=== PATIENT | male | born 1960 | race Caucasian/White ===

== ENCOUNTER 2022-04-23 12:54 | Inpatient (IN) ==
[2022-04-23 14:04] LABS: Basophils # (auto) 0.06 K/uL (0-0.2); Basophils % (auto) 1.7 %; Eosinophils # (auto) 0.02 K/uL (0-0.50); Eosinophils % (auto) 0.6 %; Hematocrit (blood only) 28.3 % (42.0-52.0); Hemoglobin 9.7 g/dl (14.0-18.0); Immature Granulocytes # (auto) 0.01 K/uL (0.01-0.20); Immature Granulocytes % (auto) 0.3 %; Lymphocytes # (auto) 0.75 K/uL (1.2-3.4); Lymphocytes % (auto) 21.4 %; Mean Corpuscular Hgb Conc 34.3 g/dL (32.0-36.0); Mean Corpuscular Volume 102.2 fL (80.0-100.0); Mean Platelet Volume 10.6 fL (9.4-12.4); Monocytes % (auto) 5.7 %; Neutrophils # (auto) 2.47 K/uL (1.40-6.50); Neutrophils % (auto) 70.3 %; Platelet Count 151 K/uL (130-400); RDW Coefficient of Variation 15.4 % (11.5-14.5); RDW Standard Deviation 58.4 fL (36.4-46.3); Red Blood Count 2.77 M/uL (4.70-6.10); White Blood Count 3.51 K/ul (4.8-10.8)
[2022-04-23 14:08] LABS: Albumin Globulin Ratio 0.6 (0.9-2); BUN Creatinine Ratio 2.1 (10-20); Bilirubin,Total 1.3 mg/dl (0.2-1.0); Calcium 8.6 mg/dl (8.5-10.1); Creatinine Clr Calc Pharmacy 16.2 ml/min; Est GFR (African American) 11.7 ml/min; Est GFR (Non-African American) 10.1 ml/min; Globulin 4.9 gm/dl (2.5-4.0); Potassium 3.8 mmol/L (3.5-5.1); Total Protein 7.9 gm/dl (6.0-8.3)
[2022-04-23 14:13] LABS: Troponin I High Sensitivity 13.3 pg/ml (0-20)
--- NOTE | 2022-04-23 15:26 | Emergency Department Note ---
Impression & Plan ESRD on dialysis, Hypertension, Weakness, Anemia, Hip pain ED Provider Note NAME: KYLER BOONE AGE: 61 SEX: M : 1960 ARRIVES VIA: Walk-In INFORMANT: Patient, ED PROVIDER(S): Bret Mccarthy DO CHIEF COMPLAINT: Generalized weakness HPI: The patient is a 61-year-old male who presented to the emergency department for an evaluation of generalized weakness. The patient has a history of end- stage renal disease. He has been on dialysis for the last 3 years. He was in dialysis yesterday when he became very weak and his blood pressure dropped. He was told to go to the emergency department but unfortunately patient cannot go to the emergency department until today. His blood pressure is no longer low. He denies having any fever or vomiting. He denies having any chest pain or difficulty breathing but does complain of leg swelling as well as hip pain. He denies having any trauma. He denies having any recent visits to his family doctor. He recently moved to our area and has never been in our facility before. ROS: See above HPI for pertinent positives & negatives. A total of 10 systems reviewed and were otherwise negative. PAST MEDICAL HISTORY: See Below PAST SURGICAL HISTORY: See Below FAMILY HISTORY: See Below SOCIAL HISTORY: See Below HOME MEDICATIONS: See Below ALLERGIES: See Below VITALS: See Below PHYSICAL EXAMINATION: GENERAL: Patient is awake alert in no acute distress patient is resting comfortably and showing no signs of anxiety EYES: The conjunctivae are clear. The pupils are round and reactive. EARS, NOSE, MOUTH AND THROAT: The nose is without any evidence of any deformity. Mucous membranes are moist. Tongue is midline. NECK: The neck is nontender and supple. RESPIRATORY: Diminished breath sounds are noted at the bases. There is no tachypnea or conversational dyspnea. CARDIOVASCULAR: Regular rate and rhythm noted there no murmurs rubs or gallops normal S1 normal S2. GASTROINTESTINAL: The abdomen is soft. Abdomen is nontender. MUSCULOSKELETAL/EXTREMITIES: There is no evidence of gross deformity full range of motion is noted in the hips and shoulders. SKIN: Pedal edema was noted bilaterally. Skin was warm and dry. There is no obvious evidence of any rash. There are no petechiae, pallor or cyanosis noted. NEUROLOGIC: Patient is awake alert and oriented x3. There is no facial droop. Speech was clear. The patient was able to hold each leg off the bed for greater than 5 seconds. MEDICAL DECISION MAKING: The patient is a 61-year-old male who has a history of end-stage renal disease who presented to the emergency department for low blood pressure. Reportedly the patient had low blood pressure while he was at dialysis yesterday. He was advised to go to the emergency department but he did not go to the emergency department until today. The patient has been feeling weak. He had lower extremity swelling and also complained of left hip pain which had been ongoing for quite some time. The patient's history of renal disease made some work-up limited but because of the hypotension a septic work-up was undertaken. He was found to have an elevation in his lactate. He was not given a fluid bolus because of his history of end-stage renal disease. I discussed the patient's laboratory and radiographic studies with him. I do not feel that there was any fluid around the hip based on the CT I do not feel this is workforce services representative of a septic joint. I discussed the patient's condition with the on-call [facility] hospitalist. Given his findings as well as his presentation I am unsure if the patient is stable for an outpatient follow-up at this time. Triage Nursing notes reviewed. Prior medical records reviewed Vital Signs: reviewed and remarkable for elevated blood pressure. Differential diagnosis: Infection, dehydration, metabolic abnormality, hypo/hyperglycemia, electrolyte disturbance, anemia, hypoxia, cardiac sources, intracerebral event, toxicologic, neurologic, as well as other pathologies. ER treatment provided: See below Diagnostics interpreted by me: ECG: EKG was obtained in the emergency department. My interpretation is sinus rhythm at 82 bpm. PVCs were noted. Nonspecific ST segment depressions were noted. No previous EKG was available for comparison. Cardiac Monitoring: An order was placed for continuous cardiac monitoring. The monitor shows a rate of 74 bpm with sinus rhythm. Laboratory studies: As stated above and show below. Imaging studies: See below. Radiographic imaging was reviewed by myself Consultation(s): I discussed this case with Trisha gómez who is on-call for the [facility]. Past Med/Surg History Medical History Dialysis patient End stage renal disease Hypertension Paroxysmal A-fib s/p cardioversion, no further reoccurrence PUD (peptic ulcer disease) Surgical History No significant past surgical history Social History Smoking Status: Never smoker Tobacco Type: Smokeless Tobacco (Dip or Chew) Hx Alcohol Use: Yes Feels Safe at Home: Yes Allergies Allergies Allergy/AdvReac Type Severity Reaction Status Date / Time Iv contrast dye AdvReac contraindicated Uncoded 04/23/22 18:40 for dialysis Home Meds Home Medications Medication Instructions Recorded Confirmed alprazolam 0.5 mg tablet 0.5 mg PO TID PRN Anxiety 04/23/22 04/23/22 amlodipine 5 mg tablet 5 mg PO DAILY 04/23/22 04/23/22 buprenorphine 8 mg-naloxone 2 mg 1 film sublingual DIRECTED PRN 04/23/22 04/23/22 sublingual film .. clonidine HCl 0.1 mg tablet 0.1 mg PO BID 04/23/22 04/23/22 lidocaine-prilocaine 2.5 %-2.5 % 1 applic topical DIRECTED 04/23/22 04/23/22 topical cream pantoprazole 40 mg tablet,delayed 40 mg PO BID 04/23/22 04/23/22 release sertraline 50 mg tablet 100 mg PO DAILY 04/23/22 04/23/22 thiamine HCl (vitamin B1) 100 mg 100 mg PO DAILY 04/23/22 04/23/22 tablet (Vitamin B-1) vitamin B complex and vitamin C 1 cap PO DAILY 04/23/22 04/23/22 no.20-folic acid 1 mg capsule (Lul Caps) zolpidem 5 mg tablet 5 mg PO HS PRN Insomnia 04/23/22 04/23/22 Results & Data (ED) Vital Signs Vital Signs - 24 hr 04/23/22 13:06 04/23/22 15:00 04/23/22 15:00 Temperature 36.0 C L Temperature Source Skin Pulse Rate 82 84 Pulse Rate [Apical] 90 Pulse Rhythm Pulse Rhythm [Apical] Regular Pulse Strength [Apical] Normal Respiratory Rate 20 18 18 Respiratory Effort / Characteristics Non-Labored Spontaneous Non-Labored Spontaneous Respiratory Depth Normal Normal Respiratory Pattern Regular Blood Pressure 125/78 Blood Pressure [Left Arm] 204/96 H Blood Pressure Mean 93 Blood Pressure Mean [Left Arm] 132 Blood Pressure Position [Left Arm] Sitting Pulse Oximetry 100 100 99 Oxygen Delivery Method Room Air Room Air Sepsis Recent Fever Within 48 Hours No Sepsis New/Unexplained Change in Mental Status N/A Sepsis Action Taken by Nursing No Action Required 04/23/22 15:00 04/23/22 15:04 04/23/22 15:49 Temperature Temperature Source Pulse Rate 89 79 Pulse Rate [Apical] 82 Pulse Rhythm Regular Pulse Rhythm [Apical] Regular Pulse Strength [Apical] Normal Respiratory Rate 18 18 Respiratory Effort / Characteristics Non-Labored Spontaneous Respiratory Depth Normal Respiratory Pattern Regular Blood Pressure Blood Pressure [Left Arm] 204/96 H Blood Pressure Mean Blood Pressure Mean [Left Arm] 132 Blood Pressure Position [Left Arm] Pulse Oximetry 100 100 Oxygen Delivery Method Room Air Room Air Sepsis Recent Fever Within 48 Hours Sepsis New/Unexplained Change in Mental Status Sepsis Action Taken by Nursing 04/23/22 16:34 04/23/22 18:30 04/23/22 19:00 Temperature Temperature Source Pulse Rate Pulse Rate [Apical] 89 80 80 Pulse Rhythm Pulse Rhythm [Apical] Regular Regular Regular Pulse Strength [Apical] Normal Normal Normal Respiratory Rate 19 18 18 Respiratory Effort / Characteristics Non-Labored Spontaneous Non-Labored Spontaneous Non-Labored Spontaneous Respiratory Depth Normal Normal Normal Respiratory Pattern Regular Regular Regular Blood Pressure Blood Pressure [Left Arm] 153/74 H 154/76 H 138/82 Blood Pressure Mean Blood Pressure Mean [Left Arm] 100 102 100 Blood Pressure Position [Left Arm] Sitting Sitting Pulse Oximetry 99 100 97 Oxygen Delivery Method Room Air Room Air Room Air Sepsis Recent Fever Within 48 Hours Sepsis New/Unexplained Change in Mental Status Sepsis Action Taken by Nursing 04/23/22 20:14 04/23/22 20:00 04/23/22 20:30 Temperature Temperature Source Pulse Rate 77 Pulse Rate [Apical] 75 74 Pulse Rhythm Pulse Rhythm [Apical] Regular Regular Pulse Strength [Apical] Normal Normal Respiratory Rate 20 20 Respiratory Effort / Characteristics Non-Labored Spontaneous Non-Labored Spontaneous Respiratory Depth Normal Normal Respiratory Pattern Regular Blood Pressure Blood Pressure [Left Arm] 123/65 130/78 Blood Pressure Mean Blood Pressure Mean [Left Arm] 84 95 Blood Pressure Position [Left Arm] Sitting Sitting Pulse Oximetry 95 96 Oxygen Delivery Method Room Air Room Air Sepsis Recent Fever Within 48 Hours Sepsis New/Unexplained Change in Mental Status Sepsis Action Taken by Alf Medications Current Medication List: was personally reviewed by tx Laboratory Data Attestation: I reviewed the patient's lab results. 04/23/22 13:19 04/23/22 13:19 Lab Results 04/23/22 04/23/22 04/23/22 Range/Units 13:19 13:19 15:27 WBC 3.51 L (4.8-10.8) K/ul RBC 2.77 L (4.70-6.10) M/uL Hgb 9.7 L (14.0-18.0) g/dl Hct 28.3 L (42.0-52.0) % MCV 102.2 H (80.0-100.0) fL MCH 35.0 H (25.0-34.0) pg MCHC 34.3 (32.0-36.0) g/dL RDW Std Deviation 58.4 H (36.4-46.3) fL RDW Coeff of Valerie 15.4 H (11.5-14.5) % Plt Count 151 (130-400) K/uL MPV 10.6 (9.4-12.4) fL Immature Gran % (Auto) 0.3 % Neut % (Auto) 70.3 % Lymph % (Auto) 21.4 % [place] % (Auto) 5.7 % Eos % (Auto) 0.6 % Baso % (Auto) 1.7 % Neut # (Auto) 2.47 (1.40-6.50) K/uL Lymph # (Auto) 0.75 L (1.2-3.4) K/uL [place] # (Auto) 0.20 (0.11-0.59) K/uL Eos # (Auto) 0.02 (0-0.50) K/uL Baso # (Auto) 0.06 (0-0.2) K/uL Immature Gran # (Auto) 0.01 (0.01-0.20) K/uL ESR (0-20) mm/hr PT 11.5 (9.0-12.0) Seconds INR 1.1 (0.9-1.1) APTT 25.6 (21.0-31.0) Seconds PTT Ratio 0.9 Sodium 132 L (136-145) mmol/L Potassium 3.8 (3.5-5.1) mmol/L Chloride 91 L (98-107) mmol/L Carbon Dioxide 28 (21-32) mmol/L Anion Gap 13 H (3-11) BUN 12 (6-23) mg/dl Creatinine 5.65 H* (0.6-1.4) mg/dl Est Cr Clr Drug Dosing 16.2 ml/min Est GFR ( Amer) 11.7 ml/min Est GFR (Non-Af Amer) 10.1 ml/min BUN/Creatinine Ratio 2.1 L (10-20) Glucose 95 (70-99(Fasting)) mg/dl Lactate (0.4-2.0) mmol/L Calcium 8.6 (8.5-10.1) mg/dl Magnesium (1.7-2.4) mg/dl Total Bilirubin 1.3 H (0.2-1.0) mg/dl AST 73 H (13-39) U/L ALT 25 (7-52) U/L Alkaline Phosphatase 233 H (34-104) U/L Troponin I High Sens 13.3 (0-20) pg/ml C-Reactive Protein (0-0.5) mg/dl Total Protein 7.9 (6.0-8.3) gm/dl Albumin 3.0 L (3.4-5.0) gm/dl Globulin 4.9 H (2.5-4.0) gm/dl Albumin/Globulin Ratio 0.6 L (0.9-2) Procalcitonin (0-0.5) ng/ml SARS-CoV-2, RNA, NAAT (NEGATIVE) 04/23/22 04/23/22 04/23/22 Range/Units 15:27 15:27 15:27 WBC (4.8-10.8) K/ul RBC (4.70-6.10) M/uL Hgb (14.0-18.0) g/dl Hct (42.0-52.0) % MCV (80.0-100.0) fL MCH (25.0-34.0) pg MCHC (32.0-36.0) g/dL RDW Std Deviation (36.4-46.3) fL RDW Coeff of Valerie (11.5-14.5) % Plt Count (130-400) K/uL MPV (9.4-12.4) fL Immature Gran % (Auto) % Neut % (Auto) % Lymph % (Auto) % [place] % (Auto) % Eos % (Auto) % Baso % (Auto) % Neut # (Auto) (1.40-6.50) K/uL Lymph # (Auto) (1.2-3.4) K/uL [place] # (Auto) (0.11-0.59) K/uL Eos # (Auto) (0-0.50) K/uL Baso # (Auto) (0-0.2) K/uL Immature Gran # (Auto) (0.01-0.20) K/uL ESR (0-20) mm/hr PT (9.0-12.0) Seconds INR (0.9-1.1) APTT (21.0-31.0) Seconds PTT Ratio Sodium (136-145) mmol/L Potassium (3.5-5.1) mmol/L Chloride (98-107) mmol/L Carbon Dioxide (21-32) mmol/L Anion Gap (3-11) BUN (6-23) mg/dl Creatinine (0.6-1.4) mg/dl Est Cr Clr Drug Dosing ml/min Est GFR ( Amer) ml/min Est GFR (Non-Af Amer) ml/min BUN/Creatinine Ratio (10-20) Glucose (70-99(Fasting)) mg/dl Lactate 2.9 H* (0.4-2.0) mmol/L Calcium (8.5-10.1) mg/dl Magnesium 1.6 L (1.7-2.4) mg/dl Total Bilirubin (0.2-1.0) mg/dl AST (13-39) U/L ALT (7-52) U/L Alkaline Phosphatase (34-104) U/L Troponin I High Sens 12.3 (0-20) pg/ml C-Reactive Protein (0-0.5) mg/dl Total Protein (6.0-8.3) gm/dl Albumin (3.4-5.0) gm/dl Globulin (2.5-4.0) gm/dl Albumin/Globulin Ratio (0.9-2) Procalcitonin 1.20 H (0-0.5) ng/ml SARS-CoV-2, RNA, NAAT (NEGATIVE) 04/23/22 04/23/22 04/23/22 Range/Units 15:27 15:27 17:08 WBC (4.8-10.8) K/ul RBC (4.70-6.10) M/uL Hgb (14.0-18.0) g/dl Hct (42.0-52.0) % MCV (80.0-100.0) fL MCH (25.0-34.0) pg MCHC (32.0-36.0) g/dL RDW Std Deviation (36.4-46.3) fL RDW Coeff of Valerie (11.5-14.5) % Plt Count (130-400) K/uL MPV (9.4-12.4) fL Immature Gran % (Auto) % Neut % (Auto) % Lymph % (Auto) % [place] % (Auto) % Eos % (Auto) % Baso % (Auto) % Neut # (Auto) (1.40-6.50) K/uL Lymph # (Auto) (1.2-3.4) K/uL [place] # (Auto) (0.11-0.59) K/uL Eos # (Auto) (0-0.50) K/uL Baso # (Auto) (0-0.2) K/uL Immature Gran # (Auto) (0.01-0.20) K/uL ESR 62 H (0-20) mm/hr PT (9.0-12.0) Seconds INR (0.9-1.1) APTT (21.0-31.0) Seconds PTT Ratio Sodium (136-145) mmol/L Potassium (3.5-5.1) mmol/L Chloride (98-107) mmol/L Carbon Dioxide (21-32) mmol/L Anion Gap (3-11) BUN (6-23) mg/dl Creatinine (0.6-1.4) mg/dl Est Cr Clr Drug Dosing ml/min Est GFR ( Amer) ml/min Est GFR (Non-Af Amer) ml/min BUN/Creatinine Ratio (10-20) Glucose (70-99(Fasting)) mg/dl Lactate (0.4-2.0) mmol/L Calcium (8.5-10.1) mg/dl Magnesium (1.7-2.4) mg/dl Total Bilirubin (0.2-1.0) mg/dl AST (13-39) U/L ALT (7-52) U/L Alkaline Phosphatase (34-104) U/L Troponin I High Sens (0-20) pg/ml C-Reactive Protein < 0.50 (0-0.5) mg/dl Total Protein (6.0-8.3) gm/dl Albumin (3.4-5.0) gm/dl Globulin (2.5-4.0) gm/dl Albumin/Globulin Ratio (0.9-2) Procalcitonin (0-0.5) ng/ml SARS-CoV-2, RNA, NAAT NEGATIVE (NEGATIVE) 04/23/22 Range/Units 17:45 WBC (4.8-10.8) K/ul RBC (4.70-6.10) M/uL Hgb (14.0-18.0) g/dl Hct (42.0-52.0) % MCV (80.0-100.0) fL MCH (25.0-34.0) pg MCHC (32.0-36.0) g/dL RDW Std Deviation (36.4-46.3) fL RDW Coeff of Valerie (11.5-14.5) % Plt Count (130-400) K/uL MPV (9.4-12.4) fL Immature Gran % (Auto) % Neut % (Auto) % Lymph % (Auto) % [place] % (Auto) % Eos % (Auto) % Baso % (Auto) % Neut # (Auto) (1.40-6.50) K/uL Lymph # (Auto) (1.2-3.4) K/uL [place] # (Auto) (0.11-0.59) K/uL Eos # (Auto) (0-0.50) K/uL Baso # (Auto) (0-0.2) K/uL Immature Gran # (Auto) (0.01-0.20) K/uL ESR (0-20) mm/hr PT (9.0-12.0) Seconds INR (0.9-1.1) APTT (21.0-31.0) Seconds PTT Ratio Sodium (136-145) mmol/L Potassium (3.5-5.1) mmol/L Chloride (98-107) mmol/L Carbon Dioxide (21-32) mmol/L Anion Gap (3-11) BUN (6-23) mg/dl Creatinine (0.6-1.4) mg/dl Est Cr Clr Drug Dosing ml/min Est GFR ( Amer) ml/min Est GFR (Non-Af Amer) ml/min BUN/Creatinine Ratio (10-20) Glucose (70-99(Fasting)) mg/dl Lactate 1.6 (0.4-2.0) mmol/L Calcium (8.5-10.1) mg/dl Magnesium (1.7-2.4) mg/dl Total Bilirubin (0.2-1.0) mg/dl AST (13-39) U/L ALT (7-52) U/L Alkaline Phosphatase (34-104) U/L Troponin I High Sens (0-20) pg/ml C-Reactive Protein (0-0.5) mg/dl Total Protein (6.0-8.3) gm/dl Albumin (3.4-5.0) gm/dl Globulin (2.5-4.0) gm/dl Albumin/Globulin Ratio (0.9-2) Procalcitonin (0-0.5) ng/ml SARS-CoV-2, RNA, NAAT (NEGATIVE) Administered Medications Discontinued Medications Ceftriaxone Sodium (Rocephin) 2,000 mg in 70 mls @ 140 mls/hr IV NOW STA Stop: 04/23/22 17:35 Last Infusion: 04/23/22 18:20 Dose: 0 mls/hr Documented By: Admin: 04/23/22 17:39 Dose: 140 mls/hr Documented By: LONI Vancomycin HCl 2,000 mg/ (Sodium Chloride) 540 mls @ 200 mls/hr IV NOW ONE Stop: 04/23/22 19:47 Last Admin: 04/23/22 18:25 Dose: 200 mls/hr Documented By: LONI Sodium Chloride (Nss 1000ml) 500 mls @ 999 mls/hr IV .Q31M ONE Stop: 04/23/22 17:38 Last Infusion: 04/23/22 20:06 Dose: 0 mls/hr Documented By: Admin: 04/23/22 17:39 Dose: 999 mls/hr Documented By: LONI Magnesium Sulfate/Dextrose (Magnesium Sulfate / D5w) 1 gm in 100 mls @ 50 mls/hr IV ONE ONE Stop: 04/23/22 20:41 Last Admin: 04/23/22 19:56 Dose: 50 mls/hr Documented By: LONI Imaging Data Attestation: I personally reviewed and interpreted this imaging study as follows: My Impression: 1 view chest x-ray was obtained in the emergency department. My interpretation is no definite infiltrate, no free air, formal report below Radiologist's Impression: Chest X-Ray 04/23/22 13:10 XR chest 1V not portable HISTORY: weakness COMPARISON: None. FINDINGS: No pneumothorax. No pleural effusions. The lungs are clear. The heart is normal in size. Right subclavian stent is noted. Old, healed left anterior rib fractures. IMPRESSION: No acute process. ACT 112: Negative or not required by law. Electronically signed by: Jason Knapp M.D. 04/23/2022 3:[address] 04/23/22 15:[address] DOSE: 764.83 mGy.cm HISTORY: Left hip pain TECHNIQUE: Multiaxial CT images of the left hip were performed and reformatted in the sagittal and coronal plane without the use of contrast. A dose lowering technique was utilized adhering to the principles of ALARA. COMPARISON: None. FINDINGS: No fracture or dislocation within the left hip. The visualized pelvic bones are intact. There is mild cartilage space narrowing and small marginal osteophytes at the left hip consistent with degenerative change. No significant hip effusion. No soft tissue hematoma or significant soft tissue swelling. Vascular calcifications are noted. IMPRESSION: 1. Mild left hip osteoarthritis. 2. No fracture or dislocation. ACT 112: Negative or not required by law. Electronically signed by: Jason Knapp M.D. 04/23/2022 4:42 PM Liver Ultrasound 04/23/22 18:42 US liver CLINICAL HISTORY: elevated LFTs COMPARISON STUDY: No previous studies for comparison. FINDINGS: Hepatic echogenicity is significantly increased. No hepatic lesions are identified although this exam is compromised by suboptimal penetration. There is no biliary ductal dilatation. Sludge within the gallbladder is noted. No gallstones are identified. There is no gallbladder wall thickening. No sonographic Still sign was elicited. Pancreas is obscured. Right kidney is largely obscured but no definite right hydronephrosis. IMPRESSION: 1. Hepatic steatosis. 2. Sludge within the gallbladder. No gallstones. No evidence for acute cholecystitis. 3. No definite biliary ductal dilatation. 4. Exam significantly compromised by suboptimal penetration. Obscured pancreas. ACT 112: Negative or not required by law. Electronically signed by: Jeremy Rosenbaum M.D. 04/23/2022 8:11 PM Discharge Plan Visit Data Chief Complaint: Hypotension Stated Complaint: DIALYSIS PT,HYPOTENSION ED Provider: Bret Mccarthy Discharge Problem: ESRD on dialysis, Hypertension, Weakness, Anemia, Hip pain Patient Disposition: Admitted As Inpatient Discharge Instructions Interventions: ED Discharge Assessment Last Done: 04/23/22 20:51 Forms Stand Alone Forms: [facility] Prescriptions Prescriptions: No Action clonidine HCl 0.1 mg tablet 0.1 mg PO BID amlodipine 5 mg tablet 5 mg PO DAILY lidocaine-prilocaine 2.5-2.5 % cream 1 applic topical DIRECTED Rx Instructions: 1 hr before dialysis alprazolam 0.5 mg tablet 0.5 mg PO TID PRN (Reason: Anxiety) pantoprazole 40 mg tablet,delayed release (DR/EC) 40 mg PO BID zolpidem 5 mg tablet 5 mg PO HS PRN (Reason: Insomnia) buprenorphine-naloxone 8-2 mg film 1 film sublingual DIRECTED PRN (Reason: ..) thiamine HCl (vitamin B1) [Vitamin B-1] 100 mg Tablet 100 mg PO DAILY [place] Caps 1 mg capsule 1 cap PO DAILY sertraline 50 mg tablet 100 mg PO DAILY Referrals Referrals: PCP,NO [Physician] -
--- NOTE | 2022-04-23 16:00 | XRay Report ---
XR chest 1V not portable HISTORY: weakness COMPARISON: None. FINDINGS: No pneumothorax. No pleural effusions. The lungs are clear. The heart is normal in size. Ri ght subclavian stent is noted. Old, healed left anterior rib fractures. IMPRESSION: No acute process. ACT 112: Negative or not required by law. Electronically signed by: Jason Knapp M.D. 04/23/2022 3:57 PM
[2022-04-23 16:05] LABS: Magnesium 1.6 mg/dl (1.7-2.4)
[2022-04-23 16:12] LABS: Troponin I High Sensitivity 12.3 pg/ml (0-20)
[2022-04-23 16:16] LABS: INR 1.1 (0.9-1.1); Partial Thromboplastin Ratio 0.9; Partial Thromboplastin Time 25.6 Seconds (21.0-31.0); Prothrombin Time 11.5 Seconds (9.0-12.0)
--- NOTE | 2022-04-23 16:43 | CT Scan Report ---
LEFT HIP CT CT DOSE: 764.83 mGy.cm HISTORY: Left hip pain TECHNIQUE: Multiaxial CT images of the left hip were performed and reformatted in the sagittal and co wero plane without the use of contrast. A dose lowering technique was utilized adhering to the prin ciples of JOVANA. COMPARISON: None. FINDINGS: No fracture or dislocation within the left hip. The visualized pelvic bones are intact. The re is mild cartilage space narrowing and small marginal osteophytes at the left hip consistent with d egenerative change. No significant hip effusion. No soft tissue hematoma or significant soft tissue s welling. Vascular calcifications are noted. IMPRESSION: 1. Mild left hip osteoarthritis. 2. No fracture or dislocation. ACT 112: Negative or not required by law. Electronically signed by: Jason Knapp M.D. 04/23/2022 4:42 PM
[2022-04-23] MEDS ORDERED: cefTRIAXone SODIUM 2,000 MG/70 ML BAG IV STA (17:06)
[2022-04-23] MEDS ORDERED: VANCOMYCIN HCL 2,000 MG in SODIUM CHLORIDE 0.9% 500 ML IV ONE (17:06)
[2022-04-23] MEDS ORDERED: VANCOMYCIN CONSULT ACTIVE PRN (17:06)
[2022-04-23] MEDS ORDERED: SODIUM CHLORIDE 0.9% 1000ML 500 ML IV ONE (17:08)
[2022-04-23] MEDS ORDERED: MAGNESIUM SULFATE / D5W 1 GM/100 ML BAG IV ONE (18:42)
--- NOTE | 2022-04-23 19:11 | History & Physical Report ---
Date of Service April 23, 2022 Assessment & Plan (1) Weakness: Plan: Admit to [facility] with telemetry Patient presenting by referral of senior process engineer at outpatient dialysis center for hypotension during yesterday's treatment. Patient has been asymptomatic and in the ED he is hypertensive with presenting BP 204/96. Patient mostly has chronic complaints -- worsening generalized weakness and left hip for the past few months and poor appetite more recently. Left hip CT shows mild arthritis. In the ED, labs show WBC 3.5K, ESR 62, CRP < 0.5, procal 1.2, initial lactate 2.9 --> 1.6. While these labs may suggest possible infection, the abnormalities may also be due to ESRD. Patient is afebrile without obvious source of infection. Blood cultures x 1 drawn, patient declined 2nd set due to difficult IV access s/p ceftriaxone and Vanco in the ED, however given lack of obvious infectious source, will monitor off antibiotics Follow blood culture. Patient makes minimal urine so unable to obtain UA. PT/OT (2) Elevated LFTs: Plan: Mild elevation in LFTs, T. bili 1.3, AST 73, ALT 25, alk phos 233 Check RUQ US (3) Anemia: Plan: Hgb 9.7 Macrocytosis noted, will check folate and vitamin B12 with a.m. labs Unknown baseline, PCP records requested Likely anemia of chronic disease in the setting of ESRD. No signs of bleeding. Patient does report a history of a bleeding ulcer about 1 year ago for which she required several blood transfusions. (4) ESRD on dialysis: Plan: Receives dialysis MWF Nephrology consulted for dialysis orders (5) Hypertension: Plan: Reportedly hypotensive during dialysis yesterday however hypertensive on presentation today Continue home doses of amlodipine and clonidine, making adjustments as needed (6) PUD (peptic ulcer disease): Plan: Continue PPI DVT PROPHYLAXIS SCDs due to reported history of bleeding ulcers I spent a total of 75 minutes coordinating, documenting, and providing care for this patient excluding time spent in the performance of separately billed services. This included personally reviewing all current laboratories and imaging studies, medication reconciliation, outpatient chart review, and discussion with specialists. History of Present Illness Chief Complaint: Referred by dialysis for evaluation of hypotension Primary Care Provider: Ammy Lucia 61-year-old male with PMH ESRD on HD MWF, HTN, PUD with bleeding, paroxysmal atrial fibrillation s/p cardioversion without recurrence, no longer anticoagulated, chronic pain on Suboxone therapy, and other problems listed below who presents to the ED by referral of outpatient dialysis center for evaluation of hypotension. History obtained from the patient. Patient reports that he just moved to the area about 3 months ago. He was at dialysis yesterday and was noted to have low blood pressure. Patient was asymptomatic. Glass Rolling Machine Operator advised the patient go to the ER for further evaluation however patient declined yesterday and decided to come today. Patient reports he has had progressive generalized weakness over the past several months. He has had a couple of falls over the past 2 weeks. He reports chronic left hip pain. Over the past few weeks, patient reports a poor appetite. Denies abdominal pain, nausea, vomiting, diarrhea. No significant weight loss or weight gain. Patient denies fevers and chills. He makes minimal urine. No chest pain or shortness of breath. Denies lightheadedness, dizziness, diaphoresis, syncopal events. Upon arrival to the ED, patient was hypertensive at 204/96, this is self improving. Labs show WBC 3.5, Hgb 9.7, initial lactate 2.9 with repeat 1.6, CRP <0.5, procalcitonin 1.2, ESR 62, creatinine 5.6, T. bili 1.3, AST 73, alk phos 233. CXR unremarkable. Left hip CT unremarkable. Patient was given IV ceftriaxone, IV Vanco, IVF. Allergies Allergy/AdvReac Type Severity Reaction Status Date / Time Iv contrast dye AdvReac contraindicated Uncoded 04/23/22 18:40 for dialysis Home Medications Medication Instructions Recorded Confirmed Type alprazolam 0.5 mg tablet 0.5 mg PO TID PRN Anxiety 04/23/22 04/23/22 History amlodipine 5 mg tablet 5 mg PO DAILY 04/23/22 04/23/22 History buprenorphine 8 mg-naloxone 2 mg 1 film sublingual DIRECTED PRN 04/23/22 04/23/22 History sublingual film .. clonidine HCl 0.1 mg tablet 0.1 mg PO BID 04/23/22 04/23/22 History lidocaine-prilocaine 2.5 %-2.5 % 1 applic topical DIRECTED 04/23/22 04/23/22 History topical cream pantoprazole 40 mg tablet,delayed 40 mg PO BID 04/23/22 04/23/22 History release sertraline 50 mg tablet 100 mg PO DAILY 04/23/22 04/23/22 History thiamine HCl (vitamin B1) 100 mg 100 mg PO DAILY 04/23/22 04/23/22 History tablet (Vitamin B-1) vitamin B complex and vitamin C 1 cap PO DAILY 04/23/22 04/23/22 History no.20-folic acid 1 mg capsule (Lul Caps) zolpidem 5 mg tablet 5 mg PO HS PRN Insomnia 04/23/22 04/23/22 History Past Med/Surg History Medical History Dialysis patient End stage renal disease Hypertension Paroxysmal A-fib s/p cardioversion, no further reoccurrence PUD (peptic ulcer disease) Surgical History No significant past surgical history Social History Smoking Status: Never smoker Tobacco Type: Smokeless Tobacco (Dip or Chew) Second Hand Exposure: No; Do You Dip or Chew Tobacco: Yes; Hx Alcohol Use: Yes Alcohol type: hard liquor Hx Substance Use: Yes Preferred Language: Albanian Communication Ability: Effective Underwriter Mortgage Loan Required: No Beliefs That Will Affect Care: None Current Living Situation: Spouse Other Information That Helps Us Care for You: No Feels Safe at Home: Yes Safety Concerns: Feels Safe At This Time Assistive Devices: Cane and Glasses Review of Systems Review of Systems: ROS per HPI, all other systems reviewed and negative Physical Exam Constitutional: WD/WN, vitals as above Eyes: PERRL, conjunctivae normal, anicteric sclerae ENMT: external ear and nose normal, oropharynx normal Respiratory: normal respiratory effort, lungs clear to auscultation Cardiovascular: Rate/Rhythm: regular rate and regular rhythm Vessels: normal peripheral pulses Extremities: + edema (+2 edema BLE) Gastrointestinal (Abdomen): normal bowel sounds, soft, nontender, no hepatosplenomegaly Musculoskeletal: no cyanosis or clubbing, extremities motor strength 5/5 Skin: no rashes, warm and dry Neurologic: PERRL, EOMI, accommodation nl, no face palsy, no dysarthria Psychiatric: A+Ox3, euthymic affect Results & Data Results & Data Vital Signs (Past 12 Hours) Vital Signs Temp Pulse Pulse Resp BP BP Pulse Ox 04/23/22 18:30 80 18 154/76 H 100 04/23/22 16:34 89 19 153/74 H 99 04/23/22 15:49 79 04/23/22 15:04 82 18 204/96 H 100 04/23/22 15:00 89 18 100 04/23/22 15:00 90 18 204/96 H 99 04/23/22 15:00 84 18 100 04/23/22 13:06 36.0 C L 82 20 125/78 100 O2 Del Method 04/23/22 18:30 Room Air 04/23/22 16:34 Room Air 04/23/22 15:49 04/23/22 15:04 Room Air 04/23/22 15:00 Room Air 04/23/22 15:00 04/23/22 15:00 Room Air 04/23/22 13:06 Room Air Laboratory Results Short CBC 04/23/22 Range/Units 13:19 WBC 3.51 L (4.8-10.8) K/ul Hgb 9.7 L (14.0-18.0) g/dl Hct 28.3 L (42.0-52.0) % Plt Count 151 (130-400) K/uL BMP 04/23/22 13:19 Sodium 132 L Potassium 3.8 Chloride 91 L Carbon Dioxide 28 BUN 12 Creatinine 5.65 H* Glucose 95 Calcium 8.6 Liver Function 04/23/22 Range/Units 13:19 Total Bilirubin 1.3 H (0.2-1.0) mg/dl AST 73 H (13-39) U/L ALT 25 (7-52) U/L Alkaline Phosphatase 233 H (34-104) U/L Albumin 3.0 L (3.4-5.0) gm/dl Diagnostic Findings Chest X-Ray 04/23/22 13:10 XR chest 1V not portable HISTORY: weakness COMPARISON: None. FINDINGS: No pneumothorax. No pleural effusions. The lungs are clear. The heart is normal in size. Right subclavian stent is noted. Old, healed left anterior rib fractures. IMPRESSION: No acute process. ACT 112: Negative or not required by law. Electronically signed by: Jason Knapp M.D. 04/23/2022 3:[address] 04/23/22 15:[address] DOSE: 764.83 mGy.cm HISTORY: Left hip pain TECHNIQUE: Multiaxial CT images of the left hip were performed and reformatted in the sagittal and coronal plane without the use of contrast. A dose lowering technique was utilized adhering to the principles of ALARA. COMPARISON: None. FINDINGS: No fracture or dislocation within the left hip. The visualized pelvic bones are intact. There is mild cartilage space narrowing and small marginal osteophytes at the left hip consistent with degenerative change. No significant hip effusion. No soft tissue hematoma or significant soft tissue swelling. Vascular calcifications are noted. IMPRESSION: 1. Mild left hip osteoarthritis. 2. No fracture or dislocation. ACT 112: Negative or not required by law. Electronically signed by: Jason Knapp M.D. 04/23/2022 4:42 PM Code Status & VTE Plan VTE Prophylaxis Plan VTE Prophylaxis will be ordered: Yes Supervising Physician Co-Signing Physician Notes Patient is a 61-year-old male with history of end-stage renal disease on hemodialysis, paroxysmal atrial fibrillation currently not on anticoagulation, Suboxone therapy and other medical problems presents for evaluation of hypotension. Patient was found to be hypotensive yesterday after the dialysis and was advised to go to ED for further evaluation but patient apparently presents to ED today for further evaluation. Patient states that his blood pressure medications were advised to be continued prior to dialysis as well by his current senior process engineer while his prior senior process engineer always recommended him to hold antihypertensives on days of dialysis. Patient also states having chronic hip pain which is unchanged. Please review HPI for complete details of presentation. He was found to have hypertensive urgency while in ED which later improved. Blood work suggestive WBC 3.5, hemoglobin 9.7, MCV 102, ESR 62, CRP normal, sodium 132, chloride 91, creatinine 5.6, lactate 2.9, rechecked 1.6, magnesium 1.6, procalcitonin 1.2. CT hip did not show any acute fractures, showed findings suggestive of arthritis. Chest x-ray showed no acute findings. EKG showed normal sinus rhythm, PACs, QTc 497. On exam patient is moderately built and nourished, no apparent distress, chronic ill-appearing, normocephalic atraumatic, EOMI, normal breath sounds, clear to auscultation, S1-S2,+ murmur,+ pedal edema, abdomen soft, nontender, normal bowel sounds, alert, awake, oriented, grossly no focal deficits. Patient is admitted for management of generalized weakness, hypertensive urgency and possible infectious source. Blood pressure improved while in ED. Will resume home antihypertensives. We will adjust medications as needed. No obvious source of infection noted. Currently will hold off on any antibiotics. Consulted nephrology to help with dialysis. I personally reviewed the record. Patient is interviewed and examined at bedside. Patient's care is coordinated with Trisha Brown CORPORATE DEVELOPMENT ANALYST. Please refer to the documentation above for details of patient's presentation and for discussion of other issues.
--- NOTE | 2022-04-23 20:12 | Ultrasound Report ---
US liver CLINICAL HISTORY: elevated LFTs COMPARISON STUDY: No previous studies for comparison. FINDINGS: Hepatic echogenicity is significantly increased. No hepatic lesions are identified although this exam is compromised by suboptimal penetration. There is no biliary ductal dilatation. Sludge wi thin the gallbladder is noted. No gallstones are identified. There is no gallbladder wall thickening. No sonographic Still sign was elicited. Pancreas is obscured. Right kidney is largely obscured but no definite right hydronephrosis. IMPRESSION: 1. Hepatic steatosis. 2. Sludge within the gallbladder. No gallstones. No evidence for acute cholecystitis. 3. No definite biliary ductal dilatation. 4. Exam significantly compromised by suboptimal penetration. Obscured pancreas. ACT 112: Negative or not required by law. Electronically signed by: Jeremy Rosenbaum M.D. 04/23/2022 8:11 PM
[2022-04-23] MEDS ORDERED: ACETAMINOPHEN 325 MG TAB PO PRN (21:42)
[2022-04-23] MEDS ORDERED: ZOLPIDEM TARTRATE 5 MG TAB PO STA (22:49)
[2022-04-23] MEDS: PANTOprazole 40 MG TAB PO SCH (23:23)
[2022-04-23] MEDS: cloNIDine HCL 0.1 MG TAB PO SCH (23:23)
[2022-04-23] MEDS: HEPARIN SOD 5,000 UNIT/0.5 ML VIAL SQ SCH (23:24)
[2022-04-24] MEDS: HEPARIN SOD 5,000 UNIT/0.5 ML VIAL SQ SCH ×3 (06:00→21:02)
[2022-04-24] MEDS ORDERED: LIDOCAINE/PRILOCAINE 2.5% EA CRM EXT PRN ×2 (07:53→10:00)
[2022-04-24] MEDS: SERTRALINE HCL 100 MG TABLET PO SCH (08:24)
[2022-04-24] MEDS: PANTOprazole 40 MG TAB PO SCH ×2 (08:24→20:40)
[2022-04-24] MEDS: THIAMINE HCL 100 MG TAB PO SCH (08:24)
[2022-04-24] MEDS: cloNIDine HCL 0.1 MG TAB PO SCH ×2 (08:24→20:40)
[2022-04-24] MEDS: NEPHROCAPS PO SCH (08:24)
[2022-04-24] MEDS: amLODIPine BESYLATE 5 MG TAB PO SCH (08:25)
[2022-04-24] MEDS ORDERED: diphenhydrAMINE Capsule 25 MG CAP PO SCH ×2 (10:00→10:30)
--- NOTE | 2022-04-24 10:00 | Nephrology Consultation ---
Date of Consultation April 24, 2022 Assessment & Plan (1) ESRD on dialysis: on MWF HD > last tx on 04/22 compromised per pt by hypotension. BP/hemodynamics/volume status seem acceptable so far -HD today or tomorrow depending on RN availability for dialysis care >pt requesting IV benadryl 50 mg w/ HD > not appropriate given concerns about hypotension; will give 25 mg po w/ HD w/ hold parameters >he has his own EMLA cream for HD >agree w/ blood culture given ESR 62; no obvious infection currently >> Patient tolerated 3.5 hours of hemodialysis today with 2 L ultrafiltration and maintained systolic blood pressures in the 100s during this procedure; Next hemodialysis on April 27 or as clinical needs dictate He expressed some dissatisfaction with current outpatient dialysis unit. Not sure how workable this would be for him in terms of transportation but he is more than welcome to consider transfer to [facility] as in center with possible consideration of future home dialysis. His current outpatient unit does not offer home dialysis. History of Present Illness Reason for Consultation: ESRD on HD Requesting Physician: Dr Robledo Attending Physician: Korin Velez MD History of Present Illness 61 y/o M whom I'm asked to see for dialysis needs was admitted last evening after his outpatient vault person recommended he have hospital eval for hypotension on dialysis. PMH includes ESRD on Wednesday hemodialysis via AV fistula, hypertension, peptic ulcer disease, paroxysmal atrial fibrillation status post cardioversion, chronic pain on Suboxone therapy, chronic ambulatory dysfunction walks with a cane since December 2021 due to left hip pain. He dialyzes at [facility]. Tells me he is not currently a transplant candidate. States ESRD due to rheumatic fever. Denies shortness of breath, orthopnea, cough, edema. No issues with AV fistula per him. He is anuric at baseline. No recent fevers, chills, rash, change in appetite or weight. Denies nausea vomiting diarrhea abdominal pain. He does endorse left hip pain and chronic challenges with balance with frequent falls. Allergies Allergy/AdvReac Type Severity Reaction Status Date / Time Iv contrast dye AdvReac contraindicated Uncoded 04/23/22 18:40 for dialysis Home Medications Medication Instructions Recorded Confirmed Type alprazolam 0.5 mg tablet 0.5 mg PO TID PRN Anxiety 04/23/22 04/23/22 History amlodipine 5 mg tablet 5 mg PO DAILY 04/23/22 04/23/22 History buprenorphine 8 mg-naloxone 2 mg 1 film sublingual DIRECTED PRN 04/23/22 04/23/22 History sublingual film .. clonidine HCl 0.1 mg tablet 0.1 mg PO BID 04/23/22 04/23/22 History lidocaine-prilocaine 2.5 %-2.5 % 1 applic topical DIRECTED 04/23/22 04/23/22 History topical cream pantoprazole 40 mg tablet,delayed 40 mg PO BID 04/23/22 04/23/22 History release sertraline 50 mg tablet 100 mg PO DAILY 04/23/22 04/23/22 History thiamine HCl (vitamin B1) 100 mg 100 mg PO DAILY 04/23/22 04/23/22 History tablet (Vitamin B-1) vitamin B complex and vitamin C 1 cap PO DAILY 04/23/22 04/23/22 History no.20-folic acid 1 mg capsule ([place] Caps) zolpidem 5 mg tablet 5 mg PO HS PRN Insomnia 04/23/22 04/23/22 History Patient History Medical History (Updated 04/24/22 @ 15:44 by Asha Stout MD, PhD) Ambulatory dysfunction Uses cane since December 2021 Anxiety Dialysis patient End stage renal disease Frequent falls History of chronic pain on suboxone; ? hx of opioid abuse Hypertension Paroxysmal A-fib s/p cardioversion, no further reoccurrence PUD (peptic ulcer disease) Rheumatic fever per patient cause of ESRD Surgical History (Updated 04/24/22 @ 10:01 by Asha Stout MD, PhD) AV fistula Social History Smoking Status: Never smoker Tobacco Type: Smokeless Tobacco (Dip or Chew) Second Hand Exposure: No; Do You Dip or Chew Tobacco: Yes; Hx Alcohol Use: Yes Alcohol type: hard liquor Hx Substance Use: Yes Preferred Language: Monegasque Communication Ability: Effective Instrument Technician Required: No Beliefs That Will Affect Care: None Current Living Situation: Spouse Other Information That Helps Us Care for You: No Feels Safe at Home: Yes Safety Concerns: Feels Safe At This Time Assistive Devices: Cane and Glasses Review of Systems Review of Systems: All systems reviewed & are unremarkable except as noted in HPI & below Physical Exam Constitutional: well developed, well nourished, average body habitus and cooperative; no acute distress Eyes: EOM intact bilaterally ENMT: Ears: no external ear abnormality Nose: no external nose abnormality Mouth: + dry oral mucous membranes Neck: no nuchal rigidity Respiratory: normal respiratory effort Auscultation: + diminished lung sounds Cardiovascular: RRR, no murmur, no edema Gastrointestinal (Abdomen): Inspection/Auscultation: normal bowel sounds Pe rcussion/Palpation: abdomen soft; abdomen nontender Musculoskeletal: Extremities: strength 5/5 throughout Skin: no rashes, warm and dry (Plethoric facies) Neurologic: barfield, fluent speech, no tremor Psychiatric: Orientation: alert and oriented x 3 Speech: normal rate/rhy thm/volume of speech Results & Data Vital Signs (Past 12 Hours) Vital Signs Temp Pulse Pulse Resp BP Pulse Ox O2 Del Method 04/24/22 08:11 36.6 C 66 20 153/90 H 100 Room Air 04/24/22 07:53 Room Air 04/24/22 06:02 67 04/24/22 04:00 36.6 C 69 18 111/65 97 Room Air 04/24/22 00:21 75 04/23/22 22:33 Room Air 04/23/22 21:52 36.6 C 80 18 147/78 H 100 Room Air Laboratory Results 04/23/22 13:19 04/23/22 13:19
[2022-04-24] MEDS ORDERED: SODIUM CHLORIDE 0.9% 1000ML 1,000 ML IV PRN (10:24)
[2022-04-24] MEDS ORDERED: HEPARIN SOD (PORCINE) 1000 UNIT/ML IV ONE (10:24)
[2022-04-24] MEDS ORDERED: EPOETIN ALFA 10,000 UNITS/ML VIAL IV ONE (10:24)
--- NOTE | 2022-04-24 10:29 | Hospitalist Progress Note ---
Date of Service April 24, 2022 Assessment & Plan (1) Weakness: Plan: Patient presented by referral of webmethods architect at outpatient dialysis center for hypotension during yesterday's treatment. In the ED he is hypertensive with presenting BP 204/96. Patient mostly has chronic complaints -- worsening generalized weakness and left hip for the past few months and poor appetite more recently. Left hip CT shows mild arthritis. In the ED, labs show WBC 3.5K, ESR 62, CRP < 0.5, procal 1.2, initial lactate 2.9 --> 1.6. CXR did not show acute abnormalities Got ceftriaxone and Vanco in the ED, No obvious infectious source so far Monitor off antibiotics Follow blood culture. PT/OT (2) Elevated LFTs: Plan: Mild elevation in LFTs, T. bili 1.3, AST 73, ALT 25, alk phos 233 Liver USS noted hepatic steatosis, sludge in gall bladder without evidence of acute cholecystitis. No definite biliary ductal dilatation. (3) Anemia: Plan: Hgb 9.7 on admission Macrocytosis noted, will check folate and vitamin B12 with a.m. labs Unknown baseline Likely anemia of chronic disease in the setting of ESRD. No signs of bleeding. Patient reported on admission a history of a bleeding ulcer about 1 year ago for which he required several blood transfusions. (4) ESRD on dialysis: Plan: Receives dialysis [facility] Nephrology on board for HD (5) Hypertension: Plan: Reportedly hypotensive during dialysis the day prior to presentation However hypertensive on presentation in ER Continue home doses of amlodipine and clonidine Monitor BP (6) PUD (peptic ulcer disease): Plan: Continue PPI DVT PROPHYLAXIS On hep sq I spent a total of 50 minutes coordinating, documenting and providing care for this patient excluding time spent in performance of separately billed services Admission and Anticipated Discharge Date Admission Date: April 23, 2022 Subjective Patient seen and examined Reports fatigue over the past few months. He believes that was since he changed his HD center. Reports exertional dyspnea. Denied shortness of breath at rest, chest pain, cough Reports anorexia. Denied nausea, vomiting, abd pain, diarrhea. Reports a few falls in the past few weeks at home. Uses cane and has a walker at home Denied fever, chills Barely makes any urine per patient Physical Exam Constitutional: + well hydrated and + obese; no acute distress Eyes: PERRL, conjunctivae normal, anicteric sclerae ENMT: external ear and nose normal, oropharynx normal Respiratory: normal respiratory effort, lungs clear to auscultation Cardiovascular: Rate/Rhythm: regular rate and regular rhythm S1 S2 Gastrointestinal (Abdomen): normal bowel sounds, soft, nontender, no hepatosplenomegaly Musculoskeletal: No pedal edema Neurologic: PERRL, EOMI, accommodation nl, no face palsy, no dysarthria Psychiatric: A+Ox3, euthymic affect Results & Data Results & Data Vital Signs (Past 12 Hours) Vital Signs Temp Pulse Pulse Resp BP Pulse Ox O2 Del Method 04/24/22 08:11 36.6 C 66 20 153/90 H 100 Room Air 04/24/22 07:53 Room Air 04/24/22 06:02 67 04/24/22 04:00 36.6 C 69 18 111/65 97 Room Air 04/24/22 00:21 75 04/23/22 22:33 Room Air Laboratory Results Abnormal lab results 04/23/22 04/23/22 04/23/22 Range/Units 13:19 13:19 15:27 WBC 3.51 L (4.8-10.8) K/ul RBC 2.77 L (4.70-6.10) M/uL Hgb 9.7 L (14.0-18.0) g/dl Hct 28.3 L (42.0-52.0) % MCV 102.2 H (80.0-100.0) fL MCH 35.0 H (25.0-34.0) pg RDW Std Deviation 58.4 H (36.4-46.3) fL RDW Coeff of Valerie 15.4 H (11.5-14.5) % Lymph # (Auto) 0.75 L (1.2-3.4) K/uL ESR (0-20) mm/hr Sodium 132 L (136-145) mmol/L Chloride 91 L (98-107) mmol/L Anion Gap 13 H (3-11) Creatinine 5.65 H* (0.6-1.4) mg/dl BUN/Creatinine Ratio 2.1 L (10-20) Lactate 2.9 H* (0.4-2.0) mmol/L Magnesium (1.7-2.4) mg/dl Total Bilirubin 1.3 H (0.2-1.0) mg/dl AST 73 H (13-39) U/L Alkaline Phosphatase 233 H (34-104) U/L Albumin 3.0 L (3.4-5.0) gm/dl Globulin 4.9 H (2.5-4.0) gm/dl Albumin/Globulin Ratio 0.6 L (0.9-2) Procalcitonin (0-0.5) ng/ml 04/23/22 04/23/22 04/23/22 Range/Units 15:27 15:27 15:27 WBC (4.8-10.8) K/ul RBC (4.70-6.10) M/uL Hgb (14.0-18.0) g/dl Hct (42.0-52.0) % MCV (80.0-100.0) fL MCH (25.0-34.0) pg RDW Std Deviation (36.4-46.3) fL RDW Coeff of Valerie (11.5-14.5) % Lymph # (Auto) (1.2-3.4) K/uL ESR 62 H (0-20) mm/hr Sodium (136-145) mmol/L Chloride (98-107) mmol/L Anion Gap (3-11) Creatinine (0.6-1.4) mg/dl BUN/Creatinine Ratio (10-20) Lactate (0.4-2.0) mmol/L Magnesium 1.6 L (1.7-2.4) mg/dl Total Bilirubin (0.2-1.0) mg/dl AST (13-39) U/L Alkaline Phosphatase (34-104) U/L Albumin (3.4-5.0) gm/dl Globulin (2.5-4.0) gm/dl Albumin/Globulin Ratio (0.9-2) Procalcitonin 1.20 H (0-0.5) ng/ml (3) Anemia Anemia type: unspecified type Qualified Code(s): D64.9 - Anemia, unspecified (5) Hypertension Hypertension type: unspecified Qualified Code(s): I10 - Essential (primary) hypertension
[2022-04-24 11:38] LABS: Hemoglobin 8.3 g/dl (14.0-18.0); Mean Corpuscular Hgb Conc 34.6 g/dL (32.0-36.0); Mean Corpuscular Volume 101.3 fL (80.0-100.0); Mean Platelet Volume 10.8 fL (9.4-12.4); Platelet Count 110 K/uL (130-400); RDW Coefficient of Variation 15.5 % (11.5-14.5); RDW Standard Deviation 57.6 fL (36.4-46.3); Red Blood Count 2.37 M/uL (4.70-6.10); White Blood Count 3.08 K/ul (4.8-10.8)
[2022-04-24 11:58] LABS: BUN Creatinine Ratio 2.6 (10-20); Calcium 7.5 mg/dl (8.5-10.1); Creatinine Clr Calc Pharmacy 13.7 ml/min; Est GFR (African American) 9.3 ml/min; Est GFR (Non-African American) 8.1 ml/min; Magnesium 1.7 mg/dl (1.7-2.4); Potassium 3.7 mmol/L (3.5-5.1)
[2022-04-24] MEDS: HEPARIN SOD (PORCINE) 1000 UNIT/ML IV SCH ×3 (12:57→14:31)
[2022-04-24] MEDS ORDERED: ZOLPIDEM TARTRATE 5 MG TAB PO PRN (20:23)
--- NOTE | 2022-04-25 00:43 | Electrocardiogram Report ---
Test Reason : Blood Pressure : / mmHG Vent. Rate : 082 BPM Atrial Rate : 082 BPM P-R Int : 122 ms QRS Dur : 092 ms QT Int : 426 ms P-R-T Axes : -01 000 093 degrees QTc Int : 497 ms Poor data quality, interpretation may be adversely affected Sinus rhythm with Premature atrial complexes with Aberrant conduction Premature ventricular complexes T wave abnormality, consider lateral ischemia Prolonged QT Abnormal ECG No previous ECGs available Confirmed by Robi Jaime ([id number]) on 04/25/2022 12:43:18 AM Referred By: Confirmed By:Robi Jaime
[2022-04-25] MEDS: HEPARIN SOD 5,000 UNIT/0.5 ML VIAL SQ SCH ×2 (05:05→08:32)
[2022-04-25 06:41] LABS: Albumin Globulin Ratio 0.6 (0.9-2); Albumin Level 2.4 gm/dl (3.4-5.0); BUN Creatinine Ratio 2.4 (10-20); Bilirubin,Total 0.8 mg/dl (0.2-1.0); Calcium 7.8 mg/dl (8.5-10.1); Creatinine Clr Calc Pharmacy 22.1 ml/min; Est GFR (African American) 16.7 ml/min; Est GFR (Non-African American) 14.4 ml/min; Globulin 3.7 gm/dl (2.5-4.0); Magnesium 1.8 mg/dl (1.7-2.4); Phosphorus 2.2 mg/dl (2.5-4.9); Potassium 4.6 mmol/L (3.5-5.1); Total Protein 6.1 gm/dl (6.0-8.3)
[2022-04-25 07:26] LABS: Hematocrit (blood only) 26.8 % (42.0-52.0); Hemoglobin 9.2 g/dl (14.0-18.0); Mean Corpuscular Hemoglobin 35.5 pg (25.0-34.0); Mean Corpuscular Hgb Conc 34.3 g/dL (32.0-36.0); Mean Corpuscular Volume 103.5 fL (80.0-100.0); Mean Platelet Volume 11.3 fL (9.4-12.4); Platelet Count 103 K/uL (130-400); RDW Coefficient of Variation 15.9 % (11.5-14.5); RDW Standard Deviation 59.8 fL (36.4-46.3); Red Blood Count 2.59 M/uL (4.70-6.10)
[2022-04-25] MEDS: cloNIDine HCL 0.1 MG TAB PO SCH (08:28)
[2022-04-25] MEDS: NEPHROCAPS PO SCH (08:29)
[2022-04-25] MEDS: THIAMINE HCL 100 MG TAB PO SCH (08:29)
[2022-04-25] MEDS: SERTRALINE HCL 100 MG TABLET PO SCH (08:29)
[2022-04-25] MEDS: amLODIPine BESYLATE 5 MG TAB PO SCH (08:29)
[2022-04-25] MEDS: PANTOprazole 40 MG TAB PO SCH (08:29)
--- NOTE | 2022-04-25 09:10 | Discharge Summary ---
Date of Service April 25, 2022 Admission HPI Per Admitting Provider 61-year-old male with PMH ESRD on HD MWF, HTN, PUD with bleeding, paroxysmal atrial fibrillation s/p cardioversion without recurrence, no longer anticoagulated, chronic pain on Suboxone therapy, and other problems listed below who presents to the ED by referral of outpatient dialysis center for evaluation of hypotension. History obtained from the patient. Patient reports that he just moved to the area about 3 months ago. He was at dialysis yesterday and was noted to have low blood pressure. Patient was asymptomatic. Regular Senior Care Provider advised the patient go to the ER for further evaluation however patient declined yesterday and decided to come today. Patient reports he has had progressive generalized weakness over the past several months. He has had a couple of falls over the past 2 weeks. He reports chronic left hip pain. Over the past few weeks, patient reports a poor appetite. Denies abdominal pain, nausea, vomiting, diarrhea. No significant weight loss or weight gain. Patient denies fevers and chills. He makes minimal urine. No chest pain or shortness of breath. Denies lightheadedness, dizziness, diaphoresis, syncopal events. Upon arrival to the ED, patient was hypertensive at 204/96, this is self improving. Labs show WBC 3.5, Hgb 9.7, initial lactate 2.9 with repeat 1.6, CRP <0.5, procalcitonin 1.2, ESR 62, creatinine 5.6, T. bili 1.3, AST 73, alk phos 233. CXR unremarkable. Left hip CT unremarkable. Patient was given IV ceftriaxone, IV Vanco, IVF. Admission Exam Per Admitting Provider Constitutional: WD/WN, vitals as above Eyes: PERRL, conjunctivae normal, anicteric sclerae ENMT: external ear and nose normal, oropharynx normal Respiratory: normal respiratory effort, lungs clear to auscultation Cardiovascular: Rate/Rhythm: regular rate and regular rhythm Vessels: normal peripheral pulses Extremities: + edema (+2 edema BLE) Gastrointestinal (Abdomen): normal bowel sounds, soft, nontender, no hepat osplenomegaly Musculoskeletal: no cyanosis or clubbing, extremities motor strength 5/5 Skin: no rashes, warm and dry Neurologic: PERRL, EOMI, accommodation nl, no face palsy, no dysarthria Psychiatric: A+Ox3, euthymic affect Principal Diagnosis Weakness ESRD on HD Discharge Exam Constitutional + well hydrated and + obese; no acute distress Eyes PERRL, conjunctivae normal, anicteric sclerae ENMT external ear and nose normal, oropharynx normal Respiratory normal respiratory effort, lungs clear to auscultation Cardiovascular Rate/Rhythm: regular rate and regular rhythm S1 S2 Gastrointestinal (Abdomen) normal bowel sounds, soft, nontender, no hepatosplenomegaly Musculoskeletal No pedal edema Neurologic PERRL, EOMI, accommodation nl, no face palsy, no dysarthria Psychiatric A+Ox3, euthymic affect Discharge Data Allergies Allergy/AdvReac Type Severity Reaction Status Date / Time Iv contrast dye AdvReac contraindicated Uncoded 04/23/22 18:40 for dialysis Consultations 04/23/22 17:34 ED Decision to Admit Stat 04/23/22 21:42 Consult Nephrology Routine HIM [Consult Health Information Management] Routine Ordered Studies 04/23/22 15:04 CT hip LT wo con Stat 04/23/22 18:42 US liver Routine Hospital Course (1) Weakness: Patient presented by referral of communications intern at outpatient dialysis center for hypotension during yesterday's treatment. In the ED he is hypertensive with presenting BP 204/96. Patient mostly has chronic complaints -- worsening generalized weakness and left hip for the past few months and poor appetite more recently. Left hip CT shows mild arthritis. In the ED, labs show WBC 3.5K, ESR 62, CRP < 0.5, procal 1.2, initial lactate 2.9 --> 1.6. CXR did not show acute abnormalities Got ceftriaxone and Vanco in the ED, No obvious infectious source so far and antibiotics discontinued Patient was evaluated by PT/OT and deemed fit to go home He declined HH or outpatient PT Weakness and hypotension during HD reported prior to presentation may also be related to medication side effects Patient reports he takes xanax as needed tid for anxiety Advised to reduce this to once a day as needed and should eventually be taken off if possible (2) Elevated LFTs: Mild elevation in LFTs, T. bili 1.3, AST 73, ALT 25, alk phos 233 Liver USS noted hepatic steatosis, sludge in gall bladder without evidence of acute cholecystitis. No definite biliary ductal dilatation. (3) Anemia: Hgb 9.2 on admission Macrocytosis noted, will check folate and vitamin B12 with a.m. labs Unknown baseline Likely anemia of chronic disease in the setting of ESRD. No signs of bleeding. Patient reported on admission a history of a bleeding ulcer about 1 year ago for which he required several blood transfusions. (4) ESRD on dialysis: Receives dialysis [facility] Nephrology on board for HD (5) Hypertension: Reportedly hypotensive during dialysis the day prior to presentation However hypertensive on presentation in ER BP remained stable throughout stay in the hospital as well as during HD Continue home doses of amlodipine and clonidine (6) PUD (peptic ulcer disease): Continue PPI Total Time Total Time Spent Total Time Spent (In Minutes): 40 Total Time Includes: Examination of the Patient, Discharge Planning, Medication Reconciliation and Communication With Other Providers Discharge Plan Discharge Items Patient Disposition: Home - Self-Care Reason For Visit: WEAKNESS Discharge Diagnosis: Weakness ESRD on HD Activity: Resume your previous activity Non-emergency contact: Primary Care Provider and Regular Senior Care Provider Call non-emergency contact if: you have any medication questions Follow-up/Referrals: Ammy Lucia [Primary Care Provider] - Diet: Dialysis Renal and Heart Healthy Addtl Attending Provider Instructions: Mr Rivres. You came to the hospital due to increased weakness and report of low blood pressure at your dialysis center. You were evaluated in the hospital and tolerated dialysis well without low blood pressure. You are being discharged home. Please continue your medications and follow up with your Regular Senior Care Provider and Primary Doctor. Please reduce how much xanax you use as this can contribute to your symptoms. Reduce to once a day as needed for anxiety and you should eventually be taken off this medicine if possible It was a pleasure taking care of you. Pending Studies at Discharge: No Stand-Alone Forms: My [facility], Smoking Cessation Medications and DC Order Prescriptions: Continued clonidine HCl 0.1 mg tablet 0.1 mg PO BID amlodipine 5 mg tablet 5 mg PO DAILY lidocaine-prilocaine 2.5-2.5 % cream 1 applic topical DIRECTED Rx Instructions: 1 hr before dialysis pantoprazole 40 mg tablet,delayed release (DR/EC) 40 mg PO BID buprenorphine-naloxone 8-2 mg film 1 film sublingual DIRECTED PRN (Reason: ..) thiamine HCl (vitamin B1) [Vitamin B-1] 100 mg Tablet 100 mg PO DAILY [place] Caps 1 mg capsule 1 cap PO DAILY sertraline 50 mg tablet 100 mg PO DAILY zolpidem 5 mg tablet 5 mg PO HS PRN (Reason: Insomnia) Qty: 30 0RF Changed alprazolam 0.5 mg tablet 0.5 mg PO DAILY PRN (Reason: Anxiety) Qty: 1 0RF Discharge Orders: Discharge Order (Routine); Ordered 04/25/22 Ordered By: Korin Loya/Other Patient Handouts: Hemodialysis, Falls Prevent Use Cane Walker Admission Data Admit Date/Time: 04/23/22 18:30 Attending Provider: Korin Velez I. Admit Provider: Esequiel Robledo Primary Care Provider: Ammy Lucia Other Providers: Esequiel Robledo ; Julio César Guerin Other Interventions: Discharge Summary Assessment (RN) Last Done: 04/25/22 09:40
== END 2022-04-25 11:25 | disposition home or self-care (01) | DRG 947 ==
LOC: ED 12:54 → SUATTDRO 18:30 → 2W 18:30
DX: M25.552 Pain in left hip; G89.29 Other chronic pain; R63.0 Anorexia; I12.0 Hypertensive chronic kidney disease with stage 5 chronic kidney disease or end stage renal disease; F17.220 Nicotine dependence, chewing tobacco, uncomplicated; K27.9 Peptic ulcer, site unspecified, unspecified as acute or chronic, without hemorrhage or perforation; Z99.2 Dependence on renal dialysis; R53.1 Weakness; Z86.79 Personal history of other diseases of the circulatory system; D63.1 Anemia in chronic kidney disease; R29.6 Repeated falls; N18.6 End stage renal disease; Z79.891 Long term (current) use of opiate analgesic; R74.8 Abnormal levels of other serum enzymes; Z91.041 Radiographic dye allergy status; Z79.899 Other long term (current) drug therapy

== ENCOUNTER 2022-09-16 15:05 | Inpatient (IN) ==
--- NOTE | 2022-09-16 16:15 | Emergency Department Note ---
Impression & Plan ESRD on dialysis, Frequent falls, Closed fracture of left hip ED Provider Note Provider: Prabhakar Batista MD DATE OF SERVICE: 09/16/2022 CHIEF COMPLAINT: Left hip pain, increasing weakness and leg swelling HISTORY OF PRESENT ILLNESS: Patient is a 62-year-old gentleman history of end- stage renal disease on dialysis with hypertension presenting today with multiple falls over the past month and now after recent fall increased pain in the left hip unable to ambulate. Patient was at home with his mother who is also handicapped with 1 hand. states that he has not been doing well on his d ialysis days she cannot get him up and care for him and get him to dialysis. Patient complains of pain left hip but not so much in left leg or in the right leg. Denies striking his head or significant headache. Patient with ongoing short-term memory issues according to and they believe related to dialysis but has been worsening over time. Follows with Dr. Conklin here but normally has dialysis in [place]. Denies significant abdominal pain or nausea but again pain in the left hip region. Denies chest pain or shortness of breath. Has again been having increased swelling and had dialysis Wednesday but missed today and missed this previous Wednesday. No fevers reported. states she just cannot care for him at home even with home physical therapy coming to help she patient is too weak for her to care for. Patient with easily tearing and bruising skin of the upper arms but not on blood thinners according to his report. PAST MEDICAL HISTORY: As noted above MEDICATIONS: Reviewed home medications SOCIAL HISTORY: Currently lives at home with PHYSICAL EXAM: GENERAL: alert and oriented in no acute distress on stretcher but somewhat fatigued in appearance Head: normocephalic and atraumatic EYES: No discharge with some slight icterus and injection bilaterally. PERRL, extraocular motions intact NECK: Trachea midline. ENT: Mucous membranes pink and moist. LUNGS: Airway patent. No retractions. Breath sounds clear anteriorly HEART: Regular rate and rhythm. No chest wall tenderness ABDOMEN: Soft and non-tender, without guarding or rebound. SKIN: Acyanotic, warm, dry some scattered bruises and abrasions in the upper extremities. EXTREMITIES: 2+ edema of the lower extremity left greater than right. Pain with ROM of the left hip region but no significant tenderness of the bilateral knees lower legs or feet on exam. Upper extremities with scattered abrasions but not significant focal tenderness. Fistula present in the right upper extremity with palpable thrill. NEUROLOGICAL: No focal deficits. No aphasia. No facial droop or slurred speech. Sensation to gross touch normal in extremities EK bpm sinus rhythm with PVC acute ST segment elevation noted with a QTc of 498. CONTINUOUS CARDIAC MONITORING: was ordered and showed a heart rate of 80s-90s b pm in sinus rhythm occasional PVC Patient's laboratory studies and imaging reviewed. Differential includes Infection, dehydration, metabolic abnormality, hypo/hyperglycemia, electrolyte disturbance, anemia, hypoxia, cardiac sources, intracerebral event, toxicologic, neurologic, as well as other pathologies. IMPRESSION/MEDICAL DECISION MAKING: Patient presents with mother with pain in the left hip after multiple falls. Has some ongoing surgery memory issues they believe related dialysis but increased welling of the legs. Denies any significant chest or abdominal pain. Is on dialysis but missed several days including today. Did have last on Wednesday. Appears a bit fluid overloaded but not hypoxic at this time. Some difficulty with IV team to obtain vascular access given his poor vasculature. Very frail dry skin that easily skin tears and has multiple healing abrasions. No fevers reported. X-ray imaging does show evidence unfortunately left hip of having a left femoral neck fracture. Need to have this addressed with the orthopedic team but has multiple medical comorbidities and issues. Did discuss with Dr. Reyes. Blood acute with chronic leukopenia and anemia. Stable thrombocytopenia. Negative COVID. Creatinine elevated consistent with dialysis. No severe elect rolyte abnormalities requiring emergent dialysis at this time again not hypoxic. I sent to troponin minimally elevated but doubt ACS and believe this is likely elevated related to his chronic ESRD/HD. No significant bilirubin elevation. No significant transaminitis noted. CT of the head reassuring per radiology. CT abdomen pelvis completed and report reviewed showing evidence of left hip fracture and trace hemorrhage. Given to morphine for pain around the left hip and some improvement with this.. Updated patient at bedside regarding the findings as well as some evidence of pancreatic cyst on the abdominal CT report as well and the patient states he is aware of this and they have worked up before. Routine consult for orthopedics and nephrology placed. Discussed with hospitalist team. DIAGNOSIS: Left hip fracture, weakness, swelling, end-stage renal disease on dialysis DISPOSITION: Hospitalist will evaluate Patient was agreeable with this plan. Past Med/Surg History Medical History (Updated 09/16/22 @ 16:22 by Prabhakar Batista M.D.) Ambulatory dysfunction Uses cane since December 2021 Anxiety Dialysis patient End stage renal disease Frequent falls History of chronic pain on suboxone; ? hx of opioid abuse Hypertension Paroxysmal A-fib s/p cardioversion, no further reoccurrence PUD (peptic ulcer disease) Rheumatic fever per patient cause of ESRD Surgical History (Updated 04/24/22 @ 10:01 by Asha Stout MD, PhD) AV fistula Social History Smoking Status: Never smoker Tobacco Type: Smokeless Tobacco (Dip or Chew) Second Hand Exposure: No; Do You Dip or Chew Tobacco: Yes; Hx Alcohol Use: Yes Alcohol type: hard liquor Hx Substance Use: Yes Preferred Language: Amharic Communication Ability: Effective Grid Trimmer Required: No Beliefs That Will Affect Care: None Current Living Situation: Spouse Feels Safe at Home: Yes Assistive Devices: Cane and Walker Allergies Allergies Allergy/AdvReac Type Severity Reaction Status Date / Time Iv contrast dye AdvReac contraindicated Uncoded 04/23/22 18:40 for dialysis Home Meds Home Medications Medication Instructions Recorded Confirmed buprenorphine 8 mg-naloxone 2 mg 1 film sublingual BID 04/23/22 09/16/22 sublingual film clonidine HCl 0.1 mg tablet 0.1 mg PO BID 04/23/22 09/16/22 lidocaine-prilocaine 2.5 %-2.5 % 1 applic topical DIRECTED 04/23/22 09/16/22 topical cream pantoprazole 40 mg tablet,delayed 40 mg PO BIDM 04/23/22 09/16/22 release thiamine HCl (vitamin B1) 100 mg 100 mg PO DAILY 04/23/22 09/16/22 tablet (Vitamin B-1) vitamin B complex and vitamin C 1 cap PO DAILY 04/23/22 09/16/22 no.20-folic acid 1 mg capsule (Lul Caps) alprazolam 0.5 mg tablet 0.5 mg PO TID 09/16/22 09/16/22 sertraline 100 mg tablet 100 mg PO QAM 09/16/22 09/16/22 Previous Rx's Medication Instructions Recorded zolpidem 5 mg tablet 5 mg PO HS PRN Insomnia #30 tabs 04/25/22 Results & Data (ED) Vital Signs Vital Signs - 24 hr 09/16/22 15:06 09/16/22 15:30 09/16/22 15:22 Temperature 36.2 C L Temperature Source Temporal Artery Scan Pulse Rate 79 87 Pulse Rate from SpO2 Sensor 86 Respiratory Rate 19 16 Blood Pressure 165/97 H Blood Pressure Mean 119 Pulse Oximetry 100 100 Oxygen Delivery Method Room Air Room Air Sepsis Recent Fever Within 48 Hours No Sepsis New/Unexplained Change in Mental Status N/A Sepsis Action Taken by Nursing No Action Required 09/16/22 15:23 09/16/22 15:23 09/16/22 15:30 Temperature Temperature Source Pulse Rate 93 H 88 Pulse Rate from SpO2 Sensor 87 102 H Respiratory Rate 13 20 Blood Pressure 152/82 H Blood Pressure Mean 102 Pulse Oximetry 100 100 Oxygen Delivery Method Sepsis Recent Fever Within 48 Hours Sepsis New/Unexplained Change in Mental Status Sepsis Action Taken by Nursing 09/16/22 16:00 09/16/22 16:45 Temperature Temperature Source Pulse Rate 91 H 86 Pulse Rate from SpO2 Sensor 100 H Respiratory Rate 21 Blood Pressure Blood Pressure Mean Pulse Oximetry 99 Oxygen Delivery Method Room Air Sepsis Recent Fever Within 48 Hours Sepsis New/Unexplained Change in Mental Status Sepsis Action Taken by Nursing Laboratory Data 09/16/22 16:45 09/16/22 16:45 Lab Results 09/16/22 09/16/22 Range/Units 15:13 16:45 WBC 4.38 L (4.8-10.8) K/ul RBC 2.72 L (4.70-6.10) M/uL Hgb 8.4 L (14.0-18.0) g/dl Hct 25.5 L (42.0-52.0) % MCV 93.8 (80.0-100.0) fL MCH 30.9 (25.0-34.0) pg MCHC 32.9 (32.0-36.0) g/dL RDW Std Deviation 64.0 H (36.4-46.3) fL RDW Coeff of Valerie 18.7 H (11.5-14.5) % Plt Count 123 L (130-400) K/uL MPV 10.8 (9.4-12.4) fL Immature Gran % (Auto) 0.5 % Neut % (Auto) 75.5 % Lymph % (Auto) 14.6 % [place] % (Auto) 8.4 % Eos % (Auto) 0.5 % Baso % (Auto) 0.5 % Neut # (Auto) 3.31 (1.40-6.50) K/uL Lymph # (Auto) 0.64 L (1.2-3.4) K/uL [place] # (Auto) 0.37 (0.11-0.59) K/uL Eos # (Auto) 0.02 (0-0.50) K/uL Baso # (Auto) 0.02 (0-0.2) K/uL Immature Gran # (Auto) 0.02 (0.01-0.20) K/uL SARS-CoV-2, RNA, NAAT NEGATIVE (NEGATIVE) Imaging Data Radiologist's Impression: Femur X-Ray 09/16/22 15:29 LEFT FEMUR 2 VIEWS CLINICAL HISTORY: Fall. Left leg injury. FINDINGS: AP and crosstable lateral views of the left femur are correlated with CT scan of the left hip dated 04/23/2022. The skeletal structures are osteopenic. There is an impacted, mildly displaced, and mildly angulated fracture of the left femoral neck with overlying soft tissue edema. The distal femur appears intact. The hip and knee joints are grossly maintained. The visualized left hemipelvis is preserved. IMPRESSION: Left femoral neck fracture as above. Electronically signed by: John Parrish M.D. 09/16/2022 5:37 PM Chest X-Ray 09/16/22 15:30 SINGLE VIEW CHEST CLINICAL HISTORY: Generalized weakness. Recent fall. FINDINGS: An AP, portable, semierect chest radiograph is compared to study dated 04/23/2022. The examination is degraded by portable technique and apical lordotic positioning. A vascular stent projects over the right upper chest. The heart is enlarged. The pulmonary vasculature is noncongested. Chronic interstitial thickening is similar to previous. There is mild bibasilar scarring/atelectasis. The lungs and pleural spaces are otherwise clear. No pneumothorax is seen. The skeletal structures are osteopenic. The bony thorax is grossly intact. IMPRESSION: Cardiomegaly with no active disease in the chest. ACT 112: Negative or not required by law. Electronically signed by: John Parrish M.D. 09/16/2022 4:39 PM Discharge Plan Visit Data Chief Complaint: Hip Pain Stated Complaint: POSSIBLE BROKEN L HIP ED Provider: Prabhakar Batista Discharge Problem: ESRD on dialysis, Frequent falls, Closed fracture of left hip Patient Disposition: Being Evaluated by Hospitalist Condition: Fair Forms Stand Alone Forms: My [facility] Prescriptions Prescriptions: No Action clonidine HCl 0.1 mg tablet 0.1 mg PO BID lidocaine-prilocaine 2.5-2.5 % cream 1 applic topical DIRECTED Rx Instructions: 1 hr before dialysis pantoprazole 40 mg tablet,delayed release (DR/EC) 40 mg PO BIDM buprenorphine-naloxone 8-2 mg film 1 film sublingual BID thiamine HCl (vitamin B1) [Vitamin B-1] 100 mg Tablet 100 mg PO DAILY Lul Caps 1 mg capsule 1 cap PO DAILY zolpidem 5 mg tablet 5 mg PO HS PRN (Reason: Insomnia) Qty: 30 0RF sertraline 100 mg tablet 100 mg PO QAM alprazolam 0.5 mg tablet 0.5 mg PO TID Referrals Referrals: Ammy Lucia [Primary Care Provider] -
--- NOTE | 2022-09-16 16:41 | XRay Report ---
SINGLE VIEW CHEST CLINICAL HISTORY: Generalized weakness. Recent fall. FINDINGS: An AP, portable, semierect chest radiograph is compared to study dated 04/23/2022. The exami nation is degraded by portable technique and apical lordotic positioning. A vascular stent projects o tucker the right upper chest. The heart is enlarged. The pulmonary vasculature is noncongested. Chronic interstitial thickening is similar to previous. There is mild bibasilar scarring/atelectasis. The constance gs and pleural spaces are otherwise clear. No pneumothorax is seen. The skeletal structures are osteo penic. The bony thorax is grossly intact. IMPRESSION: Cardiomegaly with no active disease in the chest. ACT 112: Negative or not required by law. Electronically signed by: John Parrish M.D. 09/16/2022 4:39 PM
[2022-09-16 17:38] LABS: Basophils # (auto) 0.02 K/uL (0-0.2); Basophils % (auto) 0.5 %; Eosinophils # (auto) 0.02 K/uL (0-0.50); Eosinophils % (auto) 0.5 %; Hematocrit (blood only) 25.5 % (42.0-52.0); Hemoglobin 8.4 g/dl (14.0-18.0); Immature Granulocytes # (auto) 0.02 K/uL (0.01-0.20); Immature Granulocytes % (auto) 0.5 %; Lymphocytes # (auto) 0.64 K/uL (1.2-3.4); Lymphocytes % (auto) 14.6 %; Mean Corpuscular Hemoglobin 30.9 pg (25.0-34.0); Mean Corpuscular Hgb Conc 32.9 g/dL (32.0-36.0); Mean Corpuscular Volume 93.8 fL (80.0-100.0); Mean Platelet Volume 10.8 fL (9.4-12.4); Monocytes # (auto) 0.37 K/uL (0.11-0.59); Monocytes % (auto) 8.4 %; Neutrophils # (auto) 3.31 K/uL (1.40-6.50); Neutrophils % (auto) 75.5 %; Platelet Count 123 K/uL (130-400); RDW Coefficient of Variation 18.7 % (11.5-14.5); Red Blood Count 2.72 M/uL (4.70-6.10); White Blood Count 4.38 K/ul (4.8-10.8)
--- NOTE | 2022-09-16 17:38 | XRay Report ---
LEFT FEMUR 2 VIEWS CLINICAL HISTORY: Fall. Left leg injury. FINDINGS: AP and crosstable lateral views of the left femur are correlated with CT scan of the left h ip dated 04/23/2022. The skeletal structures are osteopenic. There is an impacted, mildly displaced, a nd mildly angulated fracture of the left femoral neck with overlying soft tissue edema. The distal fe mur appears intact. The hip and knee joints are grossly maintained. The visualized left hemipelvis is preserved. IMPRESSION: Left femoral neck fracture as above. Electronically signed by: John Parrish M.D. 09/16/2022 5:37 PM
[2022-09-16] MEDS ORDERED: MoRPHine SULFATE 4 MG/ML 1 ML CARP\\VIAL IV STA (17:44)
[2022-09-16 17:48] LABS: INR 1.2 (0.9-1.1); Prothrombin Time 13.2 Seconds (9.0-12.0)
--- NOTE | 2022-09-16 17:53 | CT Scan Report ---
CT SCAN OF THE BRAIN WITHOUT IV CONTRAST CLINICAL HISTORY: Fall. Change in mental status. COMPARISON STUDY: No priors. TECHNIQUE: Unenhanced axial CT scan of the brain is performed from the vertex to the skull base. A do se lowering technique was utilized adhering to the principles of ALARA. FINDINGS: Brain parenchyma: There is age-related involutional change noting moderate subcortical and periventri cular microangiopathic disease. There is no hemorrhage, mass effect, or evidence of acute territorial ischemia by CT criteria. Willett-white matter differentiation is preserved. No extra-axial fluid collec tion is seen. Ventricles, sulci, cisterns: Prominent secondary to involutional change. Intracranial vasculature: There is atherosclerotic calcification of the cavernous carotid arteries. Calvarium: The skeletal structures are osteopenic. No depressed calvarial fracture is identified. Sinuses and mastoids: The visualized paranasal sinuses are clear. The mastoid air cells are well pneu matized. Orbits: The bony orbits are grossly intact. IMPRESSION: There is no hemorrhage, mass effect, or evidence of acute territorial ischemia by CT rg rubin. ACT 112: Negative or not required by law. Electronically signed by: John Parrish M.D. 09/16/2022 5:52 PM
[2022-09-16 17:56] LABS: Alanine Aminotransferase 23 U/L (7-52); Albumin Globulin Ratio 0.6 (0.9-2); Alkaline Phosphatase 141 U/L (34-104); Anion Gap 6 (3-11); Aspartate Aminotransferase 69 U/L (13-39); BUN Creatinine Ratio 3.1 (10-20); Bilirubin,Total 1.2 mg/dl (0.2-1.0); Blood Urea Nitrogen 19 mg/dl (6-23); Calcium 7.8 mg/dl (8.6-10.3); Carbon Dioxide 33 mmol/L (21-32); Chloride 96 mmol/L (98-107); Est GFR (African American) 10.7 ml/min; Est GFR (Non-African American) 9.2 ml/min; Globulin 3.6 gm/dl (2.5-4.0); Glucose 116 mg/dl (70-99(Fasting)); Magnesium 1.7 mg/dl (1.7-2.4); Potassium 3.4 mmol/L (3.5-5.1); Sodium 135 mmol/L (136-145); Total Protein 5.6 gm/dl (6.0-8.3); Troponin I High Sensitivity 28.6 pg/ml (0-20)
--- NOTE | 2022-09-16 18:04 | CT Scan Report ---
CT SCAN OF THE ABDOMEN AND PELVIS WITHOUT IV CONTRAST CLINICAL HISTORY: Fall. Left hip pain. Generalized weakness. COMPARISON STUDY: No priors. TECHNIQUE: CT scan of the abdomen and pelvis is performed from the lung bases to the proximal femora. Images are reviewed in the axial, sagittal, and coronal planes. IV contrast was not administered for this examination. Note that the examination is significantly suboptimal without IV contrast. There i s also motion artifact, as well as streak artifact from the arms which could not be elevated above th e abdomen. A dose lowering technique was utilized adhering to the principles of ALARA. CT DOSE: 2170.14 mGy.cm FINDINGS: Lung bases: The heart is enlarged and without pericardial effusion. The coronary arteries are calcifi ed. There is diffusely diminished attenuation of the cardiac blood pool as compared to the myocardium suggesting anemia. The lung bases are clear noting dependent scarring/atelectasis. A small hiatal he rnia is noted. Liver: The unenhanced liver is normal in size and contour. The liver demonstrates diffusely and heter ogeneously diminished attenuation indicating steatosis. Mild nodularity of the surface contour sugges ts early morphologic changes of cirrhosis. There is no intrahepatic biliary ductal dilatation. Gallbladder: There are layering calcified gallstones without CT evidence of acute cholecystitis. Spleen: Normal in size and attenuation. Pancreas: The unenhanced pancreas is atrophic. A 2.4 x 2.3 cm septated cystic lesion is suggested elham sing from pancreatic head adjacent to the ampulla on axial image #133. The pancreatic duct is normal in caliber. Adrenal glands: A 2.5 cm left adrenal nodule meets criteria for a fat-containing adenoma. The right a drenal gland is normal in appearance. Kidneys: The unenhanced kidneys are atrophic and without hydronephrosis. There are no renal calculi i dentified. Subcentimeter cortical hypodensities likely represent cysts but are too small for definiti ve characterization. Abdominal vasculature: The abdominal aorta is normal in course and caliber noting mild atheroscleroti c calcification. Bowel: There is no bowel obstruction. The appendix is well-visualized and normal. Peritoneum: There is no intraperitoneal free air or abdominal ascites. Lymphadenopathy: There are prominent retroperitoneal and iliac chain lymph nodes. A left periaortic n ode on image #154 measures 12 mm short axis. A left iliac chain node on image #206 measures 7 mm shor t axis, and a right external iliac chain node on image #242 measures 9 mm short axis. Pelvic viscera: The prostate gland is diminutive and heterogeneous. The bladder wall appears thickene d/trabeculated suggesting chronic outlet obstruction. The seminal vesicles are normal as imaged. Skeletal structures: There is heterogeneous osteopenia and sclerosis of the skeletal structures sugge sting renal osteodystrophy. A left femoral neck fracture is noted with trace surrounding hemorrhage. No additional acute fracture seen involving the right hip, the bony pelvis, or the lumbosacral spine. No lytic or blastic lesions are seen. There is mild to moderate lumbosacral spondylosis. There are c hronic/healed right posterior rib fractures. Soft tissue: Gynecomastia is observed. IMPRESSION: 1. Significantly suboptimal examination without IV contrast. There is also streak and motion artifact . 2. There is no evidence of solid organ injury in the abdomen or pelvis on this unenhanced examination . 3. Left femoral neck fracture with trace surrounding hemorrhage. 4. Cardiomegaly. 5. The liver is heterogeneously steatotic with early morphologic changes of cirrhosis. 6. Cholelithiasis. 7. A 2.4 cm septated cystic lesion is suggested arising from the pancreatic head, possibly resulting a mucinous cystic neoplasm versus serous cystadenoma. Nonemergent GI follow-up is recommended. 8. Mildly enlarged retroperitoneal and iliac chain lymph nodes are nonspecific and may be reactive. A ttention at follow-up is recommended. 9. Additional findings as above. ACT 112: Negative or not required by law. Electronically signed by: John Parrish M.D. 09/16/2022 6:02 PM
--- NOTE | 2022-09-16 18:05 | Electrocardiogram Report ---
Test Reason : Blood Pressure : / mmHG Vent. Rate : 089 BPM Atrial Rate : 089 BPM P-R Int : 154 ms QRS Dur : 090 ms QT Int : 410 ms P-R-T Axes : 006 002 034 degrees QTc Int : 498 ms Sinus rhythm with Premature supraventricular complexes and with frequent Premature ventricular comple xes Prolonged QT Abnormal ECG When compared with ECG of 23-APR-2022 13:14, Nonspecific T wave abnormality no longer evident in Lateral leads Confirmed by John Bess ([id number]) on 09/16/2022 6:05:20 PM Referred By: Confirmed By:Sarwat Bess
[2022-09-16 18:10] LABS: Thyroid Stimulating Hormone 6.772 uIu/ml (0.300-4.500)
[2022-09-16 18:46] LABS: T4 Free Thyroxine 0.9 ng/dl (0.61-1.60)
--- NOTE | 2022-09-16 19:16 | Orthopedic Consultation ---
Date of Service September 16, 2022 Assessment & Plan (1) Closed fracture of left hip: I discussed diagnosis and treatment options with him at bedside. He has end- stage renal disease and is on dialysis. Ultimately he will need a cemented left hip hemiarthroplasty for fixation of the left hip. I am going to get fresh x- rays to see the fracture better. I am going discussed the case with the admitting hospitalist discussed medical optimization and timing for the surgery. He understands the risk, benefits, and alternatives to the procedure but would still like to proceed. Time was spent regarding the procedure and postop expectations. History of Present Illness Reason for Consultation: Left femoral neck fracture. Requesting Physician: . Payam is a 62-year-old male who has end-stage renal disease and is on dialysis. He has not been doing well. His no longer able to take care of him. He had multiple falls over the past month. He is not sure when he may have broken his hip. Is been having hip pain for a while. He has difficulty ambulating. He was brought to the emergency room today and radiographs demonstrated a displaced left femoral neck fracture. He was admitted to the medical service and nephrology was consulted. Orthopedics was consulted for evaluation and treatment of his left femoral neck fracture. Allergies Allergy/AdvReac Type Severity Reaction Status Date / Time Iv contrast dye AdvReac contraindicated Uncoded 04/23/22 18:40 for dialysis Home Medications Medication Instructions Recorded Confirmed Type buprenorphine 8 mg-naloxone 2 mg 1 film sublingual BID 04/23/22 09/16/22 History sublingual film clonidine HCl 0.1 mg tablet 0.1 mg PO BID 04/23/22 09/16/22 History lidocaine-prilocaine 2.5 %-2.5 % 1 applic topical DIRECTED 04/23/22 09/16/22 History topical cream pantoprazole 40 mg tablet,delayed 40 mg PO BIDM 04/23/22 09/16/22 History release thiamine HCl (vitamin B1) 100 mg 100 mg PO DAILY 04/23/22 09/16/22 History tablet (Vitamin B-1) vitamin B complex and vitamin C 1 cap PO DAILY 04/23/22 09/16/22 History no.20-folic acid 1 mg capsule ([place] Caps) zolpidem 5 mg tablet 5 mg PO HS PRN Insomnia #30 tabs 04/25/22 09/16/22 Rx alprazolam 0.5 mg tablet 0.5 mg PO TID 09/16/22 09/16/22 History sertraline 100 mg tablet 100 mg PO QAM 09/16/22 09/16/22 History Past Med/Surg History Medical History Ambulatory dysfunction Uses cane since December 2021 Anxiety Dialysis patient End stage renal disease Frequent falls History of chronic pain on suboxone; ? hx of opioid abuse Hypertension Paroxysmal A-fib s/p cardioversion, no further reoccurrence PUD (peptic ulcer disease) Rheumatic fever per patient cause of ESRD Surgical History AV fistula Social History Smoking Status: Never smoker Tobacco Type: Smokeless Tobacco (Dip or Chew) Second Hand Exposure: No; Do You Dip or Chew Tobacco: Yes; Hx Alcohol Use: Yes Alcohol type: hard liquor Hx Substance Use: Yes Preferred Language: Uruguayan Communication Ability: Effective Director Of Cloud Services Required: No Beliefs That Will Affect Care: None Current Living Situation: Spouse Feels Safe at Home: Yes Assistive Devices: Cane and Walker Review of Systems All systems reviewed & are unremarkable except as noted in HPI & below. Physical Exam On physical examination of his left hip, he has pain with logroll. Most of the pain is located in his groin.. Constitutional WD/WN, vitals as above Eyes PERRL, conjunctivae normal, anicteric sclerae ENMT external ear and nose normal, oropharynx normal Neck trachea midline, no thyromegaly Respiratory normal respiratory effort, lungs clear to auscultation Cardiovascular RRR, no murmur, no edema Gastrointestinal (Abdomen) normal bowel sounds, soft, nontender, no hepatosplenomegaly Skin no rashes, warm and dry Psychiatric A+Ox3, euthymic affect Results & Data Results & Data Laboratory Results . Diagnostic Findings X-rays of the left hip do show a displaced left femoral neck fracture.. PG Care Time/CCT Total # of Minutes Spent Total Time Spent with Patient: Total time spent is greater than 50% in coordination of care (as documented) at patient's floor/unit and/or counseling patient: Coding Level of Care Code 30420 IN/OBS CONSULT LVL 4,60M (57 - DECISION FOR SURGERY) Diagnoses Closed fracture of left hip S72.002A
--- NOTE | 2022-09-16 19:33 | History & Physical Report ---
Date of Service September 16, 2022 Assessment & Plan (1) Closed fracture of left hip: Plan: Appears to have been fractured for several weeks now at a minimum. Ortho consulted, however, he may need some additional dialysis to optimize his breathing and reported progressive shortness of breath with lower extremity edema. He doesn't make urine, so no Lasix is being given. Consulted nephrology for HD and to assist with optimization of fluid. Also, patient denies any Procrit use but has ongoing anemia likely related to kidney disease. Appreciate neprhology weighing in on this, also. Cont pain control efforts. Bedrest for now. Hold off on surgery until better optimized from a medical standpoint. Echo pending in am. (2) Dyspnea on exertion: Plan: Progressive shortness of breath noted by patient over the past several weeks. Echo pending. BNP pending. Uncertain if echo has been performed in the past. Patient is a poor historian and no prior records are available for review. (3) ESRD on hemodialysis: Plan: consult nephrology, patient notes MWF HD sessions, however, possible noncompliance with HD sessions last week which may be contributing to SOB and lower extremity edema. Echo pending (4) Ambulatory dysfunction: Plan: related to ongoing hip fracture. Notably patient reports that after his fall he asked his PCP about a hip injection because of the pain, however, no hip xray was performed. No records are available at this time to confirm this. (5) Frequent falls: Plan: Per issues noted above. PT/OT once cleared by ortho (6) Anemia: Plan: Likely related to ESRD. Consider Procrit, defer to nephrology (7) Hypertension: Plan: chronic, slightly elevated tonight to 160/96. This may be partly from pain, but also he takes only one clonidine per day because "my BP is fine." There may be some rebound hypertension as a result. Cont clonidine per home regimen which is twice daily. (8) Anxiety: Plan: chronic, stable. Cont alprazolam and sertraline per home regimen. Ativan PRN while possibly taking oxycodone. Noted that he is on suboxone and given this has a long half-life with needed time to build back up in the system, will continu it for now in addition to other narcotic medications as needed. Monitor closely for benzo withdrawal. (9) Insomnia: Plan: hold Ambien to avoid excessive pharmacologic interactions in this hemodialysis patient. (10) Alcohol abuse: Plan: 3-4 liquor drinks every day. AWSS scale to monitor for withdrawal. Heparin for now,but this will need to be held prior to procedure Full Code Dispo- to med/surg I spent a total of60 minutes coordinating, documenting, and providing care for this patient excluding time spent in the performance of separately billed services Leanna Yeager DO [facility] Hospitalist History of Present Illness Chief Complaint: hip pain Primary Care Provider: Ammy Rea 62 yo M presents because he couldn't walk any more. He feels that he fell "a few months ago" by his mailbox and this caused a broken hip. He continues to walk around on it and states he had multiple falls since then. He reports compliance with hemodialysis with the last session on Wednesday. He does HD on MWF. He sees Dr. Dean with [facility] [place] [facility]. Denies CP, SOB, but does report dyspnea with exertion. Reports no weight gain, +swelling in feet and ankles. No orthopnea, has insomnia. EtOH use is 3-4 drinks/day rum & coke No recreational drug use Denies smoking Doesn't make urine Denies any discussion with his outpatient doctors regarding this progressive SOB No records available Allergies Allergy/AdvReac Type Severity Reaction Status Date / Time Iv contrast dye AdvReac contraindicated Uncoded 04/23/22 18:40 for dialysis Home Medications Medication Instructions Recorded Confirmed Type buprenorphine 8 mg-naloxone 2 mg 1 film sublingual BID 04/23/22 09/16/22 History sublingual film clonidine HCl 0.1 mg tablet 0.1 mg PO BID 04/23/22 09/16/22 History lidocaine-prilocaine 2.5 %-2.5 % 1 applic topical DIRECTED 04/23/22 09/16/22 History topical cream pantoprazole 40 mg tablet,delayed 40 mg PO BIDM 04/23/22 09/16/22 History release thiamine HCl (vitamin B1) 100 mg 100 mg PO DAILY 04/23/22 09/16/22 History tablet (Vitamin B-1) vitamin B complex and vitamin C 1 cap PO DAILY 04/23/22 09/16/22 History no.20-folic acid 1 mg capsule ([place] Caps) zolpidem 5 mg tablet 5 mg PO HS PRN Insomnia #30 tabs 04/25/22 09/16/22 Rx alprazolam 0.5 mg tablet 0.5 mg PO TID 09/16/22 09/16/22 History sertraline 100 mg tablet 100 mg PO QAM 09/16/22 09/16/22 History Past Med/Surg History Medical History (Updated 09/16/22 @ 20:39 by Leanna Yeager DO) Ambulatory dysfunction Uses cane since December 2021 Anxiety Dialysis patient End stage renal disease Frequent falls History of chronic pain on suboxone; ? hx of opioid abuse Hypertension Paroxysmal A-fib s/p cardioversion, no further reoccurrence PUD (peptic ulcer disease) Rheumatic fever per patient cause of ESRD Surgical History AV fistula Social History Smoking Status: Never smoker Tobacco Type: Smokeless Tobacco (Dip or Chew) Second Hand Exposure: No; Do You Dip or Chew Tobacco: Yes; Hx Alcohol Use: Yes Alcohol type: hard liquor Hx Substance Use: Yes Preferred Language: Nepali Communication Ability: Effective Funding Analyst Required: No Beliefs That Will Affect Care: None Current Living Situation: Spouse Feels Safe at Home: Yes Assistive Devices: Cane and Walker Review of Systems Review of Systems: All systems were reviewed and negative except as indicated on HPI above. Physical Exam Physical Exam: CONSTITUTIONAL: WNWD, vitals as above, generally well-appearing, NAD EYES: normal conjunctivae, no scleral icterus, ENT: external ear and nose normal, oropharynx clear, no TM abnormality, no maxillary or ethmoid sinus tenderness NECK: trachea midline RESPIRATORY: clear to auscultation bilaterally, no crackles, rales or wheezes, normal respiratory effort CARDIOVASCULAR: regular rate and rhythm, S1 and 2 heard without murmurs, gallops or rubs, no JVD, 2+ peripheral edema CHEST: inspection of chest was normal GASTROINTESTINAL: soft, nontender,ND, no guarding MUSCULOSKELETAL: strength 5/5 throughout,somewhat limited movement given left hip fracture, head is normocephalic and atraumatic SKIN: warm and dry, no rashes NEUROLOGIC: CN 2-12 grossly intact, no sensory deficit, normal cognition, normal speech, no tremor PSYCHIATRIC: alert cooperative and oriented to person, place and time. Euthymic mood, makes good eye contact, language grossly intact, recent and remote memory grossly intact. Results & Data Results & Data Vital Signs (Past 12 Hours) Vital Signs Temp Pulse Resp BP Pulse Ox O2 Del Method 09/16/22 18:30 89 14 09/16/22 18:30 160/96 H 09/16/22 18:25 94 H 19 99 Room Air 09/16/22 18:00 95 H 17 100 09/16/22 17:30 87 16 94 09/16/22 17:00 96 H 16 98 09/16/22 16:30 83 19 100 09/16/22 16:45 86 09/16/22 16:00 91 H 21 99 Room Air 09/16/22 15:30 88 20 100 09/16/22 15:23 93 H 13 100 09/16/22 15:23 152/82 H 09/16/22 15:22 87 16 100 09/16/22 15:30 Room Air 09/16/22 15:06 36.2 C L 79 19 165/97 H 100 Room Air Laboratory Results Short CBC 09/16/22 Range/Units 16:45 WBC 4.38 L (4.8-10.8) K/ul Hgb 8.4 L (14.0-18.0) g/dl Hct 25.5 L (42.0-52.0) % Plt Count 123 L (130-400) K/uL BMP 09/16/22 16:45 Sodium 135 L Potassium 3.4 L Chloride 96 L Carbon Dioxide 33 H BUN 19 Creatinine 6.07 H* Glucose 116 H Calcium 7.8 L Liver Function 09/16/22 Range/Units 16:45 Total Bilirubin 1.2 H (0.2-1.0) mg/dl AST 69 H (13-39) U/L ALT 23 (7-52) U/L Alkaline Phosphatase 141 H (34-104) U/L Albumin 2.0 L (3.4-5.0) gm/dl Diagnostic Findings Abdomen/Pelvis CT 09/16/22 15:29 CT SCAN OF THE ABDOMEN AND PELVIS WITHOUT IV CONTRAST CLINICAL HISTORY: Fall. Left hip pain. Generalized weakness. COMPARISON STUDY: No priors. TECHNIQUE: CT scan of the abdomen and pelvis is performed from the lung bases to the proximal femora. Images are reviewed in the axial, sagittal, and coronal planes. IV contrast was not administered for this examination. Note that the examination is significantly suboptimal without IV contrast. There is also motion artifact, as well as streak artifact from the arms which could not be elevated above the abdomen. A dose lowering technique was utilized adhering to the principles of ALARA. CT DOSE: 2170.14 mGy.cm FINDINGS: Lung bases: The heart is enlarged and without pericardial effusion. The coronary arteries are calcified. There is diffusely diminished attenuation of the cardiac blood pool as compared to the myocardium suggesting anemia. The lung bases are clear noting dependent scarring/atelectasis. A small hiatal hernia is noted. Liver: The unenhanced liver is normal in size and contour. The liver demonstrates diffusely and heterogeneously diminished attenuation indicating steatosis. Mild nodularity of the surface contour suggests early morphologic changes of cirrhosis. There is no intrahepatic biliary ductal dilatation. Gallbladder: There are layering calcified gallstones without CT evidence of acute cholecystitis. Spleen: Normal in size and attenuation. Pancreas: The unenhanced pancreas is atrophic. A 2.4 x 2.3 cm septated cystic lesion is suggested arising from pancreatic head adjacent to the ampulla on axial image #133. The pancreatic duct is normal in caliber. Adrenal glands: A 2.5 cm left adrenal nodule meets criteria for a fat-containing adenoma. The right adrenal gland is normal in appearance. Kidneys: The unenhanced kidneys are atrophic and without hydronephrosis. There are no renal calculi identified. Subcentimeter cortical hypodensities likely represent cysts but are too small for definitive characterization. Abdominal vasculature: The abdominal aorta is normal in course and caliber noting mild atherosclerotic calcification. Bowel: There is no bowel obstruction. The appendix is well-visualized and normal. Peritoneum: There is no intraperitoneal free air or abdominal ascites. Lymphadenopathy: There are prominent retroperitoneal and iliac chain lymph nodes. A left periaortic node on image #154 measures 12 mm short axis. A left iliac chain node on image #206 measures 7 mm short axis, and a right external iliac chain node on image #242 measures 9 mm short axis. Pelvic viscera: The prostate gland is diminutive and heterogeneous. The bladder wall appears thickened/trabeculated suggesting chronic outlet obstruction. The seminal vesicles are normal as imaged. Skeletal structures: There is heterogeneous osteopenia and sclerosis of the skeletal structures suggesting renal osteodystrophy. A left femoral neck fracture is noted with trace surrounding hemorrhage. No additional acute fracture seen involving the right hip, the bony pelvis, or the lumbosacral spine. No lytic or blastic lesions are seen. There is mild to moderate lumbosacral spondylosis. There are chronic/healed right posterior rib fractures. Soft tissue: Gynecomastia is observed. IMPRESSION: 1. Significantly suboptimal examination without IV contrast. There is also streak and motion artifact. 2. There is no evidence of solid organ injury in the abdomen or pelvis on this unenhanced examination. 3. Left femoral neck fracture with trace surrounding hemorrhage. 4. Cardiomegaly. 5. The liver is heterogeneously steatotic with early morphologic changes of cirrhosis. 6. Cholelithiasis. 7. A 2.4 cm septated cystic lesion is suggested arising from the pancreatic head, possibly resulting a mucinous cystic neoplasm versus serous cystadenoma. Nonemergent GI follow-up is recommended. 8. Mildly enlarged retroperitoneal and iliac chain lymph nodes are nonspecific and may be reactive. Attention at follow-up is recommended. 9. Additional findings as above. ACT 112: Negative or not required by law. Electronically signed by: John Parrish M.D. 09/16/2022 6:02 PM Femur X-Ray 09/16/22 15:29 LEFT FEMUR 2 VIEWS CLINICAL HISTORY: Fall. Left leg injury. FINDINGS: AP and crosstable lateral views of the left femur are correlated with CT scan of the left hip dated 04/23/2022. The skeletal structures are osteopenic. There is an impacted, mildly displaced, and mildly angulated fracture of the left femoral neck with overlying soft tissue edema. The distal femur appears intact. The hip and knee joints are grossly maintained. The visualized left hemipelvis is preserved. IMPRESSION: Left femoral neck fracture as above. Electronically signed by: John Parrish M.D. 09/16/2022 5:[address] 09/16/22 15:29 CT SCAN OF THE BRAIN WITHOUT IV CONTRAST CLINICAL HISTORY: Fall. Change in mental status. COMPARISON STUDY: No priors. TECHNIQUE: Unenhanced axial CT scan of the brain is performed from the vertex to the skull base. A dose lowering technique was utilized adhering to the principles of ALARA. FINDINGS: Brain parenchyma: There is age-related involutional change noting moderate subcortical and periventricular microangiopathic disease. There is no hemorrhage, mass effect, or evidence of acute territorial ischemia by CT criteria. Willett-white matter differentiation is preserved. No extra-axial fluid collection is seen. Ventricles, sulci, cisterns: Prominent secondary to involutional change. Intracranial vasculature: There is atherosclerotic calcification of the cavernous carotid arteries. Calvarium: The skeletal structures are osteopenic. No depressed calvarial fracture is identified. Sinuses and mastoids: The visualized paranasal sinuses are clear. The mastoid air cells are well pneumatized. Orbits: The bony orbits are grossly intact. IMPRESSION: There is no hemorrhage, mass effect, or evidence of acute territorial ischemia by CT criteria. ACT 112: Negative or not required by law. Electronically signed by: John Parrish M.D. 09/16/2022 5:52 PM Chest X-Ray 09/16/22 15:30 SINGLE VIEW CHEST CLINICAL HISTORY: Generalized weakness. Recent fall. FINDINGS: An AP, portable, semierect chest radiograph is compared to study dated 04/23/2022. The examination is degraded by portable technique and apical lordotic positioning. A vascular stent projects over the right upper chest. The heart is enlarged. The pulmonary vasculature is noncongested. Chronic interstitial thickening is similar to previous. There is mild bibasilar scarring/atelectasis. The lungs and pleural spaces are otherwise clear. No pneumothorax is seen. The skeletal structures are osteopenic. The bony thorax is grossly intact. IMPRESSION: Cardiomegaly with no active disease in the chest. ACT 112: Negative or not required by law. Electronically signed by: John Parrish M.D. 09/16/2022 4:39 PM Code Status & VTE Plan VTE Prophylaxis Plan VTE Prophylaxis will be ordered: Yes (6) Anemia Anemia type: unspecified type Qualified Code(s): D64.9 - Anemia, unspecified (7) Hypertension Hypertension type: unspecified Qualified Code(s): I10 - Essential (primary) hypertension
[2022-09-16] MEDS ORDERED: LORazepam 1 MG TAB PO PRN (20:36)
[2022-09-16] MEDS ORDERED: MAGNESIUM HYDROXIDE SUSP 30 ML UDC PO PRN (21:42)
[2022-09-16] MEDS ORDERED: bisacodyL 10 MG SUPP PR PRN (21:42)
[2022-09-16] MEDS ORDERED: NALOXONE HCL 0.4 MG/1 ML VIAL/CARP IV PRN (21:42)
[2022-09-16] MEDS ORDERED: ACETAMINOPHEN 325 MG TAB PO PRN (21:42)
[2022-09-16] MEDS ORDERED: ALPRAZolam 0.5 MG TABLET PO PRN (21:42)
[2022-09-16] MEDS ORDERED: POLYETHYLENE (MIRALAX) 17 GM PACK PO PRN (21:42)
[2022-09-16] MEDS: DOCUSATE SODIUM/SENNA 50/8.6MG TAB PO SCH (22:13)
[2022-09-16] MEDS: THIAMINE HCL 100 MG TAB PO SCH (22:13)
[2022-09-16] MEDS: cloNIDine HCL 0.1 MG TAB PO SCH (22:13)
[2022-09-16] MEDS: oxyCODONE HCL IR 5 MG TAB (IMMEDIATE RELEASE) PO PRN (22:17)
[2022-09-16] MEDS: BUPRENORPHINE/NALOXONE 8/2 MG TAB SL SCH (22:17)
[2022-09-17 02:47] LABS: Hematocrit (blood only) 23.6 % (42.0-52.0); Hemoglobin 7.8 g/dl (14.0-18.0); Mean Corpuscular Hemoglobin 30.7 pg (25.0-34.0); Mean Corpuscular Hgb Conc 33.1 g/dL (32.0-36.0); Mean Corpuscular Volume 92.9 fL (80.0-100.0); Mean Platelet Volume 10.6 fL (9.4-12.4); Platelet Count 108 K/uL (130-400); RDW Coefficient of Variation 18.5 % (11.5-14.5); RDW Standard Deviation 63.3 fL (36.4-46.3); Red Blood Count 2.54 M/uL (4.70-6.10); White Blood Count 4.06 K/ul (4.8-10.8)
[2022-09-17 03:12] LABS: Est GFR (African American) 9.7 ml/min
[2022-09-17 03:13] LABS: BUN Creatinine Ratio 3.5 (10-20); Calcium 7.4 mg/dl (8.6-10.3); Creatinine Clr Calc Pharmacy 13.7 ml/min; Est GFR (Non-African American) 8.4 ml/min; Magnesium 1.7 mg/dl (1.7-2.4); Phosphorus 2.1 mg/dl (2.5-4.9); Potassium 3.2 mmol/L (3.5-5.1)
[2022-09-17 03:14] LABS: Troponin I High Sensitivity 26.4 pg/ml (0-20)
[2022-09-17] MEDS ORDERED: ceFAZolin 2000MG 2,000 MG/15 ML SYR IV SCH (06:00)
--- NOTE | 2022-09-17 07:19 | XRay Report ---
XR hip 1V LT w pelvis CLINICAL HISTORY: Preoperative evaluation TECHNIQUE: 2 views of the left hip and single frontal view of the pelvis were obtained. Comparison: Comparison is made to left femur radiograph 09/16/2022 FINDINGS: Redemonstration of left trochanteric fracture with some overriding. Degenerative changes are seen in the lumbar spine. Soft tissue swelling is seen. IMPRESSION: Redemonstration of left femoral neck fracture ACT 112: Negative or not required by law. Electronically signed by: Mckay Moreira M.D. 09/17/2022 7:18 AM
[2022-09-17] MEDS ORDERED: EPOETIN ALFA 40,000 UNITS/ML VIAL IV ONE (09:15)
[2022-09-17] MEDS: THIAMINE HCL 100 MG TAB PO SCH ×2 (09:15→09:18)
[2022-09-17] MEDS: BUPRENORPHINE/NALOXONE 8/2 MG TAB SL SCH ×2 (09:17→21:16)
[2022-09-17] MEDS: FOLIC ACID 1 MG TAB PO SCH (09:17)
[2022-09-17] MEDS: NEPHROCAPS PO SCH (09:17)
[2022-09-17] MEDS: PANTOprazole 40 MG TAB PO SCH ×2 (09:17→17:17)
[2022-09-17] MEDS: SERTRALINE HCL 100 MG TABLET PO SCH (09:18)
--- NOTE | 2022-09-17 09:22 | Hospitalist Progress Note ---
Date of Service September 17, 2022 Assessment & Plan (1) Age-related osteoporosis with current pathol fracture of left femur: Plan: Appears to have been fractured for several weeks now at a minimum. Ortho consulted, plans to fix hp in am after cardiology clearance today. Patient denies any Procrit use but has ongoing anemia likely related to kidney disease. Defer to nephrology. Cont pain control efforts. Bedrest for now. (2) Dyspnea on exertion: Plan: Progressive shortness of breath noted by patient over the past several weeks. Echo reviewed. Clinically there is no acute heart failure. Cont fluid management per nephrology. (3) ESRD on hemodialysis: Plan: consult nephrology, patient notes MWF HD sessions, however, possible noncompliance with HD sessions last week which may be contributing to SOB and lower extremity edema. (4) Ambulatory dysfunction: Plan: related to ongoing hip fracture. Notably patient reports that after his fall he asked his PCP about a hip injection because of the pain, however, no hip xray was performed. No records are available at this time to confirm this. (5) Frequent falls: Plan: Per issues noted above. PT/OT once cleared by ortho (6) Anemia: Plan: Likely related to ESRD and consider acute blood loss anemia 2/2 femoral neck fracture. Consider Procrit, defer to nephrology. No active bleeding present. Plan to transfuse if Hb<7 (7) Hypertension: Plan: chronic, improved from yesterday. Cont clonidine per home regimen which is twice daily. (8) Anxiety: Plan: chronic, stable. Cont alprazolam and sertraline per home regimen. Ativan PRN while possibly taking oxycodone. Noted that he is on suboxone and given this has a long half-life with needed time to build back up in the system, will continue it for now in addition to other narcotic medications as needed. Monitor closely for benzo withdrawal. (9) Insomnia: Plan: hold Ambien to avoid excessive pharmacologic interactions in this hemodialysis patient. (10) Alcohol abuse: Plan: 3-4 liquor drinks every day. AWSS scale to monitor for withdrawal. No evidence of this at this time. SCDs Full Code Dispo- to med/surg I spent a total of60 minutes coordinating, documenting, and providing care for this patient excluding time spent in the performance of separately billed services Leanna Yeager DO [facility] Hospitalist Admission and Anticipated Discharge Date Admission Date: September 16, 2022 Subjective 62 yo M on hemodialysis presents with inability to walk as a result of a left hip fracture Pain is well managed Completed HD today -->2L UF removed. Denies pain, SOB Edema still present Tolerating PO Review of Systems Review of Systems: All systems were reviewed and negative except as indicated on subjective above. Physical Exam Physical Exam: CONSTITUTIONAL: WNWD, vitals as above, generally well-appearing, NAD EYES: normal conjunctivae, no scleral icterus, ENT: external ear and nose normal, oropharynx clear, no TM abnormality, no maxillary or ethmoid sinus tenderness NECK: trachea midline RESPIRATORY: clear to auscultation bilaterally, no crackles, rales or wheezes, normal respiratory effort CARDIOVASCULAR: regular rate and rhythm, S1 and 2 heard without murmurs, gallops or rubs, no JVD, 2+ peripheral edema CHEST: inspection of chest was normal GASTROINTESTINAL: soft, nontender,ND, no guarding MUSCULOSKELETAL: strength 5/5 throughout,somewhat limited movement given left hip fracture, head is normocephalic and atraumatic SKIN: warm and dry, no rashes NEUROLOGIC: CN 2-12 grossly intact, no sensory deficit, normal cognition, normal speech, no tremor PSYCHIATRIC: alert cooperative and oriented to person, place and time. Euthymic mood, makes good eye contact, language grossly intact, recent and remote memory grossly intact. Results & Data Results & Data Vital Signs (Past 12 Hours) Vital Signs Temp Pulse Pulse Resp BP Pulse Ox Pulse Ox 09/17/22 08:18 36.4 C L 79 18 135/72 98 09/17/22 05:00 96 09/17/22 01:42 97 09/16/22 21:43 82 09/17/22 03:00 36.8 C 88 18 125/62 97 09/16/22 21:42 09/16/22 21:42 36.6 C 87 22 169/95 H 97 09/16/22 21:42 97 09/16/22 21:41 36.6 C 87 22 169/95 H 97 O2 Del Method O2 Del Method 09/17/22 08:18 Room Air 09/17/22 05:00 Room Air 09/17/22 01:42 Room Air 09/16/22 21:43 09/17/22 03:00 Room Air 09/16/22 21:42 Room Air 09/16/22 21:42 Room Air 09/16/22 21:42 Room Air 09/16/22 21:41 Room Air Laboratory Results Short CBC 09/16/22 09/17/22 Range/Units 16:45 02:18 WBC 4.38 L 4.06 L (4.8-10.8) K/ul Hgb 8.4 L 7.8 L (14.0-18.0) g/dl Hct 25.5 L 23.6 L (42.0-52.0) % Plt Count 123 L 108 L (130-400) K/uL BMP 09/16/22 09/17/22 16:45 02:18 Sodium 135 L 136 Potassium 3.4 L 3.2 L Chloride 96 L 97 L Carbon Dioxide 33 H 33 H BUN 19 23 Creatinine 6.07 H* 6.56 H* D Glucose 116 H 112 H Calcium 7.8 L 7.4 L Liver Function 09/16/22 Range/Units 16:45 Total Bilirubin 1.2 H (0.2-1.0) mg/dl AST 69 H (13-39) U/L ALT 23 (7-52) U/L Alkaline Phosphatase 141 H (34-104) U/L Albumin 2.0 L (3.4-5.0) gm/dl Diagnostic Findings Hip/Pelvis X-Ray 09/16/22 19:16 XR hip 1V LT w pelvis CLINICAL HISTORY: Preoperative evaluation TECHNIQUE: 2 views of the left hip and single frontal view of the pelvis were obtained. Comparison: Comparison is made to left femur radiograph 09/16/2022 FINDINGS: Redemonstration of left trochanteric fracture with some overriding. Degenerative changes are seen in the lumbar spine. Soft tissue swelling is seen. IMPRESSION: Redemonstration of left femoral neck fracture ACT 112: Negative or not required by law. Electronically signed by: Mckay Moreira M.D. 09/17/2022 7:18 AM Medications Administered Current Inpatient Medications Acetaminophen (Acetaminophen 325 Mg Tab) 650 mg PO Q4H PRN PRN Reason: Pain or Fever Stop: 10/16/22 21:41 Alprazolam (Alprazolam 0.5 Mg Tablet) 0.5 mg PO TID PRN PRN Reason: anxiety Stop: 10/16/22 21:41 Bisacodyl (Bisacodyl 10 Mg Supp) 10 mg [place] DAILY PRN PRN Reason: Constipation Stop: 10/16/22 21:41 Buprenorphine/Naloxone (Buprenorphine/Naloxone 8/2 Mg Tab) 1 tab SL BID USAMA Stop: 10/16/22 21:41 Last Admin: 09/17/22 09:17 Dose: 1 tab Clonidine HCl (Clonidine Hcl 0.1 Mg Tab) 0.1 mg PO BID USAMA Stop: 10/16/22 21:41 Last Admin: 09/16/22 22:13 Dose: 0.1 mg Folic Acid (Folic Acid 1 Mg Tab) 1 mg PO QAM [facility] Stop: 10/17/22 08:59 Last Admin: 09/17/22 09:17 Dose: 1 mg Cefazolin Sodium (Ancef 2000mg) 2,000 mg in 15 mls @ 3.75 mls/min IV PREOP USAMA; Protocol Stop: 09/18/22 05:59 Iron Sucrose 100 mg/ Syringe 5 mls @ 1 mls/min IV TODAY ONE Stop: 09/17/22 09:34 Lorazepam (Lorazepam 1 Mg Tab) 1 mg PO ONE PRN; Protocol PRN Reason: EtoH Withdrawal AWSS 6,7,8,9,10 Magnesium Hydroxide (Magnesium Hydroxide Susp 30 Ml Udc) 30 ml PO DAILY PRN PRN Reason: Constipation Stop: 10/16/22 21:41 Naloxone HCl (Naloxone Hcl 0.4 Mg/1 Ml Vial/Carp) 0.1 mg IV UD PRN PRN Reason: Opiate Overdose Stop: 10/16/22 21:41 Oxycodone HCl (Oxycodone Hcl Ir 5 Mg Tab (Immediate Release)) 10 mg PO Q4H PRN PRN Reason: SEVERE Pain (7,8,9,10) Stop: 09/30/22 21:41 Oxycodone HCl (Oxycodone Hcl Ir 5 Mg Tab (Immediate Release)) 5 mg PO Q4H PRN PRN Reason: MODERATE Pain (4,5,6) & Pre PT Stop: 09/30/22 21:41 Last Admin: 09/16/22 22:17 Dose: 5 mg Pantoprazole Sodium (Pantoprazole 40 Mg Tab) 40 mg PO BIDM [facility] Stop: 10/17/22 07:59 Last Admin: 09/17/22 09:17 Dose: 40 mg Polyethylene Glycol (Polyethylene (Miralax) 17 Gm Pack) 17 gm PO DAILY PRN PRN Reason: Constipation Stop: 10/16/22 21:41 Potassium Chloride (Potassium Chloride Crtab 20 Meq Tabcr) 40 meq PO ONE ONE Stop: 09/17/22 09:31 Senna/Docusate Sodium (Docusate Sodium/Senna 50/8.6mg Tab) 2 tab PO HS USAMA Stop: 10/16/22 21:41 Last Admin: 09/16/22 22:13 Dose: Not Given Sertraline HCl (Sertraline Hcl 100 Mg Tablet) 100 mg PO QAM [facility] Stop: 10/17/22 08:59 Last Admin: 09/17/22 09:18 Dose: 100 mg Thiamine HCl (Thiamine Hcl 100 Mg Tab) 100 mg PO QAM [facility] Stop: 10/16/22 21:14 Last Admin: 09/17/22 09:18 Dose: 100 mg Thiamine HCl (Thiamine Hcl 100 Mg Tab) 100 mg PO DAILY [facility] Stop: 10/17/22 08:59 Last Admin: 09/17/22 09:15 Dose: Not Given Vitamin B Complex/Folic Acid (Nephrocaps) 1 cap PO DAILY USAMA Stop: 10/17/22 08:59 Last Admin: 09/17/22 09:17 Dose: 1 cap Zolpidem Tartrate (Zolpidem Tartrate 5 Mg Tab) 5 mg PO HS PRN PRN Reason: Insomnia Stop: 10/16/22 21:41 (6) Anemia Anemia type: unspecified type Qualified Code(s): D64.9 - Anemia, unspecified (7) Hypertension Hypertension type: unspecified Qualified Code(s): I10 - Essential (primary) hypertension
[2022-09-17] MEDS ORDERED: POTASSIUM CHLORIDE CRTAB 20 MEQ TABCR PO ONE (09:30)
[2022-09-17] MEDS ORDERED: IRON SUCROSE 100 MG in SYRINGE 0 ML IV ONE (09:30)
[2022-09-17] MEDS ORDERED: LIDOCAINE/PRILOCAINE 2.5% EA CRM EXT ONE (09:36)
--- NOTE | 2022-09-17 10:09 | Cardiology Consultation ---
Date of Consultation September 17, 2022 Assessment & Plan (1) ESRD on hemodialysis: (2) Dyspnea on exertion: (3) Closed fracture of left hip: (4) HTN, goal below 140/90: Plan Please refer to physician addendum for further information as well as full plan of care. Supervising Physician Co-Signing Physician Notes Attending Staff: Pt seen and evaluated with [facility] Staff. Concur with observations and plans 62 yo man presenting with Left Femoral Neck Fracture. Appears that Left hip Fx has been chronic (weeks) No reported angina prior or since Left Femoral Neck Fx No significant dyspnea with exertion + volume overloaded secondary to missed HD Session - currently being addressed by Nephrology No signs or sx of unstable arrhythmias leading to presentation No known CAD No known Hx of [place], CVA or PVA ASCVD Risk: * HTN * ESRD on HD Echocardiogram 09/17/2022: * LVEF 60 to 65% * No wall motion abnormalities * Mild concentric LVH. * Grade 2 diastolic dysfunction * RV normal in size and function * Mild aortic stenosis * Mild MR and TR * Mild pulmonary hypertension with a PASP of 40 mmHg EKG: Sinus rhythm with PVCs, 89 bpm with prolonged QTc of 498 ms. Past medical history: End-stage renal disease, anuric, on hemodialysis via AV fistula every Wednesday follows with [facility] nephrology Hypertension Frequent falls Alcohol use, 3-4 liquor drinks daily Anemia of chronic disease, uses Procrit Peptic ulcer disease History of paroxysmal atrial fibrillation status post cardioversion Chronic pain on Suboxone therapy Questionable history of rheumatic fever Plans: * Plans for Left femoralneck repair * No evidence of escalating angina * + volume overload - actively being addressed by Nephrology * No evidence of unstable arrhythmias * LVEF 60 + Mild * No further risk stratification requested at this time * Would be cautious with aggressive volume expansion given ESRD * Would avoid hypotension given + LVH * Clonodine may not be the best antihypertensive for him - would check with nephrology given they manage his SBP * Will follow with [facility] History of Present Illness Reason for Consultation: Preoperative cardiovascular risk stratification. Requesting Physician: [facility] hospitalist Attending Physician: Leanna Yeager DO History of Present Illness 62-year-old male unknown to the [facility] cardiology practice. Presented to [facility] emergency department due to shortness of breath and inability to walk-per the patient he fell and broke his hip a few months back. Patient is known to be noncompliant with his health care. Recently has missed several dialysis treatments due to weakness. Hip and pelvis x-ray showed redemonstration of the left femoral neck fracture with soft tissue swelling. Echocardiogram dated 09/17/2022: LVEF 60 to 65% without wall motion abnormaliti es, mild concentric LVH. Grade 2 diastolic dysfunction. RV normal in size and function. Mild aortic stenosis. Mild MR and TR. Mild pulmonary hypertension with a PASP of 40 mmHg EKG: Sinus rhythm with PVCs, 89 bpm with prolonged QTc of 498 ms. Past medical history: End-stage renal disease, anuric, on hemodialysis via AV fistula every Wednesday We wednesday follows with [facility] nephrology Hypertension Frequent falls Alcohol use, 3-4 liquor drinks daily Anemia of chronic disease, uses Procrit Peptic ulcer disease History of paroxysmal atrial fibrillation status post cardioversion Chronic pain on Suboxone therapy Questionable history of rheumatic fever Allergies Allergy/AdvReac Type Severity Reaction Status Date / Time Iodinated Contrast Media AdvReac Contraindicated Verified 09/16/22 21:53 for dialysis Home Medications Medication Instructions Recorded Confirmed Type buprenorphine 8 mg-naloxone 2 mg 1 film sublingual BID 04/23/22 09/16/22 History sublingual film clonidine HCl 0.1 mg tablet 0.1 mg PO BID 04/23/22 09/16/22 History lidocaine-prilocaine 2.5 %-2.5 % 1 applic topical DIRECTED 04/23/22 09/16/22 History topical cream pantoprazole 40 mg tablet,delayed 40 mg PO BIDM 04/23/22 09/16/22 History release thiamine HCl (vitamin B1) 100 mg 100 mg PO DAILY 04/23/22 09/16/22 History tablet (Vitamin B-1) vitamin B complex and vitamin C 1 cap PO DAILY 04/23/22 09/16/22 History no.20-folic acid 1 mg capsule (Lul Caps) zolpidem 5 mg tablet 5 mg PO HS PRN Insomnia #30 tabs 04/25/22 09/16/22 Rx alprazolam 0.5 mg tablet 0.5 mg PO TID 09/16/22 09/16/22 History sertraline 100 mg tablet 100 mg PO QAM 09/16/22 09/16/22 History Patient History Medical History Ambulatory dysfunction Uses cane since December 2021 Anxiety Dialysis patient End stage renal disease Frequent falls History of chronic pain on suboxone; ? hx of opioid abuse Hypertension Paroxysmal A-fib s/p cardioversion, no further reoccurrence PUD (peptic ulcer disease) Rheumatic fever per patient cause of ESRD Surgical History AV fistula Social History Smoking Status: Never smoker Tobacco Type: Smokeless Tobacco (Dip or Chew) Second Hand Exposure: No; Do You Dip or Chew Tobacco: Yes; Hx Alcohol Use: Yes Alcohol type: hard liquor Hx Substance Use: Yes Preferred Language: Portuguese Communication Ability: Effective Brusher Operator Required: No Beliefs That Will Affect Care: None Current Living Situation: Spouse and Parent Current Living Situation Comment: Lives with mother and Feels Safe at Home: Yes Safety Concerns: Feels Safe At This Time Assistive Devices: Cane and Glasses Results & Data Vital Signs (Past 12 Hours) Vital Signs Temp Pulse Pulse Resp BP Pulse Ox Pulse Ox 09/17/22 07:53 76 09/17/22 08:18 36.4 C L 79 18 135/72 98 09/17/22 05:00 96 09/17/22 01:42 97 09/17/22 03:00 36.8 C 88 18 125/62 97 O2 Del Method O2 Del Method 09/17/22 07:53 09/17/22 08:18 Room Air 09/17/22 05:00 Room Air 09/17/22 01:42 Room Air 09/17/22 03:00 Room Air Laboratory Results Cardiac Enzymes 09/16/22 09/16/22 09/16/22 Range/Units 16:45 21:20 22:40 AST 69 H (13-39) U/L Troponin I High Sens 28.6 H 25.4 H (0-20) pg/ml B-Natriuretic Peptide 1924 H (0-100) pg/ml 09/17/22 Range/Units 02:18 AST (13-39) U/L Troponin I High Sens 26.4 H (0-20) pg/ml B-Natriuretic Peptide (0-100) pg/ml Coagulation 09/16/22 09/16/22 Range/Units 16:45 22:40 PT 13.2 H (9.0-12.0) Seconds B-Natriuretic Peptide 1924 H (0-100) pg/ml CBC 09/16/22 09/17/22 Range/Units 16:45 02:18 WBC 4.38 L 4.06 L (4.8-10.8) K/ul RBC 2.72 L 2.54 L (4.70-6.10) M/uL Hgb 8.4 L 7.8 L (14.0-18.0) g/dl Hct 25.5 L 23.6 L (42.0-52.0) % Plt Count 123 L 108 L (130-400) K/uL Neut # (Auto) 3.31 (1.40-6.50) K/uL Lymph # (Auto) 0.64 L (1.2-3.4) K/uL [place] # (Auto) 0.37 (0.11-0.59) K/uL Eos # (Auto) 0.02 (0-0.50) K/uL Baso # (Auto) 0.02 (0-0.2) K/uL Comprehensive Metabolic Panel 09/16/22 09/17/22 Range/Units 16:45 02:18 Sodium 135 L 136 (136-145) mmol/L Potassium 3.4 L 3.2 L (3.5-5.1) mmol/L Chloride 96 L 97 L (98-107) mmol/L Carbon Dioxide 33 H 33 H (21-32) mmol/L BUN 19 23 (6-23) mg/dl Creatinine 6.07 H* 6.56 H* D (0.6-1.4) mg/dl Glucose 116 H 112 H (70-99(Fasting)) mg/dl Calcium 7.8 L 7.4 L (8.6-10.3) mg/dl AST 69 H (13-39) U/L ALT 23 (7-52) U/L Alkaline Phosphatase 141 H (34-104) U/L Total Protein 5.6 L (6.0-8.3) gm/dl Albumin 2.0 L (3.4-5.0) gm/dl Intake and Output 09/16/22 09/17/2209/17/23 22:59 06:59 14:59 Intake Total 240 / 240 0 / 240 Output Total 0 / 0 0 / 0 Balance 240 / 240 0 / 240 Intake: Oral 240 / 240 0 / 240 Output: Urine 0 / 0 0 / 0 Other: Weight 96.8 kg 97 kg Weight Measurement Method [facility] Patient Weight 09/18/22 06:59 Weight 97 kg Medications Administered Current Inpatient Medications Acetaminophen (Acetaminophen 325 Mg Tab) 650 mg PO Q4H PRN PRN Reason: Pain or Fever Stop: 10/16/22 21:41 Alprazolam (Alprazolam 0.5 Mg Tablet) 0.5 mg PO TID PRN PRN Reason: anxiety Stop: 10/16/22 21:41 Bisacodyl (Bisacodyl 10 Mg Supp) 10 mg [place] DAILY PRN PRN Reason: Constipation Stop: 10/16/22 21:41 Buprenorphine/Naloxone (Buprenorphine/Naloxone 8/2 Mg Tab) 1 tab SL BID USAMA Stop: 10/16/22 21:41 Last Admin: 09/17/22 09:17 Dose: 1 tab Clonidine HCl (Clonidine Hcl 0.1 Mg Tab) 0.1 mg PO BID USAMA Stop: 10/16/22 21:41 Last Admin: 09/16/22 22:13 Dose: 0.1 mg Folic Acid (Folic Acid 1 Mg Tab) 1 mg PO QAM [facility] Stop: 10/17/22 08:59 Last Admin: 09/17/22 09:17 Dose: 1 mg Cefazolin Sodium (Ancef 2000mg) 2,000 mg in 15 mls @ 3.75 mls/min IV PREOP USAMA; Protocol Stop: 09/18/22 05:59 Lorazepam (Lorazepam 1 Mg Tab) 1 mg PO ONE PRN; Protocol PRN Reason: EtoH Withdrawal AWSS 6,7,8,9,10 Magnesium Hydroxide (Magnesium Hydroxide Susp 30 Ml Udc) 30 ml PO DAILY PRN PRN Reason: Constipation Stop: 10/16/22 21:41 Naloxone HCl (Naloxone Hcl 0.4 Mg/1 Ml Vial/Carp) 0.1 mg IV UD PRN PRN Reason: Opiate Overdose Stop: 10/16/22 21:41 Oxycodone HCl (Oxycodone Hcl Ir 5 Mg Tab (Immediate Release)) 10 mg PO Q4H PRN PRN Reason: SEVERE Pain (7,8,9,10) Stop: 09/30/22 21:41 Oxycodone HCl (Oxycodone Hcl Ir 5 Mg Tab (Immediate Release)) 5 mg PO Q4H PRN PRN Reason: MODERATE Pain (4,5,6) & Pre PT Stop: 09/30/22 21:41 Last Admin: 09/16/22 22:17 Dose: 5 mg Pantoprazole Sodium (Pantoprazole 40 Mg Tab) 40 mg PO BIDM [facility] Stop: 10/17/22 07:59 Last Admin: 09/17/22 09:17 Dose: 40 mg Polyethylene Glycol (Polyethylene (Miralax) 17 Gm Pack) 17 gm PO DAILY PRN PRN Reason: Constipation Stop: 10/16/22 21:41 Senna/Docusate Sodium (Docusate Sodium/Senna 50/8.6mg Tab) 2 tab PO HS [facility] Stop: 10/16/22 21:41 Last Admin: 09/16/22 22:13 Dose: Not Given Sertraline HCl (Sertraline Hcl 100 Mg Tablet) 100 mg PO QAM [facility] Stop: 10/17/22 08:59 Last Admin: 09/17/22 09:18 Dose: 100 mg Thiamine HCl (Thiamine Hcl 100 Mg Tab) 100 mg PO QAM [facility] Stop: 10/16/22 21:14 Last Admin: 09/17/22 09:18 Dose: 100 mg Thiamine HCl (Thiamine Hcl 100 Mg Tab) 100 mg PO DAILY [facility] Stop: 10/17/22 08:59 Last Admin: 09/17/22 09:15 Dose: Not Given Vitamin B Complex/Folic Acid (Nephrocaps) 1 cap PO DAILY [facility] Stop: 10/17/22 08:59 Last Admin: 09/17/22 09:17 Dose: 1 cap Zolpidem Tartrate (Zolpidem Tartrate 5 Mg Tab) 5 mg PO HS PRN PRN Reason: Insomnia Stop: 10/16/22 21:41
--- NOTE | 2022-09-17 10:11 | Nephrology Consultation ---
Date of Consultation September 17, 2022 Assessment & Plan (1) ESRD on hemodialysis: On HD MWF at [facility]. Orders for HD entered into the EHR and reviewed with chemical dependency nurse. Medications appropriate for kidney dysfunction. KCl 40 mEq PO prior to treatment for hypokalemia. No 4 K bath available. Repeat metabolic profile tomorrow AM. Payam has chronic mild hypokalemia and hypophosphatemia. He does not require dietary restriction. Maintain a fluid restriction of 1.2 L/d. There are no concerns about proceeding with surgery at this time. To optimize anemia, PRBC transfusion can be provided with HD as needed once OR date/time is determined. EMLA cream to be applied prior to HD. (2) Closed fracture of left hip: Orthopedics is planning non-emergent L hip hemiarthroplasty. (3) Hypertension: Remains on Clonidine per home Rx. BP acceptable. Volume status acceptable. Will continue to challenge with UF. (4) Anemia: Epogen 83266 units and venofer 100 mg to be provided with HD today. Iron profile with AM labs. History of Present Illness Reason for Consultation: ESRD, missed dialysis Requesting Physician: Prabhakar Batista MD Attending Physician: Leanna Yeager DO History of Present Illness Mr. 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 He started HD in 2020 while living in [facility]. Payam has been maintained on IHD. He was dialyzing at [facility] in [place] under the care of Dr. Tapia and on August 31 transferred care to [facility] in [place]. I oversee Payam's care at [facility]. He has been tolerating HD well and has not had complications with treatments. Laboratory studies notable for chronic anemia at least partially related to missed dialysis treatments and subsequently irregular ROSANNA therapy. He has attended all scheduled dialysis treatments over the past few weeks. Micera was provided on September 07. Payam does struggle with chronic pain and a longstanding opiate use. Payam is maintained on Suboxone. He has has some chronic ambulatory dysfunction and reports a couple mechanical falls at home in the past week. He denies syncope or presyncope. He denies lightheadedness, dizziness, palpitations, or any chest pain. Payam does not recall exactly how or when he fell but states that he was able to stand with assistance from his immediately following these events. He did not appreciate substantial bleeding following the episodes. He denies hitting his head. He described some exacerbation of chronic back pain following each episode but no specific hip pain. Over the past several days, he developed progressive pain in the left thigh and hip. Pain is worse with weight bearing. Medical history is also notable for OA/DJD, ROSA/MDD, history of atrial fibrillation in the past s/p cardioversion, and a history of pancreatitis attributed to alcohol. He has a recent history of chronic diarrhea for which a GI evaluation was completed. This included a colonoscopy with biopsies that were negative for mi croscopic colitis. He was seen and evaluated by TISH Cho at dialysis on Wednesday and reported pain in his lower back and left thigh for which he was encouraged to come to the hospital for evaluation. Initially, he had stated that he planned to followup with his PCP. Payam presented to [facility] ER yesterday. He missed his scheduled dialysis treatment. Last HD treatment completed September 14. IDWG typically <1.5 L. Prior EDW was 96.5 kg. He left HD at 96 kg on Wednesday. BP has been acceptable. He dialyzes via a left upper extremity AVF which was placed in [place] in 2020. This has been functioning well. Evaluation in the OR was notable for left femoral neck fracture. Orthopedics has recommended L hemiarthroplasty once medically stable. I discussed the plan of care with Dr. Yeager this AM. Outpatient Rx: 3.5 hours on a 180 optiflix at Qb 400 and Qd 600, 3 K bath. Allergies Allergy/AdvReac Type Severity Reaction Status Date / Time Iodinated Contrast Media AdvReac Contraindicated Verified 09/16/22 21:53 for dialysis Home Medications Medication Instructions Recorded Confirmed Type buprenorphine 8 mg-naloxone 2 mg 1 film sublingual BID 04/23/22 09/16/22 History sublingual film clonidine HCl 0.1 mg tablet 0.1 mg PO BID 04/23/22 09/16/22 History lidocaine-prilocaine 2.5 %-2.5 % 1 applic topical DIRECTED 04/23/22 09/16/22 History topical cream pantoprazole 40 mg tablet,delayed 40 mg PO BIDM 04/23/22 09/16/22 History release thiamine HCl (vitamin B1) 100 mg 100 mg PO DAILY 04/23/22 09/16/22 History tablet (Vitamin B-1) vitamin B complex and vitamin C 1 cap PO DAILY 04/23/22 09/16/22 History no.20-folic acid 1 mg capsule ([place] Caps) zolpidem 5 mg tablet 5 mg PO HS PRN Insomnia #30 tabs 04/25/22 09/16/22 Rx alprazolam 0.5 mg tablet 0.5 mg PO TID 09/16/22 09/16/22 History sertraline 100 mg tablet 100 mg PO QAM 09/16/22 09/16/22 History Patient History Medical History Ambulatory dysfunction Uses cane since December 2021 Anxiety Dialysis patient End stage renal disease Frequent falls History of chronic pain on suboxone; ? hx of opioid abuse Hypertension Paroxysmal A-fib s/p cardioversion, no further reoccurrence PUD (peptic ulcer disease) Rheumatic fever per patient cause of ESRD Surgical History AV fistula Social History Smoking Status: Never smoker Tobacco Type: Smokeless Tobacco (Dip or Chew) Second Hand Exposure: No; Do You Dip or Chew Tobacco: Yes; Hx Alcohol Use: Yes Alcohol type: hard liquor Hx Substance Use: Yes Preferred Language: Slovak Communication Ability: Effective Erp Implementation Consultant Required: No Beliefs That Will Affect Care: None Current Living Situation: Spouse and Parent Current Living Situation Comment: Lives with mother and Feels Safe at Home: Yes Safety Concerns: Feels Safe At This Time Assistive Devices: Cane and Glasses Review of Systems Review of Systems: All systems reviewed & are unremarkable except as noted in HPI & below Physical Exam Constitutional: well developed; no acute distress Eyes: no scleral abnormality and no corneal abnormality ENMT: Mouth: no oral mucosal abnormality and oral mucous membranes not dry Neck: normal visual inspection and trachea midline Respiratory: normal respiratory effort Auscultation: lungs clear to auscultation bilaterally Cardiovascular: Rate/Rhythm: regular rate Heart Sounds: normal S1 and normal S2 Extremities: + edema and + AV fistula Musculoskeletal: Extremities: no cyanosis and no clubbing Skin: normal turgor; no lesions Neurologic: Motor/Sensory: no tremor and no asterixis Psychiatric: Orientation: alert and oriented x 3 Results & Data Vital Signs (Past 12 Hours) Vital Signs Temp Pulse Resp BP Pulse Ox Pulse Ox O2 Del Method 09/17/22 08:18 36.4 C L 79 18 135/72 98 Room Air 09/17/22 05:00 96 09/17/22 01:42 97 09/17/22 03:00 36.8 C 88 18 125/62 97 Room Air O2 Del Method 09/17/22 08:18 09/17/22 05:00 Room Air 09/17/22 01:42 Room Air 09/17/22 03:00 Laboratory Results Laboratory Results - last 24 hr 09/16/22 09/16/22 09/16/22 15:13 16:45 16:45 WBC RBC Hgb Hct MCV MCH MCHC RDW Std Deviation RDW Coeff of Valerie Plt Count MPV Immature Gran % (Auto) Neut % (Auto) Lymph % (Auto) [place] % (Auto) Eos % (Auto) Baso % (Auto) Neut # (Auto) Lymph # (Auto) [place] # (Auto) Eos # (Auto) Baso # (Auto) Immature Gran # (Auto) PT 13.2 H INR 1.2 H Sodium 135 L Potassium 3.4 L Chloride 96 L Carbon Dioxide 33 H Anion Gap 6 BUN 19 Creatinine 6.07 H* Est Cr Clr Drug Dosing Not Reportable Est GFR ( Amer) 10.7 Est GFR (Non-Af Amer) 9.2 BUN/Creatinine Ratio 3.1 L Glucose 116 H Calcium 7.8 L Phosphorus Magnesium 1.7 Total Bilirubin 1.2 H AST 69 H ALT 23 Alkaline Phosphatase 141 H Troponin I High Sens 28.6 H B-Natriuretic Peptide Total Protein 5.6 L Albumin 2.0 L Globulin 3.6 Albumin/Globulin Ratio 0.6 L Vitamin B12 TSH Free T4 Nasal Screen MRSA (PCR) SARS-CoV-2, RNA, NAAT NEGATIVE Blood Type Antibody Screen 09/16/22 09/16/22 09/16/22 16:45 16:45 21:20 WBC 4.38 L RBC 2.72 L Hgb 8.4 L Hct 25.5 L MCV 93.8 MCH 30.9 MCHC 32.9 RDW Std Deviation 64.0 H RDW Coeff of Valerie 18.7 H Plt Count 123 L MPV 10.8 Immature Gran % (Auto) 0.5 Neut % (Auto) 75.5 Lymph % (Auto) 14.6 [place] % (Auto) 8.4 Eos % (Auto) 0.5 Baso % (Auto) 0.5 Neut # (Auto) 3.31 Lymph # (Auto) 0.64 L [place] # (Auto) 0.37 Eos # (Auto) 0.02 Baso # (Auto) 0.02 Immature Gran # (Auto) 0.02 PT INR Sodium Potassium Chloride Carbon Dioxide Anion Gap BUN Creatinine Est Cr Clr Drug Dosing Est GFR ( Amer) Est GFR (Non-Af Amer) BUN/Creatinine Ratio Glucose Calcium Phosphorus Magnesium Total Bilirubin AST ALT Alkaline Phosphatase Troponin I High Sens 25.4 H B-Natriuretic Peptide Total Protein Albumin Globulin Albumin/Globulin Ratio Vitamin B12 TSH 6.772 H Free T4 0.90 Nasal Screen MRSA (PCR) SARS-CoV-2, RNA, NAAT Blood Type Antibody Screen 09/16/22 09/16/22 09/16/22 22:27 22:40 22:40 WBC RBC Hgb Hct MCV MCH MCHC RDW Std Deviation RDW Coeff of Valerie Plt Count MPV Immature Gran % (Auto) Neut % (Auto) Lymph % (Auto) [place] % (Auto) Eos % (Auto) Baso % (Auto) Neut # (Auto) Lymph # (Auto) [place] # (Auto) Eos # (Auto) Baso # (Auto) Immature Gran # (Auto) PT INR Sodium Potassium Chloride Carbon Dioxide Anion Gap BUN Creatinine Est Cr Clr Drug Dosing Est GFR ( Amer) Est GFR (Non-Af Amer) BUN/Creatinine Ratio Glucose Calcium Phosphorus Magnesium Total Bilirubin AST ALT Alkaline Phosphatase Troponin I High Sens B-Natriuretic Peptide 1924 H Total Protein Albumin Globulin Albumin/Globulin Ratio Vitamin B12 TSH Free T4 Nasal Screen MRSA (PCR) Negative SARS-CoV-2, RNA, NAAT Blood Type A Positive Antibody Screen NEGATIVE 09/17/22 09/17/22 09/17/22 02:18 02:18 02:18 WBC 4.06 L RBC 2.54 L Hgb 7.8 L Hct 23.6 L MCV 92.9 MCH 30.7 MCHC 33.1 RDW Std Deviation 63.3 H RDW Coeff of Valerie 18.5 H Plt Count 108 L MPV 10.6 Immature Gran % (Auto) Neut % (Auto) Lymph % (Auto) [place] % (Auto) Eos % (Auto) Baso % (Auto) Neut # (Auto) Lymph # (Auto) [place] # (Auto) Eos # (Auto) Baso # (Auto) Immature Gran # (Auto) PT INR Sodium 136 Potassium 3.2 L Chloride 97 L Carbon Dioxide 33 H Anion Gap 6 BUN 23 Creatinine 6.56 H* D Est Cr Clr Drug Dosing 13.7 Est GFR ( Amer) 9.7 Est GFR (Non-Af Amer) 8.4 BUN/Creatinine Ratio 3.5 L Glucose 112 H Calcium 7.4 L Phosphorus 2.1 L Magnesium 1.7 Total Bilirubin AST ALT Alkaline Phosphatase Troponin I High Sens 26.4 H B-Natriuretic Peptide Total Protein Albumin Globulin Albumin/Globulin Ratio Vitamin B12 1419 H TSH Free T4 Nasal Screen MRSA (PCR) SARS-CoV-2, RNA, NAAT Blood Type Antibody Screen PG Care Time/CCT Total # of Minutes Spent Total Time Spent with Patient: Total time spent is greater than 50% in coordination of care (as documented) at patient's floor/unit and/or counseling patient: Coding Level of Care Code 36783 IN/OBS CONSULT LVL 4,60M Diagnoses ESRD on hemodialysis N18.6; Z99.2 Closed fracture of left hip S72.002A Hypertension I10 Hypertension type: unspecified Anemia D64.9 Anemia type: unspecified type (3) Hypertension Hypertension type: unspecified Qualified Code(s): I10 - Essential (primary) hypertension (4) Anemia Anemia type: unspecified type Qualified Code(s): D64.9 - Anemia, unspecified
[2022-09-17] MEDS ORDERED: diphenhydrAMINE 50 MG/ML VIAL IV STA (10:32)
[2022-09-17] MEDS: cloNIDine HCL 0.1 MG TAB PO SCH ×2 (15:28→21:15)
--- NOTE | 2022-09-17 17:02 | Orthopedic Progress Note ---
Date of Service September 17, 2022 Assessment & Plan (1) Closed fracture of left hip: I talked him once again about the diagnosis and treatment options. I am recommending a cemented left hip hemiarthroplasty. He understands the risk benefits alternatives procedure elected proceed. Questions were answered at [facility] and consents were signed. Time was spent scribing the procedure and post expectations. He understands he is a very high risk for the procedure. We will keep him n.p.o. past midnight tonight and likely do the procedure tomorrow. Subjective Payam was seen and examined at bedside this morning. Overall is doing okay. He has dialysis today. He was seen by nephrology as well as cardiology. He is a high risk but they feel he is optimized for a partial bowel hip replacement tomorrow.. Review of Systems All systems reviewed & are unremarkable except as noted in HPI & below. Physical Exam On physical examination of left hip, he has pain with logroll of his hip.. Results & Data Results & Data Laboratory Results . Diagnostic Findings X-rays of the left hip do show a displaced left femoral neck fracture. PG Care Time/CCT Total # of Minutes Spent Total Time Spent with Patient: Total time spent is greater than 50% in coordination of care (as documented) at patient's floor/unit and/or counseling patient: Coding Level of Care Code 51080 Post Operative Follow-Up Diagnoses Closed fracture of left hip S72.002A
[2022-09-17] MEDS: oxyCODONE HCL IR 5 MG TAB (IMMEDIATE RELEASE) PO PRN (18:21)
[2022-09-17] MEDS: ZOLPIDEM TARTRATE 5 MG TAB PO PRN (21:15)
[2022-09-17] MEDS: DOCUSATE SODIUM/SENNA 50/8.6MG TAB PO SCH (21:19)
[2022-09-18 06:16] LABS: Hemoglobin 7.4 g/dl (14.0-18.0); Mean Corpuscular Hemoglobin 30.2 pg (25.0-34.0); Mean Corpuscular Hgb Conc 32.2 g/dL (32.0-36.0); Mean Corpuscular Volume 93.9 fL (80.0-100.0); Mean Platelet Volume 10.4 fL (9.4-12.4); Platelet Count 110 K/uL (130-400); RDW Coefficient of Variation 18.3 % (11.5-14.5); RDW Standard Deviation 63.1 fL (36.4-46.3); Red Blood Count 2.45 M/uL (4.70-6.10); White Blood Count 3.55 K/ul (4.8-10.8)
[2022-09-18 06:34] LABS: Anion Gap 5 (3-11); BUN Creatinine Ratio 2.5 (10-20); Blood Urea Nitrogen 9 mg/dl (6-23); Calcium 7.6 mg/dl (8.6-10.3); Carbon Dioxide 29 mmol/L (21-32); Chloride 102 mmol/L (98-107); Creatinine Clr Calc Pharmacy 24.9 ml/min; Est GFR (African American) 20.2 ml/min; Est GFR (Non-African American) 17.4 ml/min; Glucose 87 mg/dl (70-99(Fasting)); Potassium 3.5 mmol/L (3.5-5.1); Sodium 136 mmol/L (136-145)
[2022-09-18 06:45] LABS: Albumin Level 1.9 gm/dl (3.4-5.0); Iron 39 mcg/dl (35-175); Phosphorus 1.6 mg/dl (2.5-4.9); Unsaturated Iron Binding Cap < 55 mcg/dl (155-355)
[2022-09-18 06:55] LABS: Ferritin 602.8 ng/ml (8-388)
--- NOTE | 2022-09-18 07:44 | Cardiology Progress Note ---
Date of Service September 18, 2022 Assessment & Plan (1) ESRD on hemodialysis: (2) Dyspnea on exertion: (3) Closed fracture of left hip: (4) HTN, goal below 140/90: Plan Please refer to physician addendum for further information as well as full plan of care. Admission and Anticipated Discharge Date Admission Date: September 16, 2022 Supervising Physician Co-Signing Physician Notes Attending Staff: Pt seen and evaluated with [facility] Staff. Concur with observations and plans 62 yo man presenting with Left Femoral Neck Fracture. Appears that Left hip Fx has been chronic (weeks) No reported angina prior or since Left Femoral Neck Fx No significant dyspnea with exertion + volume overloaded secondary to missed HD Session - currently being addressed by Nephrology No signs or sx of unstable arrhythmias leading to presentation No known CAD No known Hx of NV, CVA or PVA ASCVD Risk: * HTN * ESRD on HD Echocardiogram 09/17/2022: * LVEF 60 to 65% * No wall motion abnormalities * Mild concentric LVH. * Grade 2 diastolic dysfunction * RV normal in size and function * Mild aortic stenosis * Mild MR and TR * Mild pulmonary hypertension with a PASP of 40 mmHg EKG: Sinus rhythm with PVCs, 89 bpm with prolonged QTc of 498 ms. Past medical history: End-stage renal disease, anuric, on hemodialysis via AV fistula every Wednesday follows with [facility] [place]rology Hypertension Frequent falls Alcohol use, 3-4 liquor drinks daily Anemia of chronic disease, uses Procrit Peptic ulcer disease History of paroxysmal atrial fibrillation status post cardioversion Chronic pain on Suboxone therapy Questionable history of rheumatic fever Plans: * Plans for Left femoral neck surgical repair - tentatively set for 09/18/2022 * No evidence of escalating angina * + volume overload - actively being addressed by Nephrology * Consider QD HD to attain euvolemia * Plans for Transfusion during HD - concur HCT 23 * No evidence of unstable arrhythmias * LVEF 60% + Mild * No further risk stratification requested at this time * K+ goal 4-4.5 * Mag goal >2 * Would be cautious with aggressive volume expansion given ESRD * Would avoid hypotension given + LVH * Clonidine may not be the best antihypertensive for him - would check with nephrology given they manage his SBP Goyo Ha Subjective Events overnight: Review of Systems Review of Systems: All systems reviewed & are unremarkable except as noted in HPI & below Physical Exam Physical Exam: Overweight JVP 16 cmH20 S1S2 2/6 systolic murmur CTA B ABD- obese, + BS Left leg - ext rotated and foreshortened Results & Data Vital Signs (Past 12 Hours) Vital Signs Temp Pulse Pulse Resp BP Pulse Ox O2 Del Method 09/18/22 03:11 36.8 C 82 18 143/72 H 98 Room Air 09/17/22 23:00 88 09/17/22 23:41 37.0 C 87 18 131/72 93 Room Air 09/17/22 21:00 36.5 C 87 18 140/67 97 Room Air Laboratory Results CBC 09/18/22 Range/Units 05:50 WBC 3.55 L (4.8-10.8) K/ul RBC 2.45 L (4.70-6.10) M/uL Hgb 7.4 L (14.0-18.0) g/dl Hct 23.0 L (42.0-52.0) % Plt Count 110 L (130-400) K/uL Comprehensive Metabolic Panel 09/18/22 Range/Units 05:50 Sodium 136 (136-145) mmol/L Potassium 3.5 (3.5-5.1) mmol/L Chloride 102 (98-107) mmol/L Carbon Dioxide 29 (21-32) mmol/L BUN 9 (6-23) mg/dl Creatinine 3.58 H D (0.6-1.4) mg/dl Glucose 87 (70-99(Fasting)) mg/dl Calcium 7.6 L (8.6-10.3) mg/dl Albumin 1.9 L (3.4-5.0) gm/dl Intake and Output 09/17/22 09/18/22 09/18/22 22:59 06:59 14:59 Intake Total 120 / 420 300 / 420 Balance 120 / 420 300 / 420 Intake: Oral 120 / 420 300 / 420 Other: Other Intake Source npo Weight 94.3 kg Medications Administered Current Inpatient Medications Acetaminophen (Acetaminophen 325 Mg Tab) 650 mg PO Q4H PRN PRN Reason: Pain or Fever Stop: 10/16/22 21:41 Alprazolam (Alprazolam 0.5 Mg Tablet) 0.5 mg PO TID PRN PRN Reason: anxiety Stop: 10/16/22 21:41 Bisacodyl (Bisacodyl 10 Mg Supp) [address] DAILY PRN PRN Reason: Constipation Stop: 10/16/22 21:41 Buprenorphine/Naloxone (Buprenorphine/Naloxone 8/2 Mg Tab) 1 tab SL BID [facility] Stop: 10/16/22 21:41 Last Admin: 09/17/22 21:16 Dose: 1 tab Clonidine HCl (Clonidine Hcl 0.1 Mg Tab) 0.1 mg PO BID [facility] Stop: 10/16/22 21:41 Last Admin: 09/17/22 21:15 Dose: 0.1 mg Folic Acid (Folic Acid 1 Mg Tab) 1 mg PO QAM [facility] Stop: 10/17/22 08:59 Last Admin: 09/17/22 09:17 Dose: 1 mg Lorazepam (Lorazepam 1 Mg Tab) 1 mg PO ONE PRN; Protocol PRN Reason: EtoH Withdrawal AWSS 6,7,8,9,10 Magnesium Hydroxide (Magnesium Hydroxide Susp 30 Ml Udc) 30 ml PO DAILY PRN PRN Reason: Constipation Stop: 10/16/22 21:41 Naloxone HCl (Naloxone Hcl 0.4 Mg/1 Ml Vial/Carp) 0.1 mg IV UD PRN PRN Reason: Opiate Overdose Stop: 10/16/22 21:41 Oxycodone HCl (Oxycodone Hcl Ir 5 Mg Tab (Immediate Release)) 10 mg PO Q4H PRN PRN Reason: SEVERE Pain (7,8,9,10) Stop: 09/30/22 21:41 Oxycodone HCl (Oxycodone Hcl Ir 5 Mg Tab (Immediate Release)) 5 mg PO Q4H PRN PRN Reason: MODERATE Pain (4,5,6) & Pre PT Stop: 09/30/22 21:41 Last Admin: 09/17/22 18:21 Dose: 5 mg Pantoprazole Sodium (Pantoprazole 40 Mg Tab) 40 mg PO BIDM [facility] Stop: 10/17/22 07:59 Last Admin: 09/17/22 17:17 Dose: 40 mg Polyethylene Glycol (Polyethylene (Miralax) 17 Gm Pack) 17 gm PO DAILY PRN PRN Reason: Constipation Stop: 10/16/22 21:41 Senna/Docusate Sodium (Docusate Sodium/Senna 50/8.6mg Tab) 2 tab PO HS [facility] Stop: 10/16/22 21:41 Last Admin: 09/17/22 21:19 Dose: Not Given Sertraline HCl (Sertraline Hcl 100 Mg Tablet) 100 mg PO QAM [facility] Stop: 10/17/22 08:59 Last Admin: 09/17/22 09:18 Dose: 100 mg Thiamine HCl (Thiamine Hcl 100 Mg Tab) 100 mg PO QAM [facility] Stop: 10/16/22 21:14 Last Admin: 09/17/22 09:18 Dose: 100 mg Thiamine HCl (Thiamine Hcl 100 Mg Tab) 100 mg PO DAILY [facility] Stop: 10/17/22 08:59 Last Admin: 09/17/22 09:15 Dose: Not Given Vitamin B Complex/Folic Acid (Nephrocaps) 1 cap PO DAILY [facility] Stop: 10/17/22 08:59 Last Admin: 09/17/22 09:17 Dose: 1 cap Zolpidem Tartrate (Zolpidem Tartrate 5 Mg Tab) 5 mg PO HS PRN PRN Reason: Insomnia Stop: 10/16/22 21:41 Last Admin: 09/17/22 21:15 Dose: 5 mg
[2022-09-18] MEDS ORDERED: SODIUM PHOSPHATE 3 MMOL/1 ML 5 ML VIAL IV ONE (07:45)
[2022-09-18] MEDS ORDERED: SODIUM PHOSPHATE IV ONE (08:00)
[2022-09-18] MEDS ORDERED: SODIUM CHLORIDE 0.9% IV ONE (08:00)
[2022-09-18] MEDS: BUPRENORPHINE/NALOXONE 8/2 MG TAB SL SCH ×2 (08:12→21:25)
[2022-09-18] MEDS: cloNIDine HCL 0.1 MG TAB PO SCH ×2 (08:12→21:26)
[2022-09-18] MEDS ORDERED: SODIUM CHLORIDE 0.9% 250 ML IV PRN (08:24)
[2022-09-18] MEDS ORDERED: POTASSIUM CHLORIDE CRTAB 20 MEQ TABCR PO STA (08:26)
[2022-09-18] MEDS ORDERED: LIDOCAINE/PRILOCAINE 2.5% EA CRM EXT ONE (08:26)
[2022-09-18] MEDS ORDERED: diphenhydrAMINE 50 MG/ML VIAL IV STA (08:29)
--- NOTE | 2022-09-18 09:51 | Nephrology Progress Note ---
Date of Service September 18, 2022 Assessment & Plan (1) ESRD on hemodialysis: Plan: On HD MWF at [facility]. Missed HD on Wednesday and completed a treatment yesterday. A short treatment will be provided this AM for additional UF. I will provide 1 unit PRBC transfusion support with dialysis. Orders for HD entered into the EHR and reviewed with intelligence operations specialist. Medications appropriate for kidney dysfunction. KCl 20 mEq PO prior to treatment. No 4 K bath available. Phosphorus replacement has been ordered to be given post dialysis for hypophosphatemia. Repeat metabolic profile tomorrow AM. Payam has chronic mild hypokalemia and hypophosphatemia. He does not require dietary restriction. Maintain a fluid restriction of 1.2 L/d. There are no concerns about proceeding with surgery at this time. For anemia, PRBC transfusion will be provided with HD this AM. EMLA cream to be applied prior to HD. (2) Closed fracture of left hip: Plan: Scheduled for L hip hemiarthroplasty today. (3) Hypertension: Plan: Remains on Clonidine per home Rx. BP acceptable. Volume status acceptable. Additional UF with HD today. (4) Anemia: Plan: Epogen 17444 units and Venofer 100 mg provided with HD yesterday. Iron stores are low. 2 units PRBC cross matched. 1 unit will be given with HD this AM. Admission and Anticipated Discharge Date Admission Date: September 16, 2022 Subjective No acute events overnight. Tolerated HD well yesterday without complications. Pain reasonably controlled. No signs of bleeding noted. Plan for OR today. Consented for blood this morning. Review of Systems Review of Systems: All systems reviewed & are unremarkable except as noted in HPI & below Physical Exam Constitutional: well developed; no acute distress Eyes: no scleral abnormality and no corneal abnormality ENMT: Mouth: no oral mucosal abnormality and oral mucous membranes not dry Neck: normal visual inspection and trachea midline Respiratory: normal respiratory effort Auscultation: lungs clear to auscultation bilaterally Cardiovascular: Rate/Rhythm: regular rate Heart Sounds: normal S1 and normal S2 Extremities: + edema and + AV fistula Musculoskeletal: Extremities: no cyanosis and no clubbing Skin: normal turgor; no lesions Neurologic: Motor/Sensory: no tremor and no asterixis Psychiatric: Orientation: alert and oriented x 3 Results & Data Vital Signs (Past 12 Hours) Vital Signs Temp Pulse Pulse Pulse Resp BP Pulse Ox 09/18/22 07:16 90 09/18/22 07:00 37.2 C 83 18 153/86 H 94 09/18/22 03:11 36.8 C 82 18 143/72 H 98 09/17/22 23:00 88 09/17/22 23:41 37.0 C 87 18 131/72 93 O2 Del Method 09/18/22 07:16 09/18/22 07:00 Room Air 09/18/22 03:11 Room Air 09/17/22 23:00 09/17/22 23:41 Room Air Laboratory Results Laboratory Results - last 24 hr 09/16/22 09/18/22 09/18/22 22:40 05:50 05:50 WBC 3.55 L RBC 2.45 L Hgb 7.4 L Hct 23.0 L MCV 93.9 MCH 30.2 MCHC 32.2 RDW Std Deviation 63.1 H RDW Coeff of Valerie 18.3 H Plt Count 110 L MPV 10.4 Sodium 136 Potassium 3.5 Chloride 102 Carbon Dioxide 29 Anion Gap 5 BUN 9 Creatinine 3.58 H D Est Cr Clr Drug Dosing 24.9 Est GFR ( Amer) 20.2 Est GFR (Non-Af Amer) 17.4 BUN/Creatinine Ratio 2.5 L Glucose 87 Calcium 7.6 L Phosphorus 1.6 L Iron 39 TIBC TNP Unsaturated IBC < 55 L Transferrin % Sat TNP Ferritin 602.8 H Albumin 1.9 L Blood Type A Positive Blood Type Recheck Antibody Screen NEGATIVE Crossmatch See Detail 09/18/22 05:50 WBC RBC Hgb Hct MCV MCH MCHC RDW Std Deviation RDW Coeff of Valerie Plt Count MPV Sodium Potassium Chloride Carbon Dioxide Anion Gap BUN Creatinine Est Cr Clr Drug Dosing Est GFR ( Amer) Est GFR (Non-Af Amer) BUN/Creatinine Ratio Glucose Calcium Phosphorus Iron TIBC Unsaturated IBC Transferrin % Sat Ferritin Albumin Blood Type Blood Type Recheck A Positive Antibody Screen Crossmatch PG Care Time/CCT Total # of Minutes Spent Total Time Spent with Patient: Total time spent is greater than 50% in coordination of care (as documented) at patient's floor/unit and/or counseling patient: Coding Level of Care Code 01197 SUB INP/OBS CARE 3/50MIN Diagnoses ESRD on hemodialysis N18.6; Z99.2 Closed fracture of left hip S72.002A Hypertension I10 Hypertension type: unspecified Anemia D64.9 Anemia type: unspecified type (3) Hypertension Hypertension type: unspecified Qualified Code(s): I10 - Essential (primary) hypertension (4) Anemia Anemia type: unspecified type Qualified Code(s): D64.9 - Anemia, unspecified
--- NOTE | 2022-09-18 10:44 | Hospitalist Progress Note ---
Date of Service September 18, 2022 Assessment & Plan (1) Age-related osteoporosis with current pathol fracture of left femur: Plan: Appears to have been fractured for several weeks now at a minimum. Ortho consulted, he is s/p left anterior hip arthroplasty today. Post op wound management per ortho. Currently pain is well managed. PT/OT (2) Dyspnea on exertion: Plan: Progressive shortness of breath noted by patient over the past several weeks. Echo reviewed. Clinically there is no acute heart failure. Cont fluid management per nephrology. Transfused 1 U blood today with HD. Hypervolemic is improving. (3) ESRD on hemodialysis: Plan: consult nephrology, patient notes MWF HD sessions, however, possible noncompliance with HD sessions in recent weeks which may have been contributing to SOB and lower extremity edema. This is improved. Cont per nephrology. (4) Ambulatory dysfunction: Plan: related to ongoing hip fracture. Notably patient reports that after his fall he asked his PCP about a hip injection because of the pain, however, no hip xray was performed. No records are available at this time to confirm this. (5) Frequent falls: Plan: Per issues noted above. PT/OT once cleared by ortho (6) Anemia: Plan: Likely related to ESRD and consider acute blood loss anemia 2/2 femoral neck fracture. Consider Procrit, defer to nephrology. No active bleeding present. Plan to transfuse if Hb<7 (7) Hypertension: Plan: chronic, improved from yesterday. Cont clonidine per home regimen which is twice daily. (8) Anxiety: Plan: chronic, stable. Cont alprazolam and sertraline per home regimen. Ativan PRN while possibly taking oxycodone. Noted that he is on suboxone and given this has a long half-life with needed time to build back up in the system, will continue it for now in addition to other narcotic medications as needed. Monitor closely for benzo withdrawal. (9) Insomnia: Plan: hold Ambien to avoid excessive pharmacologic interactions in this hemodialysis patient. (10) Alcohol abuse: Plan: 3-4 liquor drinks every day. AWSS scale to monitor for withdrawal. No evidence of this at this time. SCDs Full Code Dispo- to med/surg I spent a total of60 minutes coordinating, documenting, and providing care for this patient excluding time spent in the performance of separately billed services DO [facility] Hospitalist Admission and Anticipated Discharge Date Admission Date: September 16, 2022 Subjective 62 yo M on hemodialysis presents with inability to walk as a result of a left hip fracture Pain is well managed in immediate post op state Completed HD today again and received 1 U pRBC preop Denies pain, SOB Denies SOB/CP or other issues Review of Systems Review of Systems: All systems were reviewed and negative except as indicated on subjective above. Physical Exam Physical Exam: CONSTITUTIONAL: WNWD, vitals as above, generally well-appearing, NAD EYES: normal conjunctivae, no scleral icterus, ENT: external ear and nose normal, oropharynx clear, no TM abnormality, no maxillary or ethmoid sinus tenderness NECK: trachea midline RESPIRATORY: clear to auscultation bilaterally, no crackles, rales or wheezes, normal respiratory effort CARDIOVASCULAR: regular rate and rhythm, S1 and 2 heard without murmurs, gallops or rubs, no JVD, trace peripheral edema-improving CHEST: inspection of chest was normal GASTROINTESTINAL: soft, nontender,ND, no guarding MUSCULOSKELETAL: strength 5/5 throughout,somewhat limited movement given left hip fracture, head is normocephalic and atraumatic SKIN: warm and dry, no rashes NEUROLOGIC: CN 2-12 grossly intact, no sensory deficit, normal cognition, normal speech, no tremor PSYCHIATRIC: alert cooperative and oriented to person, place and time. Euthymic mood, makes good eye contact, language grossly intact, recent and remote memory grossly intact. Results & Data Results & Data Vital Signs (Past 12 Hours) Vital Signs Temp Pulse Pulse Pulse Pulse Resp BP 09/18/22 10:30 75 142/80 H 09/18/22 10:38 36.8 C 75 18 142/80 H 09/18/22 10:24 36.8 C 78 18 136/82 09/18/22 10:09 36.8 C 74 18 163/62 H 09/18/22 10:00 36.8 C 74 149/86 H 09/18/22 10:00 36.8 C 74 18 149/86 H 09/18/22 09:51 36.8 C 82 18 122/77 09/18/22 09:30 77 144/86 H 09/18/22 09:26 68 110/86 09/18/22 09:16 36.8 C 82 09/18/22 07:16 90 09/18/22 07:00 37.2 C 83 18 09/18/22 03:11 36.8 C 82 18 09/17/22 23:00 88 09/17/22 23:41 37.0 C 87 18 BP Pulse Ox O2 Del Method 09/18/22 10:30 09/18/22 10:38 09/18/22 10:24 09/18/22 10:09 09/18/22 10:00 09/18/22 10:00 09/18/22 09:51 09/18/22 09:30 09/18/22 09:26 09/18/22 09:16 09/18/22 07:16 09/18/22 07:00 153/86 H 94 Room Air 09/18/22 03:11 143/72 H 98 Room Air 09/17/22 23:00 09/17/22 23:41 131/72 93 Room Air Laboratory Results Short CBC 09/18/22 Range/Units 05:50 WBC 3.55 L (4.8-10.8) K/ul Hgb 7.4 L (14.0-18.0) g/dl Hct 23.0 L (42.0-52.0) % Plt Count 110 L (130-400) K/uL BMP 09/18/22 05:50 Sodium 136 Potassium 3.5 Chloride 102 Carbon Dioxide 29 BUN 9 Creatinine 3.58 H D Glucose 87 Calcium 7.6 L Liver Function 09/18/22 Range/Units 05:50 Albumin 1.9 L (3.4-5.0) gm/dl Medications Administered Current Inpatient Medications Acetaminophen (Acetaminophen 325 Mg Tab) 650 mg PO Q4H PRN PRN Reason: Pain or Fever Stop: 10/16/22 21:41 Alprazolam (Alprazolam 0.5 Mg Tablet) 0.5 mg PO TID PRN PRN Reason: anxiety Stop: 10/16/22 21:41 Bisacodyl (Bisacodyl 10 Mg Supp) 10 mg CA DAILY PRN PRN Reason: Constipation Stop: 10/16/22 21:41 Buprenorphine/Naloxone (Buprenorphine/Naloxone 8/2 Mg Tab) 1 tab SL BID USAMA Stop: 10/16/22 21:41 Last Admin: 09/18/22 08:12 Dose: 1 tab Clonidine HCl (Clonidine Hcl 0.1 Mg Tab) 0.1 mg PO BID [facility] Stop: 10/16/22 21:41 Last Admin: 09/18/22 08:12 Dose: 0.1 mg Folic Acid (Folic Acid 1 Mg Tab) 1 mg PO QAM [facility] Stop: 10/17/22 08:59 Last Admin: 09/17/22 09:17 Dose: 1 mg Sodium Phosphate 7.5 mmol/ (Sodium Chloride) 252.5 mls @ 88 mls/hr IV ONE ONE Stop: 09/18/22 10:52 Sodium Chloride (Nss) 250 mls @ 15 mls/hr IV .[id number] PRN PRN Reason: For Transfusion Duration Stop: 09/18/22 18:24 Lorazepam (Lorazepam 1 Mg Tab) 1 mg PO ONE PRN; Protocol PRN Reason: EtoH Withdrawal AWSS 6,7,8,9,10 Magnesium Hydroxide (Magnesium Hydroxide Susp 30 Ml Udc) 30 ml PO DAILY PRN PRN Reason: Constipation Stop: 10/16/22 21:41 Naloxone HCl (Naloxone Hcl 0.4 Mg/1 Ml Vial/Carp) 0.1 mg IV UD PRN PRN Reason: Opiate Overdose Stop: 10/16/22 21:41 Oxycodone HCl (Oxycodone Hcl Ir 5 Mg Tab (Immediate Release)) 10 mg PO Q4H PRN PRN Reason: SEVERE Pain (7,8,9,10) Stop: 09/30/22 21:41 Oxycodone HCl (Oxycodone Hcl Ir 5 Mg Tab (Immediate Release)) 5 mg PO Q4H PRN PRN Reason: MODERATE Pain (4,5,6) & Pre PT Stop: 09/30/22 21:41 Last Admin: 09/17/22 18:21 Dose: 5 mg Pantoprazole Sodium (Pantoprazole 40 Mg Tab) 40 mg PO BIDM [facility] Stop: 10/17/22 07:59 Last Admin: 09/17/22 17:17 Dose: 40 mg Polyethylene Glycol (Polyethylene (Miralax) 17 Gm Pack) 17 gm PO DAILY PRN PRN Reason: Constipation Stop: 10/16/22 21:41 Senna/Docusate Sodium (Docusate Sodium/Senna 50/8.6mg Tab) 2 tab PO HS [facility] Stop: 10/16/22 21:41 Last Admin: 09/17/22 21:19 Dose: Not Given Sertraline HCl (Sertraline Hcl 100 Mg Tablet) 100 mg PO QAM [facility] Stop: 10/17/22 08:59 Last Admin: 09/17/22 09:18 Dose: 100 mg Thiamine HCl (Thiamine Hcl 100 Mg Tab) 100 mg PO QAM [facility] Stop: 10/16/22 21:14 Last Admin: 09/17/22 09:18 Dose: 100 mg Thiamine HCl (Thiamine Hcl 100 Mg Tab) 100 mg PO DAILY [facility] Stop: 10/17/22 08:59 Last Admin: 09/17/22 09:15 Dose: Not Given Vitamin B Complex/Folic Acid (Nephrocaps) 1 cap PO DAILY [facility] Stop: 10/17/22 08:59 Last Admin: 09/17/22 09:17 Dose: 1 cap Zolpidem Tartrate (Zolpidem Tartrate 5 Mg Tab) 5 mg PO HS PRN PRN Reason: Insomnia Stop: 10/16/22 21:41 Last Admin: 09/17/22 21:15 Dose: 5 mg (6) Anemia Anemia type: unspecified type Qualified Code(s): D64.9 - Anemia, unspecified (7) Hypertension Hypertension type: unspecified Qualified Code(s): I10 - Essential (primary) hypertension
[2022-09-18] MEDS ORDERED: ONDANSETRON INJ 2 MG/ML 2 ML VIAL ONE (11:33)
[2022-09-18] MEDS ORDERED: PROPOFOL IV EMULSION 10 MG/ML 20 ML VIAL IV ONE (11:33)
[2022-09-18] MEDS ORDERED: LIDOCAINE 2% 2 ML VIAL/AMP(20MG/ML) INFIL ONE (11:33)
[2022-09-18] MEDS ORDERED: MIDAZOLAM HCL 1 MG/ML 2ML VIAL ONE (11:33)
[2022-09-18] MEDS ORDERED: fentaNYL citrate PF 100 MCG/2 ML VIAL ONE ×2 (11:33→15:32)
--- NOTE | 2022-09-18 13:05 | Anesthesiology Consultation ---
Date of Service September 18, 2022 Assessment & Plan Chart Review Chart Review: Acceptable Risk for Surgery and Patient NOT seen in Pre Admission Testing History Surgery Operation Date: 09/18/22 07:00 Proposed Procedures p Left Anterior Hip Hemiarthroplasty Cemented - Richard Reyes DO Height/Weight Height: 5 ft 9 in Weight: 94.3 kg Allergies Allergy/AdvReac Type Severity Reaction Status Date / Time Iodinated Contrast Media AdvReac Contraindicated Verified 09/16/22 21:53 for dialysis Medications Home Medications Medication Instructions Recorded Confirmed Last Taken buprenorphine 8 mg-naloxone 2 mg 1 film sublingual BID 04/23/22 09/16/22 Unknown sublingual film clonidine HCl 0.1 mg tablet 0.1 mg PO BID 04/23/22 09/16/22 Unknown lidocaine-prilocaine 2.5 %-2.5 % 1 applic topical DIRECTED 04/23/22 09/16/22 Unknown topical cream pantoprazole 40 mg tablet,delayed 40 mg PO BIDM 04/23/22 09/16/22 Unknown release thiamine HCl (vitamin B1) 100 mg 100 mg PO DAILY 04/23/22 09/16/22 Unknown tablet (Vitamin B-1) vitamin B complex and vitamin C 1 cap PO DAILY 04/23/22 09/16/22 Unknown no.20-folic acid 1 mg capsule (Lul Caps) zolpidem 5 mg tablet 5 mg PO HS PRN Insomnia #30 tabs 04/25/22 09/16/22 Unknown alprazolam 0.5 mg tablet 0.5 mg PO TID 09/16/22 09/16/22 Unknown sertraline 100 mg tablet 100 mg PO QAM 09/16/22 09/16/22 Unknown Active Medications Generic Name Dose Route Start Last Admin Trade Name Freq PRN Reason Stop Dose Admin Buprenorphine/Naloxone 1 tab 09/16/22 21:42 09/18/22 08:12 Buprenorphine/Naloxone 8/2 Mg Tab SL 10/16/22 21:41 1 tab BID USAMA Administration Clonidine HCl 0.1 mg 09/16/22 21:42 09/18/22 08:12 Clonidine Hcl 0.1 Mg Tab PO 10/16/22 21:41 0.1 mg BID USAMA Administration Folic Acid 1 mg 09/17/22 09:00 09/17/22 09:17 Folic Acid 1 Mg Tab PO 10/17/22 08:59 1 mg QAM USAMA Administration Oxycodone HCl 5 mg 09/16/22 21:42 09/17/22 18:21 Oxycodone Hcl Ir 5 Mg Tab (Immediate Release) PO 09/30/22 21:41 5 mg Q4H PRN Administration MODERATE Pain (4,5,6) & Pre PT Pantoprazole Sodium 40 mg 09/17/22 08:00 09/17/22 17:17 Pantoprazole 40 Mg Tab PO 10/17/22 07:59 40 mg BIDM [facility]AMA Administration Senna/Docusate Sodium 2 tab 09/16/22 21:42 09/17/22 21:19 Docusate Sodium/Senna 50/8.6mg Tab PO 10/16/22 21:41 Not Given HS USAMA Sertraline HCl 100 mg 09/17/22 09:00 09/17/22 09:18 Sertraline Hcl 100 Mg Tablet PO 10/17/22 08:59 100 mg QAM [facility]AMA Administration Thiamine HCl 100 mg 09/16/22 21:15 09/17/22 09:18 Thiamine Hcl 100 Mg Tab PO 10/16/22 21:14 100 mg QAM [facility]AMA Administration Thiamine HCl 100 mg 09/17/22 09:00 09/17/22 09:15 Thiamine Hcl 100 Mg Tab PO 10/17/22 08:59 Not Given DAILY USAMA Vitamin B Complex/Folic Acid 1 cap 09/17/22 09:00 09/17/22 09:17 Nephrocaps PO 10/17/22 08:59 1 cap DAILY [facility] Administration Zolpidem Tartrate 5 mg 09/16/22 21:42 09/17/22 21:15 Zolpidem Tartrate 5 Mg Tab PO 10/16/22 21:41 5 mg HS PRN Administration Insomnia NPO Date Last Intake of Fluids: 09/18/22 Time Last Intake of Fluids: 08:00 Last Intake of Fluids Comment: sip with meds Date Last Intake of Solids: 09/17/22 Time Last Intake of Solids: 21:00 Past Medical History Medical History Ambulatory dysfunction Uses cane since December 2021 Anxiety Dialysis patient End stage renal disease Frequent falls History of chronic pain on suboxone; ? hx of opioid abuse Hypertension Paroxysmal A-fib s/p cardioversion, no further reoccurrence PUD (peptic ulcer disease) Rheumatic fever per patient cause of ESRD Past Surgical History Surgical History AV fistula Social History Smoking Status: Never smoker Do You Dip or Chew Tobacco: Yes Hx Alcohol Use: Yes Alcohol type: hard liquor alcohol intake frequency: 0-2 drinks per day Hx Substance Use: Yes substance use type: former substance user, opiates and painkillers Physical Exam Vital Signs Last Vital Signs Temp 36.7 C 09/18/22 13:01 Pulse 90 09/18/22 13:01 Resp 20 09/18/22 13:01 BP 144/82 H 09/18/22 13:01 Pulse Ox 96 09/18/22 13:01 O2 Del Method Room Air 09/18/22 13:01 Testing Laboratory Results 09/18/22 05:50 09/18/22 05:50 PT 13.2 Seconds (9.0-12.0) H 09/16/22 16:45 INR 1.2 (0.9-1.1) H 09/16/22 16:45 Blood Type A Positive 09/16/22 22:40 Antibody Screen NEGATIVE 09/16/22 22:40
[2022-09-18] MEDS ORDERED: ROPIVACAINE 0.5% HCL/PF 150 MG, BUPIVACAINE 0.75% MPF 20 ML, EPINEPHrine 0.15 MG, Ketor... INFIL STA (13:06)
[2022-09-18] MEDS ORDERED: ATROPINE SULFATE 0.1 MG/ML 10ML SYR IV PRN (13:09)
[2022-09-18] MEDS ORDERED: ePHEDrine sulfate 50 MG/ML AMP IV PRN (13:09)
[2022-09-18] MEDS ORDERED: ONDANSETRON INJ 2 MG/ML 2 ML VIAL IV PRN (13:09)
--- NOTE | 2022-09-18 14:26 | History & Physical Bridge Note ---
Date of Service September 18, 2022 History & Physical Bridge Note I have examined the patient, reviewed the History & Physical and in the interval since the performance of the History & Physical I have noted the following changes of clinical significance: no changes noted
[2022-09-18] MEDS ORDERED: PHENYLEPHRINE HCL 10 MG/ML VIAL ONE (15:33)
[2022-09-18] MEDS ORDERED: ROCURONIUM BROMIDE 10 MG/ML 5 ML VIAL IV ONE (15:34)
[2022-09-18] MEDS ORDERED: SUGAMMADEX SODIUM 200 MG/2 ML VIAL IV ONE (16:21)
--- NOTE | 2022-09-18 16:39 | Operative Report ---
PG Post Operative Report Pre & Post Diagnosis Operation Date: 09/18/22 07:00 Pre-Op Diagnosis: Chronic left femoral neck fracture Post-Op Diagnosis: Chronic left femoral neck fracture I identified the patient and participated in the time-out.: Yes Procedure Operation Date: 09/18/22 07:00 Actual Procedures p Left Anterior Hip Hemiarthroplasty Cemented(Left) - Richard Reyes DO Surgeon Richard Reyes DO [employer] Richard Enriquez PA-C Estimated Blood Loss 300 Findings Consistent with Post-Op Diagnosis Specimens Left femoral head Description of Procedure On September 18, 2022 Payam is brought down from his hospital room to the preoperative holding area. The operative extremity identified and signed. He was given a preoperative antibiotic. He was seen by the operating room and put under general anesthesia on the hospital bed. He was then transferred to the operating room table. The left leg was brought out to a purist leg positioner. The left hip was then prepped and draped in sterile fashion. A timeout was done. The patient and the operative extremity was properly identified. An anterior approach was used. Dissection was taken down through the fascia. The rectus was retracted anteriorly and the tensor was retracted laterally. The circumflex vessels were ligated. The capsule was exposed. The capsule was then incised and tagged for later repair. The femoral neck was then resected. The femoral neck was then removed and the femoral head was removed. The acetabulum was then exposed. The acetabulum was inspected and there was no evidence of arthritis. The proximal femur was then exposed. Sequential broaching up to a size 15 broach was done. A standard femoral neck with a 28 mm head and a 49 mm shell was then placed. The hip was reduced. Fluoroscopic imaging showed near anatomic alignment of the hip. The hip was then dislocated. The trials were removed. The final size 14 LDFX stem was then cemented in place with Palacos cement. Once cement had hardened a 28 mm head was snapped into a 49 mm shell. The head was then impacted on the femoral stem. The hip was then reduced. Final fluoroscopic images showed anatomic alignment. The bone quality was very weak. There was a little bit of concern with the greater trochanter. I was not able to see any fractures on the x-rays but the bone did seem very poor quality. The wound was then irrigated with Surgiphor Betadine sprays. The capsule was closed with #1 Vicryl suture. The fascia was closed with #0 PDS. Skin was closed with a deep layer of 2-0 Vicryl followed by superficial 2-0 Vicryl and ricardo. He was placed in a soft dressing. He was then extubated and transferred to a hospital bed. He was taken to the postanesthesia care unit in stable condition. He tolerated the procedure well. Richard Enriquez PA-C, was present for the entire procedure. He was critical for patient positioning, prepping, draping, retraction exposure, wound closure and application of sterile dressing. I attest to the content of the Intraoperative Record and any orders documented therein. Any exceptions are noted below.
--- NOTE | 2022-09-18 16:48 | Fluoroscopy Report ---
FL hip LT 1V CLINICAL HISTORY: Left hip replacement. COMPARISON STUDY: None. FLUOROSCOPY TIME: 6 seconds FLUOROSCOPY IMAGES: 1 Ka,r: 1.0 mGy FINDINGS: There is a left hip hemiarthroplasty. Hardware appears intact. No fracture or dislocation. IMPRESSION: Fluoroscopic assistance as above. ACT 112: Negative or not required by law. Electronically signed by: Jason Knapp M.D. 09/18/2022 4:46 PM
[2022-09-18] MEDS: fentaNYL citrate PF 100 MCG/2 ML VIAL IV PRN ×2 (16:55→17:00)
[2022-09-18] MEDS: HYDROmorphone INJ 2 MG/ML SYR/VIAL IV PRN ×4 (17:05→17:20)
--- NOTE | 2022-09-18 17:33 | Anesthesiology Progress Note ---
Date of Service September 18, 2022 Anesthesia Post Procedure Vital Signs Vital Signs: Temp Pulse Pulse Pulse Pulse Resp BP 09/18/22 17:25 97.5 F L 89 16 09/18/22 17:15 96 H 16 09/18/22 17:05 93 H 16 09/18/22 16:55 97 H 18 09/18/22 16:48 97.7 F 102 H 18 09/18/22 13:01 98.1 F 90 20 09/18/22 11:29 98.4 F 80 09/18/22 12:00 98.4 F 86 16 09/18/22 11:00 96 H 122/96 09/18/22 10:30 75 142/80 H 09/18/22 10:38 98.2 F 75 18 142/80 H 09/18/22 10:24 98.2 F 78 18 136/82 09/18/22 10:09 98.2 F 74 18 163/62 H 09/18/22 10:00 98.2 F 74 149/86 H 09/18/22 10:00 98.2 F 74 18 149/86 H 09/18/22 09:51 98.2 F 82 18 122/77 09/18/22 09:30 77 144/86 H 09/18/22 09:26 68 110/86 09/18/22 09:16 98.2 F 82 09/18/22 07:16 90 09/18/22 07:00 99.0 F 83 18 09/18/22 03:11 98.2 F 82 18 09/17/22 23:00 88 09/17/22 23:41 98.6 F 87 18 09/17/22 21:00 97.7 F 87 18 BP Pulse Ox O2 Del Method O2 Flow Rate 09/18/22 17:25 110/82 99 Nasal Cannula 2 09/18/22 17:15 112/77 99 Nasal Cannula 2 09/18/22 17:05 137/97 100 Oxymask 5 09/18/22 16:55 121/89 100 Oxymask 5 09/18/22 16:48 150/97 H 96 Oxymask 5 09/18/22 13:01 144/82 H 96 Room Air 09/18/22 11:29 143/77 H 09/18/22 12:00 127/60 96 Room Air 09/18/22 11:00 08/11/23 10:30 09/18/22 10:38 09/18/22 10:24 09/18/22 10:09 09/18/22 10:00 09/18/22 10:00 09/18/22 09:51 09/18/22 09:30 09/18/22 09:26 09/18/22 09:16 09/18/22 07:16 09/18/22 07:00 153/86 H 94 Room Air 09/18/22 03:11 143/72 H 98 Room Air 09/17/22 23:00 09/17/22 23:41 131/72 93 Room Air 09/17/22 21:00 140/67 97 Room Air Pain Intensity Left Hip: Pain Intensity: 6 Transfer of Care Handoff Completed per policy Notes Mental Status: alert / awake / arousable and participated in evaluation Patient Amnestic to Procedure: Yes Nausea / Vomiting: adequately controlled Pain: adequately controlled Airway Patency, RR, SpO2: stable & adequate BP & HR: stable & adequate Hydration State: stable & adequate Anesthetic Complications: no major complications apparent and Pt Satisfied with anesthetic care
[2022-09-18] MEDS: SERTRALINE HCL 100 MG TABLET PO SCH (17:54)
[2022-09-18] MEDS: NEPHROCAPS PO SCH (17:54)
[2022-09-18] MEDS: FOLIC ACID 1 MG TAB PO SCH (17:55)
[2022-09-18] MEDS: THIAMINE HCL 100 MG TAB PO SCH ×2 (17:55)
[2022-09-18] MEDS: PANTOprazole 40 MG TAB PO SCH ×2 (17:55→17:57)
--- NOTE | 2022-09-18 20:10 | XRay Report ---
XR hip LT min 2V CLINICAL HISTORY: Post-Operative implant position TECHNIQUE: 2 views of the left hip were obtained. Comparison: Comparison is made to left hip radiograph 09/16/2022 FINDINGS: Patient is status post total hip arthroplasty with expected postsurgical changes including soft tissu e swelling and subcutaneous emphysema. Joint spaces are well-preserved. No soft tissue abnormality i s seen. IMPRESSION: Expected postoperative appearance status post placement of total hip arthroplasty. ACT 112: Negative or not required by law. Electronically signed by: Mckay Moreira M.D. 09/18/2022 8:08 PM
[2022-09-18] MEDS: DOCUSATE SODIUM/SENNA 50/8.6MG TAB PO SCH (21:21)
[2022-09-18] MEDS: ZOLPIDEM TARTRATE 5 MG TAB PO PRN (21:25)
[2022-09-18] MEDS: ceFAZolin 2000MG 2,000 MG/15 ML SYR IV SCH (21:30)
[2022-09-19] MEDS ORDERED: PROMETHAZINE HCL 12.5 MG in SODIUM CHLORIDE 0.9% 50 ML IV PRN (05:01)
[2022-09-19] MEDS: oxyCODONE HCL IR 5 MG TAB (IMMEDIATE RELEASE) PO PRN ×4 (05:24→18:02)
[2022-09-19] MEDS: ceFAZolin 2000MG 2,000 MG/15 ML SYR IV SCH (06:44)
[2022-09-19] MEDS ORDERED: SODIUM PHOSPHATE 3 MMOL/1 ML 5 ML VIAL IV ONE (07:26)
--- NOTE | 2022-09-19 07:39 | Cardiology Progress Note ---
Date of Service September 19, 2022 Assessment & Plan (1) ESRD on hemodialysis: (2) Dyspnea on exertion: (3) Closed fracture of left hip: (4) HTN, goal below 140/90: Plan Please refer to physician addendum for further information as well as full plan of care. Admission and Anticipated Discharge Date Admission Date: September 16, 2022 Supervising Physician Co-Signing Physician Notes Attending Staff: Pt seen and evaluated with AP Staff. Concur with observations and plans 62 yo man presenting with Left Femoral Neck Fracture. Appears that Left hip Fx has been chronic (weeks) No reported angina prior or since Left Femoral Neck Fx No significant dyspnea with exertion + volume overloaded secondary to missed HD Session - currently being addressed by Nephrology No signs or sx of unstable arrhythmias leading to presentation No known CAD No known Hx of NE, CVA or PVA ASCVD Risk: * HTN * ESRD on HD Echocardiogram 09/17/2022: * LVEF 60 to 65% * No wall motion abnormalities * Mild concentric LVH. * Grade 2 diastolic dysfunction * RV normal in size and function * Mild aortic stenosis * Mild MR and TR * Mild pulmonary hypertension with a PASP of 40 mmHg EKG: Sinus rhythm with PVCs, 89 bpm with prolonged QTc of 498 ms. Past medical history: End-stage renal disease, anuric, on hemodialysis via AV fistula every Wednesday follows with [facility] nephrology Hypertension Frequent falls Alcohol use, 3-4 liquor drinks daily Anemia of chronic disease, uses Procrit Peptic ulcer disease History of paroxysmal atrial fibrillation status post cardioversion Chronic pain on Suboxone therapy Questionable history of rheumatic fever Plans: * Pt underwent Left Anterior Hip Hemiarthroplasty Cemented(Left) by Dr Reyes - no immediate complications noted * No angina post procedure * + volume overload -improved - actively being addressed by Nephrology * S/P Transfusion during HD for HCT 23 * No evidence of unstable arrhythmias overnight * + PACs * Check BMP + Magnesium to ensure pt is not Hypokalemia/Hypomagnesemic as cause for PACs * K+ goal 4-4.5 * Mag goal >2 * No evidence of AFIB * LVEF 60% + Mild * Clonidine may not be the best antihypertensive for him - would check with nephrology given they manage his SBP * Consider D/C Clonidine (@ low dose currently) and using low dose Beta Jerald _ Toprol XL 25 mg po per day on non HD days. Beta blockers may be helpful given premature beats on telemetry * Please call back with any additional questions or concerns Goyo Ha Subjective Events overnight: * Brief episode of SVT - no Afib * Left Anterior Hip Hemiarthroplasty Cemented(Left) - Richard Reyes DO - no reported complications. Reviewed Anesthesia report * Telemetry - APCs noted - no afib Subjective: * Feels better * Left hip - "sore" Review of Systems Review of Systems: All systems reviewed & are unremarkable except as noted in HPI & below Physical Exam Physical Exam: Overweight JVP 14 cmH20 S1S2 2/6 systolic murmur CTA B ABD- obese, + BS Left leg - bandaged - mild edema Results & Data Vital Signs (Past 12 Hours) Vital Signs Temp Pulse Pulse Pulse Resp BP Pulse Ox 09/19/22 03:39 36.9 C 88 18 122/83 91 09/18/22 23:10 37.0 C 102 H 18 97/73 L 94 09/18/22 23:09 96 H 09/18/22 21:22 95 H 20 129/67 98 09/18/22 20:40 36.9 C 85 18 105/54 L 92 09/18/22 20:00 87 20 113/74 O2 Del Method 09/19/22 03:39 Room Air 09/18/22 23:10 Room Air 09/18/22 23:09 09/18/22 21:22 Room Air 09/18/22 20:40 Room Air 09/18/22 20:00 Laboratory Results Intake and Output 09/18/22 09/19/22 09/19/22 22:59 06:59 14:59 Intake Total 1252.5 / 2262.5 700 / 2262.5 Output Total 300 / 302 2 / 302 Balance 952.5 / 1960.5 698 / 1960.5 Intake: IV 252.5 / 252.5 Sodium Phosphate 7.5 mmol In 252.5 / 252.5 Sodium Chloride 0.9% 250 ml @ 88 mls/hr IV ONE ONE Rx#: [id number] IV Perioperative 1000 / 1000 Oral 700 / 700 Output: Estimated Blood Loss 300 / 300 # Bowel Movements 2 / 2 Other: Weight 94.3 kg Weight Measurement Method Built in Bedscale Medications Administered Current Inpatient Medications Acetaminophen (Acetaminophen 325 Mg Tab) 650 mg PO Q4H PRN PRN Reason: Pain or Fever Stop: 10/16/22 21:41 Alprazolam (Alprazolam 0.5 Mg Tablet) 0.5 mg PO TID PRN PRN Reason: anxiety Stop: 10/16/22 21:41 Bisacodyl (Bisacodyl 10 Mg Supp) 10 mg [place] DAILY PRN PRN Reason: Constipation Stop: 10/16/22 21:41 Buprenorphine/Naloxone (Buprenorphine/Naloxone 8/2 Mg Tab) 1 tab SL BID [facility] Stop: 10/16/22 21:41 Last Admin: 09/18/22 21:25 Dose: 1 tab Clonidine HCl (Clonidine Hcl 0.1 Mg Tab) 0.1 mg PO BID [facility] Stop: 10/16/22 21:41 Last Admin: 09/18/22 21:26 Dose: 0.1 mg Folic Acid (Folic Acid 1 Mg Tab) 1 mg PO QAM [facility] Stop: 10/17/22 08:59 Last Admin: 09/18/22 17:55 Dose: Not Given Promethazine HCl 12.5 mg/ (Sodium Chloride) 50.5 mls @ 202 mls/hr IV Q6H PRN PRN Reason: Nausea And Vomiting Stop: 10/19/22 05:00 Sodium Phosphate 15 mmol/ (Sodium Chloride) 255 mls @ 88 mls/hr IV ONE ONE Stop: 09/19/22 10:53 Lorazepam (Lorazepam 1 Mg Tab) 1 mg PO ONE PRN; Protocol PRN Reason: EtoH Withdrawal AWSS 6,7,8,9,10 Magnesium Hydroxide (Magnesium Hydroxide Susp 30 Ml Udc) 30 ml PO DAILY PRN PRN Reason: Constipation Stop: 10/16/22 21:41 Naloxone HCl (Naloxone Hcl 0.4 Mg/1 Ml Vial/Carp) 0.1 mg IV UD PRN PRN Reason: Opiate Overdose Stop: 10/16/22 21:41 Oxycodone HCl (Oxycodone Hcl Ir 5 Mg Tab (Immediate Release)) 10 mg PO Q4H PRN PRN Reason: SEVERE Pain (7,8,9,10) Stop: 09/30/22 21:41 Last Admin: 09/19/22 05:24 Dose: 10 mg Oxycodone HCl (Oxycodone Hcl Ir 5 Mg Tab (Immediate Release)) 5 mg PO Q4H PRN PRN Reason: MODERATE Pain (4,5,6) & Pre PT Stop: 09/30/22 21:41 Last Admin: 09/17/22 18:21 Dose: 5 mg Pantoprazole Sodium (Pantoprazole 40 Mg Tab) 40 mg PO BIDM [facility] Stop: 10/17/22 07:59 Last Admin: 09/18/22 17:57 Dose: 40 mg Polyethylene Glycol (Polyethylene (Miralax) 17 Gm Pack) 17 gm PO DAILY PRN PRN Reason: Constipation Stop: 10/16/22 21:41 Senna/Docusate Sodium (Docusate Sodium/Senna 50/8.6mg Tab) 2 tab PO HS [facility] Stop: 10/16/22 21:41 Last Admin: 09/18/22 21:21 Dose: Not Given Sertraline HCl (Sertraline Hcl 100 Mg Tablet) 100 mg PO QAM [facility] Stop: 10/17/22 08:59 Last Admin: 09/18/22 17:54 Dose: 100 mg Thiamine HCl (Thiamine Hcl 100 Mg Tab) 100 mg PO QAM [facility] Stop: 10/16/22 21:14 Last Admin: 09/18/22 17:55 Dose: Not Given Thiamine HCl (Thiamine Hcl 100 Mg Tab) 100 mg PO DAILY [facility] Stop: 10/17/22 08:59 Last Admin: 09/18/22 17:55 Dose: Not Given Vitamin B Complex/Folic Acid (Nephrocaps) 1 cap PO DAILY [facility] Stop: 10/17/22 08:59 Last Admin: 09/18/22 17:54 Dose: 1 cap Zolpidem Tartrate (Zolpidem Tartrate 5 Mg Tab) 5 mg PO HS PRN PRN Reason: Insomnia Stop: 10/16/22 21:41 Last Admin: 09/18/22 21:25 Dose: 5 mg
--- NOTE | 2022-09-19 07:52 | Hospitalist Progress Note ---
Date of Service September 19, 2022 Assessment & Plan (1) Age-related osteoporosis with current pathol fracture of left femur: Plan: Appears to have been fractured for several weeks now at a minimum. Ortho consulted, he is s/p left anterior hip arthroplasty on 09/18 . Post op wound management per ortho. Currently pain is not well managed. He is already taking oxycodone 10mg and is able to get this every 4 hours. Consider redosing closer to 4 hr david to stay ahead of pain. Will add scheduled APAP. Cont ice to area. PT/OT (2) Dyspnea on exertion: Plan: Progressive shortness of breath noted by patient over the past several weeks. Echo reviewed. Clinically there is no acute heart failure. Cont fluid management per nephrology. Transfused 1 U blood with HD preop. He appears euvolemic on exam with resolution of peripheral edema. Reports feeling well with ambulation. (3) ESRD on hemodialysis: Plan: cont inpatient HD per nephrology (4) Ambulatory dysfunction: Plan: PT/OT post op (5) Frequent falls: Plan: Per issues noted above. PT/OT once cleared by ortho (6) Anemia: Plan: Likely related to ESRD and consider acute blood loss anemia 2/2 femoral neck fracture. Consider Procrit, defer to nephrology. No active bleeding present. Hb improved after blood transfusion yesterday. (7) Hypertension: Plan: chronic, improved from yesterday. Cont clonidine per home regimen which is twice daily. (8) Anxiety: Plan: chronic, stable. Cont alprazolam and sertraline per home regimen. Ativan PRN while possibly taking oxycodone. Noted that he is on suboxone and given this has a long half-life with needed time to build back up in the system, will continue it for now in addition to other narcotic medications as needed. Monitor closely for benzo withdrawal. (9) Insomnia: Plan: hold Ambien to avoid excessive pharmacologic interactions in this hemodialysis patient. (10) Alcohol abuse: Plan: 3-4 liquor drinks every day. AWSS scale to monitor for withdrawal. No evidence of this at this time. SCDs Full Code Dispo- to med/surg I spent a total of60 minutes coordinating, documenting, and providing care for this patient excluding time spent in the performance of separately billed services Leanna Yeager DO [facility] Hospitalist Admission and Anticipated Discharge Date Admission Date: September 16, 2022 Subjective 62 yo M on hemodialysis presents with inability to walk as a result of a left hip fracture Pain is not well managed. He states that where the pain med takes the edge off it doesn't last long Feels like he needs something more frequently Reports ambulating around the room Has had a BM Swelling in legs is better Denies SOB/CP or other issues Review of Systems Review of Systems: All systems were reviewed and negative except as indicated on subjective above. Physical Exam Physical Exam: CONSTITUTIONAL: WNWD, vitals as above, generally well-appearing, NAD EYES: normal conjunctivae, no scleral icterus, ENT: external ear and nose normal, oropharynx clear, no TM abnormality, no maxillary or ethmoid sinus tenderness NECK: trachea midline RESPIRATORY: clear to auscultation bilaterally, no crackles, rales or wheezes, normal respiratory effort CARDIOVASCULAR: regular rate and rhythm, S1 and 2 heard without murmurs, gallops or rubs, no JVD,no peripheral edema. CHEST: inspection of chest was normal GASTROINTESTINAL: soft, nontender,ND, no guarding MUSCULOSKELETAL: strength 5/5 throughout,somewhat limited movement given left hip fracture, head is normocephalic and atraumatic SKIN: warm and dry, no rashes NEUROLOGIC: CN 2-12 grossly intact, no sensory deficit, normal cognition, normal speech, no tremor PSYCHIATRIC: alert cooperative and oriented to person, place and time. Euthymic mood, makes good eye contact, language grossly intact, recent and remote memory grossly intact. Results & Data Results & Data Vital Signs (Past 12 Hours) Vital Signs Temp Pulse Pulse Pulse Resp BP Pulse Ox 09/19/22 06:59 36.6 C 83 18 109/55 L 97 09/19/22 03:39 36.9 C 88 18 122/83 91 09/18/22 23:10 37.0 C 102 H 18 97/73 L 94 09/18/22 23:09 96 H 09/18/22 21:22 95 H 20 129/67 98 09/18/22 20:40 36.9 C 85 18 105/54 L 92 09/18/22 20:00 87 20 113/74 O2 Del Method 09/19/22 06:59 Room Air 09/19/22 03:39 Room Air 09/18/22 23:10 Room Air 09/18/22 23:09/18/22 21:22 Room Air 09/18/22 20:40 Room Air 09/18/22 20:00 Laboratory Results BMP 09/19/22 09:05 Sodium 137 Potassium 3.2 L Chloride 103 Carbon Dioxide 29 BUN 10 Creatinine 3.89 H D Glucose 167 H Calcium 7.4 L Diagnostic Findings Hip X-Ray 09/18/22 16:49 XR hip LT min 2V CLINICAL HISTORY: Post-Operative implant position TECHNIQUE: 2 views of the left hip were obtained. Comparison: Comparison is made to left hip radiograph 09/16/2022 FINDINGS: Patient is status post total hip arthroplasty with expected postsurgical changes including soft tissue swelling and subcutaneous emphysema. Joint spaces are well-preserved. No soft tissue abnormality is seen. IMPRESSION: Expected postoperative appearance status post placement of total hip arthroplasty. ACT 112: Negative or not required by law. Electronically signed by: Mckay Moreira M.D. 09/18/2022 8:08 PM Medications Administered Current Inpatient Medications Acetaminophen (Acetaminophen 325 Mg Tab) 650 mg PO Q4H PRN PRN Reason: Pain or Fever Stop: 10/16/22 21:41 Alprazolam (Alprazolam 0.5 Mg Tablet) 0.5 mg PO TID PRN PRN Reason: anxiety Stop: 10/16/22 21:41 Bisacodyl (Bisacodyl 10 Mg Supp) 10 mg [place] DAILY PRN PRN Reason: Constipation Stop: 10/16/22 21:41 Buprenorphine/Naloxone (Buprenorphine/Naloxone 8/2 Mg Tab) 1 tab SL BID [facility] Stop: 10/16/22 21:41 Last Admin: 09/18/22 21:25 Dose: 1 tab Clonidine HCl (Clonidine Hcl 0.1 Mg Tab) 0.1 mg PO BID [facility] Stop: 10/16/22 21:41 Last Admin: 09/18/22 21:26 Dose: 0.1 mg Folic Acid (Folic Acid 1 Mg Tab) 1 mg PO QAM [facility] Stop: 10/17/22 08:59 Last Admin: 09/18/22 17:55 Dose: Not Given Promethazine HCl 12.5 mg/ (Sodium Chloride) 50.5 mls @ 202 mls/hr IV Q6H PRN PRN Reason: Nausea And Vomiting Stop: 10/19/22 05:00 Sodium Phosphate 15 mmol/ (Sodium Chloride) 255 mls @ 88 mls/hr IV ONE ONE Stop: 09/19/22 10:53 Lorazepam (Lorazepam 1 Mg Tab) 1 mg PO ONE PRN; Protocol PRN Reason: EtoH Withdrawal AWSS 6,7,8,9,10 Magnesium Hydroxide (Magnesium Hydroxide Susp 30 Ml Udc) 30 ml PO DAILY PRN PRN Reason: Constipation Stop: 10/16/22 21:41 Naloxone HCl (Naloxone Hcl 0.4 Mg/1 Ml Vial/Carp) 0.1 mg IV UD PRN PRN Reason: Opiate Overdose Stop: 10/16/22 21:41 Oxycodone HCl (Oxycodone Hcl Ir 5 Mg Tab (Immediate Release)) 10 mg PO Q4H PRN PRN Reason: SEVERE Pain (7,8,9,10) Stop: 09/30/22 21:41 Last Admin: 09/19/22 05:24 Dose: 10 mg Oxycodone HCl (Oxycodone Hcl Ir 5 Mg Tab (Immediate Release)) 5 mg PO Q4H PRN PRN Reason: MODERATE Pain (4,5,6) & Pre PT Stop: 09/30/22 21:41 Last Admin: 09/17/22 18:21 Dose: 5 mg Pantoprazole Sodium (Pantoprazole 40 Mg Tab) 40 mg PO BIDM [facility] Stop: 10/17/22 07:59 Last Admin: 09/18/22 17:57 Dose: 40 mg Polyethylene Glycol (Polyethylene (Miralax) 17 Gm Pack) 17 gm PO DAILY PRN PRN Reason: Constipation Stop: 10/16/22 21:41 Senna/Docusate Sodium (Docusate Sodium/Senna 50/8.6mg Tab) 2 tab PO HS [facility] Stop: 10/16/22 21:41 Last Admin: 09/18/22 21:21 Dose: Not Given Sertraline HCl (Sertraline Hcl 100 Mg Tablet) 100 mg PO QAM [facility] Stop: 10/17/22 08:59 Last Admin: 09/18/22 17:54 Dose: 100 mg Thiamine HCl (Thiamine Hcl 100 Mg Tab) 100 mg PO QAM [facility] Stop: 10/16/22 21:14 Last Admin: 09/18/22 17:55 Dose: Not Given Thiamine HCl (Thiamine Hcl 100 Mg Tab) 100 mg PO DAILY [facility] Stop: 10/17/22 08:59 Last Admin: 09/18/22 17:55 Dose: Not Given Vitamin B Complex/Folic Acid (Nephrocaps) 1 cap PO DAILY [facility] Stop: 10/17/22 08:59 Last Admin: 09/18/22 17:54 Dose: 1 cap Zolpidem Tartrate (Zolpidem Tartrate 5 Mg Tab) 5 mg PO HS PRN PRN Reason: Insomnia Stop: 10/16/22 21:41 Last Admin: 09/18/22 21:25 Dose: 5 mg (6) Anemia Anemia type: unspecified type Qualified Code(s): D64.9 - Anemia, unspecified (7) Hypertension Hypertension type: unspecified Qualified Code(s): I10 - Essential (primary) hypertension
[2022-09-19] MEDS ORDERED: SODIUM PHOSPHATE 15 MMOL in SODIUM CHLORIDE 0.9% 250 ML IV ONE (08:00)
--- NOTE | 2022-09-19 08:27 | Nephrology Progress Note ---
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 Dialyzes MWF at [facility] (3.5hr 3K F-180NR Qb400 EDW 96.5kg) * Patient was dialyzed yesterday and transfused one unit PRBC. Volume status and electrolyte balance are acceptable. No acute indication for HD today * H/o chronic mild hypokalemia and hypophosphatemia. Patient does not require dietary restriction (2) Closed fracture of left hip: Plan: * L hip hemiarthroplasty 09/18/22 (3) Hypertension: Plan: * Remains on Clonidine per home Rx. BP acceptable (4) Anemia: Plan: * One unit PRBC transfused w/ HD yesterday. Hgb 7.4 this am. Will monitor. Patient may require 2nd unit PRBC w/ HD Wednesday Admission and Anticipated Discharge Date Admission Date: September 16, 2022 Subjective Mr. Rivers was evaluated in his hospital room this morning. He c/o L hip discomfort but reports that it is tolerable with pain medication. Mr. Rivers currently denies angina or dyspnea. He believes that his hip fracture occurred due to a fall in 06/30 Review of Systems Constitutional: no fever Eyes: no worsening vision Ear, Nose, Mouth, Throat: no problem reported Respiratory: no cough and no dyspnea Cardiovascular: no chest pain Gastrointestinal: no abdominal pain, no nausea, no vomiting and no diarrhea/loose stools Physical Exam Constitutional: not in distress Eyes: PERRL, conjunctivae normal, anicteric sclerae ENMT: external ear and nose normal, oropharynx normal Neck: trachea midline, no thyromegaly Respiratory: normal respiratory effort, lungs clear to auscultation Cardiovascular: RRR, no murmur, no edema Extremities: + AV fistula (R BC AVF + bruit) Gastrointestinal (Abdomen): normal bowel sounds, soft, nontender, no hepatosplenomegaly Neurologic: awake Speech / Cognition: normal speech and normal cognition Results & Data Vital Signs (Past 12 Hours) Vital Signs Temp Pulse Pulse Pulse Resp BP Pulse Ox 09/19/22 06:59 36.6 C 83 18 109/55 L 97 09/19/22 03:39 36.9 C 88 18 122/83 91 09/18/22 23:10 37.0 C 102 H 18 97/73 L 94 09/18/22 23:09 96 H 09/18/22 21:22 95 H 20 129/67 98 09/18/22 20:40 36.9 C 85 18 105/54 L 92 O2 Del Method 09/19/22 06:59 Room Air 09/19/22 03:39 Room Air 09/18/22 23:10 Room Air 09/18/22 23:09 09/18/22 21:22 Room Air 09/18/22 20:40 Room Air Laboratory Results Laboratory Tests 09/18/22 09/18/22 05:50 05:50 WBC 3.55 L Hgb 7.4 L Hct 23.0 L Plt Count 110 L Sodium 136 Potassium 3.5 Chloride 102 Carbon Dioxide 29 BUN 9 Creatinine 3.58 H D Glucose 87 PG Care Time/CCT Total # of Minutes Spent Total Time Spent with Patient: Total time spent is greater than 50% in coordination of care (as documented) at patient's floor/unit and/or counseling patient: Coding Level of Care Code 01994 SUB INP/OBS CARE 350MIN Diagnoses ESRD on hemodialysis N18.6; Z99.2 Closed fracture of left hip S72.002A Hypertension I10 Hypertension type: unspecified Anemia D64.9 Anemia type: unspecified type (3) Hypertension Hypertension type: unspecified Qualified Code(s): I10 - Essential (primary) hypertension (4) Anemia Anemia type: unspecified type Qualified Code(s): D64.9 - Anemia, unspecified
[2022-09-19] MEDS: cloNIDine HCL 0.1 MG TAB PO SCH ×2 (08:31→21:22)
[2022-09-19] MEDS: PANTOprazole 40 MG TAB PO SCH ×2 (08:32→18:03)
[2022-09-19] MEDS: FOLIC ACID 1 MG TAB PO SCH (08:32)
[2022-09-19] MEDS: THIAMINE HCL 100 MG TAB PO SCH ×2 (08:32→09:07)
[2022-09-19] MEDS: BUPRENORPHINE/NALOXONE 8/2 MG TAB SL SCH ×2 (08:41→21:22)
[2022-09-19] MEDS: SERTRALINE HCL 100 MG TABLET PO SCH (09:07)
[2022-09-19] MEDS: NEPHROCAPS PO SCH (09:07)
[2022-09-19 09:46] LABS: BUN Creatinine Ratio 2.6 (10-20); Calcium 7.4 mg/dl (8.6-10.3); Creatinine Clr Calc Pharmacy 22.9 ml/min; Est GFR (African American) 18.3 ml/min; Est GFR (Non-African American) 15.8 ml/min; Magnesium 1.5 mg/dl (1.7-2.4); Potassium 3.2 mmol/L (3.5-5.1)
[2022-09-19] MEDS ORDERED: POTASSIUM CHLORIDE CRTAB 20 MEQ TABCR PO STA (13:01)
[2022-09-19] MEDS: MAGNESIUM OXIDE 400 MG TAB PO SCH ×2 (13:35→21:22)
[2022-09-19] MEDS: ACETAMINOPHEN 500 MG TAB PO SCH ×2 (16:47→23:30)
[2022-09-19] MEDS: ZOLPIDEM TARTRATE 5 MG TAB PO PRN (21:22)
[2022-09-19] MEDS: DOCUSATE SODIUM/SENNA 50/8.6MG TAB PO SCH (21:23)
[2022-09-20 06:38] LABS: Hematocrit (blood only) 21.3 % (42.0-52.0); Hemoglobin 6.9 g/dl (14.0-18.0); Mean Corpuscular Hemoglobin 30.8 pg (25.0-34.0); Mean Corpuscular Hgb Conc 32.4 g/dL (32.0-36.0); Mean Corpuscular Volume 95.1 fL (80.0-100.0); Mean Platelet Volume 10.6 fL (9.4-12.4); Platelet Count 111 K/uL (130-400); RDW Coefficient of Variation 17.9 % (11.5-14.5); Red Blood Count 2.24 M/uL (4.70-6.10); White Blood Count 4.77 K/ul (4.8-10.8)
[2022-09-20 06:56] LABS: Calcium 7.2 mg/dl (8.6-10.3); Creatinine Clr Calc Pharmacy 18.1 ml/min; Est GFR (African American) 13.7 ml/min; Est GFR (Non-African American) 11.8 ml/min; Magnesium 1.6 mg/dl (1.7-2.4); Phosphorus 1.7 mg/dl (2.5-4.9); Potassium 2.8 mmol/L (3.5-5.1)
[2022-09-20] MEDS: ACETAMINOPHEN 500 MG TAB PO SCH ×3 (07:59→22:51)
[2022-09-20] MEDS: THIAMINE HCL 100 MG TAB PO SCH (08:00)
[2022-09-20] MEDS: MAGNESIUM OXIDE 400 MG TAB PO SCH (08:00)
[2022-09-20] MEDS: cloNIDine HCL 0.1 MG TAB PO SCH ×2 (08:00→20:14)
[2022-09-20] MEDS: NEPHROCAPS PO SCH (08:00)
[2022-09-20] MEDS: SERTRALINE HCL 100 MG TABLET PO SCH (08:00)
[2022-09-20] MEDS: PANTOprazole 40 MG TAB PO SCH ×2 (08:00→15:35)
[2022-09-20] MEDS: FOLIC ACID 1 MG TAB PO SCH (08:00)
[2022-09-20] MEDS: BUPRENORPHINE/NALOXONE 8/2 MG TAB SL SCH ×2 (08:04→20:13)
[2022-09-20] MEDS ORDERED: SODIUM CHLORIDE 0.9% 250 ML IV PRN ×2 (08:07→09:33)
[2022-09-20] MEDS ORDERED: POTASSIUM CHLORIDE CRTAB 20 MEQ TABCR PO STA (08:07)
[2022-09-20] MEDS: oxyCODONE HCL IR 5 MG TAB (IMMEDIATE RELEASE) PO PRN ×2 (08:10→15:35)
[2022-09-20] MEDS ORDERED: [UNRECOGNIZED DRUG - OTHER] IV SCH (08:30)
[2022-09-20] MEDS ORDERED: MAGNESIUM SULFATE IV SCH (08:30)
[2022-09-20] MEDS ORDERED: POTASSIUM CHLORIDE IV SCH (08:30)
--- NOTE | 2022-09-20 08:45 | Nephrology Progress Note ---
Date of Service September 20, 2022 Assessment & Plan (1) ESRD on hemodialysis: Plan: * ESKD due to "chronic GN". Dialyzes MWF at [facility] (3.5hr 3K F-180NR Qb400 EDW 96.5kg) * Patient was dialyzed Wednesday and transfused one unit PRBC. Volume status and electrolyte balance are acceptable. No acute indication for HD today * Will schedule next HD for am * PRP, H&H in am prior to HD (2) Closed fracture of left hip: Plan: * L hip hemiarthroplasty 09/18/22 (3) Hypertension: Plan: * Remains on Clonidine per home Rx. BP acceptable (4) Anemia: Plan: * One unit PRBC transfused w/ HD yesterday. Hgb 6.9 this am. Primary service has ordered one unit PRBC this am Admission and Anticipated Discharge Date Admission Date: September 16, 2022 Subjective Mr. Rivers was evaluated in his hospital room this morning. He c/o L hip discomfort but reports that it is tolerable with pain medication. Mr. Rivers currently denies angina or dyspnea. He is currently receiving IV K, Mg. Primary service has ordered one unit PRBC Review of Systems Constitutional: no fever Eyes: no worsening vision Ear, Nose, Mouth, Throat: no problem reported Respiratory: no cough and no dyspnea Cardiovascular: no chest pain Gastrointestinal: no abdominal pain, no nausea, no vomiting and no diarrhea/loose stools Physical Exam Constitutional: not in distress Eyes: PERRL, conjunctivae normal, anicteric sclerae ENMT: external ear and nose normal, oropharynx normal Neck: trachea midline, no thyromegaly Respiratory: normal respiratory effort, lungs clear to auscultation Cardiovascular: RRR, no murmur, no edema Extremities: + AV fistula (R BC AVF + bruit) Gastrointestinal (Abdomen): normal bowel sounds, soft, nontender, no hepatosplenomegaly Neurologic: awake Speech / Cognition: normal speech and normal cognition Results & Data Vital Signs (Past 12 Hours) Vital Signs Temp Pulse Pulse Resp BP Pulse Ox O2 Del Method 09/20/22 07:53 36.8 C 64 16 122/75 99 Room Air 09/20/22 03:26 36.7 C 79 18 112/65 96 Room Air 09/19/22 23:33 36.8 C 80 18 108/64 94 Room Air 09/19/22 23:29 86 Laboratory Results Laboratory Tests 09/18/22 09/20/22 09/20/22 05:50 06:15 06:15 WBC 4.77 L Hgb 6.9 L* Hct 21.3 L Plt Count 111 L Sodium 135 L Potassium 2.8 L Chloride 102 Carbon Dioxide 27 BUN 15 Creatinine 4.93 H* D Glucose 112 H Phosphorus 1.7 L Magnesium 1.6 L Albumin 1.9 L PG Care Time/CCT Total # of Minutes Spent Total Time Spent with Patient: Total time spent is greater than 50% in coordination of care (as documented) at patient's floor/unit and/or counseling patient: Coding Level of Care Code 70678 SUB INP/OBS CARE 3/50MIN Diagnoses ESRD on hemodialysis N18.6; Z99.2 Closed fracture of left hip S72.002A Hypertension I10 Hypertension type: unspecified Anemia D64.9 Anemia type: unspecified type (3) Hypertension Hypertension type: unspecified Qualified Code(s): I10 - Essential (primary) hypertension (4) Anemia Anemia type: unspecified type Qualified Code(s): D64.9 - Anemia, unspecified
--- NOTE | 2022-09-20 10:51 | Hospitalist Progress Note ---
Date of Service September 20, 2022 Assessment & Plan (1) Age-related osteoporosis with current pathol fracture of left femur: Plan: Appears to have been fractured for several weeks now at a minimum. Ortho consulted, he is s/p left anterior hip arthroplasty on 09/18 . Post op wound management per ortho. Cont scheduled APAP and oxycodone PRN. Cont ice to area. PT/OT (2) Dyspnea on exertion: Plan: Progressive shortness of breath noted by patient over the past several weeks. Echo reviewed. Clinically there is no acute heart failure. Cont fluid management per nephrology. Transfused 1 U blood with HD preop. He appears euvolemic on exam with resolution of peripheral edema. Reports feeling well with ambulation. (3) ESRD on hemodialysis: Plan: cont inpatient HD per nephrology (4) Ambulatory dysfunction: Plan: PT/OT post op (5) Frequent falls: Plan: Per issues noted above. PT/OT once cleared by ortho (6) Anemia: Plan: Likely related to ESRD and consider acute blood loss anemia 2/2 femoral neck fracture. Consider Procrit, defer to nephrology. No active bleeding present. Hb improved after blood transfusion yesterday. (7) Hypertension: Plan: chronic, improved from yesterday. Cont clonidine per home regimen which is twice daily. (8) Anxiety: Plan: chronic, stable. Cont alprazolam and sertraline per home regimen. Ativan PRN while possibly taking oxycodone. Noted that he is on suboxone and given this has a long half-life with needed time to build back up in the system, will continue it for now in addition to other narcotic medications as needed. Monitor closely for benzo withdrawal. (9) Insomnia: Plan: hold Ambien to avoid excessive pharmacologic interactions in this hemodialysis patient. (10) Alcohol abuse: Plan: 3-4 liquor drinks every day. AWSS scale to monitor for withdrawal. No evidence of this at this time. SCDs Full Code Dispo- to med/surg I spent a total of60 minutes coordinating, documenting, and providing care for this patient excluding time spent in the performance of separately billed services DO [facility] Hospitalist Admission and Anticipated Discharge Date Admission Date: September 16, 2022 Subjective 62 yo M on hemodialysis presents with inability to walk as a result of a left hip fracture pain controlled 1 unit blood being given for Hb 6.9 tolerating PO at bedside and states she prefers transport be set up to take him to rehab when he goes. Review of Systems Review of Systems: All systems were reviewed and negative except as indicated on subjective above. Physical Exam Physical Exam: CONSTITUTIONAL: WNWD, vitals as above, generally well-appearing, NAD EYES: normal conjunctivae, no scleral icterus, ENT: external ear and nose normal, oropharynx clear, no TM abnormality, no maxillary or ethmoid sinus tenderness NECK: trachea midline RESPIRATORY: clear to auscultation bilaterally, no crackles, rales or wheezes, normal respiratory effort CARDIOVASCULAR: regular rate and rhythm, S1 and 2 heard without murmurs, gallops or rubs, no JVD,no peripheral edema. CHEST: inspection of chest was normal GASTROINTESTINAL: soft, nontender,ND, no guarding MUSCULOSKELETAL: generalized weakness, somewhat limited movement given left hip fracture, head is normocephalic and atraumatic SKIN: warm and dry, no rashes NEUROLOGIC: CN 2-12 grossly intact, no sensory deficit, normal cognition, normal speech, no tremor PSYCHIATRIC: alert cooperative and oriented to person, place and time. Euthymic mood, makes good eye contact, language grossly intact, recent and remote memory grossly intact. Results & Data Results & Data Vital Signs (Past 12 Hours) Vital Signs Temp Pulse Pulse Resp BP BP Pulse Ox 09/20/22 10:35 36.8 C 80 16 103/58 L 09/20/22 10:18 36.4 C L 86 16 114/85 97 09/20/22 07:53 36.8 C 64 16 122/75 99 09/20/22 03:26 36.7 C 79 18 112/65 96 09/19/22 23:33 36.8 C 80 18 108/64 94 09/19/22 23:29 86 O2 Del Method 09/20/22 10:35 09/20/22 10:18 09/20/22 07:53 Room Air 09/20/22 03:26 Room Air 09/19/22 23:33 Room Air 09/19/22 23:29 Laboratory Results Short CBC 09/20/22 Range/Units 06:15 WBC 4.77 L (4.8-10.8) K/ul Hgb 6.9 L* (14.0-18.0) g/dl Hct 21.3 L (42.0-52.0) % Plt Count 111 L (130-400) K/uL BMP 09/20/22 06:15 Sodium 135 L Potassium 2.8 L Chloride 102 Carbon Dioxide 27 BUN 15 Creatinine 4.93 H* D Glucose 112 H Calcium 7.2 L Medications Administered Current Inpatient Medications Acetaminophen (Acetaminophen 500 Mg Tab) 1,000 mg PO Q8H [facility] Stop: 10/19/22 15:29 Last Admin: 09/20/22 07:59 Dose: Not Given Alprazolam (Alprazolam 0.5 Mg Tablet) 0.5 mg PO TID PRN PRN Reason: anxiety Stop: 10/16/22 21:41 Bisacodyl (Bisacodyl 10 Mg Supp) 10 mg [place] DAILY PRN PRN Reason: Constipation Stop: 10/16/22 21:41 Buprenorphine/Naloxone (Buprenorphine/Naloxone 8/2 Mg Tab) 1 tab SL BID [facility] Stop: 10/16/22 21:41 Last Admin: 09/20/22 08:04 Dose: 1 tab Clonidine HCl (Clonidine Hcl 0.1 Mg Tab) 0.1 mg PO BID [facility] Stop: 10/16/22 21:41 Last Admin: 09/20/22 08:00 Dose: 0.1 mg Epoetin Mil (Epoetin Mil 20,000 Units/Ml Vial) 20,000 units IV ONE ONE Stop: 09/21/22 07:01 Folic Acid (Folic Acid 1 Mg Tab) 1 mg PO QAM [facility] Stop: 10/17/22 08:59 Last Admin: 09/20/22 08:00 Dose: 1 mg Promethazine HCl 12.5 mg/ (Sodium Chloride) 50.5 mls @ 202 mls/hr IV Q6H PRN PRN Reason: Nausea And Vomiting Stop: 10/19/22 05:00 Potassium Chloride 40 meq/Magnesium Sulfate 4 gm/ Sodium Chloride 1,028 mls @ 80 mls/hr IV .[id number] [facility] Stop: 09/20/22 21:20 Last Admin: 09/20/22 08:39 Dose: 80 mls/hr Sodium Chloride (Nss) 250 mls @ 15 mls/hr IV .[id number] PRN PRN Reason: For Transfusion Duration Stop: 09/20/22 18:10 Sodium Chloride (Nss) 250 mls @ 15 mls/hr IV .[id number] PRN PRN Reason: For Transfusion Duration Stop: 09/20/22 19:33 Sodium Chloride (Nss 1000ml) 1,000 mls @ 0 mls/hr IV .Q0M PRN PRN Reason: For Hemodialysis Use ONLY Stop: 09/21/22 12:59 Lorazepam (Lorazepam 1 Mg Tab) 1 mg PO ONE PRN; Protocol PRN Reason: EtoH Withdrawal AWSS 6,7,8,9,10 Magnesium Hydroxide (Magnesium Hydroxide Susp 30 Ml Udc) 30 ml PO DAILY PRN PRN Reason: Constipation Stop: 10/16/22 21:41 Miscellaneous (No Heparin In Dialysis) 1 each N/A ONE ONE Stop: 09/21/22 07:01 Naloxone HCl (Naloxone Hcl 0.4 Mg/1 Ml Vial/Carp) 0.1 mg IV UD PRN PRN Reason: Opiate Overdose Stop: 10/16/22 21:41 Oxycodone HCl (Oxycodone Hcl Ir 5 Mg Tab (Immediate Release)) 10 mg PO Q4H PRN PRN Reason: SEVERE Pain (7,8,9,10) Stop: 09/30/22 21:41 Last Admin: 09/20/22 08:10 Dose: 10 mg Oxycodone HCl (Oxycodone Hcl Ir 5 Mg Tab (Immediate Release)) 5 mg PO Q4H PRN PRN Reason: MODERATE Pain (4,5,6) & Pre PT Stop: 09/30/22 21:41 Last Admin: 09/17/22 18:21 Dose: 5 mg Pantoprazole Sodium (Pantoprazole 40 Mg Tab) 40 mg PO BIDM [facility] Stop: 10/17/22 07:59 Last Admin: 09/20/22 08:00 Dose: 40 mg Polyethylene Glycol (Polyethylene (Miralax) 17 Gm Pack) 17 gm PO DAILY PRN PRN Reason: Constipation Stop: 10/16/22 21:41 Senna/Docusate Sodium (Docusate Sodium/Senna 50/8.6mg Tab) 2 tab PO HS [facility] Stop: 10/16/22 21:41 Last Admin: 09/19/22 21:23 Dose: Not Given Sertraline HCl (Sertraline Hcl 100 Mg Tablet) 100 mg PO QAM [facility] Stop: 10/17/22 08:59 Last Admin: 09/20/22 08:00 Dose: 100 mg Thiamine HCl (Thiamine Hcl 100 Mg Tab) 100 mg PO QAM [facility] Stop: 10/16/22 21:14 Last Admin: 09/20/22 08:00 Dose: 100 mg Vitamin B Complex/Folic Acid (Nephrocaps) 1 cap PO DAILY [facility] Stop: 10/17/22 08:59 Last Admin: 09/20/22 08:00 Dose: 1 cap Zolpidem Tartrate (Zolpidem Tartrate 5 Mg Tab) 5 mg PO HS PRN PRN Reason: Insomnia Stop: 10/16/22 21:41 Last Admin: 09/19/22 21:22 Dose: 5 mg (6) Anemia Anemia type: unspecified type Qualified Code(s): D64.9 - Anemia, unspecified (7) Hypertension Hypertension type: unspecified Qualified Code(s): I10 - Essential (primary) hypertension
[2022-09-20] MEDS: ZOLPIDEM TARTRATE 5 MG TAB PO PRN (20:13)
[2022-09-20] MEDS: DOCUSATE SODIUM/SENNA 50/8.6MG TAB PO SCH (20:14)
[2022-09-21 06:58] LABS: Hematocrit (blood only) 25.9 % (42.0-52.0); Hemoglobin 8.5 g/dl (14.0-18.0); Mean Corpuscular Hemoglobin 30.9 pg (25.0-34.0); Mean Corpuscular Hgb Conc 32.8 g/dL (32.0-36.0); Mean Corpuscular Volume 94.2 fL (80.0-100.0); Mean Platelet Volume 10.4 fL (9.4-12.4); Platelet Count 116 K/uL (130-400); RDW Coefficient of Variation 17.6 % (11.5-14.5); RDW Standard Deviation 59.6 fL (36.4-46.3); Red Blood Count 2.75 M/uL (4.70-6.10)
[2022-09-21] MEDS ORDERED: EPOETIN ALFA 20,000 UNITS/ML VIAL IV ONE (07:00)
[2022-09-21] MEDS ORDERED: SODIUM CHLORIDE 0.9% 1000ML 1,000 ML IV PRN (07:00)
[2022-09-21 07:14] LABS: BUN Creatinine Ratio 3.6 (10-20); Calcium 7.4 mg/dl (8.6-10.3); Creatinine Clr Calc Pharmacy 15.6 ml/min; Est GFR (African American) 11.1 ml/min; Est GFR (Non-African American) 9.6 ml/min; Magnesium 2.4 mg/dl (1.7-2.4); Phosphorus 1.7 mg/dl (2.5-4.9); Potassium 4.2 mmol/L (3.5-5.1)
[2022-09-21] MEDS: ACETAMINOPHEN 500 MG TAB PO SCH ×2 (07:50→16:48)
[2022-09-21] MEDS: NEPHROCAPS PO SCH (07:50)
[2022-09-21] MEDS: SERTRALINE HCL 100 MG TABLET PO SCH (07:50)
[2022-09-21] MEDS: FOLIC ACID 1 MG TAB PO SCH (07:51)
[2022-09-21] MEDS: THIAMINE HCL 100 MG TAB PO SCH (07:51)
[2022-09-21] MEDS: PANTOprazole 40 MG TAB PO SCH ×2 (07:51→16:51)
[2022-09-21] MEDS: oxyCODONE HCL IR 5 MG TAB (IMMEDIATE RELEASE) PO PRN (07:58)
--- NOTE | 2022-09-21 08:14 | Nephrology Progress Note ---
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 Dialyzes MWF at [facility] (3.5hr 3K F-180NR Qb400 EDW 96.5kg) * Will provide HD today for urea clearance and ultrafiltration * Monitor H&H, PRP (2) Closed fracture of left hip: Plan: * L hip hemiarthroplasty 09/18/22 (3) Hypertension: Plan: * Remains on Clonidine per home Rx. BP acceptable (4) Anemia: Plan: * One unit PRBC transfused 09/18/22 and 09/19/22. * Hgb 8.5 this am * Will provide ROSANNA with HD today Admission and Anticipated Discharge Date Admission Date: September 16, 2022 Subjective Mr. Rivers was evaluated in his hospital room this morning. He reports that his L hip discomfort has improved. Mr. Rivers currently denies angina or dyspnea. He voices no new medical concerns Review of Systems Constitutional: no fever Eyes: no worsening vision Ear, Nose, Mouth, Throat: no problem reported Respiratory: no cough and no dyspnea Cardiovascular: no chest pain Gastrointestinal: no abdominal pain, no nausea, no vomiting and no diarrhea/loose stools Physical Exam Constitutional: not in distress Eyes: PERRL, conjunctivae normal, anicteric sclerae ENMT: external ear and nose normal, oropharynx normal Neck: trachea midline, no thyromegaly Respiratory: normal respiratory effort, lungs clear to auscultation Cardiovascular: RRR, no murmur, no edema Extremities: + AV fistula (R BC AVF + bruit) Gastrointestinal (Abdomen): normal bowel sounds, soft, nontender, no hepatosplenomegaly Neurologic: awake Speech / Cognition: normal speech and normal cognition Results & Data Vital Signs (Past 12 Hours) Vital Signs Temp Pulse Pulse Pulse Resp BP Pulse Ox 09/21/22 07:47 36.8 C 66 18 108/65 100 09/21/22 03:42 36.8 C 72 16 127/77 98 09/20/22 23:40 36.3 C L 70 16 111/59 L 97 09/20/22 23:02 69 O2 Del Method 09/21/22 07:47 Room Air 09/21/22 03:42 Room Air 09/20/22 23:40 Room Air 09/20/22 23:02 Laboratory Results Laboratory Tests 09/21/22 09/21/22 06:18 06:18 WBC 4.10 L Hgb 8.5 L Hct 25.9 L Plt Count 116 L Sodium 135 L Potassium 4.2 D Chloride 104 Carbon Dioxide 26 BUN 21 Creatinine 5.87 H* D Glucose 101 H Calcium 7.4 L Phosphorus 1.7 L Magnesium 2.4 PG Care Time/CCT Total # of Minutes Spent Total Time Spent with Patient: Total time spent is greater than 50% in coordination of care (as documented) at patient's floor/unit and/or counseling patient: Coding Diagnoses ESRD on hemodialysis N18.6; Z99.2 Closed fracture of left hip S72.002A Hypertension I10 Hypertension type: unspecified Anemia D64.9 Anemia type: unspecified type (3) Hypertension Hypertension type: unspecified Qualified Code(s): I10 - Essential (primary) hypertension (4) Anemia Anemia type: unspecified type Qualified Code(s): D64.9 - Anemia, unspecified
--- NOTE | 2022-09-21 09:08 | Hospitalist Progress Note ---
Date of Service September 21, 2022 Assessment & Plan (1) Age-related osteoporosis with current pathol fracture of left femur: Plan: Appears to have been fractured for several weeks now at a minimum. Ortho consulted, he is s/p left anterior hip arthroplasty on 09/18 . Post op wound management per ortho. Cont scheduled APAP and oxycodone PRN. Cont ice to area. PT/OT (2) Dyspnea on exertion: Plan: Progressive shortness of breath noted by patient over the past several weeks. Echo reviewed. Clinically there is no acute heart failure. Cont fluid management per nephrology. Transfused 1 U blood with HD preop. He appears euvolemic on exam with resolution of peripheral edema. Reports feeling well with ambulation. (3) ESRD on hemodialysis: Plan: cont inpatient HD per nephrology (4) Ambulatory dysfunction: Plan: PT/OT post op (5) Frequent falls: Plan: Per issues noted above. PT/OT once cleared by ortho (6) Anemia: Plan: Likely related to ESRD and consider acute blood loss anemia 2/2 femoral neck fracture. Consider Procrit, defer to nephrology. No active bleeding present. Hb improved after blood transfusion yesterday. (7) Hypertension: Plan: chronic, improved from yesterday. Cont clonidine per home regimen which is twice daily. (8) Anxiety: Plan: chronic, stable. Cont alprazolam and sertraline per home regimen. Ativan PRN while possibly taking oxycodone. Noted that he is on suboxone and given this has a long half-life with needed time to build back up in the system, will continue it for now in addition to other narcotic medications as needed. Monitor closely for benzo withdrawal. (9) Insomnia: Plan: hold Ambien to avoid excessive pharmacologic interactions in this hemodialysis patient. (10) Alcohol abuse: Plan: 3-4 liquor drinks every day. AWSS scale to monitor for withdrawal. No evidence of this at this time. SCDs Full Code Dispo- to med/surg I spent a total of60 minutes coordinating, documenting, and providing care for this patient excluding time spent in the performance of separately billed services [facility] Hospitalist Admission and Anticipated Discharge Date Admission Date: September 16, 2022 Review of Systems Review of Systems: All systems were reviewed and negative except as indicated on subjective above. Physical Exam Physical Exam: CONSTITUTIONAL: WNWD, vitals as above, generally well-appearing, NAD EYES: normal conjunctivae, no scleral icterus, ENT: external ear and nose normal, oropharynx clear, no TM abnormality, no maxillary or ethmoid sinus tenderness NECK: trachea midline RESPIRATORY: clear to auscultation bilaterally, no crackles, rales or wheezes, normal respiratory effort CARDIOVASCULAR: regular rate and rhythm, S1 and 2 heard without murmurs, gallops or rubs, no JVD,no peripheral edema. CHEST: inspection of chest was normal GASTROINTESTINAL: soft, nontender,ND, no guarding MUSCULOSKELETAL: generalized weakness, somewhat limited movement given left hip fracture, head is normocephalic and atraumatic SKIN: warm and dry, no rashes NEUROLOGIC: CN 2-12 grossly intact, no sensory deficit, normal cognition, normal speech, no tremor PSYCHIATRIC: alert cooperative and oriented to person, place and time. Euthymic mood, makes good eye contact, language grossly intact, recent and remote memory grossly intact. Results & Data Results & Data Vital Signs (Past 12 Hours) Vital Signs Temp Pulse Pulse Pulse Resp BP Pulse Ox 09/21/22 07:47 36.8 C 66 18 108/65 100 09/21/22 03:42 36.8 C 72 16 127/77 98 09/20/22 23:40 36.3 C L 70 16 111/59 L 97 09/20/22 23:02 69 O2 Del Method 09/21/22 07:47 Room Air 09/21/22 03:42 Room Air 09/20/22 23:40 Room Air 09/20/22 23:02 Laboratory Results Short CBC 09/21/22 Range/Units 06:18 WBC 4.10 L (4.8-10.8) K/ul Hgb 8.5 L (14.0-18.0) g/dl Hct 25.9 L (42.0-52.0) % Plt Count 116 L (130-400) K/uL BMP 09/21/22 06:18 Sodium 135 L Potassium 4.2 D Chloride 104 Carbon Dioxide 26 BUN 21 Creatinine 5.87 H* D Glucose 101 H Calcium 7.4 L Medications Administered Current Inpatient Medications Acetaminophen (Acetaminophen 500 Mg Tab) 1,000 mg PO Q8H [facility] Stop: 10/19/22 15:29 Last Admin: 09/21/22 07:50 Dose: Not Given Alprazolam (Alprazolam 0.5 Mg Tablet) 0.5 mg PO TID PRN PRN Reason: anxiety Stop: 10/16/22 21:41 Bisacodyl (Bisacodyl 10 Mg Supp) 10 mg [place] DAILY PRN PRN Reason: Constipation Stop: 10/16/22 21:41 Buprenorphine/Naloxone (Buprenorphine/Naloxone 8/2 Mg Tab) 1 tab SL BID [facility] Stop: 10/16/22 21:41 Last Admin: 09/20/22 20:13 Dose: 1 tab Clonidine HCl (Clonidine Hcl 0.1 Mg Tab) 0.1 mg PO BID [facility] Stop: 10/16/22 21:41 Last Admin: 09/20/22 20:14 Dose: 0.1 mg Folic Acid (Folic Acid 1 Mg Tab) 1 mg PO QAM [facility] Stop: 10/17/22 08:59 Last Admin: 09/21/22 07:51 Dose: 1 mg Promethazine HCl 12.5 mg/ (Sodium Chloride) 50.5 mls @ 202 mls/hr IV Q6H PRN PRN Reason: Nausea And Vomiting Stop: 10/19/22 05:00 Sodium Chloride (Nss 1000ml) 1,000 mls @ 0 mls/hr IV .Q0M PRN PRN Reason: For Hemodialysis Use ONLY Stop: 09/21/22 12:59 Lorazepam (Lorazepam 1 Mg Tab) 1 mg PO ONE PRN; Protocol PRN Reason: EtoH Withdrawal AWSS 6,7,8,9,10 Magnesium Hydroxide (Magnesium Hydroxide Susp 30 Ml Udc) 30 ml PO DAILY PRN PRN Reason: Constipation Stop: 10/16/22 21:41 Naloxone HCl (Naloxone Hcl 0.4 Mg/1 Ml Vial/Carp) 0.1 mg IV UD PRN PRN Reason: Opiate Overdose Stop: 10/16/22 21:41 Oxycodone HCl (Oxycodone Hcl Ir 5 Mg Tab (Immediate Release)) 10 mg PO Q4H PRN PRN Reason: SEVERE Pain (7,8,9,10) Stop: 09/30/22 21:41 Last Admin: 09/21/22 07:58 Dose: 10 mg Oxycodone HCl (Oxycodone Hcl Ir 5 Mg Tab (Immediate Release)) 5 mg PO Q4H PRN PRN Reason: MODERATE Pain (4,5,6) & Pre PT Stop: 09/30/22 21:41 Last Admin: 09/17/22 18:21 Dose: 5 mg Pantoprazole Sodium (Pantoprazole 40 Mg Tab) 40 mg PO BIDM [facility] Stop: 10/17/22 07:59 Last Admin: 09/21/22 07:51 Dose: 40 mg Polyethylene Glycol (Polyethylene (Miralax) 17 Gm Pack) 17 gm PO DAILY PRN PRN Reason: Constipation Stop: 10/16/22 21:41 Potassium Phosphate (Pot Phosphate Monobasic W/ Sod Tab) 1 tab PO QID [facility] Stop: 10/21/22 08:59 Senna/Docusate Sodium (Docusate Sodium/Senna 50/8.6mg Tab) 2 tab PO HS [facility] Stop: 10/16/22 21:41 Last Admin: 09/20/22 20:14 Dose: Not Given Sertraline HCl (Sertraline Hcl 100 Mg Tablet) 100 mg PO QAM [facility] Stop: 10/17/22 08:59 Last Admin: 09/21/22 07:50 Dose: 100 mg Thiamine HCl (Thiamine Hcl 100 Mg Tab) 100 mg PO QAM [facility] Stop: 10/16/22 21:14 Last Admin: 09/21/22 07:51 Dose: 100 mg Vitamin B Complex/Folic Acid (Nephrocaps) 1 cap PO DAILY [facility] Stop: 10/17/22 08:59 Last Admin: 09/21/22 07:50 Dose: 1 cap Zolpidem Tartrate (Zolpidem Tartrate 5 Mg Tab) 5 mg PO HS PRN PRN Reason: Insomnia Stop: 10/16/22 21:41 Last Admin: 09/20/22 20:13 Dose: 5 mg (6) Anemia Anemia type: unspecified type Qualified Code(s): D64.9 - Anemia, unspecified (7) Hypertension Hypertension type: unspecified Qualified Code(s): I10 - Essential (primary) hypertension
[2022-09-21] MEDS: POT PHOSPHATE MONOBASIC W/ SOD TAB PO SCH ×3 (09:34→16:48)
[2022-09-21] MEDS ORDERED: diphenhydrAMINE 50 MG/ML VIAL IV ONE (12:42)
--- NOTE | 2022-09-21 15:30 | Discharge Summary ---
Discharge Summary Date of Service September 21, 2022 Admission HPI Per Admitting Provider 62 yo M presents because he couldn't walk any more. He feels that he fell "a few months ago" by his mailbox and this caused a broken hip. He continues to walk around on it and states he had multiple falls since then. He reports compliance with hemodialysis with the last session on Wednesday. He does HD on MWF. He sees Dr. Dean with [facility]. Denies CP, SOB, but does report dyspnea with exertion. Reports no weight gain, +swelling in feet and ankles. No orthopnea, has insomnia. EtOH use is 3-4 drinks/day rum & coke No recreational drug use Denies smoking Doesn't make urine Denies any discussion with his outpatient doctors regarding this progressive SOB No records available Principal Dx & Hospital Course #1 = Principal Diagnosis (1) Age-related osteoporosis with current pathol fracture of left femur: (2) Dyspnea on exertion: (3) ESRD on hemodialysis: (4) Ambulatory dysfunction: (5) Frequent falls: (6) Anemia: (7) Hypertension: (8) Anxiety: (9) Insomnia: (10) Alcohol abuse: Updated Medication List Medication Instructions Recorded Confirmed Type buprenorphine 8 mg-naloxone 2 mg 1 film sublingual BID 04/23/22 09/16/22 History sublingual film clonidine HCl 0.1 mg tablet 0.1 mg PO BID 04/23/22 09/16/22 History lidocaine-prilocaine 2.5 %-2.5 % 1 applic topical DIRECTED 04/23/22 09/16/22 History topical cream pantoprazole 40 mg tablet,delayed 40 mg PO BIDM 04/23/22 09/16/22 History release thiamine HCl (vitamin B1) 100 mg 100 mg PO DAILY 04/23/22 09/16/22 History tablet (Vitamin B-1) vitamin B complex and vitamin C 1 cap PO DAILY 04/23/22 09/16/22 History no.20-folic acid 1 mg capsule (Lul Caps) zolpidem 5 mg tablet 5 mg PO HS PRN Insomnia #30 tabs 04/25/22 09/16/22 Rx alprazolam 0.5 mg tablet 0.5 mg PO TID 09/16/22 09/16/22 History sertraline 100 mg tablet 100 mg PO QAM 09/16/22 09/16/22 History oxycodone-acetaminophen 5 mg-325 1 tab PO Q6H PRN severe pain #10 09/21/22 Rx mg tablet (Percocet) tabs Hospital Stay Data Consultations 09/16/22 18:10 Consult Nephrology Routine ED Decision to Admit Stat 09/16/22 21:42 Consult Anesthesiology Routine 09/17/22 09:52 Consult Cardiology Routine Procedures Performed Operation Date: 09/18/22 07:00 Actual Procedures p Left Anterior Hip Hemiarthroplasty Cemented(Left) - Richard Reyes, Diagnostic Imagining Performed 09/16/22 15:29 CT abd pelvis wo con Stat CT head/brain wo con Stat 09/18/22 13:00 FL hip LT 1V Routine Pending Results Patient Have Any Pending Studies at Discharge: No Discharge Instructions Given to Patient (Per Discharging Provider) Please take all medications as instructed on discharge list below. During the hospital stay you are anemic likely related to your underlying kidney disease and postoperative state. You were transfused blood and hemoglobin was improved prior to discharge. Repeat complete blood count in the next 1 week is recommended to ensure stabilization of hemoglobin. Continue Wednesday dialysis or as instructed by temperer. Alcohol cessation is strongly recommended for overall better health. Please consider a formal bone density study as you may have had a fracture related to osteoporosis; your bone quality was considered to be poor intraoperatively. It is recommended that you see your primary care doctor within 1 week of discharge to ensure you are still doing well, order monitoring lab work and ensure close followup with specialists. It was a pleasure taking care of you! Please call if you have any questions or problems. You can reach a [facility] hospitalist on duty at [facility] 24 hours a day by calling [phone]. Take care of yourself. Leanna Yeager, [place] Hospitalist
[2022-09-21] MEDS: cloNIDine HCL 0.1 MG TAB PO SCH (16:48)
[2022-09-21] MEDS: BUPRENORPHINE/NALOXONE 8/2 MG TAB SL SCH (16:51)
== END 2022-09-21 18:21 | DRG 521 ==
LOC: ED 15:05 → SUATTDRO 19:13 → 2E 19:13

== ENCOUNTER 2022-11-15 14:09 | Inpatient (IN) ==
--- NOTE | 2022-11-15 14:44 | Emergency Department Note ---
Impression & Plan Closed hip fracture, Hip pain, ESRD on hemodialysis ED Provider Note NAME: KYLER BOONE AGE: 62 SEX: M : 1960 ARRIVES VIA: Walk-In INFORMANT: Patient ED PROVIDER(S): Armando Yanez DO CHIEF COMPLAINT: left hip pain HPI: Patient is a 62-year-old male who presents to the ER for left hip pain. He notes he stood up and felt a pop in his hip and since then has had bruising in his left groin. He denies any headache or change in vision. No chest pain or shortness of breath. No nausea, vomiting, or diarrhea. No weakness or numbness in the leg. He has been having a fair amount of trouble getting around ADDITIONAL HISTORY OBTAINED: Per HPI Chronic Medical/Social Conditions Affecting Care: Per HPI PAST MEDICAL HISTORY:See Below PAST SURGICAL HISTORY:See Below FAMILY HISTORY:See Below SOCIAL HISTORY:See Below HOME MEDICATIONS:See Below ALLERGIES:See Below VITALS:See Below PHYSICAL EXAMINATION: GENERAL: Sitting up in bed, alert, well appearing, well nourished, no distress, non-toxic EYE EXAM: normal conjunctiva. OROPHARYNX: no exudate, no erythema, lips, buccal mucosa, and tongue normal and mucous membranes are moist NECK: supple, no nuchal rigidity, no adenopathy, non-tender LUNGS: Clear to auscultation. Normal chest wall mechanics HEART: no murmurs, S1 normal and S2 normal ABDOMEN: abdomen soft, non-tender, normo-active bowel sounds, no masses, no rebound or guarding. UPPER EXTREMITIES: upper extremities are grossly normal. LOWER EXTREMITIES: Flexion extension left hip knee and ankle intact. DP and PT 2 out of 4 on the left. Gross station intact NEURO EXAM: Normal sensorium, cranial nerves II-XII grossly intact, normal speech, no gross weakness of arms, no gross weakness of legs. MEDICAL DECISION MAKING: Patient is a 62-year-old male who presents ER following severe pain in his left hip and feeling a pop. IV was established blood was obtained. External records were reviewed. Labs show no significant leukocytosis. Mild anemia 9.2 which fairly consistent with previous. BMP with creatinine of 4.5 up as expected on dialysis. T. bili 1.7. LFTs were unremarkable. X-rays of the hip and pelvis per my read shows a left greater troches fracture. Do favor this to cause the bruising. Discussed with Dr. Marmolejo from general surgery. Recommends nonsurgical and he will see in the morning. Discussed with hospitalist for further evaluation management treatment. Discussed with ED from [facility] service. External Records Reviewed: Dr. Reyes's note reviewed from 10/30 postop Consults/Care Managements Discussions: Per MDM Triage Nursing notes reviewed. Limited review of prior medical records performed Vital Signs: reviewed and remarkable for HTn and tachy Differential diagnosis: Fracture, subluxation, dislocation, contusion, ligamentous injury, neurova scular, compartment syndrome, rhabdomyolysis, as well as other pathologies. ER treatment provided: See below Diagnostics interpreted by me include EKG and cardiac monitoring as listed below: -Cardiac Monitoring: An order was placed for continuous cardiac monitoring. The monitor shows a rate of 110 with sinus rhythm. -ECG: none -Laboratory studies:Interpreted by me as stated above in MDM and shown below. Imaging studies: Xrays: As interpreted by me: X-rays of the left hip per my read shows a left greater troches fracture CTs show: none Procedures:none Critical Care: None Past Med/Surg History Medical History Ambulatory dysfunction Uses cane since December 2021 Anxiety Dialysis patient End stage renal disease Frequent falls History of chronic pain on suboxone; ? hx of opioid abuse HTN, goal below 140/90 Hypertension Paroxysmal A-fib s/p cardioversion, no further reoccurrence PUD (peptic ulcer disease) Rheumatic fever per patient cause of ESRD Surgical History AV fistula Social History Smoking Status: Current some day smoker Tobacco Type: Smokeless Tobacco (Dip or Chew) Second Hand Exposure: No; Do You Dip or Chew Tobacco: Yes; Hx Alcohol Use: Yes Alcohol type: hard liquor Hx Substance Use: Yes Preferred Language: Uzbek Communication Ability: Effective Spa Associate Required: No Beliefs That Will Affect Care: None Current Living Situation: Spouse and Parent Current Living Situation Comment: Lives with mother and Feels Safe at Home: Yes Assistive Devices: Walker Allergies Allergies Allergy/AdvReac Type Severity Reaction Status Date / Time Iodinated Contrast Media AdvReac Contraindicated Verified 11/15/22 17:07 for dialysis Home Meds Home Medications Medication Instructions Recorded Confirmed clonidine HCl 0.1 mg tablet 0.1 mg PO BID 04/23/22 11/15/22 pantoprazole 40 mg tablet,delayed 40 mg PO BIDM 04/23/22 11/15/22 release sertraline 100 mg tablet 100 mg PO QAM 09/16/22 11/15/22 Previous Rx's Medication Instructions Recorded zolpidem 5 mg tablet 5 mg PO HS PRN Insomnia #30 tabs 04/25/22 alprazolam 0.5 mg tablet 0.5 mg PO TID PRN anxiety #10 tabs 09/21/22 oxycodone-acetaminophen 5 mg-325 1 tab PO Q6H PRN severe pain #10 09/21/22 mg tablet (Percocet) tabs Results & Data (ED) Vital Signs Vital Signs - 24 hr 11/15/22 14:12 11/15/22 14:53 11/15/22 15:30 Temperature 36.6 C Temperature Source Oral Pulse Rate 117 H 106 H Pulse Rate [Apical] 108 H Pulse Rhythm Regular Regular Pulse Rhythm [Apical] Regular Pulse Strength Normal Pulse Strength [Apical] Normal Respiratory Rate 20 20 20 Respiratory Effort / Characteristics Non-Labored Spontaneous Non-Labored Spontaneous Respiratory Depth Normal Normal Respiratory Pattern Regular Regular Blood Pressure 163/92 H Blood Pressure Mean 115 Blood Pressure Position Sitting Pulse Oximetry 100 96 95 Oxygen Delivery Method Room Air Room Air Room Air Sepsis Recent Fever Within 48 Hours No Sepsis New/Unexplained Change in Mental Status No Sepsis Action Taken by Nursing No Action Required 11/15/22 15:59 Temperature Temperature Source Pulse Rate 128 H Pulse Rate [Apical] Pulse Rhythm Pulse Rhythm [Apical] Pulse Strength Pulse Strength [Apical] Respiratory Rate Respiratory Effort / Characteristics Respiratory Depth Respiratory Pattern Blood Pressure Blood Pressure Mean Blood Pressure Position Pulse Oximetry Oxygen Delivery Method Sepsis Recent Fever Within 48 Hours Sepsis New/Unexplained Change in Mental Status Sepsis Action Taken by Nursing Laboratory Data 11/15/22 14:53 11/15/22 14:53 Lab Results 11/15/22 11/15/22 Range/Units 14:53 14:53 WBC 3.63 L (4.8-10.8) K/ul RBC 3.08 L (4.70-6.10) M/uL Hgb 9.2 L (14.0-18.0) g/dl Hct 27.4 L (42.0-52.0) % MCV 89.0 (80.0-100.0) fL MCH 29.9 (25.0-34.0) pg MCHC 33.6 (32.0-36.0) g/dL RDW Std Deviation 50.3 H (36.4-46.3) fL RDW Coeff of Valerie 15.7 H (11.5-14.5) % Plt Count 179 (130-400) K/uL MPV 11.0 (9.4-12.4) fL Immature Gran % (Auto) 0.3 % Neut % (Auto) 70.2 % Lymph % (Auto) 22.6 % [place] % (Auto) 5.8 % Eos % (Auto) 0.3 % Baso % (Auto) 0.8 % Neut # (Auto) 2.55 (1.40-6.50) K/uL Lymph # (Auto) 0.82 L (1.20-3.40) K/uL [place] # (Auto) 0.21 (0.11-0.59) K/uL Eos # (Auto) 0.01 (0.00-0.50) K/uL Baso # (Auto) 0.03 (0.00-0.20) K/uL Immature Gran # (Auto) 0.01 (0.01-0.20) K/uL Sodium 132 L (136-145) mmol/L Potassium 4.5 (3.5-5.1) mmol/L Chloride 92 L (98-107) mmol/L Carbon Dioxide 30 (21-32) mmol/L Anion Gap 10 (3-11) BUN 13 (6-23) mg/dl Creatinine 4.53 H* (0.6-1.4) mg/dl Est Cr Clr Drug Dosing Not Reportable Est GFR ( Amer) 15.2 ml/min Est GFR (Non-Af Amer) 13.1 ml/min BUN/Creatinine Ratio 2.9 L (10-20) Glucose 102 H (70-99(Fasting)) mg/dl Calcium 8.3 L (8.6-10.3) mg/dl Total Bilirubin 1.7 H (0.2-1.0) mg/dl AST 48 H (13-39) U/L ALT 12 (7-52) U/L Alkaline Phosphatase 295 H (34-104) U/L Total Protein 7.5 (6.0-8.3) gm/dl Albumin 3.1 L (3.4-5.0) gm/dl Globulin 4.4 H (2.5-4.0) gm/dl Albumin/Globulin Ratio 0.7 L (0.9-2) Administered Medications Metoprolol Tartrate (Metoprolol Tartrate 25 Mg Tab) 12.5 mg PO BID USAMA Stop: 12/15/22 16:49 Last Admin: 11/15/22 17:24 Dose: 12.5 mg Documented By: WILLI Discontinued Medications Morphine Sulfate (Morphine Sulfate 10 Mg/Ml Carp/Vial) 6 mg IV NOW STA Stop: 11/15/22 16:01 Last Admin: 11/15/22 16:13 Dose: 6 mg Documented By: WILLI Ondansetron HCl (Ondansetron Inj 2 Mg/Ml 2 Ml Vial) 4 mg IV NOW STA Stop: 11/15/22 16:01 Last Admin: 11/15/22 16:13 Dose: 4 mg Documented By: WILLI Imaging Data Radiologist's Impression: Hip X-Ray 11/15/22 14:27 LEFT HIP 2 VIEWS CLINICAL HISTORY: Left hip pain. FINDINGS: AP and frog-leg views of the left hip are compared to study dated 1123. The skeletal structures are heterogeneously osteopenic. A left hip arthroplasty is in near anatomic alignment. There is a periprosthetic fracture through the greater trochanter of the left proximal femur. This is new from 09/18/2022. Small displaced fragments are observed. No additional acute fracture is seen involving the left proximal femur or the visualized left hemipelvis. Mild soft tissue edema is seen in the left thigh. IMPRESSION: 1. Periprosthetic fracture through the greater trochanter of the left proximal femur as above. This is new from 09/18/2022. 2. The left hip arthroplasty is in the near-anatomic alignment. Electronically signed by: John Parrish M.D. 11/15/2022 3:24 PM Discharge Plan Visit Data Chief Complaint: Hip Pain Stated Complaint: LEFT HIP PAIN S/P HIP REPLACEMENT ED Provider: Armando Yanez Discharge Problem: Closed hip fracture, Hip pain, ESRD on hemodialysis Patient Disposition: Admitted As Inpatient Discharge Instructions Interventions: ED Discharge Assessment Last Done: 11/15/22 17:47
[2022-11-15 15:15] LABS: Basophils # (auto) 0.03 K/uL (0.00-0.20); Basophils % (auto) 0.8 %; Eosinophils # (auto) 0.01 K/uL (0.00-0.50); Eosinophils % (auto) 0.3 %; Hematocrit (blood only) 27.4 % (42.0-52.0); Hemoglobin 9.2 g/dl (14.0-18.0); Immature Granulocytes # (auto) 0.01 K/uL (0.01-0.20); Immature Granulocytes % (auto) 0.3 %; Lymphocytes # (auto) 0.82 K/uL (1.20-3.40); Lymphocytes % (auto) 22.6 %; Mean Corpuscular Hemoglobin 29.9 pg (25.0-34.0); Mean Corpuscular Hgb Conc 33.6 g/dL (32.0-36.0); Monocytes # (auto) 0.21 K/uL (0.11-0.59); Monocytes % (auto) 5.8 %; Neutrophils # (auto) 2.55 K/uL (1.40-6.50); Neutrophils % (auto) 70.2 %; Platelet Count 179 K/uL (130-400); RDW Coefficient of Variation 15.7 % (11.5-14.5); RDW Standard Deviation 50.3 fL (36.4-46.3); Red Blood Count 3.08 M/uL (4.70-6.10); White Blood Count 3.63 K/ul (4.8-10.8)
--- NOTE | 2022-11-15 15:25 | XRay Report ---
LEFT HIP 2 VIEWS CLINICAL HISTORY: Left hip pain. FINDINGS: AP and frog-leg views of the left hip are compared to study dated 112. The skeletal struct ures are heterogeneously osteopenic. A left hip arthroplasty is in near anatomic alignment. There is a periprosthetic fracture through the greater trochanter of the left proximal femur. This is new from 09/18/2022. Small displaced fragments are observed. No additional acute fracture is seen involving th e left proximal femur or the visualized left hemipelvis. Mild soft tissue edema is seen in the left t high. IMPRESSION: 1. Periprosthetic fracture through the greater trochanter of the left proximal femur as above. This i s new from 09/18/2022. 2. The left hip arthroplasty is in the near-anatomic alignment. Electronically signed by: John Parrish M.D. 11/15/2022 3:24 PM
[2022-11-15 15:40] LABS: Alanine Aminotransferase 12 U/L (7-52); Albumin Globulin Ratio 0.7 (0.9-2); Albumin Level 3.1 gm/dl (3.4-5.0); Alkaline Phosphatase 295 U/L (34-104); Anion Gap 10 (3-11); BUN Creatinine Ratio 2.9 (10-20); Bilirubin,Total 1.7 mg/dl (0.2-1.0); Blood Urea Nitrogen 13 mg/dl (6-23); Calcium 8.3 mg/dl (8.6-10.3); Carbon Dioxide 30 mmol/L (21-32); Chloride 92 mmol/L (98-107); Globulin 4.4 gm/dl (2.5-4.0); Glucose 102 mg/dl (70-99(Fasting)); Sodium 132 mmol/L (136-145); Total Protein 7.5 gm/dl (6.0-8.3)
[2022-11-15 15:41] LABS: Aspartate Aminotransferase 48 U/L (13-39); Est GFR (African American) 15.2 ml/min; Est GFR (Non-African American) 13.1 ml/min; Potassium 4.5 mmol/L (3.5-5.1)
[2022-11-15] MEDS ORDERED: ONDANSETRON INJ 2 MG/ML 2 ML VIAL IV STA (16:00)
[2022-11-15] MEDS ORDERED: MoRPHine SULFATE 10 MG/ML CARP/VIAL IV STA (16:00)
[2022-11-15] MEDS ORDERED: ACETAMINOPHEN 325 MG TAB PO PRN (16:01)
[2022-11-15] MEDS ORDERED: POLYETHYLENE (MIRALAX) 17 GM PACK PO PRN (16:01)
[2022-11-15] MEDS ORDERED: ONDANSETRON INJ 2 MG/ML 2 ML VIAL IV PRN (16:01)
[2022-11-15] MEDS ORDERED: ALUMINUM/MAGNESIUM SUSP 30 ML UDC PO PRN (16:01)
[2022-11-15] MEDS ORDERED: MAGNESIUM HYDROXIDE SUSP 30 ML UDC PO PRN (16:01)
--- NOTE | 2022-11-15 16:15 | History & Physical Report ---
Date of Service November 15, 2022 Assessment & Plan (1) S/P hip hemiarthroplasty: (2) ESRD on hemodialysis: (3) Alcohol abuse: (4) Anxiety: (5) Elevated LFTs: (6) Hypertension: (7) Atrial fibrillation: Plan 62-year-old male presents with sharp left hip pain that he noted had started on with some bruising on his left hip and groin. At that time, no additional pain noted; but over the past two days. He was able to walk three days ago, but now has to slide his left leg when he walks. Additional symptoms includes decreased appetite and diarrhea. He reports intermittent diarrhea over the past 'few months' without hematochezia.Most recent clear watery diarrhea on Wednesday; he reports about six times with increased flatulence. On 09/16/2022 sustained a closed hip fracture. He is 5 weeks post left hemiarthroplasty. He has been using a walker since his surgery. No falls since his last surgery. Hip x-ray indicated 1. Periprosthetic fracture through the greater trochanter of the left proximal femur as above. This is new from 09/18/2022. 2. The left hip arthroplasty is in the near-anatomic alignment. No leukocytosis, Hgb be 9.2; baseline 8-9. Baseline creatinine 3-5; today 4.53 last HD on Monday 11/13 and was able to complete entire session without complications. Additional PMH include ESRD on HD Wednesday, HTN, anxiety, daily alcohol use. Pt denies tobacco and other ilcit drug use. Reports drinking 5 glasses of rum and coke this weekend. Before Wednesday, he had not had alcohol intake for weeks prior to that. No withdrawal or tremors. For now, will keep n.p.o. after midnight pending formal orthopedic evaluation, consult [facility] for hemodialysis for Wednesday. For now continue home Suboxone therapy. Did investigate confirmed prescription on PDMP however he is not reliable about his history because he indicated he stopped taking Suboxone over nearly a year ago but he has filled prescriptions. He also reports he does not drink often, that last drink was wednesday and before that had been months before. However, chart from hospitalization less than 2 months ago reported otherwise. Incidentally, was found to be in AF with RVR; non compliance with appointments and EMR link without much supportive information. Indicated that he has had a history of a blood clot but no longer takes anticoagulation. Last echo 09/16/2022 EF 60 to 65% with mild LVH but no LV wall abnormalities. Mild MR/TR with grade 2 diastolic dysfunction. Did state that he has history of paroxysmal A-fib and underwent a cardioversion but was unsure of the date for this. Will start on low-dose beta-roberto and await formal cardiology consultation with Nephro input. Left hip pain: Status post hip hemiarthroplasty: Acute uncontrolled Left hip hemiarthroplasty performed 5 weeks ago Noted left hip pop on Atrial Fibrillation with RVR: Incidentally, was found to be in AF with RVR; non compliance with appointments and EMR link without much supportive information. Indicated that he has had a history of a blood clot but no longer takes anticoagulation. Last echo 09/16/2022 EF 60 to 65% with mild LVH but no LV wall abnormalities. Mild MR/TR with grade 2 diastolic dysfunction. Obtain ECG Did state that he has history of paroxysmal A-fib and underwent a cardioversion but was unsure of the date for this. Will start on low-dose beta-roberto and await formal cardiology consultation. Hold off on anticoagulation for now given acute onset of bruising; may benefit from coagulation studies PT/INR ordered for now ESRD on hemodialysis: Chronic stable aneuric Receives HD Wednesday/Wednesday/Wednesday; last hemodialysis 11/13 Current creatinine 4.53; baseline 3-5 Avoid nephrotoxic agents for pain control Consult nephrology for inpatient dialysis starting tomorrow 11/16 Diarrhea: acute uncontrolled No Leukcytosis Stool culture Alcohol abuse: Elevated LFTs: AWSS scale Last drink on Monday 11/13; but was not consistent with his answers related to sobriety or alcohol use Folic acid and thiamine p.o. Ativan 1 mg as needed No gabapentin for now HTN: Chronic stable Takes clonidine; continue for now Per note reviewed on 09/19/22 with Cardiology * Clonidine may not be the best antihypertensive for him - discuss with Nephro as they tend to manage his BP Started Metoprolol 12.5 PO BID; await Cardiology and Nephro input for further changes. Anxiety: Chronic stable Takes sertraline and alprazolam; continue Disposition: PCP:Dr. Lucia CODE STATUS: Full code VTE prophylaxis: Teds and SCDs for now I spent a total of 87 minutes coordinating, documenting, and providing care for this patient excluding time spent in the performance of separately billed services. All of the aforementioned completed while collaborating with the assigned attending physician for a full treatment plan. Please see their addendum for further details. History of Present Illness Chief Complaint: left hip pain Primary Care Provider: Ammy Lucia 62-year-old male presents with sharp left hip pain that he noted had started on with some bruising on his left hip and groin. At that time, no additional pain noted; but over the past two days. He was able to walk three days ago, but now has to slide his left leg when he walks. Additional symptoms includes decreased appetite and diarrhea. He reports intermittent diarrhea over the past 'few months' without hematochezia.Most recent clear watery diarrhea on Wednesday; he reports about six times with increased flatulence. On 09/16/2022 sustained a closed hip fracture. He is 5 weeks post left hemiarthroplasty. He has been using a walker since his surgery. No falls since his last surgery. Hip x-ray indicated 1. Periprosthetic fracture through the greater trochanter of the left proximal femur as above. This is new from 09/18/2022. 2. The left hip arthroplasty is in the near-anatomic alignment. No leukocytosis, Hgb be 9.2; baseline 8-9. Baseline creatinine 3-5; today 4.53 last HD on Monday 11/13 and was able to complete entire session without complications. Additional PMH include ESRD on HD Wednesday, HTN, anxiety, daily alcohol use. Pt denies tobacco and other ilcit drug use. Reports drinking 5 glasses of rum and coke this weekend. Before Wednesday, he had not had alcohol intake for weeks prior to that. No withdrawal or tremors. For now, will keep n.p.o. after midnight pending formal orthopedic evaluation, consult [facility] for hemodialysis for Wednesday. For now continue home Suboxone therapy. Did investigate confirmed prescription on PDMP however he is not reliable about his history because he indicated he stopped taking Suboxone over nearly a year ago but he has filled prescriptions. He also reports he does not drink often, that last drink was wednesday and before that had been months before. However, chart from hospitalization less than 2 months ago reported otherwise. Incidentally, was found to be in AF with RVR; non compliance with appointments and EMR link without much supportive information. Indicated that he has had a history of a blood clot but no longer takes anticoagulation. Last echo 09/16/2022 EF 60 to 65% with mild LVH but no LV wall abnormalities. Mild MR/TR with grade 2 diastolic dysfunction. Did state that he has history of paroxysmal A-fib and underwent a cardioversion but was unsure of the date for this. Will start on low-dose beta-roberto and await formal cardiology consultation. Patient denies headache, visual or auditory changes, shortness of breath, chest pain, palpitations, abdominal pain or tenderness, recent falls or trauma. Patient will be admitted for further evaluation and management. Please see A/P for further details. Allergies Allergy/AdvReac Type Severity Reaction Status Date / Time Iodinated Contrast Media AdvReac Contraindicated Verified 11/15/22 17:07 for dialysis Home Medications Medication Instructions Recorded Confirmed Type clonidine HCl 0.1 mg tablet 0.1 mg PO BID 04/23/22 11/15/22 History pantoprazole 40 mg tablet,delayed 40 mg PO BIDM 04/23/22 11/15/22 History release zolpidem 5 mg tablet 5 mg PO HS PRN Insomnia #30 tabs 04/25/22 11/15/22 Rx sertraline 100 mg tablet 100 mg PO QAM 09/16/22 11/15/22 History alprazolam 0.5 mg tablet 0.5 mg PO TID PRN anxiety #10 tabs 09/21/22 11/15/22 Rx oxycodone-acetaminophen 5 mg-325 1 tab PO Q6H PRN severe pain #10 09/21/22 11/15/22 Rx mg tablet (Percocet) tabs Past Med/Surg History Medical History (Updated 11/15/22 @ 20:17 by TISH Corona) Ambulatory dysfunction Uses cane since December 2021 Anxiety Atrial fibrillation Dialysis patient End stage renal disease Frequent falls History of chronic pain on suboxone; ? hx of opioid abuse HTN, goal below 140/90 Hypertension Paroxysmal A-fib s/p cardioversion, no further reoccurrence PUD (peptic ulcer disease) Rheumatic fever per patient cause of ESRD Surgical History AV fistula Social History Smoking Status: Current some day smoker Tobacco Type: Smokeless Tobacco (Dip or Chew) Second Hand Exposure: No; Do You Dip or Chew Tobacco: Yes; Hx Alcohol Use: Yes Alcohol type: hard liquor Hx Substance Use: Yes Preferred Language: Urdu Communication Ability: Effective Lawn Specialist Required: No Beliefs That Will Affect Care: None Current Living Situation: Spouse and Parent Current Living Situation Comment: Lives with mother and Feels Safe at Home: Yes Assistive Devices: Walker Review of Systems Review of Systems: Neuro: (-) Falls, trauma, slurred speech HEENT: (-) BENNETT, dizziness, dysphagia, visual or auditory changes CV: (-) CP, palpitations, swelling Resp: (-) SOB GI: (-) appetite changes, N/V/D, bowel changes : (-) urinary changes Skin: (-) rashes Psych: (-) anxiety, depression Physical Exam Physical Exam: See Dr. Velez's addendum for physical examination findings. Results & Data Results & Data Vital Signs (Past 12 Hours) Vital Signs Temp Pulse Pulse Resp BP Pulse Ox O2 Del Method 11/15/22 15:59 128 H 11/15/22 15:30 108 H 20 95 Room Air 11/15/22 14:53 106 H 20 96 Room Air 11/15/22 14:12 36.6 C 117 H 20 163/92 H 100 Room Air Laboratory Results Short CBC 11/15/22 Range/Units 14:53 WBC 3.63 L (4.8-10.8) K/ul Hgb 9.2 L (14.0-18.0) g/dl Hct 27.4 L (42.0-52.0) % Plt Count 179 (130-400) K/uL BMP 11/15/22 14:53 Sodium 132 L Potassium 4.5 Chloride 92 L Carbon Dioxide 30 BUN 13 Creatinine 4.53 H* Glucose 102 H Calcium 8.3 L Liver Function 11/15/22 Range/Units 14:53 Total Bilirubin 1.7 H (0.2-1.0) mg/dl AST 48 H (13-39) U/L ALT 12 (7-52) U/L Alkaline Phosphatase 295 H (34-104) U/L Albumin 3.1 L (3.4-5.0) gm/dl Diagnostic Findings Hip X-Ray 11/15/22 14:27 LEFT HIP 2 VIEWS CLINICAL HISTORY: Left hip pain. FINDINGS: AP and frog-leg views of the left hip are compared to study dated 1123. The skeletal structures are heterogeneously osteopenic. A left hip arthroplasty is in near anatomic alignment. There is a periprosthetic fracture through the greater trochanter of the left proximal femur. This is new from 09/18/2022. Small displaced fragments are observed. No additional acute fracture is seen involving the left proximal femur or the visualized left hemipelvis. Mild soft tissue edema is seen in the left thigh. IMPRESSION: 1. Periprosthetic fracture through the greater trochanter of the left proximal femur as above. This is new from 09/18/2022. 2. The left hip arthroplasty is in the near-anatomic alignment. Electronically signed by: John Parrish M.D. 11/15/2022 3:24 PM Code Status & VTE Plan Code Status Full Code in the event of cardiac or respiratory arrest VTE Prophylaxis Plan VTE Prophylaxis will be ordered: Yes Supervising Physician Co-Signing Physician Notes 62 year old man with ESRD on HD, pAF s/p cardioversion, alcohol use, recent left hip arthroplasty who presented with worsening left hip pain after a popping sound on on getting up from bed Denied any falls Reports increasing pain and ambulatory dysfunction since Reports bruising around left thigh Reports watery diarrhea On exam General: No acute distress Eyes: PERRL, conjunctivae normal, not pale, anicteric sclerae, EOM intact bilaterally ENMT: External ear and nose normal, oropharynx normal Respiratory: Normal respiratory effort, no respiratory distress, lungs clear to auscultation, no crackles and no wheezes Cardiovascular: Tachycardic, irregularly irregular S1 S2 Gastrointestinal (Abdomen): Abdomen is not distended, soft, non-tender to palpation, no guarding, no palpable hepatosplenomegaly, normal bowel sounds Musculoskeletal: Upper anteromedial Left thigh ecchymoses. trace pedal edema Neurologic: Alert and oriented x 3, No focal weakness, sensation grossly intact Psychiatric: Alert and oriented x 3, euthymic affect, no depressed affect Labs notable for WBC of 3.63, hemoglobin of 9.2, sodium of 132, creatinine of 4.53, total bilirubin of 1.7, AST of 48, alkaline phosphatase of 295 Hip x-ray showed periprosthetic fracture through the greater trochanter of the left proximal femur new from 09/18/2022 Pain control Orthopedic consult. We will keep n.p.o. after midnight in case of need for procedure. Will need PT/OT evaluation after orthopedic evaluation Nephrology consult for hemodialysis. Continue home buprenorphine therapy. Confirmed on PDMP Patient is not reliable about his history of adherence. He reported he had stopped suboxone over a year ago but PDMP showed otherwise He also reports he does not drink often, that last drink was wednesday and before that had been months before. However, chart from hospitalization less than 2 months ago reported otherwise CIWA protocol for now Start lopressor for Afib w/RVR Hold anticoagulation for VTE ppx for now in view of surg evaluation and bruising Cards c/s check c diff for watery diarrhea (6) Hypertension Hypertension type: unspecified Qualified Code(s): I10 - Essential (primary) hypertension
[2022-11-15] MEDS ORDERED: METOPROLOL TARTRATE 25 MG TAB PO SCH (16:50)
[2022-11-15] MEDS ORDERED: LORazepam 2 MG/1 ML VIAL IV PRN (16:59)
[2022-11-15] MEDS: ACETAMINOPHEN 325 MG TAB PO SCH ×2 (19:26→23:08)
[2022-11-15] MEDS ORDERED: ALPRAZolam 0.5 MG TABLET PO PRN (20:34)
[2022-11-15] MEDS: HYDROmorphone INJ 0.5 MG/0.5 ML SYR IV PRN (20:45)
[2022-11-15] MEDS: ZOLPIDEM TARTRATE 5 MG TAB PO PRN (21:44)
[2022-11-15] MEDS: cloNIDine HCL 0.1 MG TAB PO SCH (21:44)
[2022-11-16] MEDS ORDERED: METOPROLOL TARTRATE 25 MG TAB PO STA (00:02)
[2022-11-16 00:38] LABS: Magnesium 1.7 mg/dl (1.7-2.4); Thyroid Stimulating Hormone 5.543 uIu/ml (0.300-4.500)
[2022-11-16 06:10] LABS: Hematocrit (blood only) 26.9 % (42.0-52.0); Hemoglobin 8.9 g/dl (14.0-18.0); Mean Corpuscular Hgb Conc 33.1 g/dL (32.0-36.0); Mean Corpuscular Volume 90.6 fL (80.0-100.0); Mean Platelet Volume 10.3 fL (9.4-12.4); Platelet Count 137 K/uL (130-400); RDW Standard Deviation 53.1 fL (36.4-46.3); Red Blood Count 2.97 M/uL (4.70-6.10); White Blood Count 3.71 K/ul (4.8-10.8)
[2022-11-16 06:24] LABS: Albumin Globulin Ratio 0.7 (0.9-2); Albumin Level 2.7 gm/dl (3.4-5.0); Bilirubin,Total 1.1 mg/dl (0.2-1.0); Calcium 7.8 mg/dl (8.6-10.3); Creatinine Clr Calc Pharmacy 16.7 ml/min; Est GFR (African American) 12.5 ml/min; Est GFR (Non-African American) 10.8 ml/min; Globulin 3.8 gm/dl (2.5-4.0); Potassium 3.4 mmol/L (3.5-5.1); Total Protein 6.5 gm/dl (6.0-8.3)
--- NOTE | 2022-11-16 06:29 | Orthopedic Consultation ---
Date of Service November 16, 2022 Assessment & Plan (1) Closed hip fracture: Fortunately this can be treated nonoperatively. Time was spent at the bedside describing to Payam that diagnosis and treatment options. He can be 50% partial weightbearing on his left hip. This will likely be for 6 weeks. Physical t herapy and Occupational Therapy were ordered. He can follow-up with orthopedics in 3 weeks for repeat x-rays to ensure there is been no further displacement of the fracture. Full orthopedic discharge instructions were placed in the discharge summary. History of Present Illness Reason for Consultation: Left periprosthetic greater trochanteric hip fracture. Requesting Physician: . Attending Physician: Korin Velez MD Payam is a 62-year-old male who underwent a left hip hemiarthroplasty for fracture 2 months ago. Postoperatively he has been using a walker. He lives in a house with his in the [facility]. He has multiple medical comorbidities and is relatively poor health. He is on dialysis. On , about 4 days ago, he was crossing his legs and he felt a pop in the left hip. He had increasing pain. He also noticed ecchymosis in his left groin. He has had more difficulty putting weight on the hip and came to the emergency room. Radiographs demonstrated a relatively nondisplaced left greater trochanteric hip fracture. He was admitted for other medical issues as well.. Allergies Allergy/AdvReac Type Severity Reaction Status Date / Time Iodinated Contrast Media AdvReac Contraindicated Verified 11/15/22 17:07 for dialysis Home Medications Medication Instructions Recorded Confirmed Type clonidine HCl 0.1 mg tablet 0.1 mg PO BID 04/23/22 11/15/22 History pantoprazole 40 mg tablet,delayed 40 mg PO BIDM 04/23/22 11/15/22 History release zolpidem 5 mg tablet 5 mg PO HS PRN Insomnia #30 tabs 04/25/22 11/15/22 Rx sertraline 100 mg tablet 100 mg PO QAM 09/16/22 11/15/22 History alprazolam 0.5 mg tablet 0.5 mg PO TID PRN anxiety #10 tabs 09/21/22 11/15/22 Rx oxycodone-acetaminophen 5 mg-325 1 tab PO Q6H PRN severe pain #10 09/21/22 11/15/22 Rx mg tablet (Percocet) tabs Past Med/Surg History Medical History (Updated 11/15/22 @ 20:17 by TISH Corona) Ambulatory dysfunction Uses cane since December 2021 Anxiety Atrial fibrillation Dialysis patient End stage renal disease Frequent falls History of chronic pain on suboxone; ? hx of opioid abuse HTN, goal below 140/90 Hypertension Paroxysmal A-fib s/p cardioversion, no further reoccurrence PUD (peptic ulcer disease) Rheumatic fever per patient cause of ESRD Surgical History AV fistula Social History Smoking Status: Current some day smoker Tobacco Type: Smokeless Tobacco (Dip or Chew) Second Hand Exposure: No; Do You Dip or Chew Tobacco: Yes; Hx Alcohol Use: Yes Alcohol type: hard liquor Hx Substance Use: Yes Preferred Language: Iranian Communication Ability: Effective Church Warden Required: No Beliefs That Will Affect Care: None Current Living Situation: Spouse and Parent Current Living Situation Comment: Lives with mother and Feels Safe at Home: Yes Assistive Devices: Walker Review of Systems All systems reviewed & are unremarkable except as noted in HPI & below. Physical Exam On physical examination left hip, he does have some ecchymosis in his left groin. His left leg is still a little bit swollen. The incision looks okay and I do not see any signs of drainage and no signs of infection. He has active dorsiflexion plantarflexion of his left ankle.. Constitutional WD/WN, vitals as above Eyes PERRL, conjunctivae normal, anicteric sclerae ENMT external ear and nose normal, oropharynx normal Neck trachea midline, no thyromegaly Respiratory normal respiratory effort, lungs clear to auscultation Cardiovascular RRR, no murmur, no edema Gastrointestinal (Abdomen) normal bowel sounds, soft, nontender, no hepatosplenomegaly Skin no rashes, warm and dry Psychiatric A+Ox3, euthymic affect Results & Data Results & Data Laboratory Results . Diagnostic Findings X-rays of the left hip show a cemented prosthesis to be in good alignment. There is a fracture of the greater trochanter. Is relatively nondisplaced.. PG Care Time/CCT Total # of Minutes Spent Total Time Spent with Patient: Total time spent is greater than 50% in coordination of care (as documented) at patient's floor/unit and/or counseling patient: Coding Level of Care Code 40200 IN/OBS CONSULT LVL 4,60M Diagnoses Closed hip fracture S72.009A
[2022-11-16 06:42] LABS: INR 1.3 (0.9-1.1); Prothrombin Time 14.5 Seconds (9.0-12.0)
[2022-11-16] MEDS ORDERED: EPOETIN ALFA 20,000 UNITS/ML VIAL IV ONE (07:00)
[2022-11-16] MEDS: HYDROmorphone INJ 0.5 MG/0.5 ML SYR IV PRN ×2 (07:27→18:29)
[2022-11-16] MEDS: PANTOprazole 40 MG TAB PO SCH ×2 (08:10→18:24)
[2022-11-16] MEDS: ACETAMINOPHEN 325 MG TAB PO SCH ×3 (08:10→23:34)
[2022-11-16] MEDS: SERTRALINE HCL 100 MG TABLET PO SCH (08:10)
[2022-11-16] MEDS: FOLIC ACID 1 MG TAB PO SCH (08:11)
[2022-11-16] MEDS: THIAMINE HCL 100 MG TAB PO SCH (08:11)
--- NOTE | 2022-11-16 08:14 | Cardiology Consultation ---
Date of Consultation November 16, 2022 Assessment & Plan (1) Persistent atrial fibrillation: (2) S/P hip hemiarthroplasty: (3) ESRD on dialysis: (4) Frequent falls: Plan IMPRESSION: Medically complex 62 year old male with a past medical history of ESRD on HD. Known gait imbalance with frequent falls- presents due to left hip pain and bruising-- he is s/p left hip surgery 09/2022. No surgical intervention required at this time per Ortho. Incidental findings of AFIB with RVR-- prior history dating back to ~2009 without know reoccurrence till now. CHADSVASC score of 1 (HTN), low-moderate risk for stroke with PAF, however, patient is a high bleed risk due to HTN, Renal disease, prior GIB, and alcohol use, and frequent falls. HASBLED score of 4. PLAN: Persistent AFIB: Rates remain borderline controlled, increase metoprolol tartrate to 25 mg TID. Discussed rate control versus rhythm management--however, patient is a high bleed risk. Will need to determine appropriateness of long-term anticoagulation prior to proceeding with cardioversion (Hx of LA thrombus). Further recommendations pending Dr. Quinn's assessment. ESRD on HD: Volume status and electrolytes managed by nephrology/hemodialysis. Case discussed with Dr. Quinn- will follow. Supervising Physician Co-Signing Physician Notes Patient seen and examined, chart, medications, telemetry reviewed. Full assessment and plan as above. Patient presents with hip pain and discomfort. Heart rate noted to be elevated with atrial fibrillation observed on EKG Patient admits to past history of atrial fibrillation as well as prior history of left atrial thrombus. Discussed in detail. Holding on anticoagulation for time being due to multiple risk factors. We will titrate beta-roberto upward for heart rate control. Patient undergo dialysis today Duration of atrial fibrillation uncertain but in sinus rhythm in September Discussed atrial fibrillation in detail with further recommendations as course progresses. Current rhythm. Being driven by pain and discomfort History of Present Illness Reason for Consultation: Atrial fibrillation with RVR Requesting Physician: [facility] hospitalist Attending Physician: Leroy Holland MD History of Present Illness 62-year-old male who presented to [facility] emergency department on 11/15 due to left hip discomfort. Patient fell and broke his left hip a few months back and underwent surgical repair with Dr. Reyes on 09/18/2022. On 11/15 patient stood up and felt a pop in his hip and developed left groin bruising-orthopedics was consulted who recommended nonoperative management and outpatient follow-up. Incidentally patient was found to be in atrial fibrillation with RVR--patient does carry a prior history of A-fib and underwent cardioversion in the past--Roughly occurred aprox 10 years ago with the cardioversion being completed at [facility]. He does describe having a LA thrombus and on a blood thinner for a "few months" during this occurrence. Believes that anticoagulation was discontinued due to GIB and PUD. Hospitalist team started low-dose beta-roberto therapy with metoprolol tartrate 25 mg twice daily. EKG this morning showed atrial fibrillation, 94 bpm with a QTc of 495 ms. Slight rate improvement compared to yesterday's EKG. Tele: AFIB low 100s with PVCs Upon entrance into the room patient resting in the chair. Primarily asymptomatic with atrial fibrillation but has been more dyspneic with exertion. No chest pain or palpitations. No lightheadedness. Due for HD this afternoon. Notes some ongoing discomfort in his left hip. Bruising remains. Past medical history: End-stage renal disease, anuric, on hemodialysis via AV fistula every Wednesday follows with [facility] nephrology Hypertension Frequent falls Alcohol use, 3-4 liquor drinks daily Anemia of chronic disease, uses Procrit Peptic ulcer disease Hx of GIB History of paroxysmal atrial fibrillation status post cardioversion (approx 10 years ago) Chronic pain on Suboxone therapy Questionable history of rheumatic fever Allergies Allergy/AdvReac Type Severity Reaction Status Date / Time Iodinated Contrast Media AdvReac Contraindicated Verified 11/15/22 17:07 for dialysis Home Medications Medication Instructions Recorded Confirmed Type clonidine HCl 0.1 mg tablet 0.1 mg PO BID 04/23/22 11/15/22 History pantoprazole 40 mg tablet,delayed 40 mg PO BIDM 04/23/22 11/15/22 History release zolpidem 5 mg tablet 5 mg PO HS PRN Insomnia #30 tabs 04/25/22 11/15/22 Rx sertraline 100 mg tablet 100 mg PO QAM 09/16/22 11/15/22 History alprazolam 0.5 mg tablet 0.5 mg PO TID PRN anxiety #10 tabs 09/21/22 11/15/22 Rx oxycodone-acetaminophen 5 mg-325 1 tab PO Q6H PRN severe pain #10 09/21/22 11/15/22 Rx mg tablet (Percocet) tabs Patient History Medical History (Updated 11/16/22 @ 10:36 by TISH Shane) Ambulatory dysfunction Uses cane since December 2021 Anxiety Atrial fibrillation Dialysis patient End stage renal disease Frequent falls History of chronic pain on suboxone; ? hx of opioid abuse HTN, goal below 140/90 Hypertension Paroxysmal A-fib s/p cardioversion, no further reoccurrence PUD (peptic ulcer disease) Rheumatic fever per patient cause of ESRD Surgical History AV fistula Social History Smoking Status: Current some day smoker Tobacco Type: Smokeless Tobacco (Dip or Chew) Second Hand Exposure: No; Do You Dip or Chew Tobacco: Yes; Hx Alcohol Use: Yes Alcohol type: hard liquor Hx Substance Use: Yes Preferred Language: Upper Sorbian Communication Ability: Effective Researcher Required: No Beliefs That Will Affect Care: None Current Living Situation: Spouse and Parent Current Living Situation Comment: Lives with mother and Feels Safe at Home: Yes Assistive Devices: Cane, Walker and Wheelchair Review of Systems Review of Systems: All systems reviewed & are unremarkable except as noted in HPI & below Physical Exam Constitutional: WD/WN, vitals as above no acute distress Eyes: PERRL, conjunctivae normal, anicteric sclerae Neck: normal visual inspection and trachea midline Respiratory: normal respiratory effort, lungs clear to auscultation Cardiovascular: Rate/Rhythm: + tachycardic and + irregularly irregular Heart Sounds: normal S1, normal S2 and + murmur (+systolic murmur, faint) Extremities: no edema Gastrointestinal (Abdomen): normal bowel sounds, soft, nontender, no hepatosplenomegaly Skin: Trauma: + hematoma (left groin ecchymosis) Psychiatric: A+Ox3, euthymic affect Results & Data Vital Signs (Past 12 Hours) Vital Signs Temp Pulse Pulse Resp BP Pulse Ox O2 Del Method 11/16/22 07:49 36.7 C 93 H 18 153/92 H 98 Room Air 11/16/22 02:46 36.4 C L 80 18 133/89 97 Room Air 11/15/22 22:02 107 H 11/15/22 22:48 36.5 C 116 H 18 128/77 95 Room Air Laboratory Results Cardiac Enzymes 11/15/22 11/16/22 Range/Units 14:53 05:43 AST 48 H 27 (13-39) U/L Coagulation 11/16/22 Range/Units 05:43 PT 14.5 H (9.0-12.0) Seconds CBC 11/15/22 11/16/22 Range/Units 14:53 05:43 WBC 3.63 L 3.71 L (4.8-10.8) K/ul RBC 3.08 L 2.97 L (4.70-6.10) M/uL Hgb 9.2 L 8.9 L (14.0-18.0) g/dl Hct 27.4 L 26.9 L (42.0-52.0) % Plt Count 179 137 (130-400) K/uL Neut # (Auto) 2.55 (1.40-6.50) K/uL Lymph # (Auto) 0.82 L (1.20-3.40) K/uL Harrison # (Auto) 0.21 (0.11-0.59) K/uL Eos # (Auto) 0.01 (0.00-0.50) K/uL Baso # (Auto) 0.03 (0.00-0.20) K/uL Comprehensive Metabolic Panel 11/15/22 11/16/22 Range/Units 14:53 05:43 Sodium 132 L 133 L (136-145) mmol/L Potassium 4.5 3.4 L D (3.5-5.1) mmol/L Chloride 92 L 94 L (98-107) mmol/L Carbon Dioxide 30 32 (21-32) mmol/L BUN 13 16 (6-23) mg/dl Creatinine 4.53 H* 5.32 H* D (0.6-1.4) mg/dl Glucose 102 H 103 H (70-99(Fasting)) mg/dl Calcium 8.3 L 7.8 L (8.6-10.3) mg/dl AST 48 H 27 (13-39) U/L ALT 12 10 (7-52) U/L Alkaline Phosphatase 295 H 248 H (34-104) U/L Total Protein 7.5 6.5 (6.0-8.3) gm/dl Albumin 3.1 L 2.7 L (3.4-5.0) gm/dl Intake and Output 11/15/22 11/16/22 11/16/22 22:59 06:59 14:59 Intake Total 180 / 180 Balance 180 / 180 Intake: Oral 180 / 180 Other: Other Intake Source NPO Weight 94 kg Weight Measurement Method Built in [facility] Diagnostic Findings Echocardiogram dated 09/17/2022: LVEF 60 to 65% without wall motion abnormalities, mild concentric LVH. Grade 2 diastolic dysfunction. RV normal in size and function. Mild aortic stenosis. Mild MR and TR. Mild pulmonary hypertension with a PASP of 40 mmHg
[2022-11-16] MEDS: cloNIDine HCL 0.1 MG TAB PO SCH ×2 (08:15→20:36)
[2022-11-16] MEDS ORDERED: METOPROLOL TARTRATE 25 MG TAB PO SCH (09:00)
[2022-11-16] MEDS ORDERED: diphenhydrAMINE 50 MG/ML VIAL IV ONE (09:28)
[2022-11-16] MEDS ORDERED: diphenhydrAMINE HCL 25 MG/10 ML UDC PO ONE (09:30)
[2022-11-16] MEDS ORDERED: LIDOCAINE/PRILOCAINE 2.5% EA CRM EXT ONE (09:30)
--- NOTE | 2022-11-16 09:31 | Nephrology Consultation ---
Date of Consultation November 16, 2022 Assessment & Plan (1) ESRD on hemodialysis: On HD MWF at [facility]. Orders for HD entered into the EHR and reviewed with quality control lab tech. Medications appropriate for kidney dysfunction. Benadryl 75 mg IV to be given at start of treatment. EMLA cream ordered to be applied to AVF. Payam has chronic mild hypokalemia and hypophosphatemia. He does not require dietary restriction. Maintain a fluid restriction of 1.2 L/d. (2) Closed fracture of left hip: No additional surgical intervention planned by ortho at this time. 50% weight bearing. PT in with patient this AM. (3) Hypertension: Remains on Clonidine per home Rx. BP acceptable. Volume status acceptable. (4) Anemia: Maintained on Micera as outpatient. Epogen 46048 units with HD today. History of Present Illness Reason for Consultation: ESRD on HD M/W/F- follows [facility] Requesting Physician: Leroy Holland MD Attending Physician: Leroy Holland MD History of Present Illness Mr. 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 He started HD in 2020 while living in [facility]. Payam dialyzes MWF at [facility] in [place]. I oversee Payam's care at [facility]. He has been tolerating HD well and has not had complications with treatments. He requires Benadryl prior to HD for hives and itch associated with treatment. Payam completed HD on Wednesday without complications. He presented to the ER at [facility] yesterday with pain in the left hip and bruising in the groin symptoms started acutely after walking. Payam had undergone L hemiarthroplasty performed by Dr. Reyse for chronic fracture ~5 weeks ago at [facility]. Surgery was uncomplicated and Payam returned home at discharge. He had been 100% weight bearing. He denies any recent trauma or falls. Payam was noted to have AF with RVR on arrival. He denies any symptoms in this regard. Payam does struggle with chronic pain and a longstanding opiate use. Payam is maintained on Suboxone. He has has some chronic ambulatory dysfunction and reports a couple mechanical falls at home in the past week. He denies syncope or presyncope. He denies lightheadedness, dizziness, palpitations, or any chest pain. Medical history is also notable for OA/DJD, ROSA/MDD, history of atrial fibrillation in the past s/p cardioversion, and a history of pancreatitis attributed to alcohol. He has a recent history of chronic diarrhea for which a GI evaluation was completed. This included a colonoscopy with biopsies that were negative for microscopic colitis. IDWG typically <1.5 L. Prior EDW 95.5 kg. BP has been acceptable. He dialyzes via a left upper extremity AVF which was placed in [place] in 2020. This has been functioning well. Outpatient Rx: 3.5 hours on a 180 optiflix at Qb 450 and Qd 800, 3 K bath. Allergies Allergy/AdvReac Type Severity Reaction Status Date / Time Iodinated Contrast Media AdvReac Contraindicated Verified 11/15/22 17:07 for dialysis Home Medications Medication Instructions Recorded Confirmed Type clonidine HCl 0.1 mg tablet 0.1 mg PO BID 04/23/22 11/15/22 History pantoprazole 40 mg tablet,delayed 40 mg PO BIDM 04/23/22 11/15/22 History release zolpidem 5 mg tablet 5 mg PO HS PRN Insomnia #30 tabs 04/25/22 11/15/22 Rx sertraline 100 mg tablet 100 mg PO QAM 09/16/22 11/15/22 History alprazolam 0.5 mg tablet 0.5 mg PO TID PRN anxiety #10 tabs 09/21/22 11/15/22 Rx oxycodone-acetaminophen 5 mg-325 1 tab PO Q6H PRN severe pain #10 09/21/22 11/15/22 Rx mg tablet (Percocet) tabs Patient History Medical History (Updated 11/15/22 @ 20:17 by TISH Corona) Ambulatory dysfunction Uses cane since December 2021 Anxiety Atrial fibrillation Dialysis patient End stage renal disease Frequent falls History of chronic pain on suboxone; ? hx of opioid abuse HTN, goal below 140/90 Hypertension Paroxysmal A-fib s/p cardioversion, no further reoccurrence PUD (peptic ulcer disease) Rheumatic fever per patient cause of ESRD Surgical History AV fistula Social History Smoking Status: Current some day smoker Tobacco Type: Smokeless Tobacco (Dip or Chew) Second Hand Exposure: No; Do You Dip or Chew Tobacco: Yes; Hx Alcohol Use: Yes Alcohol type: hard liquor Hx Substance Use: Yes Preferred Language: Croatian Communication Ability: Effective Arborist Required: No Beliefs That Will Affect Care: None Current Living Situation: Spouse and Parent Current Living Situation Comment: Lives with mother and Feels Safe at Home: Yes Assistive Devices: Walker Review of Systems Review of Systems: All systems reviewed & are unremarkable except as noted in HPI & below Musculoskeletal: + back pain, + joint pain and + stiffness; no radicular pain Physical Exam Constitutional: well developed; no acute distress Eyes: no scleral abnormality and no corneal abnormality ENMT: Mouth: no oral mucosal abnormality and oral mucous membranes not dry Neck: normal visual inspection and trachea midline Respiratory: normal respiratory effort Auscultation: lungs clear to auscultation bilaterally Cardiovascular: Rate/Rhythm: regular rate Heart Sounds: normal S1 and normal S2 Extremities: + edema and + AV fistula Musculoskeletal: Extremities: no cyanosis and no clubbing Skin: normal turgor; no lesions Neurologic: Motor/Sensory: no tremor and no asterixis Psychiatric: Orientation: alert and oriented x 3 Results & Data Vital Signs (Past 12 Hours) Vital Signs Temp Pulse Pulse Resp BP Pulse Ox O2 Del Method 11/16/22 07:49 36.7 C 93 H 18 153/92 H 98 Room Air 11/16/22 02:46 36.4 C L 80 18 133/89 97 Room Air 11/15/22 22:02 107 H 11/15/22 22:48 36.5 C 116 H 18 128/77 95 Room Air Laboratory Results Laboratory Results - last 24 hr 11/15/22 11/15/22 11/15/22 14:53 14:53 17:35 WBC 3.63 L RBC 3.08 L Hgb 9.2 L Hct 27.4 L MCV 89.0 MCH 29.9 MCHC 33.6 RDW Std Deviation 50.3 H RDW Coeff of Valerie 15.7 H Plt Count 179 MPV 11.0 Immature Gran % (Auto) 0.3 Neut % (Auto) 70.2 Lymph % (Auto) 22.6 Bee % (Auto) 5.8 Eos % (Auto) 0.3 Baso % (Auto) 0.8 Neut # (Auto) 2.55 Lymph # (Auto) 0.82 L Bee # (Auto) 0.21 Eos # (Auto) 0.01 Baso # (Auto) 0.03 Immature Gran # (Auto) 0.01 PT INR Sodium 132 L Potassium 4.5 Chloride 92 L Carbon Dioxide 30 Anion Gap 10 BUN 13 Creatinine 4.53 H* Est Cr Clr Drug Dosing Not Reportable Est GFR ( Amer) 15.2 Est GFR (Non-Af Amer) 13.1 BUN/Creatinine Ratio 2.9 L Glucose 102 H Calcium 8.3 L Magnesium 1.7 Total Bilirubin 1.7 H AST 48 H ALT 12 Alkaline Phosphatase 295 H Total Protein 7.5 Albumin 3.1 L Globulin 4.4 H Albumin/Globulin Ratio 0.7 L Vitamin B12 25-OH Vitamin D Total 29.0 L TSH 5.543 H Nasal Screen MRSA (PCR) 11/15/22 11/15/22 11/16/22 17:35 19:30 05:43 WBC 3.71 L RBC 2.97 L Hgb 8.9 L Hct 26.9 L MCV 90.6 MCH 30.0 MCHC 33.1 RDW Std Deviation 53.1 H RDW Coeff of Valerie 16.0 H Plt Count 137 MPV 10.3 Immature Gran % (Auto) Neut % (Auto) Lymph % (Auto) Bee % (Auto) Eos % (Auto) Baso % (Auto) Neut # (Auto) Lymph # (Auto) Bee # (Auto) Eos # (Auto) Baso # (Auto) Immature Gran # (Auto) PT INR Sodium Potassium Chloride Carbon Dioxide Anion Gap BUN Creatinine Est Cr Clr Drug Dosing Est GFR ( Amer) Est GFR (Non-Af Amer) BUN/Creatinine Ratio Glucose Calcium Magnesium Total Bilirubin AST ALT Alkaline Phosphatase Total Protein Albumin Globulin Albumin/Globulin Ratio Vitamin B12 646 25-OH Vitamin D Total TSH Nasal Screen MRSA (PCR) Negative 11/16/22 11/16/22 05:43 05:43 WBC RBC Hgb Hct MCV MCH MCHC RDW Std Deviation RDW Coeff of Valerie Plt Count MPV Immature Gran % (Auto) Neut % (Auto) Lymph % (Auto) Bee % (Auto) Eos % (Auto) Baso % (Auto) Neut # (Auto) Lymph # (Auto) Bee # (Auto) Eos # (Auto) Baso # (Auto) Immature Gran # (Auto) PT 14.5 H INR 1.3 H Sodium 133 L Potassium 3.4 L D Chloride 94 L Carbon Dioxide 32 Anion Gap 7 BUN 16 Creatinine 5.32 H* D Est Cr Clr Drug Dosing 16.7 Est GFR ( Amer) 12.5 Est GFR (Non-Af Amer) 10.8 BUN/Creatinine Ratio 3.0 L Glucose 103 H Calcium 7.8 L Magnesium Total Bilirubin 1.1 H AST 27 ALT 10 Alkaline Phosphatase 248 H Total Protein 6.5 Albumin 2.7 L Globulin 3.8 Albumin/Globulin Ratio 0.7 L Vitamin B12 25-OH Vitamin D Total TSH Nasal Screen MRSA (PCR) Diagnostic Findings LEFT HIP 2 VIEWS CLINICAL HISTORY: Left hip pain. FINDINGS: AP and frog-leg views of the left hip are compared to study dated 1123. The skeletal structures are heterogeneously osteopenic. A left hip arthroplasty is in near anatomic alignment. There is a periprosthetic fracture through the greater trochanter of the left proximal femur. This is new from 09/18/2022. Small displaced fragments are observed. No additional acute fracture is seen involving the left proximal femur or the visualized left hemipelvis. Mild soft tissue edema is seen in the left thigh. IMPRESSION: 1. Periprosthetic fracture through the greater trochanter of the left proximal femur as above. This is new from 09/18/2022. 2. The left hip arthroplasty is in the near-anatomic alignment. PG Care Time/CCT Total # of Minutes Spent Total Time Spent with Patient: Total time spent is greater than 50% in coordination of care (as documented) at patient's floor/unit and/or counseling patient: Coding Level of Care Code 11301 INT INP/OBS CARE MIN Diagnoses ESRD on hemodialysis N18.6; Z99.2 Closed fracture of left hip S72.002A Hypertension I10 Hypertension type: unspecified Anemia D64.9 Anemia type: unspecified type (3) Hypertension Hypertension type: unspecified Qualified Code(s): I10 - Essential (primary) hypertension (4) Anemia Anemia type: unspecified type Qualified Code(s): D64.9 - Anemia, unspecified
--- NOTE | 2022-11-16 12:05 | Hospitalist Progress Note ---
Date of Service November 16, 2022 Assessment & Plan (1) S/P hip hemiarthroplasty: (2) ESRD on hemodialysis: (3) Alcohol abuse: (4) Anxiety: (5) Elevated LFTs: (6) Hypertension: (7) Atrial fibrillation: Plan Per admitting services addendum: Periprosthetic fracture Status post hip hemiarthroplasty: Left hip hemiarthroplasty performed 5 weeks ago Ortho consulted: No surgical indication for now, partial weightbearing on the left lower extremity, repeat x-ray in 6 weeks, follow-up with Ortho as an outpatient Atrial Fibrillation with RVR: Incidentally, was found to be in AF with RVR; non compliance with appointments and EMR link without much supportive information. Indicated that he has had a history of a blood clot but no longer takes anticoagulation. Last echo 09/16/2022 EF 60 to 65% with mild LVH but no LV wall abnormalities. Mild MR/TR with grade 2 diastolic dysfunction. Obtain ECG Did state that he has history of paroxysmal A-fib and underwent a cardioversion but was unsure of the date for this. Will start on low-dose beta-roberto and await formal cardiology consultation. Hold off on anticoagulation for now given acute onset of bruising; may benefit from coagulation studies PT/INR ordered for now 11/16 Patient still in A-fib, heart rate low 100s Metoprolol increased to 25 mg p.o. 3 times daily Awaiting further recommendations by cardiology service ESRD on hemodialysis: Chronic stable aneuric Receives HD Wednesday/Wednesday/Wednesday; last hemodialysis 11/13 Current creatinine 4.53; baseline 3-5 Nephrology on board Diarrhea: None today Stool culture pending Alcohol abuse: Elevated LFTs: AWSS scale Last drink on Monday 11/13; but was not consistent with his answers related to sobriety or alcohol use Folic acid and thiamine p.o. Ativan 1 mg as needed Denies tremors, anxiety, confusion Monitor closely HTN: Chronic stable Takes clonidine; continue for now Anxiety: Chronic stable Takes sertraline and alprazolam; continue Disposition: PCP:Dr. Lucia CODE STATUS: Full code VTE prophylaxis: Teds and SCDs for now may need acute rehab PT/OT evaluation Admission and Anticipated Discharge Date Admission Date: November 15, 2022 Subjective Follow-up periprosthetic fracture, A-fib with RVR, etc. Seen resting in bed, not in distress, sitting up States he feels okay overall Left hip pain relieved by as needed pain medications at this point Denies chest pain, palpitations, dizziness, etc. No new symptoms Review of Systems Review of Systems: all noted and negative except for above Physical Exam Physical Exam: General- oriented x 3, not in distress, speaks in sentences with no effort or accessory muscle use Eyes- anicteric Neck- no JVD Lungs- clear breath sounds bilaterally, no rales/wheezes Heart-mild tachycardia, irregularly irregular rhythm Abdomen- normal bowel sounds, nondistended, soft, nontender Extremities- no pretibial edema, no calf tenderness Neuro- alert, oriented x 3; no gross focal neurologic deficits Skin- warm & dry Results & Data Results & Data Vital Signs (Past 12 Hours) Vital Signs Temp Pulse Pulse Resp BP Pulse Ox O2 Del Method 11/16/22 07:30 92 H 11/16/22 11:25 36.6 C 110 H 18 129/75 97 Room Air 11/16/22 07:49 36.7 C 93 H 18 153/92 H 98 Room Air 11/16/22 02:46 36.4 C L 80 18 133/89 97 Room Air all noted and reviewed including below (6) Hypertension Hypertension type: unspecified Qualified Code(s): I10 - Essential (primary) hypertension
--- NOTE | 2022-11-16 12:30 | Electrocardiogram Report ---
Test Reason : Blood Pressure : / mmHG Vent. Rate : 107 BPM Atrial Rate : 061 BPM P-R Int : 000 ms QRS Dur : 090 ms QT Int : 372 ms P-R-T Axes : 000 016 067 degrees QTc Int : 496 ms Atrial fibrillation with rapid ventricular response Nonspecific T wave abnormality Abnormal ECG When compared with ECG of 16-SEP-2022 15:15, Atrial fibrillation has replaced Sinus rhythm Confirmed by Bret Christian ([id number]) on 11/16/2022 12:30:13 PM Referred By: REFERRED SELF Confirmed By:Bret Christian
--- NOTE | 2022-11-16 12:36 | Electrocardiogram Report ---
Test Reason : Blood Pressure : / mmHG Vent. Rate : 094 BPM Atrial Rate : 070 BPM P-R Int : 000 ms QRS Dur : 094 ms QT Int : 396 ms P-R-T Axes : 000 014 054 degrees QTc Int : 495 ms Atrial fibrillation Prolonged QT Abnormal ECG When compared with ECG of 15-NOV-2022 23:32, (unconfirmed) No significant change was found Confirmed by Bret Christian ([id number]) on 11/16/2022 12:35:46 PM Referred By: REFERRED SELF Confirmed By:Bret Christian
[2022-11-16] MEDS ORDERED: diphenhydrAMINE 50 MG/ML VIAL ONE (13:56)
[2022-11-16] MEDS ORDERED: LORazepam 2 MG/1 ML VIAL IV PRN (17:37)
[2022-11-16] MEDS: METOPROLOL TARTRATE 25 MG TAB PO SCH ×2 (18:23→23:34)
[2022-11-16] MEDS: ZOLPIDEM TARTRATE 5 MG TAB PO PRN (20:39)
[2022-11-16] MEDS: oxyCODONE HCL IR 5 MG TAB (IMMEDIATE RELEASE) PO PRN (20:39)
[2022-11-17] MEDS: ACETAMINOPHEN 325 MG TAB PO SCH (07:55)
[2022-11-17] MEDS: PANTOprazole 40 MG TAB PO SCH (07:55)
[2022-11-17] MEDS: oxyCODONE HCL IR 5 MG TAB (IMMEDIATE RELEASE) PO PRN (07:58)
--- NOTE | 2022-11-17 08:33 | Cardiology Progress Note ---
Date of Service November 17, 2022 Assessment & Plan (1) Persistent atrial fibrillation: (2) S/P hip hemiarthroplasty: (3) ESRD on dialysis: (4) Frequent falls: Plan IMPRESSION: Medically complex 62 year old male with a past medical history of ESRD on HD. Known gait imbalance with frequent falls- presents due to left hip pain and bruising-- he is s/p left hip surgery 09/2022. No surgical intervention required at this time per Ortho. Incidental findings of AFIB with RVR-- prior history dating back to ~2009 without know reoccurrence till now. Not on AC. CHADSVASC score of 1 (HTN), low-moderate risk for stroke with PAF, however, patient is a high bleed risk due to HTN, Renal disease, prior GIB, and alcohol use, and frequent falls. HASBLED score of 4. PLAN: Persistent AFIB: Rates remain borderline controlled, discontinue metoprolol titrate in favor of increased dose of metoprolol succinate 50 mg twice daily Discussed rate control versus rhythm management. We will proceed with rate control only at this time. At this time holding off on long-term anticoagulation given multiple risk factors as stated above. ESRD on HD: Volume status and electrolytes managed by nephrology/hemodialysis. Case discussed with Dr. Quinn. Will follow Admission and Anticipated Discharge Date Admission Date: November 15, 2022 Supervising Physician Co-Signing Physician Notes Patient seen and examined, chart, medications, telemetry reviewed. Full assessment and plan as well outlined above Had discussion with patient regarding management of persistent atrial fibrillation. Patient with increased risk for anticoagulation and personally declines its use We will continue rate control as above Subjective Medically complex 62 year old male with a past medical history of ESRD on HD. S/p left hip surgery 09/2022 with acute pain and bruising prompting ED evaluation. Incidental findings of AFIB with RVR-- prior history dating back to ~2009 without know reoccurrence till now. Primarily asymptomatic. 11/16: Metoprolol tartrate increased from 25 mg twice daily to 25 mg 3 times daily. 11/17: Tele: AFIB 80-90s Upon entrance into the room patient resting comfortably. No acute concerns. Asym ptomatic with his AFIB. No chest pain, palpitations, lightheadedness or syncope. Leg pain minimal. Plans for discharge today to [facility]. Review of Systems Review of Systems: All systems reviewed & are unremarkable except as noted in HPI & below Physical Exam Constitutional: WD/WN, vitals as above no acute distress Eyes: PERRL, conjunctivae normal, anicteric sclerae Neck: normal visual inspection and trachea midline Respiratory: normal respiratory effort, lungs clear to auscultation Cardiovascular: Rate/Rhythm: regular rate and + irregularly irregular Heart Sounds: normal S1, normal S2 and + murmur (+systolic murmur, faint) Extremi ties: no edema Gastrointestinal (Abdomen): normal bowel sounds, soft, nontender, no hepatosplenomegaly Skin: Trauma: + hematoma (left groin ecchymosis) Psychiatric: A+Ox3, euthymic affect Results & Data Vital Signs (Past 12 Hours) Vital Signs Temp Pulse Pulse Resp BP Pulse Ox O2 Del Method 11/17/22 08:11 36.4 C L 104 H 20 133/91 100 Room Air 11/17/22 07:00 83 11/17/22 03:12 36.8 C 81 14 128/77 93 Room Air 11/16/22 22:44 86 Laboratory Results Intake and Output 11/16/22 11/17/22 11/17/22 22:59 06:59 14:59 Other: Hemodialysis Ultrafiltration 2,000 Amount
[2022-11-17] MEDS ORDERED: METOPROLOL SUCC 50MG EXT REL TAB PO SCH (09:00)
[2022-11-17] MEDS: THIAMINE HCL 100 MG TAB PO SCH (09:19)
[2022-11-17] MEDS: FOLIC ACID 1 MG TAB PO SCH (09:19)
[2022-11-17] MEDS: cloNIDine HCL 0.1 MG TAB PO SCH (09:19)
[2022-11-17] MEDS: SERTRALINE HCL 100 MG TABLET PO SCH (09:20)
--- NOTE | 2022-11-17 10:41 | Nephrology Progress Note ---
Date of Service November 17, 2022 Assessment & Plan (1) ESRD on hemodialysis: Plan: HD MWF. Tolerated HD well yesterday. AVF functioning well. Volume status controlled. Clearance acceptable. Medications appropriate for kidney dysfunction. Benadryl 75 mg IV to be given at start of HD. EMLA cream to be applied to AVF prior to HD. Payam has chronic mild hypokalemia and hypophosphatemia. He does not require dietary restriction. Maintain a fluid restriction of 1.2 L/d. (2) Closed fracture of left hip: Plan: 50% weight bearing. (3) Hypertension: Plan: Remains on Clonidine per home Rx. BP acceptable. Volume status acceptable. (4) Anemia: Plan: Maintained on Micera as outpatient. Epogen 56032 units with HD yesterday. Admission and Anticipated Discharge Date Admission Date: November 15, 2022 Subjective No acute events overnight. Tolerated HD well yesterday. No complications with treatment. Denies significant pain. Out of bed with PT this AM. Denies chest pains or palpitations. No shortness of breath. Review of Systems Review of Systems: All systems reviewed & are unremarkable except as noted in HPI & below Physical Exam Constitutional: well developed; no acute distress Eyes: no scleral abnormality and no corneal abnormality ENMT: Mouth: no oral mucosal abnormality and oral mucous membranes not dry Neck: normal visual inspection and trachea midline Respiratory: normal respiratory effort Auscultation: lungs clear to auscultation bilaterally Cardiovascular: Rate/Rhythm: regular rate Heart Sounds: normal S1 and normal S2 Extremities: + edema and + AV fistula Musculoskeletal: Extremities: no cyanosis and no clubbing Skin: normal turgor; no lesions Neurologic: Motor/Sensory: no tremor and no asterixis Psychiatric: Orientation: alert and oriented x 3 Results & Data Vital Signs (Past 12 Hours) Vital Signs Temp Pulse Pulse Resp BP Pulse Ox O2 Del Method 11/17/22 08:11 36.4 C L 104 H 20 133/91 100 Room Air 11/17/22 07:00 83 11/17/22 03:12 36.8 C 81 14 128/77 93 Room Air 11/16/22 22:44 86 PG Care Time/CCT Total # of Minutes Spent Total Time Spent with Patient: Total time spent is greater than 50% in coordination of care (as documented) at patient's floor/unit and/or counseling patient: Coding Level of Care Code 67830 SUB INP/OBS CARE MIN Diagnoses ESRD on hemodialysis N18.6; Z99.2 Closed fracture of left hip S72.002A Hypertension I10 Hypertension type: unspecified Anemia D64.9 Anemia type: unspecified type (3) Hypertension Hypertension type: unspecified Qualified Code(s): I10 - Essential (primary) hypertension (4) Anemia Anemia type: unspecified type Qualified Code(s): D64.9 - Anemia, unspecified
--- NOTE | 2022-11-17 11:22 | Hospitalist Progress Note ---
Date of Service November 17, 2022 Assessment & Plan (1) S/P hip hemiarthroplasty: (2) ESRD on hemodialysis: (3) Alcohol abuse: (4) Anxiety: (5) Elevated LFTs: (6) Hypertension: (7) Atrial fibrillation: Plan Per admitting services addendum: Periprosthetic fracture Status post hip hemiarthroplasty: Left hip hemiarthroplasty performed 5 weeks ago Ortho consulted: No surgical indication for now, partial weightbearing on the left lower extremity, repeat x-ray in 6 weeks, follow-up with Ortho as an outpatient Atrial Fibrillation with RVR: Incidentally, was found to be in AF with RVR; non compliance with appointments and EMR link without much supportive information. Indicated that he has had a history of a blood clot but no longer takes anticoagulation. Last echo 09/16/2022 EF 60 to 65% with mild LVH but no LV wall abnormalities. Mild MR/TR with grade 2 diastolic dysfunction. Obtain ECG Did state that he has history of paroxysmal A-fib and underwent a cardioversion but was unsure of the date for this. Patient evaluated by cardiology service Placed on metoprolol tartrate 25 mg 3 times daily Transition to metoprolol succinate 50 mg twice daily for better rate control Long-term anticoagulation not recommended at this point due to multiple risk factors ESRD on hemodialysis: Chronic stable aneuric Receives HD Wednesday/Wednesday/Wednesday; last hemodialysis 11/13 Current creatinine 4.53; baseline 3-5 Nephrology on board Diarrhea: Resolved Alcohol abuse: Elevated LFTs: AWSS scale Last drink on Monday 11/13; but was not consistent with his answers related to sobriety or alcohol use Folic acid and thiamine p.o. Ativan 1 mg as needed Denies tremors, anxiety, confusion Monitor closely HTN: Chronic stable Takes clonidine; continue for now Anxiety: Chronic stable Takes sertraline and alprazolam; continue Disposition: PCP:Dr. Lucia CODE STATUS: Full code VTE prophylaxis: Teds and SCDs for now transition to acute rehab Follow-up with cardiology in 2 weeks Follow-up with orthopedic service as scheduled plan of care discussed with patient in detail and at length all questions answered He is understanding, agreeable, comfortable with the plan of care Admission and Anticipated Discharge Date Admission Date: November 15, 2022 Subjective Follow-up for tibial fracture, etc. Resting in bed, comfortable, no distress States he feels okay overall no chest pain, dyspnea, palpitations, dizziness Still has some pain over the tibial area, but adequately controlled No other new symptoms States he is ready for discharge today Review of Systems Review of Systems: all noted and negative except for above Physical Exam Physical Exam: General- oriented x 3, not in distress, speaks in sentences with no effort or accessory muscle use Eyes- anicteric Neck- no JVD Lungs- clear breath sounds bilaterally, no rales/wheezes Heart- normal rate, irregularly irregular rhythm; no murmurs Abdomen- normal bowel sounds, nondistended, soft, nontender Extremities- no pretibial edema, no calf tenderness Neuro- alert, oriented x 3; no gross focal neurologic deficits Skin- warm & dry Results & Data Results & Data Vital Signs (Past 12 Hours) Vital Signs Temp Pulse Pulse Resp BP Pulse Ox O2 Del Method 11/17/22 08:11 36.4 C L 104 H 20 133/91 100 Room Air 11/17/22 07:00 83 11/17/22 03:12 36.8 C 81 14 128/77 93 Room Air all noted and reviewed including below (6) Hypertension Hypertension type: unspecified Qualified Code(s): I10 - Essential (primary) hypertension
--- NOTE | 2022-11-17 11:35 | Discharge Summary ---
Discharge Summary Date of Service November 17, 2022 Notes For Next Care Provider Medication Changes From Visit Metoprolol succinate 50 mg twice daily Admission HPI Per Admitting Provider 62-year-old male presents with sharp left hip pain that he noted had started on with some bruising on his left hip and groin. At that time, no additional pain noted; but over the past two days. He was able to walk three days ago, but now has to slide his left leg when he walks. Additional symptoms includes decreased appetite and diarrhea. He reports intermittent diarrhea over the past 'few months' without hematochezia.Most recent clear watery diarrhea on Wednesday; he reports about six times with increased flatulence. On 09/16/2022 sustained a closed hip fracture. He is 5 weeks post left hemiarthroplasty. He has been using a walker since his surgery. No falls since his last surgery. Hip x-ray indicated 1. Periprosthetic fracture through the greater trochanter of the left proximal femur as above. This is new from 09/18/2022. 2. The left hip arthroplasty is in the near-anatomic alignment. No leukocytosis, Hgb be 9.2; baseline 8-9. Baseline creatinine 3-5; today 4.53 last HD on Monday 11/13 and was able to complete entire session without complications. Additional PMH include ESRD on HD Wednesday, HTN, anxiety, daily alcohol use. Pt denies tobacco and other ilcit drug use. Reports drinking 5 glasses of rum and coke this weekend. Before Wednesday, he had not had alcohol intake for weeks prior to that. No withdrawal or tremors. For now, will keep n.p.o. after midnight pending formal orthopedic evaluation, consult [facility] for hemodialysis for Wednesday. For now continue home Suboxone therapy. Did investigate confirmed prescription on PDMP however he is not reliable about his history because he indicated he stopped taking Suboxone over nearly a year ago but he has filled prescriptions. He also reports he does not drink often, that last drink was wednesday and before that had been months before. However, chart from hospitalization less than 2 months ago reported otherwise. Incidentally, was found to be in AF with RVR; non compliance with appointments and EMR link without much supportive information. Indicated that he has had a history of a blood clot but no longer takes anticoagulation. Last echo 09/16/2022 EF 60 to 65% with mild LVH but no LV wall abnormalities. Mild MR/TR with grade 2 diastolic dysfunction. Did state that he has history of paroxysmal A-fib and underwent a cardioversion but was unsure of the date for this. Will start on low-dose beta-roberto and await formal cardiology consultation. Patient denies headache, visual or auditory changes, shortness of breath, chest pain, palpitations, abdominal pain or tenderness, recent falls or trauma. Patient will be admitted for further evaluation and management. Please see A/P for further details. Admission Exam Per Admitting Provider General: No acute distress Eyes: PERRL, conjunctivae normal, not pale, anicteric sclerae, EOM intact bilaterally ENMT: External ear and nose normal, oropharynx normal Respiratory: Normal respiratory effort, no respiratory distress, lungs clear to auscultation, no crackles and no wheezes Cardiovascular: Tachycardic, irregularly irregular S1 S2 Gastrointestinal (Abdomen): Abdomen is not distended, soft, non-tender to palpation, no guarding, no palpable hepatosplenomegaly, normal bowel sounds Musculoskeletal: Upper anteromedial Left thigh ecchymoses. trace pedal edema Neurologic: Alert and oriented x 3, No focal weakness, sensation grossly intact Psychiatric: Alert and oriented x 3, euthymic affect, no depressed affect Principal Dx & Hospital Course #1 = Principal Diagnosis (1) S/P hip hemiarthroplasty: (2) ESRD on hemodialysis: (3) Alcohol abuse: (4) Anxiety: (5) Elevated LFTs: (6) Hypertension: (7) Atrial fibrillation: Plan Per admitting services addendum: Periprosthetic fracture Status post hip hemiarthroplasty: Left hip hemiarthroplasty performed 5 weeks ago Ortho consulted: No surgical indication for now, partial weightbearing on the left lower extremity, repeat x-ray in 3 weeks, follow-up with Ortho in 3 weeks Atrial Fibrillation with RVR: Incidentally, was found to be in AF with RVR; non compliance with appointments and EMR link without much supportive information. Indicated that he has had a history of a blood clot but no longer takes anticoagulation. Last echo 09/16/2022 EF 60 to 65% with mild LVH but no LV wall abnormalities. Mild MR/TR with grade 2 diastolic dysfunction. Obtain ECG Did state that he has history of paroxysmal A-fib and underwent a cardioversion but was unsure of the date for this. Patient evaluated by cardiology service Placed on metoprolol tartrate 25 mg 3 times daily Transition to metoprolol succinate 50 mg twice daily for better rate control Long-term anticoagulation not recommended at this point due to multiple risk factors ESRD on hemodialysis: Chronic stable aneuric Receives HD Wednesday/Wednesday/Wednesday; last hemodialysis 11/13 Current creatinine 4.53; baseline 3-5 Nephrology on board Diarrhea: Resolved Alcohol abuse: Elevated LFTs: AWSS scale Last drink on Monday 11/13; but was not consistent with his answers related to sobriety or alcohol use Folic acid and thiamine p.o. Ativan 1 mg as needed Denies tremors, anxiety, confusion Monitor closely HTN: Chronic stable Takes clonidine; continue for now Anxiety: Chronic stable Takes sertraline and alprazolam; continue Disposition: PCP:Dr. Lucia CODE STATUS: Full code VTE prophylaxis: Teds and SCDs for now transition to acute rehab Follow-up with cardiology in 2 weeks Follow-up with orthopedic service as scheduled plan of care discussed with patient in detail and at length all questions answered He is understanding, agreeable, comfortable with the plan of care Discharge Exam General- oriented x 3, not in distress, speaks in sentences with no effort or accessory muscle use Eyes- anicteric Neck- no JVD Lungs- clear breath sounds bilaterally, no rales/wheezes Heart- normal rate, irregularly irregular rhythm; no murmurs Abdomen- normal bowel sounds, nondistended, soft, nontender Extremities- no pretibial edema, no calf tenderness Neuro- alert, oriented x 3; no gross focal neurologic deficits Skin- warm & dry Updated Medication List Medication Instructions Recorded Confirmed Type clonidine HCl 0.1 mg tablet 0.1 mg PO BID 04/23/22 11/15/22 History pantoprazole 40 mg tablet,delayed 40 mg PO BIDM 04/23/22 11/15/22 History release zolpidem 5 mg tablet 5 mg PO HS PRN Insomnia #30 tabs 04/25/22 11/15/22 Rx sertraline 100 mg tablet 100 mg PO QAM 09/16/22 11/15/22 History alprazolam 0.5 mg tablet 0.5 mg PO TID PRN anxiety #10 tabs 09/21/22 11/15/22 Rx oxycodone-acetaminophen 5 mg-325 1 tab PO Q6H PRN severe pain #10 09/21/22 11/15/22 Rx mg tablet (Percocet) tabs folic acid 1 mg tablet 1 mg PO QAM 7 days #7 tabs 11/17/22 Rx metoprolol succinate 50 mg 50 mg PO BID 30 days #60 tabs 11/17/22 Rx tablet,extended release 24 hr thiamine HCl (vitamin B1) 100 mg 100 mg PO QAM 7 days #7 tabs 11/17/22 Rx tablet Hospital Stay Data Consultations 11/15/22 15:56 ED Decision to Admit Stat 11/15/22 16:01 Consult Orthopedic Surgery Routine 11/16/22 08:00 Consult Cardiology Routine Consult Nephrology Routine Diagnostic Imagining Performed Laboratory Results WBC 3.71 K/ul (4.8-10.8) L 11/16/22 05:43 RBC 2.97 M/uL (4.70-6.10) L 11/16/22 05:43 Hgb 8.9 g/dl (14.0-18.0) L 11/16/22 05:43 Hct 26.9 % (42.0-52.0) L 11/16/22 05:43 MCV 90.6 fL (80.0-100.0) 11/16/22 05:43 MCH 30.0 pg (25.0-34.0) 11/16/22 05:43 MCHC 33.1 g/dL (32.0-36.0) 11/16/22 05:43 RDW Std Deviation 53.1 fL (36.4-46.3) H 11/16/22 05:43 RDW Coeff of Valerie 16.0 % (11.5-14.5) H 11/16/22 05:43 Plt Count 137 K/uL (130-400) 11/16/22 05:43 MPV 10.3 fL (9.4-12.4) 11/16/22 05:43 Immature Gran % (Auto) 0.3 % 11/15/22 14:53 Neut % (Auto) 70.2 % 11/15/22 14:53 Lymph % (Auto) 22.6 % 11/15/22 14:53 [place] % (Auto) 5.8 % 11/15/22 14:53 Eos % (Auto) 0.3 % 11/15/22 14:53 Baso % (Auto) 0.8 % 11/15/22 14:53 Neut # (Auto) 2.55 K/uL (1.40-6.50) 11/15/22 14:53 Lymph # (Auto) 0.82 K/uL (1.20-3.40) L 11/15/22 14:53 [place] # (Auto) 0.21 K/uL (0.11-0.59) 11/15/22 14:53 Eos # (Auto) 0.01 K/uL (0.00-0.50) 11/15/22 14:53 Baso # (Auto) 0.03 K/uL (0.00-0.20) 11/15/22 14:53 Immature Gran # (Auto) 0.01 K/uL (0.01-0.20) 11/15/22 14:53 PT 14.5 Seconds (9.0-12.0) H 11/16/22 05:43 INR 1.3 (0.9-1.1) H 11/16/22 05:43 Sodium 133 mmol/L (136-145) L 11/16/22 05:43 Potassium 3.4 mmol/L (3.5-5.1) L D 11/16/22 05:43 Chloride 94 mmol/L (98-107) L 11/16/22 05:43 Carbon Dioxide 32 mmol/L (21-32) 11/16/22 05:43 Anion Gap 7 (3-11) 11/16/22 05:43 BUN 16 mg/dl (6-23) 11/16/22 05:43 Creatinine 5.32 mg/dl (0.6-1.4) H* D 11/16/22 05:43 Est Cr Clr Drug Dosing 16.7 ml/min 11/16/22 05:43 Est GFR ( Amer) 12.5 ml/min 11/16/22 05:43 Est GFR (Non-Af Amer) 10.8 ml/min 11/16/22 05:43 BUN/Creatinine Ratio 3.0 (10-20) L 11/16/22 05:43 Glucose 103 mg/dl (70-99(Fasting)) H 11/16/22 05:43 Calcium 7.8 mg/dl (8.6-10.3) L 11/16/22 05:43 Magnesium 1.7 mg/dl (1.7-2.4) 11/15/22 14:53 Total Bilirubin 1.1 mg/dl (0.2-1.0) H 11/16/22 05:43 AST 27 U/L (13-39) 11/16/22 05:43 ALT 10 U/L (7-52) 11/16/22 05:43 Alkaline Phosphatase 248 U/L (34-104) H 11/16/22 05:43 Total Protein 6.5 gm/dl (6.0-8.3) 11/16/22 05:43 Albumin 2.7 gm/dl (3.4-5.0) L 11/16/22 05:43 Globulin 3.8 gm/dl (2.5-4.0) 11/16/22 05:43 Albumin/Globulin Ratio 0.7 (0.9-2) L 11/16/22 05:43 Vitamin B12 646 pg/ml (180-914) 11/15/22 17:35 25-OH Vitamin D Total 29.0 ng/ml (30-100) L 11/15/22 17:35 TSH 5.543 uIu/ml (0.300-4.500) H 11/15/22 14:53 Nasal Screen MRSA (PCR) Negative (Negative) 11/15/22 19:30 Impressions Hip X-Ray 11/15/22 14:27 LEFT HIP 2 VIEWS CLINICAL HISTORY: Left hip pain. FINDINGS: AP and frog-leg views of the left hip are compared to study dated 1123. The skeletal structures are heterogeneously osteopenic. A left hip arthroplasty is in near anatomic alignment. There is a periprosthetic fracture through the greater trochanter of the left proximal femur. This is new from 09/18/2022. Small displaced fragments are observed. No additional acute fracture is seen involving the left proximal femur or the visualized left hemipelvis. Mild soft tissue edema is seen in the left thigh. IMPRESSION: 1. Periprosthetic fracture through the greater trochanter of the left proximal femur as above. This is new from 09/18/2022. 2. The left hip arthroplasty is in the near-anatomic alignment. Electronically signed by: John Parrish M.D. 11/15/2022 3:24 PM Pending Results Patient Have Any Pending Studies at Discharge: Yes Discharge Instructions Given to Patient (Per Discharging Provider) Please refer to accompanying hospital discharge summary. Total Time Total Time Spent Total Time Spent (In Minutes): >30 minutes
[2022-11-17] MEDS: HYDROmorphone INJ 0.5 MG/0.5 ML SYR IV PRN (12:05)
== END 2022-11-17 13:09 | DRG 542 ==
LOC: ED 14:09 → 2W 16:01 → SUATTDRO 16:01 → 2W 17:47

== ENCOUNTER 2023-07-06 10:34 | Inpatient (IN) ==
[2023-07-06 11:12] LABS: iSTAT Creatinine 3.9 mg/dl (0.6-1.3); iSTAT Hemoglobin 10.2 g/dl (14.0-18.0); iSTAT Ionized Calcium 1.04 mmol/l (1.12-1.32); iSTAT Potassium 3.9 mmol/L (3.3-5.0)
[2023-07-06] MEDS: METOPROLOL TARTRATE 1 MG/ML VIAL IV STA (11:24)
--- NOTE | 2023-07-06 11:45 | CT Scan Report ---
CT SCAN OF THE BRAIN WITHOUT IV CONTRAST CLINICAL HISTORY: Falls. Dizziness. Generalized weakness. COMPARISON STUDY: CT of the brain dated 09/16/2022. TECHNIQUE: Unenhanced axial CT scan of the brain is performed from the vertex to the skull base. A do se lowering technique was utilized adhering to the principles of ALARA. The examination is degraded b y motion artifact. The patient was scanned twice in an effort to improve image quality. FINDINGS: Brain parenchyma: There is age-related involutional change noting [id number] subcortical and pe riventricular microangiopathic disease. There is no hemorrhage, mass effect, or evidence of acute ter ritorial ischemia by CT criteria. A chronic lacunar infarct is noted in the right basal ganglia. Willett -white matter differentiation is preserved. No extra-axial fluid collection is seen. Ventricles, sulci, cisterns: Prominent secondary to involutional change. Intracranial vasculature: There is atherosclerotic calcification of the cavernous carotid and vertebr al arteries. Calvarium: Unremarkable. Sinuses and mastoids: There is mild mucosal thickening in the right maxillary antrum. The remaining p aranasal sinuses are clear. The mastoid air cells are well pneumatized. Orbits: The bony orbits are grossly intact. IMPRESSION: There is no hemorrhage, mass effect, or evidence of acute territorial ischemia by CT crit scottie noting a motion degraded examination. ACT 112: Negative or not required by law. Electronically signed by: John Parrish M.D. 07/06/2023 11:43 AM
[2023-07-06 11:49] LABS: Base Excess VBG 7.8 mEq/L; HCO3 VBG 34 mmol/L; Oxygen Saturation VBG < 60.0 %; PCO2 VBG 54 mmHg (38-50); PO2 VBG 28 mmHg; pH VBG 7.41 (7.36-7.41)
[2023-07-06 11:49] LABS: Albumin Globulin Ratio 0.4 (0.9-2); Albumin Level 1.9 gm/dl (3.4-5.0); BUN Creatinine Ratio 1.9 (10-20); Bilirubin,Total 1.6 mg/dl (0.2-1.0); Calcium 7.6 mg/dl (8.6-10.3); Creatinine Clr Calc Pharmacy 25.7 ml/min; Est GFR (African American) 19.9 ml/min; Est GFR (Non-African American) 17.1 ml/min; Globulin 4.4 gm/dl (2.5-4.0); Magnesium 1.6 mg/dl (1.7-2.4); Potassium 3.8 mmol/L (3.5-5.1); Total Protein 6.3 gm/dl (6.0-8.3)
--- NOTE | 2023-07-06 11:49 | CT Scan Report ---
CT SCAN OF THE CERVICAL SPINE CLINICAL HISTORY: False. COMPARISON STUDY: No priors. TECHNIQUE: CT scan of the cervical spine is performed from the skull base to the upper thoracic spine . Images are reviewed in the axial, sagittal, and coronal planes. IV contrast was not administered fo r this examination. A dose lowering technique was utilized adhering to the principles of ALARA. FINDINGS: Skeletal structures: The skeletal structures are heterogeneously osteopenic. There is no evidence of fracture or subluxation involving the cervical spine. Vertebral body height and alignment are maintai jillian. The odontoid process and lateral masses are intact. The atlantoaxial articulation is preserved noting productive degenerative change. The spinous processes appear intact. There is moderate to adva nced multilevel cervical spondylosis. Uncovertebral and facet arthropathy contribute to neural forami nal narrowing at several levels. Intervertebral discs: There is moderate to severe disc space narrowing at C6-C7. Milder disc space na rrowing is noted at the remaining cervical levels. Central canal: A posterior disc osteophyte complex at C6-C7 likely contributes to acquired compromise of the central canal. Soft tissues: The prevertebral and paraspinous soft tissues are within normal limits. A vascular sten t is seen at the right thoracic outlet. There are shotty bilateral cervical chain lymph nodes. Calvarium: The visualized calvarium at the skull base appears intact. Brain parenchyma: Partially visualized brain parenchyma at the skull base is within normal limits. Sinuses and mastoids: The visualized paranasal sinuses are clear. The mastoid air cells are well pneu matized. Lung apices: A right pleural effusion is partially visualized. IMPRESSION: 1. There is no evidence of fracture or subluxation involving the cervical spine. 2. Osteopenia and spondylotic change as above. 3. A right pleural effusion is partially imaged. ACT 112: Negative or not required by law. Electronically signed by: John Parrish M.D. 07/06/2023 11:47 AM
[2023-07-06 11:53] LABS: INR 1.5 (0.9-1.1); Prothrombin Time 15.7 Seconds (9.0-12.0)
[2023-07-06 11:55] LABS: Troponin I High Sensitivity 10.9 pg/ml (0-20)
--- NOTE | 2023-07-06 11:58 | CT Scan Report ---
CT SCAN OF THE CHEST WITHOUT IV CONTRAST CLINICAL HISTORY: Falls. COMPARISON STUDY: Chest x-ray dated 09/16/2022. TECHNIQUE: CT scan of the thorax was performed from the thoracic inlet to the upper abdomen. Images are reviewed in the axial, sagittal, and coronal planes. IV contrast was not administered for this ex amination as per the referring clinician. A dose lowering technique was utilized adhering to the andrea nciples of JOVANA. The examination is degraded by motion artifact, as well as by streak artifact from the arms which could not be elevated above the chest. FINDINGS: Thyroid: Imaged portions of the thyroid gland are normal in size and attenuation. Thoracic aorta: There is atherosclerotic calcification of the thoracic aorta, which is normal in zi anali and demonstrates standard 3-vessel arch anatomy. Heart: The heart is enlarged and without pericardial effusion. There are coronary artery calcificatio ns. Lungs and pleural spaces: There is no airspace consolidation typical for pneumonia or pneumothorax. T here is a moderate right pleural effusion with associated atelectasis. The trachea and central airway s are clear. Mediastinum: There is no mediastinal hematoma. A mildly enlarged precarinal node measures up to 12 mm in short axis. High prevascular node on image #46 measures 14 mm in short axis. Ruma: Not well assessed without IV contrast. Axillae: There is no axillary lymphadenopathy. Upper abdomen: A 2.4 cm indeterminant low-attenuation nodule is noted in the left adrenal gland. Part ially visualized upper abdominal viscera is otherwise within normal limits. Skeletal structures: There is heterogeneous osteopenia and sclerosis of the skeletal structures Degen erative change and hyperkyphosis is noted in the thoracic spine. No lytic or blastic bony lesions are seen. There are chronic/healed bilateral rib fractures. No acute fracture is clearly seen. Soft tissues: Vascular stents are seen in the right thoracic outlet and in the right upper extremity. Gynecomastia is noted. IMPRESSION: 1. No acute posttraumatic intrathoracic abnormality is identified. 2. There is no airspace consolidation or pneumothorax. 3. Moderate right pleural effusion with associated atelectasis. 4. Cardiomegaly with coronary artery atherosclerosis. 5. Mildly enlarged mediastinal lymph nodes are nonspecific and may be reactive. 6. Additional findings as above. ACT 112: Negative or not required by law. Electronically signed by: John Parrish M.D. 07/06/2023 11:56 AM
[2023-07-06 12:02] LABS: Hematocrit (blood only) 27.4 % (42.0-52.0); Hemoglobin 9.1 g/dl (14.0-18.0); Mean Corpuscular Hgb Conc 33.2 g/dL (32.0-36.0); Mean Corpuscular Volume 90.4 fL (80.0-100.0); Mean Platelet Volume 10.6 fL (9.4-12.4); Platelet Count 95 K/uL (130-400); RDW Coefficient of Variation 18.6 % (11.5-14.5); RDW Standard Deviation 60.7 fL (36.4-46.3); Red Blood Count 3.03 M/uL (4.70-6.10)
[2023-07-06 12:04] LABS: Thyroid Stimulating Hormone 3.485 uIu/ml (0.300-4.500)
[2023-07-06 12:06] LABS: Basophils # (auto) 0.07 K/uL (0.00-0.20); Basophils % (auto) 1.5 %; Eosinophils # (auto) 0.03 K/uL (0.00-0.50); Eosinophils % (auto) 0.6 %; Immature Granulocytes # (auto) 0.02 K/uL (0.01-0.20); Immature Granulocytes % (auto) 0.4 %; Lymphocytes # (auto) 0.81 K/uL (1.20-3.40); Lymphocytes % (auto) 17.2 %; Monocytes # (auto) 0.64 K/uL (0.11-0.59); Monocytes % (auto) 13.6 %; Neutrophils # (auto) 3.13 K/uL (1.40-6.50); Neutrophils % (auto) 66.7 %; Target Cells 2+
[2023-07-06] MEDS ORDERED: VANCOMYCIN CONSULT ACTIVE PRN (12:06)
--- NOTE | 2023-07-06 12:06 | Emergency Department Note ---
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 the central canal. Soft tissues: The prevertebral and paraspinous soft tissues are within normal limits. A vascular stent is seen at the right thoracic outlet. There are shotty bilateral cervical chain lymph nodes. Calvarium: The visualized calvarium at the skull base appears intact. Brain parenchyma: Partially visualized brain parenchyma at the skull base is within normal limits. Sinuses and mastoids: The visualized paranasal sinuses are clear. The mastoid air cells are well pneumatized. Lung apices: A right pleural effusion is partially visualized. IMPRESSION: 1. There is no evidence of fracture or subluxation involving the cervical spine. 2. Osteopenia and spondylotic change as above. 3. A right pleural effusion is partially imaged. ACT 112: Negative or not required by law. Electronically signed by: John Parrish M.D. 07/06/2023 11:[address] 07/06/23 11:09 CT SCAN OF THE CHEST WITHOUT IV CONTRAST CLINICAL HISTORY: Falls. COMPARISON STUDY: Chest x-ray dated 09/16/2022. TECHNIQUE: CT scan of the thorax was performed from the thoracic inlet to the upper abdomen. Images are reviewed in the axial, sagittal, and coronal planes. IV contrast was not administered for this examination as per the referring clinician. A dose lowering technique was utilized adhering to the principles of ALARA. The examination is degraded by motion artifact, as well as by streak artifact from the arms which could not be elevated above the chest. FINDINGS: Thyroid: Imaged portions of the thyroid gland are normal in size and attenuation. Thoracic aorta: There is atherosclerotic calcification of the thoracic aorta, which is normal in caliber and demonstrates standard 3-vessel arch anatomy. Heart: The heart is enlarged and without pericardial effusion. There are coronary artery calcifications. Lungs and pleural spaces: There is no airspace consolidation typical for pneumonia or pneumothorax. There is a moderate right pleural effusion with associated atelectasis. The trachea and central airways are clear. Mediastinum: There is no mediastinal hematoma. A mildly enlarged precarinal node measures up to 12 mm in short axis. High prevascular node on image #46 measures 14 mm in short axis. Ruma: Not well assessed without IV contrast. Axillae: There is no axillary lymphadenopathy. Upper abdomen: A 2.4 cm indeterminant low-attenuation nodule is noted in the left adrenal gland. Partially visualized upper abdominal viscera is otherwise within normal limits. Skeletal structures: There is heterogeneous osteopenia and sclerosis of the skeletal structures Degenerative change and hyperkyphosis is noted in the thoracic spine. No lytic or blastic bony lesions are seen. There are chronic/healed bilateral rib fractures. No acute fracture is clearly seen. Soft tissues: Vascular stents are seen in the right thoracic outlet and in the right upper extremity. Gynecomastia is noted. IMPRESSION: 1. No acute posttraumatic intrathoracic abnormality is identified. 2. There is no airspace consolidation or pneumothorax. 3. Moderate right pleural effusion with associated atelectasis. 4. Cardiomegaly with coronary artery atherosclerosis. 5. Mildly enlarged mediastinal lymph nodes are nonspecific and may be reactive. 6. Additional findings as above. ACT 112: Negative or not required by law. Electronically signed by: John Parrish M.D. 07/06/2023 11:56 AM Chest X-Ray 07/06/23 11:09 XR chest 1V portable CLINICAL HISTORY: weakness, falls TECHNIQUE: Single frontal radiograph of the chest was obtained. Comparison: Comparison is made to chest radiograph 09/16/2022 FINDINGS: Right subclavian stent is seen. Cardiomegaly is noted. Prominence and cephalization of the vasculature is seen. No evidence of pleural effusion or pneumothorax. IMPRESSION: Cardiomegaly and mild pulmonary edema. ACT 112: Negative or not required by law. Electronically signed by: Mckay Moreira M.D. 07/06/2023 12:[address] 07/06/23 11:09 CT SCAN OF THE BRAIN WITHOUT IV CONTRAST CLINICAL HISTORY: Falls. Dizziness. Generalized weakness. COMPARISON STUDY: CT of the brain dated 09/16/2022. TECHNIQUE: Unenhanced axial CT scan of the brain is performed from the vertex to the skull base. A dose lowering technique was utilized adhering to the principles of ALARA. The examination is degraded by motion artifact. The patient was scanned twice in an effort to improve image quality. FINDINGS: Brain parenchyma: There is age-related involutional change noting [id number] subcortical and periventricular microangiopathic disease. There is no hemorrhage, mass effect, or evidence of acute territorial ischemia by CT criteria. A chronic lacunar infarct is noted in the right basal ganglia. Willett- white matter differentiation is preserved. No extra-axial fluid collection is seen. Ventricles, sulci, cisterns: Prominent secondary to involutional change. Intracranial vasculature: There is atherosclerotic calcification of the cavernous carotid and vertebral arteries. Calvarium: Unremarkable. Sinuses and mastoids: There is mild mucosal thickening in the right maxillary antrum. The remaining paranasal sinuses are clear. The mastoid air cells are well pneumatized. Orbits: The bony orbits are grossly intact. IMPRESSION: There is no hemorrhage, mass effect, or evidence of acute territorial ischemia by CT criteria noting a motion degraded examination. ACT 112: Negative or not required by law. Electronically signed by: John Parrish M.D. 07/06/2023 11:43 AM Discharge Plan Visit Data Chief Complaint: Weakness Stated Complaint: WEAKNESS, FALLS, ED Provider: Prabhakar Batista Discharge Problem: Weakness, ESRD on hemodialysis, Hypomagnesemia, Fall, Elevated procalcitonin, Atrial fibrillation with RVR Patient Disposition: Being Evaluated by Hospitalist Forms Stand Alone Forms: My [facility] Prescriptions Prescriptions: No Action pantoprazole 40 mg tablet,delayed release (DR/EC) 40 mg PO BID zolpidem 5 mg tablet 5 mg PO HS PRN (Reason: Insomnia) Qty: 30 0RF sertraline 100 mg tablet 100 mg PO DAILY metoprolol succinate 50 mg tablet extended release 24 hr 50 mg PO BID hydrocodone-acetaminophen 7.5-325 mg tablet 1 tab PO DAILY PRN (Reason: Pain) Referrals Referrals: Ammy Lucia [Primary Care Provider] -
--- NOTE | 2023-07-06 12:19 | XRay Report ---
XR chest 1V portable CLINICAL HISTORY: weakness, falls TECHNIQUE: Single frontal radiograph of the chest was obtained. Comparison: Comparison is made to chest radiograph 09/16/2022 FINDINGS: Right subclavian stent is seen. Cardiomegaly is noted. Prominence and cephalization of the vasculatur e is seen. No evidence of pleural effusion or pneumothorax. IMPRESSION: Cardiomegaly and mild pulmonary edema. ACT 112: Negative or not required by law. Electronically signed by: Mckay Moreira M.D. 07/06/2023 12:17 PM
[2023-07-06 12:22] LABS: Adenovirus PCR Not Detected (NotDetected); Bordetella parapertussis PCR Not Detected (NotDetected); Bordetella pertussis PCR Not Detected (NotDetected); Chlamydia pneumoniae PCR Not Detected (NotDetected); Coronavirus 229E PCR Not Detected (NotDetected); Coronavirus CoV-2 (COVID19)PCR Not Detected (NotDetected); Coronavirus HKU1 PCR Not Detected (NotDetected); Coronavirus NL63 PCR Not Detected (NotDetected); Coronavirus OC43PCR Not Detected (NotDetected); Human Metapneumovirus PCR Not Detected (NotDetected); Influenza A PCR Not Detected (NotDetected); Influenza B PCR Not Detected (NotDetected); Mycoplasma pneumoniae PCR Not Detected (NotDetected); Parainfluenza Virus 1 PCR Not Detected (NotDetected); Parainfluenza Virus 2 PCR Not Detected (NotDetected); Parainfluenza Virus 3 PCR Not Detected (NotDetected); Parainfluenza Virus 4 PCR Not Detected (NotDetected); Respiratory Syncytial VirusPCR Not Detected (NotDetected); Rhinovirus/Enterovirus PCR DETECTED (NotDetected)
--- NOTE | 2023-07-06 12:23 | CT Scan Report ---
CT OF THE ABDOMEN AND PELVIS WITHOUT CONTRAST CLINICAL HISTORY: Fall. COMPARISON STUDY: CT of the abdomen and pelvis September 16, 2022. TECHNIQUE: Axial images of the abdomen and pelvis were obtained without IV contrast. Images were revi ewed in the axial, sagittal, and coronal planes. Automated exposure control was utilized for the cathi dy. A dose lowering technique was utilized adhering to the principles of ALARA. FINDINGS: Moderate right pleural effusion is better depicted on the chest CT which will be reported s eparately. Bilateral gynecomastia. No hemoperitoneum or pneumoperitoneum is present. Solid abdominal viscera suboptimally assessed on this unenhanced exam but there is no evidence for traumatic injury t o the liver, spleen, adrenal glands, kidneys or pancreas. As before, the kidneys are markedly atrophi c. A 2.1 cm left adrenal nodule is unchanged since CT of September 16, 2022. Pancreatic glandular atrophy without ductal dilatation is noted. A 2.9 cm cystic lesion within the pancreatic head has mildly inc reased in size since CT of September 16, 2022. This is minimal peripheral calcification. Layering gallsto chanel within the gallbladder present. No pericholecystic infiltration. There is anasarca. No evidence f or a bowel obstruction. Prominent retroperitoneal lymph nodes are unchanged. No retroperitoneal hemat cyndy is present. Left hip arthroplasty is noted. A healing periprosthetic intertrochanteric fracture w ithin the proximal left femur is noted. Alignment is similar to radiographs of November 15, 2022. Exten sive callus formation is present. Old bilateral lower rib fractures are present. There are several he aling left-sided transverse process fractures. No acute lumbar spine, pelvic or hip fractures are xavier ntified. Diffuse sclerosis of the visualized skeletal structures is unchanged and likely related to c hronic renal disease. IMPRESSION: 1. No acute traumatic findings within the abdomen or pelvis on unenhanced exam. 2. Moderate right pleural effusion. Anasarca. 3. No change in alignment of a healing intertrochanteric periprosthetic left femoral fracture since r adiographs of November 15, 2022. Increase in callus formation. 4. No acute fractures. 5. Mild increase in size of a 2.9 cm cystic lesion within the pancreatic head since CT of September 16 023. This remains pathologically indeterminate. Considerations include mucinous cystic neoplasm versu s serous cystadenoma. If not already obtained, GI consultation is recommended. ACT 112: Negative or not required by law. Electronically signed by: Jeremy Rosenbaum M.D. 07/06/2023 12:21 PM
[2023-07-06] MEDS: MAGNESIUM SULFATE / D5W 1 GM/100 ML BAG IV STA ×2 (12:44→20:39)
[2023-07-06] MEDS: VANCOMYCIN HCL 2,000 MG in SODIUM CHLORIDE 0.9% 500 ML IV ONE (12:52)
--- NOTE | 2023-07-06 13:04 | Electrocardiogram Report ---
Test Reason : Blood Pressure : / mmHG Vent. 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
--- NOTE | 2023-07-06 13:06 | History & Physical Report ---
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 the cardiology service. Monitor in setting of hypotension. Cardiology consulted, appreciate recs. CHF, Moderate R pleural Effusion- BNP of 1047, ESRD pt, oligo/anuric, diuretics not effective. Nephrology and pulmonology consulted, appreciate recs. Cardiology consulted, appreciate recs Enlarging pancreatic cystic lesion- CT concerning for possible mucinous cystic neoplasm versus serous cystadenoma, recommending GI consultation. GI consulted, appreciate recs. Adrenal nodule- noted on chest CT imaging, pcp followup. Hypomagnesemia, Hypocalcemia- replete or supplement as needed Transaminitis- possibly elevated in setting of chronic alcohol use, fluid overload. Continue to monitor, consider further workup if persistent. Otherwise as above. I spent a total [id number] coordinating, documenting, and providing care for this patient excluding time spent in the performance of separately billed ser vices (2) Hypertension Hypertension type: unspecified Qualified Code(s): I10 - Essential (primary) hypertension (9) Anemia Anemia type: unspecified type Qualified Code(s): D64.9 - Anemia, unspecified
[2023-07-06] MEDS: DOXYCYCLINE HYCLATE 100 MG CAP PO STA (13:22)
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
[2023-07-06] MEDS: METOPROLOL SUCC 25MG EXT REL TAB PO STA (15:27)
[2023-07-06] MEDS: cefTRIAXone SODIUM 2,000 MG/50 ML BAG IV STA (16:43)
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
--- NOTE | 2023-07-06 17:59 | Billing Data ---
Date of Service July 06, 2023 Coding Level of Care Code 38142 INT INP/OBS CARE
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
[2023-07-06] MEDS ORDERED: LORazepam 1 MG in SYRINGE 0.5 ML IV PRN (19:07)
[2023-07-06] MEDS ORDERED: ONDANSETRON INJ 2 MG/ML 2 ML VIAL IV PRN (19:07)
[2023-07-06] MEDS ORDERED: ACETAMINOPHEN 325 MG TAB PO PRN (19:07)
[2023-07-06] MEDS: METOPROLOL SUCC 50MG EXT REL TAB PO SCH (20:43)
[2023-07-06] MEDS: PANTOprazole 40 MG TAB PO SCH (20:43)
[2023-07-06] MEDS ORDERED: HEPARIN SOD 5,000 UNIT/0.5 ML VIAL SQ SCH (21:00)
--- OUTSIDE RECORDS SUMMARY | 2023-07-06 21:16 | External Medical Summary | Continuity of Care Document ---
Author Name Unknown Organization [facility] Address [address] [place] [phone] Care Team Providers Care Dental Office Receptionist Name Role Phone Ammy Lucia Primary Care Physician [phone] [id number] Date(s): 06/04/23 - 06/04/[address] [phone] Discharge Disposition: Home or Self Care Attending Physician: MD Rodriguez Sarah J Referring Physician: MD Rodriguez Sarah J Social History Social History Type Response Sex Male Patient Care team information Care Team Personnel Name: MD Lucia Fawzia Position: Referring DIRECT Member Role: Primary Care Provider Address: Address: [address] [place] [id number]
[2023-07-06] MEDS: ZOLPIDEM TARTRATE 5 MG TAB PO PRN (22:43)
[2023-07-06] MEDS: SODIUM CHLORIDE 0.9% 500 ML IV SCH (22:43)
[2023-07-07] MEDS: DOXYCYCLINE HYCLATE 100 MG CAP PO SCH (00:32)
[2023-07-07] MEDS: LIDOCAINE/PRILOCAINE 2.5% EA CRM EXT SCH (05:45)
[2023-07-07 06:30] LABS: Basophils # (auto) 0.07 K/uL (0.00-0.20); Basophils % (auto) 1.6 %; Eosinophils # (auto) 0.07 K/uL (0.00-0.50); Eosinophils % (auto) 1.6 %; Hematocrit (blood only) 27.3 % (42.0-52.0); Hemoglobin 9.2 g/dl (14.0-18.0); Immature Granulocytes # (auto) 0.01 K/uL (0.01-0.20); Immature Granulocytes % (auto) 0.2 %; Lymphocytes # (auto) 0.93 K/uL (1.20-3.40); Lymphocytes % (auto) 21.1 %; Mean Corpuscular Hemoglobin 29.9 pg (25.0-34.0); Mean Corpuscular Hgb Conc 33.7 g/dL (32.0-36.0); Mean Corpuscular Volume 88.6 fL (80.0-100.0); Mean Platelet Volume 10.3 fL (9.4-12.4); Monocytes # (auto) 0.52 K/uL (0.11-0.59); Monocytes % (auto) 11.8 %; Neutrophils % (auto) 63.7 %; Platelet Count 99 K/uL (130-400); RDW Coefficient of Variation 18.4 % (11.5-14.5); RDW Standard Deviation 57.6 fL (36.4-46.3); Red Blood Count 3.08 M/uL (4.70-6.10)
[2023-07-07 06:44] LABS: Albumin Level 1.6 gm/dl (3.4-5.0); Anion Gap 6 (3-11); BUN Creatinine Ratio 2.6 (10-20); Blood Urea Nitrogen 11 mg/dl (6-23); Calcium 7.3 mg/dl (8.6-10.3); Carbon Dioxide 31 mmol/L (21-32); Chloride 99 mmol/L (98-107); Creatinine Clr Calc Pharmacy 20.3 ml/min; Est GFR (Non-African American) 13.8 ml/min; Glucose 107 mg/dl (70-99(Fasting)); Iron 40 mcg/dl (35-175); Magnesium 1.9 mg/dl (1.7-2.4); Potassium 3.2 mmol/L (3.5-5.1); Sodium 136 mmol/L (136-145); Unsaturated Iron Binding Cap < 55 mcg/dl (155-355)
[2023-07-07 06:51] LABS: INR 1.5 (0.9-1.1); Prothrombin Time 15.7 Seconds (9.0-12.0)
--- NOTE | 2023-07-07 10:20 | Pulmonology Progress Note ---
Date of Service July 07, 2023 Assessment & Plan (1) Pleural effusion on right: Plan: - Moderate R sided effusion noted on chest CT and anasarca on abd CT - prior hx of thoracentesis 5 years ago at hospital outside [facility] for unilateral pleural effusion but no known hx of malignancy, although this is certainly of concern given enlarged pancreatic lesion - Saturations continue to be good on room air and pt is without respiratory distress at this time - IR consulted for thoracentesis, heparin on hold today pending their evaluation (2) Atrial fibrillation with RVR: (3) ESRD on hemodialysis: (4) Hypertension: Hypertension type: unspecified Qualified Code(s): I10 - Essential (primary) hypertension Plan Thank you for allowing us to participate in this patient's care. Please see attending attestation for any further recommendations. Admission and Anticipated Discharge Date Admission Date: July 06, 2023 Supervising Physician Co-Signing Physician Notes Agree with note as above. Patient is status post thoracentesis. Fluid looks to be a transudate based on lights criteria. Cytology pending. Subjective Pt seen this morning. He was laying on his bed asleep initially. He states he overall feels a bit better today compared to yesterday but still feels like his one lung feels "heavy." Otherwise no pain anywhere and no other questions or complaints at this time. Not very conversational in general. Review of Systems Review of Systems: Per HPI. Physical Exam Physical Exam: General: Oriented x3 but still today closes his eyes and seems to fall asleep during the interview, but awakens to verbal stimuli HEENT: Normocephalic, PERRL, icteric sclera Cardio: Irregularly irregular rhythm with tachycardia, 2+ pitting edema bilaterally Resp: Course breath sounds throughout with obsessional wheezing GI: Soft and nontender, bowel sounds active Skin: Warm, pink, dry, no rashes on visible skin Results & Data Results & Data Vital Signs (Past 12 Hours) Vital Signs Temp Pulse Pulse Resp BP Pulse Ox O2 Del Method 07/07/23 08:13 36.3 C L 101 H 20 95/61 L 93 Room Air 07/07/23 07:38 105 H 07/07/23 07:38 Room Air 07/07/23 06:33 100 H 101/67 07/07/23 05:44 110 H 93/59 L 07/07/23 04:42 99/64 L 07/07/23 04:35 Room Air 07/07/23 04:15 108 H 96/62 L 07/07/23 03:59 36.6 C 96 H 16 82/41 L 94 Room Air 07/07/23 00:33 91/55 L 07/07/23 00:00 07/06/23 23:32 113 H 07/06/23 23:21 111 H 92/60 L 07/06/23 22:22 36.4 C L 113 H 18 84/49 L 95 Room Air O2 Del Method 07/07/23 08:13 07/07/23 07:38 07/07/23 07:38 07/07/23 06:33 07/07/23 05:44 07/07/23 04:42 07/07/23 04:35 07/07/23 04:15 07/07/23 03:59 07/07/23 00:33 07/07/23 00:00 Room Air 07/06/23 23:32 07/06/23 23:21 07/06/23 22:22 Resident Activity Tracking Resident Involvement: Resident Care Provided Care Provided: Adult Hospital Medicine
--- NOTE | 2023-07-07 10:48 | Nephrology Progress Note ---
Date of Service July 07, 2023 Assessment & Plan (1) ESRD on hemodialysis: Plan: On HD MWF at [facility]. Rx 3.5 hours x optiflux 180 Qb 45 Qd 800, 3K 2.5Ca 138Na 35HCO3. EDW 92 kg. Orders for HD entered into the EHR and reviewed with HD RN. Left HD at 92 kg yesterday. RUE AVF with good thrill and bruit. Medications appropriate for kidney dysfunction. Ceftriaxone 2 gram daily acceptable. Benadryl 75 mg IV given at start of treatment as outpatient. Benadryl PRN will be ordered prior to HD for itch. EMLA cream to be applied to AVF. Maintain a fluid restriction of 1.2 L/d. (2) Anemia: Plan: Chronic, stable. Maintained on Micera as outpatient. Ferritin >1500 - iron held. Epogen to be provided with HD this AM. (3) Pancreatic lesion: Plan: GI recommended outpatient evaluation with EUS. (4) Pleural effusion on right: Plan: IR drainage scheduled this AM. Pulm following. (5) Atrial fibrillation with RVR: Plan: Cardiology consultation appreciated. Rate controlled with metoprolol overnight. Hold beta-roberto prior to HD, as tolerated. BP acceptable. Not anticoagulated due to history of falls. Admission and Anticipated Discharge Date Admission Date: July 06, 2023 Subjective Sleeping this AM. Denied pain. Seen and evaluated prior to thoracentesis. No acute events overnight. Denies chest pains or palpitations. Denies shortness of breath. No fevers or chills. Review of Systems Review of Systems: All systems reviewed & are unremarkable except as noted in HPI & below Physical Exam Constitutional: well developed; no acute distress Eyes: no scleral abnormality and no corneal abnormality ENMT: Mouth: no oral mucosal abnormality and oral mucous membranes not dry Neck: normal visual inspection and trachea midline Respiratory: normal respiratory effort Auscultation: lungs clear to auscultation bilaterally Cardiovascular: Rate/Rhythm: + irregularly irregular Heart Sounds: normal S1 and normal S2 Extremities: + edema and + AV fistula Musculoskeletal: Extremities: no cyanosis and no clubbing Skin: normal turgor; no jaundice Neurologic: Motor/Sensory: no tremor and no asterixis Psychiatric: Orientation: alert and oriented x 3 Results & Data Vital Signs (Past 12 Hours) Vital Signs Temp Pulse Pulse Resp BP Pulse Ox O2 Del Method 07/07/23 08:13 36.3 C L 101 H 20 95/61 L 93 Room Air 07/07/23 07:38 105 H 07/07/23 07:38 Room Air 07/07/23 06:33 100 H 101/67 07/07/23 05:44 110 H 93/59 L 07/07/23 04:42 99/64 L 07/07/23 04:35 Room Air 07/07/23 04:15 108 H 96/62 L 07/07/23 03:59 36.6 C 96 H 16 82/41 L 94 Room Air 07/07/23 00:33 91/55 L 07/07/23 00:00 07/06/23 23:32 113 H 07/06/23 23:21 111 H 92/60 L O2 Del Method 07/07/23 08:13 07/07/23 07:38 07/07/23 07:38 07/07/23 06:33 07/07/23 05:44 07/07/23 04:42 07/07/23 04:35 07/07/23 04:15 07/07/23 03:59 07/07/23 00:33 07/07/23 00:00 Room Air 07/06/23 23:32 07/06/23 23:21 Laboratory Results Laboratory Results - last 24 hr 07/06/23 07/06/23 07/06/23 10:54 10:54 11:00 WBC 4.70 L RBC 3.03 L Hgb 9.1 L POC Hgb 10.2 L Hct 27.4 L POC Hct 30 L MCV 90.4 MCH 30.0 MCHC 33.2 RDW Std Deviation 60.7 H RDW Coeff of Valerie 18.6 H Plt Count 95 L MPV 10.6 Immature Gran % (Auto) 0.4 Neut % (Auto) 66.7 Lymph % (Auto) 17.2 Meagher % (Auto) 13.6 Eos % (Auto) 0.6 Baso % (Auto) 1.5 Neut # (Auto) 3.13 Lymph # (Auto) 0.81 L Meagher # (Auto) 0.64 H Eos # (Auto) 0.03 Baso # (Auto) 0.07 Immature Gran # (Auto) 0.02 Target Cells 2+ PT 15.7 H INR 1.5 H VBG pH VBG pCO2 VBG pO2 VBG HCO3 VBG O2 Saturation VBG Base Excess POC Sodium 136 Sodium 135 L POC Potassium 3.9 Potassium 3.8 POC Chloride 93 L Chloride 96 L Carbon Dioxide 33 H POC Total CO2 31 Anion Gap 6 POC Anion Gap 18.0 POC BUN 5 L BUN 7 Creatinine 3.61 H POC Creatinine 3.9 H Est Cr Clr Drug Dosing 25.7 Est GFR ( Amer) 19.9 Est GFR (Non-Af Amer) 17.1 BUN/Creatinine Ratio 1.9 L Glucose 108 H POC Glucose (other) 110 H Lactate 2.1 H* Calcium 7.6 L POC Ioniz Calcium Jv 1.04 L Phosphorus Magnesium 1.6 L Iron TIBC Unsaturated IBC Transferrin % Sat Ferritin Total Bilirubin 1.6 H AST 45 H ALT 14 Alkaline Phosphatase 391 H Ammonia Total Creatine Kinase 54 Troponin I High Sens 10.9 B-Natriuretic Peptide 1047 H Total Protein 6.3 Albumin 1.9 L Globulin 4.4 H Albumin/Globulin Ratio 0.4 L Procalcitonin 1.86 H TSH 3.485 Nasal Screen MRSA (PCR) Ethyl Alcohol mg/dL Adenovirus (PCR) Anaplasma Smear See Comment Cancelled B. pertussis DNA (PCR) B.parapertussis DNA PCR Lyme Disease Screen Negative C. pneumoniae DNA (PCR) Coronavirus OC43 (PCR) Coronavirus HKU1 (PCR) Coronavirus 229E (PCR) SARS-CoV-2 (PCR) Coronavirus NL63 (PCR) Human Metapneumovir PCR Influenza Type A (PCR) Influenza Type B (PCR) M. pneumoniae (PCR) Parainfluenza 1 (PCR) Parainfluenza 2 (PCR) Parainfluenza 3 (PCR) Parainfluenza 4 (PCR) RSV (PCR) Entero/Rhino (PCR) 07/06/23 07/06/23 07/06/23 11:37 13:01 23:28 WBC RBC Hgb POC Hgb Hct POC Hct MCV MCH MCHC RDW Std Deviation RDW Coeff of Valerie Plt Count MPV Immature Gran % (Auto) Neut % (Auto) Lymph % (Auto) Meagher % (Auto) Eos % (Auto) Baso % (Auto) Neut # (Auto) Lymph # (Auto) Meagher # (Auto) Eos # (Auto) Baso # (Auto) Immature Gran # (Auto) Target Cells PT INR VBG pH 7.41 VBG pCO2 54 H VBG pO2 28 VBG HCO3 34 VBG O2 Saturation < 60.0 VBG Base Excess 7.8 POC Sodium Sodium POC Potassium Potassium POC Chloride Chloride Carbon Dioxide POC Total CO2 Anion Gap POC Anion Gap POC BUN BUN Creatinine POC Creatinine Est Cr Clr Drug Dosing Est GFR ( Amer) Est GFR (Non-Af Amer) BUN/Creatinine Ratio Glucose POC Glucose (other) Lactate 1.8 Calcium POC Ioniz Calcium Jv Phosphorus Magnesium Iron TIBC Unsaturated IBC Transferrin % Sat Ferritin Total Bilirubin AST ALT Alkaline Phosphatase Ammonia 39.0 Total Creatine Kinase Troponin I High Sens B-Natriuretic Peptide Total Protein Albumin Globulin Albumin/Globulin Ratio Procalcitonin TSH Nasal Screen MRSA (PCR) Negative Ethyl Alcohol mg/dL < 10.0 Adenovirus (PCR) Anaplasma Smear B. pertussis DNA (PCR) B.parapertussis DNA PCR Lyme Disease Screen C. pneumoniae DNA (PCR) Coronavirus OC43 (PCR) Coronavirus HKU1 (PCR) Coronavirus 229E (PCR) SARS-CoV-2 (PCR) Coronavirus NL63 (PCR) Human Metapneumovir PCR Influenza Type A (PCR) Influenza Type B (PCR) M. pneumoniae (PCR) Parainfluenza 1 (PCR) Parainfluenza 2 (PCR) Parainfluenza 3 (PCR) Parainfluenza 4 (PCR) RSV (PCR) Entero/Rhino (PCR) 07/06/23 07/07/23 Unknown 05:56 WBC 4.40 L RBC 3.08 L Hgb 9.2 L POC Hgb Hct 27.3 L POC Hct MCV 88.6 MCH 29.9 MCHC 33.7 RDW Std Deviation 57.6 H RDW Coeff of Valerie 18.4 H Plt Count 99 L MPV 10.3 Immature Gran % (Auto) 0.2 Neut % (Auto) 63.7 Lymph % (Auto) 21.1 Meagher % (Auto) 11.8 Eos % (Auto) 1.6 Baso % (Auto) 1.6 Neut # (Auto) 2.80 Lymph # (Auto) 0.93 L Meagher # (Auto) 0.52 Eos # (Auto) 0.07 Baso # (Auto) 0.07 Immature Gran # (Auto) 0.01 Target Cells PT 15.7 H INR 1.5 H VBG pH VBG pCO2 VBG pO2 VBG HCO3 VBG O2 Saturation VBG Base Excess POC Sodium Sodium 136 POC Potassium Potassium 3.2 L POC Chloride Chloride 99 Carbon Dioxide 31 POC Total CO2 Anion Gap 6 POC Anion Gap POC BUN BUN 11 Creatinine 4.31 H D POC Creatinine Est Cr Clr Drug Dosing 20.3 Est GFR ( Amer) 16.0 Est GFR (Non-Af Amer) 13.8 BUN/Creatinine Ratio 2.6 L Glucose 107 H POC Glucose (other) Lactate Calcium 7.3 L POC Ioniz Calcium Jv Phosphorus 3.0 Magnesium 1.9 Iron 40 TIBC TNP Unsaturated IBC < 55 L Transferrin % Sat TNP Ferritin 1625.0 H Total Bilirubin AST ALT Alkaline Phosphatase Ammonia Total Creatine Kinase Troponin I High Sens B-Natriuretic Peptide Total Protein Albumin 1.6 L Globulin Albumin/Globulin Ratio Procalcitonin TSH Nasal Screen MRSA (PCR) Ethyl Alcohol mg/dL Adenovirus (PCR) Not Detected Anaplasma Smear B. pertussis DNA (PCR) Not Detected B.parapertussis DNA PCR Not Detected Lyme Disease Screen C. pneumoniae DNA (PCR) Not Detected Coronavirus OC43 (PCR) Not Detected Coronavirus HKU1 (PCR) Not Detected Coronavirus 229E (PCR) Not Detected SARS-CoV-2 (PCR) Not Detected Coronavirus NL63 (PCR) Not Detected Human Metapneumovir PCR Not Detected Influenza Type A (PCR) Not Detected Influenza Type B (PCR) Not Detected M. pneumoniae (PCR) Not Detected Parainfluenza 1 (PCR) Not Detected Parainfluenza 2 (PCR) Not Detected Parainfluenza 3 (PCR) Not Detected Parainfluenza 4 (PCR) Not Detected RSV (PCR) Not Detected Entero/Rhino (PCR) DETECTED A PG Care Time/CCT Total # of Minutes Spent Total Time Spent with Patient: Total time spent is greater than 50% in coordination of care (as documented) at patient's floor/unit and/or counseling patient: Coding Level of Care Code 86506 SUB INP/OBS CARE 3/50MIN Diagnoses ESRD on hemodialysis N18.6; Z99.2 Anemia D64.9 Anemia type: unspecified type Pancreatic lesion K86.9 Pleural effusion on right J90 Atrial fibrillation with RVR I48.91 (2) Anemia Anemia type: unspecified type Qualified Code(s): D64.9 - Anemia, unspecified
[2023-07-07] MEDS: METOPROLOL SUCC 25MG EXT REL TAB PO SCH (11:28)
--- NOTE | 2023-07-07 11:36 | XRay Report ---
XR chest 1V not portable CLINICAL HISTORY: s/p rt thora TECHNIQUE: Single frontal radiograph of the chest was obtained. Comparison: Comparison is made to chest radiograph 07/06/2023 FINDINGS: No lines and tubes are seen. The cardiomediastinal silhouette is normal. The lungs are clear. No evid ence of pleural effusion or pneumothorax. IMPRESSION: No pneumothorax status post right thoracentesis. Previously noted trace right effusion has resolved. ACT 112: Negative or not required by law. Electronically signed by: Mckay Moreira M.D. 07/07/2023 11:35 AM
[2023-07-07] MEDS: diphenhydrAMINE 50 MG/ML VIAL IV PRN (11:41)
[2023-07-07 11:42] LABS: Amylase Pleural Fluid 17 U/L
[2023-07-07 11:48] LABS: Glucose Pleural Fluid 114 mg/dl; LDH Pleural Fluid 45 U/L; Total Protein Pleural Fluid < 3.0 gm/dl
--- NOTE | 2023-07-07 12:06 | Ultrasound Report ---
Ultrasound-guided right thoracentesis INDICATION: Right pleural effusion PROCEDURE: Procedure and risks were explained. Informed consent was obtained. A final timeout was com pleted. The right posterior thorax was prepped and draped in sterile fashion. 1% lidocaine was utiliz ed for skin anesthesia. Utilizing ultrasound guidance, a 5 [place] centesis catheter was advanced into the right pleural effus ion. Ultrasound images were obtained. 600 mL of pleural fluid was removed and sent to lab for analysi s. The catheter was removed and bandage applied. The patient tolerated the procedure well. Vital sign s will be monitored on the floor and a chest x-ray will be obtained post procedure. IMPRESSION: Right thoracentesis as above. Performed, dictated, and signed by Richard Garcia PA-C; to be co-signed by Dr. Mckay Moreira. Electronically signed by: Mckay Moreira M.D. 07/07/2023 5:38 PM
[2023-07-07] MEDS ORDERED: diphenhydrAMINE 50 MG/ML VIAL IV PRN (12:23)
[2023-07-07 12:30] LABS: Appearance Pleural Fluid Slightly Hazy; Color Pleural Fluid Yellow; Lymphocytes, Fluid 10 %; Mono,Macrophage,Mesothelial 82 %; Neutrophils, Fluid 8 %; RBC Pleural Fluid Auto < 2000 /uL; Source Pleural Fluid Right Lung; WBC Pleural Fluid Auto 282 /uL
[2023-07-07] MEDS: diphenhydrAMINE 50 MG/ML VIAL IV STA (13:02)
[2023-07-07] MEDS: EPOETIN ALFA 10,000 UNITS/ML VIAL IV ONE (14:29)
--- NOTE | 2023-07-07 16:13 | Hospitalist Progress Note ---
Date of Service July 07, 2023 Assessment & Plan (1) Atrial fibrillation with RVR: (2) Hypertension: (3) Weakness: (4) Ambulatory dysfunction: (5) Hypomagnesemia: (6) ESRD on hemodialysis: (7) Alcohol abuse: (8) Elevated LFTs: (9) Anemia: (10) Anxiety: Plan: A-fib with RVR Persistent atrial fibrillation --CXR:Cardiomegaly and mild pulmonary edema. -Normal TSH --ECHO: Left ventricle is normal in size. Mild concentric LVH. Left ventricle wall motion is normal. EF 65 to 70%. Left atrium is moderately dilated. Trace mitral and tricuspid regurgitation. Dilated inferior vena cava with reduced collapsibility with sniff indicates an elevated right atrial pressure of 15 mmHg --Continue metoprolol succinate 25 mg twice a day Not on anticoagulation due to multiple falls and bleeding risk Appreciate cardiology input Rhinovirus infection Right pleural effusion/Anasarca --CT Chest:No acute posttraumatic intrathoracic abnormality is identified. There is no airspace consolidation or pneumothorax. Moderate right pleural effusion with associated atelectasis. Cardiomegaly with coronary artery atherosclerosis. Mildly enlarged mediastinal lymph nodes are nonspecific and may be reactive. Procalcitonin 1.86 Bio fire positive for Rhino infection --S/P thoracentesis on 06/10/2023 --- Pleural fluid cultures, pathology pending Empirically on ceftriaxone and doxycycline Appreciate pulmonology help Saturating well on room air Pancreatic cyst lesion --CT abd: Mild increase in size of a 2.9 cm cystic lesion within the pancreatic head since CT of September 16, 2022. This remains pathologically indeterminate. Considerations include mucinous cystic neoplasm versus serous cystadenoma. If not already obtained, GI consultation is --recommended. -- Will need GI follow-up for possible endoscopic ultrasound as outpatient Acute metabolic encephalopathy --CT Head:There is no hemorrhage, mass effect, or evidence of acute territorial ischemia by CT criteria noting a motion degraded examination. --Hold sedating medications as able HTN Continue metoprolol Monitor Hypomagnesemia Hypokalemia Replace and monitor Alcohol abuse Elevated LFTs Monitor for withdrawal Continue thiamine, folic acid ESRD on HD Continue dialysis per nephrology Patient nephrology input Falls Fall precautions PT OT as able DVT Px: SCDs for now CODE STATUS: Full code Admission and Anticipated Discharge Date Admission Date: July 06, 2023 Subjective Patient is seen and examined at bedside Patient had thoracentesis earlier today Oriented during my encounter, intermittently confused per staff Has generalized weakness Denies any chest pain, dyspnea, dizziness, nausea, vomiting, abdominal pain Review of Systems Review of Systems: All systems reviewed & are unremarkable except as noted in Subjective Physical Exam Physical Exam: Physical Exam: Vitals signs as noted above General Appearance:Moderately built and nourished, no apparent distress, chronically appearing Head: normocephalic, Atraumatic Eyes: normal inspection, EOMI Neck: supple, Trachea midline Respiratory/Chest: Coarse breath sounds, No accessory muscle use Cardiovascular: Irregularly irregular, No murmur Abdomen/GI:Soft, Non tender, Bowel sounds present Extremities/Musculoskeletal:normal inspection, edema Neurologic/Psych:AAOX3, grossly no focal neurological deficits Skin: normal color, warm Results & Data Results & Data Vital Signs (Past 12 Hours) Vital Signs Temp Pulse Pulse Pulse Resp BP BP 07/07/23 15:00 103 H 07/07/23 14:45 106 H 89/55 L 07/07/23 14:30 98 H 69/51 L 07/07/23 14:00 111 H 70/46 L 07/07/23 13:41 107 H 67/42 L 07/07/23 13:30 112 H 70/65 L 07/07/23 13:00 117 H 77/53 L 07/07/23 12:46 108 H 81/50 L 07/07/23 12:38 36.5 C 96 H 07/07/23 12:32 119 H 18 88/53 L 07/07/23 12:02 114 H 18 88/57 L 07/07/23 11:54 35.9 C L 112 H 20 90/60 L 07/07/23 11:11 36.4 C L 115 H 18 94/62 L 07/07/23 08:13 36.3 C L 101 H 20 95/61 L 07/07/23 07:38 105 H 07/07/23 07:38 07/07/23 06:33 100 H 101/67 07/07/23 05:44 110 H 93/59 L 07/07/23 04:42 99/64 L 07/07/23 04:35 07/07/23 04:15 108 H 96/62 L 07/07/23 03:59 36.6 C 96 H 16 82/41 L Pulse Ox O2 Del Method 07/07/23 15:00 07/07/23 14:45 07/07/23 14:30 07/07/23 14:00 07/07/23 13:41 07/07/23 13:30 07/07/23 13:00 07/07/23 12:46 07/07/23 12:38 07/07/23 12:32 96 Room Air 07/07/23 12:02 97 Room Air 07/07/23 11:54 97 Room Air 07/07/23 11:11 97 Room Air 07/07/23 08:13 93 Room Air 07/07/23 07:38 07/07/23 07:38 Room Air 07/07/23 06:33 07/07/23 05:44 07/07/23 04:42 07/07/23 04:35 Room Air 07/07/23 04:15 07/07/23 03:59 94 Room Air Laboratory Results Short CBC 07/07/23 Range/Units 05:56 WBC 4.40 L (4.8-10.8) K/ul Hgb 9.2 L (14.0-18.0) g/dl Hct 27.3 L (42.0-52.0) % Plt Count 99 L (130-400) K/uL BMP 07/07/23 05:56 Sodium 136 Potassium 3.2 L Chloride 99 Carbon Dioxide 31 BUN 11 Creatinine 4.31 H D Glucose 107 H Calcium 7.3 L Liver Function 07/07/23 Range/Units 05:56 Albumin 1.6 L (3.4-5.0) gm/dl (2) Hypertension Hypertension type: unspecified Qualified Code(s): I10 - Essential (primary) hypertension (9) Anemia Anemia type: unspecified type Qualified Code(s): D64.9 - Anemia, unspecified
--- NOTE | 2023-07-07 16:27 | Billing Data ---
Date of Service July 07, 2023 Coding Level of Care Code 41529 SUB INP/OBS CARE
[2023-07-07] MEDS: MAGNESIUM CHLORIDE W/CALCIUM 64MG DELAYED REL TAB PO SCH (16:52)
[2023-07-07] MEDS: cefTRIAXone SODIUM 2,000 MG/50 ML BAG IV SCH (16:53)
[2023-07-07] MEDS: SERTRALINE HCL 100 MG TABLET PO SCH (16:53)
[2023-07-07] MEDS: THIAMINE HCL 100 MG TAB PO SCH (17:33)
[2023-07-07] MEDS: POTASSIUM CHLORIDE CRTAB 20 MEQ TABCR PO ONE (18:13)
[2023-07-07] MEDS ORDERED: STAT IV Infusion **Titration per Protocol STA (19:49)
[2023-07-07] MEDS ORDERED: AMIODARONE IV BOLUS & DRIP IV STA (19:49)
--- NOTE | 2023-07-07 19:49 | Communication Note ---
Date of Service: July 07, 2023 Overnight issues 07/06, 745PM Made aware by RN of SBP 80s, rapid A-fib 120s Unable to administer beta-roberto Rx due to low BP as per RN. Patient comfortable as per RN. AP Uncontrolled A-fib Hypotension IV amiodarone infusion 2229 Patient found to have bottle of Ambien pills at bedside. Patient awake. Patient reminded by staff of hospital policy regarding patient self administration of medications. Ambien home medication confiscated. 07/07. 630 AM Patient noted to be restless. Last EtOH intake 07/04 as per HPI AP Possible alcohol withdrawal MANSI S protocol
[2023-07-07] MEDS ORDERED: 0.2 MICRON FILTER SET 1 EACH IV STA (19:50)
[2023-07-07] MEDS: AMIODARONE / D5W 150 MG/100 ML BAG IV STA (20:39)
[2023-07-07] MEDS: AMIODARONE / D5W 360 MG/200 ML BAG IV ONE (20:53)
[2023-07-07] MEDS: MAGNESIUM SULFATE / D5W 1 GM/100 ML BAG IV ONE (22:13)
[2023-07-08] MEDS: ALBUMIN 25% 25 GM/100 ML VIAL IV ONE (00:06)
[2023-07-08] MEDS: MELATONIN 3 MG TAB PO PRN (00:36)
[2023-07-08] MEDS: AMIODARONE / D5W 360 MG/200 ML BAG IV SCH (02:00)
[2023-07-08] MEDS ORDERED: GABAPENTIN 600MG ALCOHOL WITHDRAWAL LOAD PO STA (06:30)
[2023-07-08] MEDS ORDERED: LORazepam 3 MG in SYRINGE 1.5 ML IV PRN (06:31)
[2023-07-08] MEDS ORDERED: LORazepam 1 MG in SYRINGE 0.5 ML IV PRN (06:31)
[2023-07-08] MEDS ORDERED: Ativan IV Alcohol Withdrawal--Active Protocol IV PRN (06:31)
[2023-07-08] MEDS ORDERED: LORazepam 2 MG in SYRINGE 1 ML IV PRN (06:31)
[2023-07-08 06:40] LABS: Hematocrit (blood only) 25.8 % (42.0-52.0); Hemoglobin 8.7 g/dl (14.0-18.0); Mean Corpuscular Hgb Conc 33.7 g/dL (32.0-36.0); Mean Platelet Volume 10.2 fL (9.4-12.4); Nucleated RBC # (auto) 0.02 K/uL (0.00-0.12); Nucleated RBC % (auto) 0.4 %; Platelet Count 96 K/uL (130-400); RDW Coefficient of Variation 18.5 % (11.5-14.5); White Blood Count 4.51 K/ul (4.8-10.8)
[2023-07-08 06:51] LABS: BUN Creatinine Ratio 1.7 (10-20); Calcium 7.4 mg/dl (8.6-10.3); Creatinine Clr Calc Pharmacy 30.1 ml/min; Est GFR (African American) 25.9 ml/min; Est GFR (Non-African American) 22.3 ml/min; Potassium 3.3 mmol/L (3.5-5.1)
--- NOTE | 2023-07-08 08:15 | Critical Care Progress Note ---
Date of Service July 08, 2023 Assessment & Plan (1) Pleural effusion on right: Plan: - Moderate R sided effusion noted on chest CT and anasarca on abd CT - prior hx of thoracentesis 5 years ago at hospital outside [facility] for unilateral pleural effusion but no known hx of malignancy, although this is certainly of concern given enlarged pancreatic lesion - Saturations continue to be good on room air and pt is without respiratory distress at this time - IR consulted for thoracentesis, heparin on hold today pending their evaluation (2) Atrial fibrillation with RVR: (3) ESRD on hemodialysis: (4) Hypertension: Plan Thank you for allowing us to participate in this patient's care. Please see attending attestation for any further recommendations. Admission and Anticipated Discharge Date Admission Date: July 06, 2023 Review of Systems Review of Systems: Per HPI. Physical Exam Physical Exam: General: Oriented x3 but still today closes his eyes and seems to fall asleep during the interview, but awakens to verbal stimuli HEENT: Normocephalic, PERRL, icteric sclera Cardio: Irregularly irregular rhythm with tachycardia, 2+ pitting edema bilaterally Resp: Course breath sounds throughout with obsessional wheezing GI: Soft and nontender, bowel sounds active Skin: Warm, pink, dry, no rashes on visible skin Results & Data Results & Data Vital Signs (Past 12 Hours) Vital Signs Temp Pulse Pulse Resp BP Pulse Ox O2 Del Method 07/08/23 07:25 36.7 C 90 18 88/59 L 97 Room Air 07/08/23 03:40 36.5 C 98 H 16 93/60 L 94 Room Air 07/07/23 22:51 36.6 C 118 H 16 91/60 L 95 Room Air 07/07/23 22:00 114 H 07/07/23 20:52 121 H 87/55 L 07/07/23 20:50 116 H 89/61 L (4) Hypertension Hypertension type: unspecified Qualified Code(s): I10 - Essential (primary) hypertension
[2023-07-08] MEDS: GABAPENTIN 600 MG TAB PO ONE (08:16)
[2023-07-08] MEDS: FOLIC ACID 1 MG TAB PO SCH (08:17)
--- NOTE | 2023-07-08 09:02 | Pulmonology Progress Note ---
Date of Service July 08, 2023 Assessment & Plan (1) Pleural effusion on right: (2) Atrial fibrillation with RVR: (3) ESRD on hemodialysis: (4) Hypertension: Hypertension type: unspecified Qualified Code(s): I10 - Essential (primary) hypertension Plan - Moderate R sided effusion noted on chest CT and anasarca on abd CT - prior hx of thoracentesis 5 years ago at hospital outside [facility] for unilateral pleural effusion but no known hx of malignancy, although this is certainly of concern given enlarged pancreatic lesion - s/p thoracentesis 07/06 by IR, fluid appears to be transudative by Light's criteria; given elevated BNP, may be secondary to CHF - Oxygen saturations continue to be good on room air with symptomatic improvement today Admission and Anticipated Discharge Date Admission Date: July 06, 2023 Supervising Physician Co-Signing Physician Notes Agree with plan as outlined above. Pleural effusion was drained by IR yesterday. Appears to be a transudate related to volume overload. Patient with improved symptoms status post right-sided thoracentesis. Recommend continued aggressive dialysis. No further recommendations from pulmonary perspective at this time. Will sign off. Thank you for the consult. Subjective Today, pt seen at bedside this morning and appears pleasantly conversational as he eats his breakfast. Nurse did inform me he has diarrhea last night after he had ice cream and that he is lactose intolerant and that has improved. He states that his breathing feels much better since yesterday when they pulled off the pleural fluid. Otherwise, he states he is still pretty tired but is overall feeling more rested today than the last 2 days. No questions or complaints at this time. Review of Systems Review of Systems: Per HPI. Physical Exam Physical Exam: General: Alert and oriented on exam this morning, comfortably sitting up HEENT: Normocephalic, icteric sclera Cardio: Irregularly irregular rhythm with tachycardia, 2+ pitting edema bilaterally Resp: Some course breath sounds throughout with occasional faint wheezing GI: Soft and nontender, bowel sounds active Skin: Warm, pink, dry, no rashes on visible skin Results & Data Results & Data Vital Signs (Past 12 Hours) Vital Signs Temp Pulse Pulse Resp BP Pulse Ox O2 Del Method 07/08/23 07:25 36.7 C 90 18 88/59 L 97 Room Air 07/08/23 03:40 36.5 C 98 H 16 93/60 L 94 Room Air 07/07/23 22:51 36.6 C 118 H 16 91/60 L 95 Room Air 07/07/23 22:00 114 H Resident Activity Tracking Resident Involvement: Resident Care Provided Care Provided: Adult Hospital Medicine
--- NOTE | 2023-07-08 10:26 | Nephrology Progress Note ---
Date of Service July 08, 2023 Assessment & Plan (1) ESRD on hemodialysis: Plan: On HD MWF at [facility]. Rx 3.5 hours x optiflux 180 Qb 45 Qd 800, 3K 2.5Ca 138Na 35HCO3. EDW 92 kg. Completed HD yesterday with adequate UF and clearance. AVF functioning well. Medications appropriate for kidney dysfunction. Ceftriaxone 2 gram daily acceptable. Gabapentin taper. Benadryl 100 mg IV given at start of treatment as outpatient. EMLA cream to be applied to AVF prior to HD. Maintain a fluid restriction of 1.2 L/d. (2) Anemia: Plan: Chronic. Maintained on Micera as outpatient. Ferritin >1500 - iron held. Epogen 00782 units provided with HD yesterday. (3) Pancreatic lesion: Plan: GI recommended outpatient evaluation with EUS. (4) Pleural effusion on right: Plan: Thoracentesis completed yesterday. Transudative by Light's criteria. (5) Atrial fibrillation with RVR: Plan: Cardiology consultation appreciated. Amiodarone gtt started overnight. Payam reports that he was scheduled for a watchman procedure in [place]. Not anticoagulated due to history of falls. Admission and Anticipated Discharge Date Admission Date: July 06, 2023 Subjective Completed HD yesterday without complications. UF limited due to intradialytic hypotension. Net UF ~0.5 L. Clearance acceptable. Payam was sitting on the side of his bed this AM. He denies chest pains or palpitations. He denies shortness of breath. No lightheadedness, dizziness, syncope or presyncope. Amiodarone infusion started overnight for rapid atrial fibrillation. Due to hypotension, metoprolol had been held. I discussed the patient's history and plan of care with Dr. Quinn this AM. Review of Systems Review of Systems: All systems reviewed & are unremarkable except as noted in HPI & below Integumentary: + unusual bruising (several areas of ecc hymosis and skin breakdown with bleeding) Physical Exam Constitutional: well developed, + ill appearing and + lethargic; no acute distress Eyes: no scleral abnormality and no corneal abnormality ENMT: Mouth: no oral mucosal abnormality and oral mucous membranes not dry Neck: normal visual inspection and trachea midline Respiratory: normal respiratory effort Auscultation: lungs clear to auscultation bilaterally Cardiovascular: Rate/Rhythm: + irregularly irregular Heart Sounds: normal S1 and normal S2 Extremities: + edema and + AV fistula Musculoskeletal: Extremities: no cyanosis and no clubbing Skin: normal turgor; no lesions and no jaundice Neurologic: Motor/Sensory: no tremor and no asterixis Psychiatric: Orientation: alert and oriented x 3 Results & Data Vital Signs (Past 12 Hours) Vital Signs Temp Pulse Resp BP Pulse Ox O2 Del Method 07/08/23 07:25 36.7 C 90 18 88/59 L 97 Room Air 07/08/23 03:40 36.5 C 98 H 16 93/60 L 94 Room Air 07/07/23 22:51 36.6 C 118 H 16 91/60 L 95 Room Air Laboratory Results Laboratory Results - last 24 hr 07/07/23 07/07/23 07/08/23 11:00 22:41 06:12 WBC 4.51 L RBC 2.90 L Hgb 8.7 L Hct 25.8 L MCV 89.0 MCH 30.0 MCHC 33.7 RDW Std Deviation 59.0 H RDW Coeff of Valerie 18.5 H Plt Count 96 L MPV 10.2 Absolute Nucleated RBC 0.02 Nucleated RBC % (auto) 0.4 Sodium 136 Potassium 3.3 L Chloride 102 Carbon Dioxide 30 Anion Gap 4 BUN 5 L Creatinine 2.90 H D Est Cr Clr Drug Dosing 30.1 Est GFR ( Amer) 25.9 Est GFR (Non-Af Amer) 22.3 BUN/Creatinine Ratio 1.7 L Glucose 113 H Calcium 7.4 L Magnesium 2.0 Fluid Neutrophils % 8 Fluid Lymphocytes % 10 Fluid Meso/Macro/Avery % 82 Fluid Comment Pleural Fluid Source Right Lung Pleural Color Yellow Pleural Appearance Slightly Hazy Pleural pH 7.52 H Pleural WBC (Auto) 282 Pleural RBC (Auto) < 2000 Pleural Total Protein < 3.0 Pleural LDH 45 Pleural Glucose 114 Pleural Amylase 17 Pleural Cholesterol Pending Stl C. diff Tox B Gene Negative Cdiff Gene PG Care Time/CCT Total # of Minutes Spent Total Time Spent with Patient: Total time spent is greater than 50% in coordination of care (as documented) at patient's floor/unit and/or counseling patient: Coding Level of Care Code 76817 SUB INP/OBS CARE 3/50MIN Diagnoses ESRD on hemodialysis N18.6; Z99.2 Anemia D64.9 Anemia type: unspecified type Pancreatic lesion K86.9 Pleural effusion on right J90 Atrial fibrillation with RVR I48.91 (2) Anemia Anemia type: unspecified type Qualified Code(s): D64.9 - Anemia, unspecified
--- NOTE | 2023-07-08 10:55 | Cardiology Progress Note ---
Date of Service July 08, 2023 Assessment & Plan (1) Atrial fibrillation with RVR: (2) Persistent atrial fibrillation: Plan Complex 63-year-old male with end-stage renal disease presents with change in mental status/obtundation confusion possible multifactorial etiology. Initial rhythm atrial fibrillation with elevated ventricular response rate but off usual beta-roberto therapy Usual rhythm persistent atrial fibrillation with rate control. Patient not anticoagulated due to multiple falls and bleeding risk Currently more conversant since admission Laboratory studies blood cultures pending Initial laboratory studies with elevated procalcitonin, lactate, marked hypoalbuminemia. Chest x-ray with pleural effusion with possible plan for thoracentesis Recommendations: Would resume usual beta-roberto at reduced dose with metoprolol succinate 25 mg twice per day Will follow 07/08/2023 Patient with persistent elevation in heart rate since hospitalization. Underlying rhythm persistent atrial fibrillation, longstanding Rates elevated but has NOT received single dose of beta-roberto since admission due to relative hypotension Patient not anticoagulated due to multiple risk of falls, bleeding and patient request. Watchman procedure evaluation in process Last night begun on IV amiodarone due to elevated heart rate with improved heart rates. Discussed use of amiodarone for rate control with patient. Medication at risk for use given chronic alcohol use. Will check hepatic enzymes Potential risk for spontaneous conversion to sinus rhythm with increased risk of stroke off anticoagulation Patient is aware risk of use We will plan on converting IV amiodarone to oral pending review of hepatic enzymes predominantly for rate control with potential risk of spontaneous conversion to sinus rhythm and stroke Admission and Anticipated Discharge Date Admission Date: July 06, 2023 Subjective Patient was seen and personally examined, chart, medications, telemetry reviewed Patient with elevated ventricular response rate with persistent atrial fibrillation. Patient unaware of arrhythmias though blood pressures trending low. Metoprolol held since admission (no doses administered) due to hold parameters Denies any current chest pains. Remains very unsteady on feet with standing Review of Systems Review of Systems: All systems reviewed & are unremarkable except as noted in Subjective Physical Exam Constitutional: + ill appearing; no acute distress Eyes: PERRL, conjunctivae normal, anicteric sclerae Neck: trachea midline, no thyromegaly Respiratory: normal respiratory effort, lungs clear to auscultation Cardiovascular: Rate/Rhythm: + irregularly irregular Heart Sounds: normal S1 and normal S2 Vessels: no JVD Extremities: + edema Gastrointestinal (Abdomen): Inspection/Auscultation: + abdomen distended (Mild) Results & Data Vital Signs (Past 12 Hours) Vital Signs Temp Pulse Pulse Resp BP Pulse Ox O2 Del Method 07/08/23 08:00 Room Air 07/08/23 07:25 36.7 C 90 18 88/59 L 97 Room Air 07/08/23 07:00 98 H 07/08/23 03:40 36.5 C 98 H 16 93/60 L 94 Room Air
[2023-07-08] MEDS: POTASSIUM CHLORIDE CRTAB 20 MEQ TABCR PO ONE (11:21)
--- NOTE | 2023-07-08 11:21 | Billing Data ---
Date of Service July 08, 2023 Coding Level of Care Code 59532 SUB INP/OBS CARE
[2023-07-08] MEDS: AMIODARONE 200 MG TAB PO SCH (11:48)
[2023-07-08] MEDS: GABAPENTIN 100 MG CAP PO SCH (11:49)
[2023-07-08] MEDS ORDERED: LORazepam 1 MG TAB PO PRN (13:26)
[2023-07-08 13:39] LABS: Albumin Globulin Ratio 0.5 (0.9-2); Albumin Level 1.9 gm/dl (3.4-5.0); BUN Creatinine Ratio 2.1 (10-20); Bilirubin Direct 0.2 mg/dl (0-0.2); Bilirubin,Total 0.7 mg/dl (0.2-1.0); Calcium 7.5 mg/dl (8.6-10.3); Creatinine Clr Calc Pharmacy 30.2 ml/min; Est GFR (Non-African American) 22.4 ml/min; Globulin 4.1 gm/dl (2.5-4.0); Potassium 3.3 mmol/L (3.5-5.1)
[2023-07-08] MEDS: THIAMINE HCL 200 MG in SODIUM CHLORIDE 0.9% 50 ML IV SCH (14:03)
--- NOTE | 2023-07-08 17:37 | Hospitalist Progress Note ---
Date of Service July 08, 2023 Assessment & Plan (1) Atrial fibrillation with RVR: (2) Hypertension: (3) Weakness: (4) Ambulatory dysfunction: (5) Hypomagnesemia: (6) ESRD on hemodialysis: (7) Alcohol abuse: (8) Elevated LFTs: (9) Anemia: (10) Anxiety: Plan: A-fib with RVR Persistent atrial fibrillation --CXR:Cardiomegaly and mild pulmonary edema. -Normal TSH --ECHO: Left ventricle is normal in size. Mild concentric LVH. Left ventricle wall motion is normal. EF 65 to 70%. Left atrium is moderately dilated. Trace mitral and tricuspid regurgitation. Dilated inferior vena cava with reduced collapsibility with sniff indicates an elevated right atrial pressure of 15 mmHg Patient did not receive metoprolol due to low BP Not on anticoagulation due to multiple falls and bleeding risk Appreciate cardiology input Started on IV amiodarone, transition to p.o. as able Monitor LFTs May need watchman's procedure Rhinovirus infection Right pleural effusion/Anasarca --CT Chest:No acute posttraumatic intrathoracic abnormality is identified. There is no airspace consolidation or pneumothorax. Moderate right pleural effusion with associated atelectasis. Cardiomegaly with coronary artery atherosclerosis. Mildly enlarged mediastinal lymph nodes are nonspecific and may be reactive. Procalcitonin 1.86 Bio fire positive for Rhino infection --S/P thoracentesis on 06/10/2023 --Pleural effusion transudative in nature. --- Pleural fluid culture: Negative to date --Path: Negative for malignancy Empirically on ceftriaxone and doxycycline Appreciate pulmonology help Saturating well on room air Transition to p.o. antibiotics as able Recheck procalcitonin tomorrow Pancreatic cyst lesion --CT abd: Mild increase in size of a 2.9 cm cystic lesion within the pancreatic head since CT of September 16, 2022. This remains pathologically indeterminate. Considerations include mucinous cystic neoplasm versus serous cystadenoma. If not already obtained, GI consultation is --recommended. -- Will need GI follow-up for possible endoscopic ultrasound as outpatient Acute metabolic encephalopathy --CT Head:There is no hemorrhage, mass effect, or evidence of acute territorial ischemia by CT criteria noting a motion degraded examination. --Hold sedating medications as able HTN Continue metoprolol Monitor Hypomagnesemia Hypokalemia Replace and monitor Alcohol abuse Elevated LFTs Monitor for withdrawal Continue thiamine, folic acid ESRD on HD Continue dialysis per nephrology Patient nephrology input Falls Fall precautions PT OT as able DVT Px: SCDs for now CODE STATUS: Full code Disposition May need rehab placement Admission and Anticipated Discharge Date Admission Date: July 06, 2023 Subjective Patient is seen and examined at bedside States feeling tired Went into A-fib RVR overnight, started on amiodarone drip Reports cough intermittently Was also delirious overnight per staff Discussed with patient's at bedside Denies any chest pain, dyspnea Review of Systems Review of Systems: All systems reviewed & are unremarkable except as noted in Subjective Physical Exam Physical Exam: Physical Exam: Vitals signs as noted above General Appearance:Moderately built and nourished, no apparent distress, chronically appearing Head: normocephalic, Atraumatic Eyes: normal inspection, EOMI Neck: supple, Trachea midline Respiratory/Chest: Coarse breath sounds, No accessory muscle use Cardiovascular: Irregularly irregular, No murmur Abdomen/GI:Soft, Non tender, Bowel sounds present Extremities/Musculoskeletal:normal inspection, edema Neurologic/Psych:AAOX3, grossly no focal neurological deficits Skin: normal color, warm Results & Data Results & Data Vital Signs (Past 12 Hours) Vital Signs Temp Pulse Pulse Resp BP Pulse Ox O2 Del Method 07/08/23 15:43 36.5 C 99 H 18 90/56 L 97 Room Air 07/08/23 11:12 36.4 C L 78 20 80/55 L 98 Room Air 07/08/23 08:00 Room Air 07/08/23 07:25 36.7 C 90 18 88/59 L 97 Room Air 07/08/23 07:00 98 H Laboratory Results Short CBC 07/08/23 Range/Units 06:12 WBC 4.51 L (4.8-10.8) K/ul Hgb 8.7 L (14.0-18.0) g/dl Hct 25.8 L (42.0-52.0) % Plt Count 96 L (130-400) K/uL BMP 07/08/23 07/08/23 07/08/23 06:12 06:12 06:12 Sodium 136 135 L Potassium 3.3 L 3.3 L Chloride 102 Carbon Dioxide BUN Creatinine Glucose Calcium 07/08/23 07/08/23 07/08/23 06:12 06:12 06:12 Sodium Potassium Chloride 101 Carbon Dioxide 30 26 BUN 5 L 6 Creatinine 2.90 H D Glucose Calcium 07/08/23 07/08/23 07/08/23 06:12 06:12 06:12 Sodium Potassium Chloride Carbon Dioxide BUN Creatinine 2.89 H Glucose 113 H 109 H Calcium 7.4 L 7.5 L Liver Function 07/08/23 Range/Units 06:12 Total Bilirubin 0.7 D (0.2-1.0) mg/dl Direct Bilirubin 0.2 (0-0.2) mg/dl AST 35 (13-39) U/L ALT 11 (7-52) U/L Alkaline Phosphatase 291 H (34-104) U/L Albumin 1.9 L (3.4-5.0) gm/dl (2) Hypertension Hypertension type: unspecified Qualified Code(s): I10 - Essential (primary) hypertension (9) Anemia Anemia type: unspecified type Qualified Code(s): D64.9 - Anemia, unspecified
[2023-07-08] MEDS: ZOLPIDEM TARTRATE 5 MG TAB PO PRN (20:35)
[2023-07-09 05:06] LABS: Hematocrit (blood only) 24.4 % (42.0-52.0); Hemoglobin 8.1 g/dl (14.0-18.0); Mean Corpuscular Hemoglobin 29.6 pg (25.0-34.0); Mean Corpuscular Hgb Conc 33.2 g/dL (32.0-36.0); Mean Corpuscular Volume 89.1 fL (80.0-100.0); Mean Platelet Volume 10.4 fL (9.4-12.4); Platelet Count 106 K/uL (130-400); RDW Coefficient of Variation 18.9 % (11.5-14.5); RDW Standard Deviation 58.8 fL (36.4-46.3); Red Blood Count 2.74 M/uL (4.70-6.10); White Blood Count 3.82 K/ul (4.8-10.8)
[2023-07-09 05:16] LABS: BUN Creatinine Ratio 1.9 (10-20); Calcium 7.3 mg/dl (8.6-10.3); Creatinine Clr Calc Pharmacy 21.1 ml/min; Est GFR (African American) 16.8 ml/min; Est GFR (Non-African American) 14.5 ml/min; Potassium 3.3 mmol/L (3.5-5.1)
[2023-07-09] MEDS: GABAPENTIN 600 MG TAB PO SCH (06:21)
[2023-07-09] MEDS: LIDOCAINE/PRILOCAINE 2.5% EA CRM EXT ONE (08:24)
[2023-07-09] MEDS: diphenhydrAMINE 50 MG/ML VIAL IV ONE (09:00)
--- NOTE | 2023-07-09 09:46 | Nephrology Progress Note ---
Date of Service July 09, 2023 Assessment & Plan (1) ESRD on hemodialysis: Plan: On HD MWF at [facility]. Rx 3.5 hours x optiflux 180 Qb 45 Qd 800, 3K 2.5Ca 138Na 35HCO3. EDW 92 kg. Orders for HD today were entered into the EHR and reviewed with the [facility]. Payam is tolerating treatment relatively well. He remains hypotensive. Midodrine 5 mg will be provided with HD today to assist BP. Payam remains on amiodarone for atrial fibrillation. AVF functioning well. Medications appropriate for kidney dysfunction. He remains on ceftriaxone 2 gram daily, I would consider dose reduction based on kidney dysfunction. Gabapentin taper. Benadryl 100 mg IV given at start of treatment per outpatient regimen for allergic symptoms reported during treatments. EMLA cream to be applied to AVF prior to HD. Maintain a fluid restriction of 1.2 L/d. Potassium slightly low and overall electrolytes acceptable. Notable chronic hypoalbuminemia. Protein supplements and regular diet ordered this AM. (2) Anemia: Plan: Hgb continues to trend down since admission. WBC also slightly lower. Maintained on Micera Q 2 weeks as outpatient. Ferritin >1500 - iron held. Epogen 32069 units provided with HD Wednesday and additional 61451 units today. Repeat CBC tomorrow AM. Possible bone marrow suppression from rhinovirus infection or ceftriaxone? If not appropriate to stop ceftriaxone, I would discuss possible dose reduction with the pharmacist. (3) Pancreatic lesion: Plan: 2.9 cm complex cyst noted on CT. GI recommended outpatient evaluation with EUS. (4) Pleural effusion on right: Plan: Thoracentesis completed 07/06. Transudative by Light's criteria. Attempting UF with HD as tolerated. Crit line used with treatment today. Midodrine provided for BP support. (5) Atrial fibrillation with RVR: Plan: Cardiology consultation appreciated. Remains on amiodarone. Payam denies symptoms. HR ~100 bpm. Payam has been scheduled for a watchman procedure in [place]. He has not cristy anticoagulated due to history of falls. Admission and Anticipated Discharge Date Admission Date: July 06, 2023 Subjective No acute events overnight. Payam was seen and evaluated during hemodialysis this morning. No fevers or chills. He denies chest pains or palpitations. He denies shortness of breath. Payam reports some chest congestion and a productive cough overnight. He describes thick white sputum. No hemoptysis. He remains very weak. He states that he is not eating due to dietary restrictions. Payam told me that he is not sure why he is on a lactose free diet. He requested a regular diet. No GI symptoms reported. No diarrhea, melena or BRBPR. He remains in atrial fibrillation with a heart rate of ~100 bpm. He is tolerating HD well. Qb at goal. BP low 80's. Review of Systems Review of Systems: All systems reviewed & are unremarkable except as noted in HPI & below Physical Exam Constitutional: well developed and + ill appearing; no acute distress Eyes: + anicteric sclerae; no corneal abnormal ity ENMT: Mouth: no oral mucosal abnormality and oral mucous membranes not dry Neck: normal visual inspection and trachea midline Respiratory: normal respiratory effort Auscultation: lungs clear to auscultation bilaterally Cardiovascular: Rate/Rhythm: + irregularly irregular Heart Sounds: normal S1 and normal S2 Extremities: + edema and + AV fistula Musculoskeletal: Extremities: no cyanosis and no clubbing Skin: normal turgor; no lesions and no jaundice Neurologic: Motor/Sensory: no tremor and no asterixis Psychiatric: Orientation: alert and oriented x 3 Results & Data Vital Signs (Past 12 Hours) Vital Signs Temp Pulse Pulse Pulse Resp BP BP 07/09/23 09:30 96 H 80/64 L 07/09/23 09:30 36.4 C L 102 H 07/09/23 09:14 96 H 75/28 L 07/09/23 08:37 36.4 C L 106 H 20 100/64 07/09/23 02:45 36.5 C 94 H 18 92/55 L 07/08/23 23:20 36.5 C 107 H 18 91/58 L Pulse Ox O2 Del Method 07/09/23 09:30 07/09/23 09:30 07/09/23 09:14 07/09/23 08:37 98 Room Air 07/09/23 02:45 95 Room Air 07/08/23 23:20 97 Room Air Laboratory Results Laboratory Results - last 24 hr 07/08/23 07/09/23 06:12 04:27 WBC 3.82 L RBC 2.74 L Hgb 8.1 L Hct 24.4 L MCV 89.1 MCH 29.6 MCHC 33.2 RDW Std Deviation 58.8 H RDW Coeff of Valerie 18.9 H Plt Count 106 L MPV 10.4 Sodium 135 L 134 L Potassium 3.3 L 3.3 L Chloride 101 101 Carbon Dioxide 26 27 Anion Gap 8 6 BUN 6 8 Creatinine 2.89 H 4.14 H D Est Cr Clr Drug Dosing 30.2 21.1 Est GFR ( Amer) 26.0 16.8 Est GFR (Non-Af Amer) 22.4 14.5 BUN/Creatinine Ratio 2.1 L 1.9 L Glucose 109 H 109 H Calcium 7.5 L 7.3 L Total Bilirubin 0.7 D Direct Bilirubin 0.2 AST 35 ALT 11 Alkaline Phosphatase 291 H Total Protein 6.0 Albumin 1.9 L Globulin 4.1 H Albumin/Globulin Ratio 0.5 L Procalcitonin 1.28 H PG Care Time/CCT Total # of Minutes Spent Total Time Spent with Patient: Total time spent is greater than 50% in coordination of care (as documented) at patient's floor/unit and/or counseling patient: Coding Level of Care Code 98998 SUB INP/OBS CARE 3/50MIN Diagnoses ESRD on hemodialysis N18.6; Z99.2 Anemia D64.9 Anemia type: unspecified type Pancreatic lesion K86.9 Pleural effusion on right J90 Atrial fibrillation with RVR I48.91 (2) Anemia Anemia type: unspecified type Qualified Code(s): D64.9 - Anemia, unspecified
[2023-07-09] MEDS ORDERED: POTASSIUM CHLORIDE CRTAB 20 MEQ TABCR PO ONE (10:04)
[2023-07-09] MEDS: MIDODRINE HCL 2.5 MG TAB PO ONE (10:05)
[2023-07-09] MEDS: EPOETIN ALFA 10,000 UNITS/ML VIAL IV ONE (10:06)
[2023-07-09] MEDS: POTASSIUM CHLORIDE CRTAB 20 MEQ TABCR PO SCH (13:51)
--- NOTE | 2023-07-09 14:13 | Cardiology Progress Note ---
Date of Service July 09, 2023 Assessment & Plan (1) Atrial fibrillation with RVR: (2) Persistent atrial fibrillation: Plan Complex 63-year-old male with end-stage renal disease presents with change in mental status/obtundation confusion possible multifactorial etiology. Initial rhythm atrial fibrillation with elevated ventricular response rate but off usual beta-roberto therapy Usual rhythm persistent atrial fibrillation with rate control. Patient not anticoagulated due to multiple falls and bleeding risk Currently more conversant since admission Laboratory studies blood cultures pending Initial laboratory studies with elevated procalcitonin, lactate, marked hypoalbuminemia. Chest x-ray with pleural effusion with possible plan for thoracentesis Recommendations: Would resume usual beta-roberto at reduced dose with metoprolol succinate 25 mg twice per day Will follow 07/08/2023 Patient with persistent elevation in heart rate since hospitalization. Underlying rhythm persistent atrial fibrillation, longstanding Rates elevated but has NOT received single dose of beta-roberto since admission due to relative hypotension Patient not anticoagulated due to multiple risk of falls, bleeding and patient request. Watchman procedure evaluation in process Last night begun on IV amiodarone due to elevated heart rate with improved heart rates. Discussed use of amiodarone for rate control with patient. Medication at risk for use given chronic alcohol use. Will check hepatic enzymes Potential risk for spontaneous conversion to sinus rhythm with increased risk of stroke off anticoagulation Patient is aware risk of use We will plan on converting IV amiodarone to oral pending review of hepatic enzymes predominantly for rate control with potential risk of spontaneous conversion to sinus rhythm and stroke 07/08/2022 Discussed amiodarone use in detail with patient he understands potential risks of use including embolic stroke while off anticoagulation Hepatic toxicity concerns with alcohol use noted Would continue amiodarone 200mg 3 times daily during hospitalization, reduced to twice per day on discharge for 2 weeks then daily If heart rate increases would consider low-dose reintroduction of metoprolol succinate at 12.5 milligrams per day Patient very fragile and nutritionally depleted Will sign off call for any question Admission and Anticipated Discharge Date Admission Date: July 06, 2023 Subjective Chart and telemetry reviewed. Heart rates trending towards controlled. Blood pressure with some lability. For dialysis today Results & Data Vital Signs (Past 12 Hours) Vital Signs Temp Pulse Pulse Pulse Resp BP BP 07/09/23 13:30 36.3 C L 103 H 17 88/58 L 07/09/23 13:05 36.3 C L 95 H 95/66 L 07/09/23 12:30 84 102/63 07/09/23 12:00 96 H 91/69 L 07/09/23 11:30 88 100/69 07/09/23 11:00 86 96/68 L 07/09/23 10:30 86 88/58 L 07/09/23 10:00 95 H 94/68 L 07/09/23 09:30 96 H 80/64 L 07/09/23 09:30 36.4 C L 102 H 07/09/23 09:14 96 H 75/28 L 07/09/23 08:37 36.4 C L 106 H 20 100/64 07/09/23 02:45 36.5 C 94 H 18 92/55 L Pulse Ox O2 Del Method 07/09/23 13:30 94 Room Air 07/09/23 13:05 07/09/23 12:30 07/09/23 12:00 07/09/23 11:30 07/09/23 11:00 07/09/23 10:30 07/09/23 10:00 07/09/23 09:30 07/09/23 09:30 07/09/23 09:14 07/09/23 08:37 98 Room Air 07/09/23 02:45 95 Room Air
[2023-07-09] MEDS: MIDODRINE HCL 2.5 MG TAB PO SCH (17:18)
--- NOTE | 2023-07-09 18:22 | Hospitalist Progress Note ---
Date of Service July 09, 2023 Assessment & Plan (1) Atrial fibrillation with RVR: (2) Hypertension: (3) Weakness: (4) Ambulatory dysfunction: (5) Hypomagnesemia: (6) ESRD on hemodialysis: (7) Alcohol abuse: (8) Elevated LFTs: (9) Anemia: (10) Anxiety: Plan: A-fib with RVR Persistent atrial fibrillation --CXR:Cardiomegaly and mild pulmonary edema. -Normal TSH --ECHO: Left ventricle is normal in size. Mild concentric LVH. Left ventricle wall motion is normal. EF 65 to 70%. Left atrium is moderately dilated. Trace mitral and tricuspid regurgitation. Dilated inferior vena cava with reduced collapsibility with sniff indicates an elevated right atrial pressure of 15 mmHg Patient did not receive metoprolol due to low BP Not on anticoagulation due to multiple falls and bleeding risk Appreciate cardiology input Started on IV amiodarone, transition to p.o. as able Monitor LFTs May need watchman's procedure Plan to continue amiodarone 200 mg 3 times daily while hospitalized, transition to twice daily on discharge for 2 weeks and then daily If A-fib uncontrolled, will consider to reintroduce metoprolol at reduced dose per cards Needs follow-up with cardiology on discharge Rhinovirus infection Right pleural effusion/Anasarca --CT Chest:No acute posttraumatic intrathoracic abnormality is identified. There is no airspace consolidation or pneumothorax. Moderate right pleural effusion with associated atelectasis. Cardiomegaly with coronary artery atherosclerosis. Mildly enlarged mediastinal lymph nodes are nonspecific and may be reactive. Procalcitonin 1.86>1.2 Bio fire positive for Rhino infection --S/P thoracentesis on 06/10/2023 --Pleural effusion transudative in nature. --- Pleural fluid culture: Negative to date --Path: Negative for malignancy Empirically on ceftriaxone and doxycycline Appreciate pulmonology help Saturating well on room air Transition to p.o. antibiotics as able Pancreatic cyst lesion --CT abd: Mild increase in size of a 2.9 cm cystic lesion within the pancreatic head since CT of September 16, 2022. This remains pathologically indeterminate. Considerations include mucinous cystic neoplasm versus serous cystadenoma. If not already obtained, GI consultation is --recommended. -- Will need GI follow-up for possible endoscopic ultrasound as outpatient Acute metabolic encephalopathy --CT Head:There is no hemorrhage, mass effect, or evidence of acute territorial ischemia by CT criteria noting a motion degraded examination. --Hold sedating medications as able Improving HTN Added midodrine to help with low BP Metoprolol discontinued due to low BP Monitor Hypomagnesemia Hypokalemia Replace and monitor Alcohol abuse Elevated LFTs Monitor for withdrawal Continue thiamine, folic acid ESRD on HD Continue dialysis per nephrology Patient nephrology input Falls Fall precautions PT OT as able DVT Px: SCDs Heparin SQ--monitor platelets CODE STATUS: Full code Disposition Will need rehab placement Admission and Anticipated Discharge Date Admission Date: July 06, 2023 Subjective Patient is seen and examined at bedside Was having hemodialysis during my encounter Less cough today Denies any significant dyspnea Reports chronic left hip pain Discussed with cardiology today Review of Systems Review of Systems: All systems reviewed & are unremarkable except as noted in Subjective Physical Exam Physical Exam: Physical Exam: Vitals signs as noted above General Appearance:Moderately built and nourished, no apparent distress, chronically appearing Head: normocephalic, Atraumatic Eyes: normal inspection, EOMI Neck: supple, Trachea midline Respiratory/Chest: Coarse breath sounds, No accessory muscle use Cardiovascular: Irregularly irregular, No murmur Abdomen/GI:Soft, Non tender, Bowel sounds present Extremities/Musculoskeletal:normal inspection, edema Neurologic/Psych:AAOX3, grossly no focal neurological deficits Skin: normal color, warm Results & Data Results & Data Vital Signs (Past 12 Hours) Vital Signs Temp Pulse Pulse Pulse Resp BP BP 07/09/23 16:21 36.5 C 106 H 18 95/61 L 07/09/23 14:00 109 H 07/09/23 13:30 36.3 C L 103 H 17 88/58 L 07/09/23 13:05 36.3 C L 95 H 95/66 L 07/09/23 12:30 84 102/63 07/09/23 12:00 96 H 91/69 L 07/09/23 11:30 88 100/69 07/09/23 11:00 86 96/68 L 07/09/23 10:30 86 88/58 L 07/09/23 10:00 95 H 94/68 L 07/09/23 09:30 96 H 80/64 L 07/09/23 09:30 36.4 C L 102 H 07/09/23 09:14 96 H 75/28 L 07/09/23 09:00 122 H 07/09/23 08:37 36.4 C L 106 H 20 100/64 07/09/23 08:00 Pulse Ox O2 Del Method 07/09/23 16:21 99 Room Air 07/09/23 14:00 07/09/23 13:30 94 Room Air 07/09/23 13:05 07/09/23 12:30 07/09/23 12:00 07/09/23 11:30 07/09/23 11:00 07/09/23 10:30 07/09/23 10:00 07/09/23 09:30 07/09/23 09:30 07/09/23 09:14 07/09/23 09:00 07/09/23 08:37 98 Room Air 07/09/23 08:00 Room Air Laboratory Results Short CBC 07/09/23 Range/Units 04:27 WBC 3.82 L (4.8-10.8) K/ul Hgb 8.1 L (14.0-18.0) g/dl Hct 24.4 L (42.0-52.0) % Plt Count 106 L (130-400) K/uL BMP 07/09/23 04:27 Sodium 134 L Potassium 3.3 L Chloride 101 Carbon Dioxide 27 BUN 8 Creatinine 4.14 H D Glucose 109 H Calcium 7.3 L (2) Hypertension Hypertension type: unspecified Qualified Code(s): I10 - Essential (primary) hypertension (9) Anemia Anemia type: unspecified type Qualified Code(s): D64.9 - Anemia, unspecified
[2023-07-09] MEDS: LOPERAMIDE HCL 2 MG CAP PO PRN (21:04)
[2023-07-09] MEDS: HEPARIN SOD 5,000 UNIT/0.5 ML VIAL SQ SCH (21:11)
[2023-07-10] MEDS: GABAPENTIN 400 MG CAP PO SCH (06:16)
[2023-07-10 06:54] LABS: Hematocrit (blood only) 26.7 % (42.0-52.0); Mean Corpuscular Hemoglobin 30.2 pg (25.0-34.0); Mean Corpuscular Hgb Conc 33.7 g/dL (32.0-36.0); Mean Corpuscular Volume 89.6 fL (80.0-100.0); Mean Platelet Volume 10.5 fL (9.4-12.4); Platelet Count 110 K/uL (130-400); RDW Coefficient of Variation 19.4 % (11.5-14.5); RDW Standard Deviation 60.5 fL (36.4-46.3); Red Blood Count 2.98 M/uL (4.70-6.10); White Blood Count 4.98 K/ul (4.8-10.8)
--- NOTE | 2023-07-10 08:19 | Nephrology Progress Note ---
Date of Service July 10, 2023 Assessment & Plan (1) ESRD on hemodialysis: Plan: * Outpatient Rx: MWF [facility] - 3.5 hours, F-180NR Qb 450/Qd 800, 3K 2.5Ca 138Na 35HCO3. EDW 92 kg * Last dialyzed yesterday for 1.5 L UF * Patient remains 5 kg above outpatient EDW, CXR with mild congestion, patient w/ symptomatic dyspnea that is likely related to a combination volume overload and a. fib w/ RVR * Will provide 3 hr HD today and attempt 1-2 L UF. Orders have been placed in EMR and HD RN notified * Will provide Benadryl and Midodrine as dialysis premedication (2) Anemia: Plan: * Hgb stable at 9.0 this am * 07/07/23 Ferritin >1500 - iron held * Will provide ROSANNA w/ HD today * Possible bone marrow suppression from rhinovirus infection or ceftriaxone? If not appropriate to stop ceftriaxone, I would discuss possible dose reduction with the pharmacist. (3) Pancreatic lesion: Plan: * 2.9 cm complex cyst noted on CT. GI recommended outpatient evaluation with EUS. (4) Pleural effusion on right: Plan: * Thoracentesis completed 07/06. Transudative by Light's criteria. (5) Atrial fibrillation with RVR: Plan: * Remains on amiodarone. HR ~100 bpm * Has not cristy anticoagulated due to history of falls. Scheduled for a watchman procedure in [place] Admission and Anticipated Discharge Date Admission Date: July 06, 2023 Subjective Mr. Rivers was evaluated in his hospital room this morning. He c/o dyspnea and expressed concern that his effusion was returning Review of Systems Constitutional: no fever Eyes: no problem reported Ear, Nose, Mouth, Throat: no problem reported Respiratory: + dyspnea; no cough, no hemoptysis and n o sputum production Cardiovascular: + palpitations; no chest pain Gastrointestinal: no abdominal pain, no nausea, no vomiting and no diarrhea/loose stools Integumentary: no problem reported Physical Exam Constitutional: not in distress Eyes: PERRL, conjunctivae normal, anicteric sclerae ENMT: external ear and nose normal, oropharynx normal Neck: trachea midline, no thyromegaly Respiratory: Auscultation: + crackles Cardiovascular: Rate/Rhythm: + tachycardic Extremities: no edema AVF + bruit Gastrointestinal (Abdomen): normal bowel sounds, soft, nontender, no hepatosplenomegaly Neurologic: awake; not confused Results & Data Vital Signs (Past 12 Hours) Vital Signs Temp Pulse Pulse Resp BP Pulse Ox O2 Del Method 07/10/23 07:32 36.7 C 104 H 19 96/59 L 96 Room Air 07/10/23 03:05 36.5 C 107 H 18 95/64 L 97 Room Air 07/09/23 23:37 36.6 C 107 H 18 96/58 L 95 Room Air 07/09/23 21:57 Room Air Laboratory Results Laboratory Results - last 24 hr 07/10/23 06:18 WBC 4.98 RBC 2.98 L Hgb 9.0 L Hct 26.7 L MCV 89.6 MCH 30.2 MCHC 33.7 RDW Std Deviation 60.5 H RDW Coeff of Valerie 19.4 H Plt Count 110 L MPV 10.5 Sodium Pending Potassium Pending Chloride Pending Carbon Dioxide Pending Anion Gap Pending BUN Pending Creatinine Pending Est Cr Clr Drug Dosing Pending Est GFR ( Amer) Pending Est GFR (Non-Af Amer) Pending BUN/Creatinine Ratio Pending Glucose Pending Calcium Pending Laboratory Results - last 24 hr 07/10/23 06:18 WBC 4.98 RBC 2.98 L Hgb 9.0 L Hct 26.7 L MCV 89.6 MCH 30.2 MCHC 33.7 RDW Std Deviation 60.5 H RDW Coeff of Valerie 19.4 H Plt Count 110 L MPV 10.5 Sodium 138 Potassium 3.8 Chloride 106 Carbon Dioxide 28 Anion Gap 4 BUN 6 Creatinine 2.99 H D Est Cr Clr Drug Dosing 29.9 Est GFR ( Amer) 24.9 Est GFR (Non-Af Amer) 21.5 BUN/Creatinine Ratio 2.0 L Glucose 83 Calcium 7.6 L Diagnostic Findings 07/10/23 CXR - mild vascular congestion PG Care Time/CCT Total # of Minutes Spent Total Time Spent with Patient: Total time spent is greater than 50% in coordination of care (as documented) at patient's floor/unit and/or counseling patient: Coding Level of Care Code 50849 SUB INP/OBS CARE 3/50MIN Diagnoses ESRD on hemodialysis N18.6; Z99.2 Anemia D64.9 Anemia type: unspecified type Pancreatic lesion K86.9 Pleural effusion on right J90 Atrial fibrillation with RVR I48.91 (2) Anemia Anemia type: unspecified type Qualified Code(s): D64.9 - Anemia, unspecified
[2023-07-10] MEDS ORDERED: cefTRIAXone SODIUM 1,000 MG/50 ML BAG IV SCH (09:00)
[2023-07-10 09:05] LABS: Calcium 7.6 mg/dl (8.6-10.3); Potassium 3.8 mmol/L (3.5-5.1)
[2023-07-10 09:11] LABS: Creatinine Clr Calc Pharmacy 29.9 ml/min; Est GFR (African American) 24.9 ml/min; Est GFR (Non-African American) 21.5 ml/min
[2023-07-10] MEDS ORDERED: LEVALBUTEROL HCL 0.63 MG/3 ML NEB NEB PRN (09:17)
[2023-07-10] MEDS ORDERED: SODIUM CHLORIDE 0.9% 1,000 ML IV PRN (10:27)
--- NOTE | 2023-07-10 10:44 | XRay Report ---
XR chest 1V portable HISTORY: Dyspnea COMPARISON: Chest 07/07/2023. FINDINGS: A small right pleural effusion has slightly increased in size. No pneumothorax. The heart r emains mildly enlarged. There is mild central pulmonary vascular congestion without overt edema. No n ew focal lung consolidations to suggest a pneumonia. A right subclavian stent is noted. IMPRESSION: Slight increase in size in the small right pleural effusion. ACT 112: Negative or not required by law. Electronically signed by: Jason Knapp M.D. 07/10/2023 10:43 AM
[2023-07-10] MEDS: CEFDINIR 300 MG CAP PO SCH ×2 (11:00→17:02)
[2023-07-10] MEDS: LIDOCAINE/PRILOCAINE 2.5% EA CRM EXT SCH (11:55)
[2023-07-10] MEDS: diphenhydrAMINE 50 MG/ML VIAL IV STA (13:14)
[2023-07-10] MEDS: EPOETIN ALFA 10,000 UNITS/ML VIAL IV ONE (13:39)
[2023-07-10] MEDS: HEPARIN SOD (PORCINE) 1000 UNIT/ML IV ONE (13:39)
[2023-07-10] MEDS: MIDODRINE HCL 2.5 MG TAB PO STA (13:39)
[2023-07-10] MEDS ORDERED: cefTRIAXone SODIUM 2,000 MG/50 ML BAG IV SCH (17:00)
--- NOTE | 2023-07-10 17:45 | Hospitalist Progress Note ---
Date of Service July 10, 2023 Assessment & Plan (1) Atrial fibrillation with RVR: (2) Hypertension: (3) Weakness: (4) Ambulatory dysfunction: (5) Hypomagnesemia: (6) ESRD on hemodialysis: (7) Alcohol abuse: (8) Elevated LFTs: (9) Anemia: (10) Anxiety: Plan: A-fib with RVR Persistent atrial fibrillation --CXR:Cardiomegaly and mild pulmonary edema. -Normal TSH --ECHO: Left ventricle is normal in size. Mild concentric LVH. Left ventricle wall motion is normal. EF 65 to 70%. Left atrium is moderately dilated. Trace mitral and tricuspid regurgitation. Dilated inferior vena cava with reduced collapsibility with sniff indicates an elevated right atrial pressure of 15 mmHg Patient did not receive metoprolol due to low BP Not on anticoagulation due to multiple falls and bleeding risk Appreciate cardiology input IV amiodarone Monitor LFTs May need watchman's procedure Plan to continue PO amiodarone 200 mg 3 times daily while hospitalized, transition to twice daily on discharge for 2 weeks and then daily If A-fib uncontrolled, will consider to reintroduce metoprolol at reduced dose per cards if BP tolerates Needs follow-up with cardiology on discharge Rhinovirus infection Right pleural effusion/Anasarca --CT Chest:No acute posttraumatic intrathoracic abnormality is identified. There is no airspace consolidation or pneumothorax. Moderate right pleural effusion with associated atelectasis. Cardiomegaly with coronary artery atherosclerosis. Mildly enlarged mediastinal lymph nodes are nonspecific and may be reactive. Procalcitonin 1.86>1.2 Bio fire positive for Rhino infection --S/P thoracentesis on 06/10/2023 --Pleural effusion transudative in nature. --- Pleural fluid culture: Negative to date --Path: Negative for malignancy Empirically on ceftriaxone and doxycycline>> transition to cefdinir, Doxy Appreciate pulmonology help Saturating well on room air Manage volume status through dialysis Pancreatic cyst lesion --CT abd: Mild increase in size of a 2.9 cm cystic lesion within the pancreatic head since CT of September 16, 2022. This remains pathologically indeterminate. Considerations include mucinous cystic neoplasm versus serous cystadenoma. If not already obtained, GI consultation is --recommended. -- Will need GI follow-up for possible endoscopic ultrasound as outpatient Acute metabolic encephalopathy --CT Head:There is no hemorrhage, mass effect, or evidence of acute territorial ischemia by CT criteria noting a motion degraded examination. --Hold sedating medications as able Improved HTN Added midodrine to help with low BP Metoprolol discontinued Monitor Hypomagnesemia Hypokalemia Replace and monitor Alcohol abuse Elevated LFTs Monitor for withdrawal Continue thiamine, folic acid ESRD on HD Continue dialysis per nephrology Patient nephrology input Plan for dialysis today Falls Fall precautions PT OT as able DVT Px: SCDs Heparin SQ--monitor platelets CODE STATUS: Full code Disposition Will need rehab placement Admission and Anticipated Discharge Date Admission Date: July 06, 2023 Subjective Patient is seen and examined at bedside Reports worsening of shortness of breath today Plan for dialysis again today Mildly tachycardic on monitor Offers no other complaints today Chest x-ray today showed slight increase in right pleural effusion Review of Systems Review of Systems: All systems reviewed & are unremarkable except as noted in Subjective Physical Exam Physical Exam: Physical Exam: Vitals signs as noted above General Appearance:Moderately built and nourished, no apparent distress, chronically appearing Head: normocephalic, Atraumatic Eyes: normal inspection, EOMI Neck: supple, Trachea midline Respiratory/Chest: Coarse breath sounds, scattered wheeze, no accessory muscle use Cardiovascular: Irregularly irregular, No murmur Abdomen/GI:Soft, Non tender, Bowel sounds present Extremities/Musculoskeletal:normal inspection, edema Neurologic/Psych:AAOX3, grossly no focal neurological deficits Skin: normal color, warm Results & Data Results & Data Vital Signs (Past 12 Hours) Vital Signs Temp Pulse Pulse Resp BP BP Pulse Ox 07/10/23 16:55 36.8 C 101 H 90/59 L 07/10/23 16:30 107 H 90/64 L 07/10/23 16:00 99 H 81/51 L 07/10/23 15:30 106 H 100/66 07/10/23 15:00 113 H 86/59 L 07/10/23 14:45 107 H 93/56 L 07/10/23 14:30 100 H 79/52 L 07/10/23 14:00 126 H 07/10/23 14:00 83 86/56 L 07/10/23 13:31 118 H 83/59 L 07/10/23 13:23 36.8 C 79 07/10/23 11:22 36.6 C 110 H 19 95/62 L 99 06/01/24 07:40 07/10/23 07:32 36.7 C 104 H 19 96/59 L 96 O2 Del Method 07/10/23 16:55 07/10/23 16:30 07/10/23 16:00 07/10/23 15:30 07/10/23 15:00 07/10/23 14:45 07/10/23 14:30 07/10/23 14:00 07/10/23 14:00 07/10/23 13:31 07/10/23 13:23 07/10/23 11:22 Room Air 07/10/23 07:40 Room Air 07/10/23 07:32 Room Air Laboratory Results Short CBC 07/10/23 Range/Units 06:18 WBC 4.98 (4.8-10.8) K/ul Hgb 9.0 L (14.0-18.0) g/dl Hct 26.7 L (42.0-52.0) % Plt Count 110 L (130-400) K/uL BMP 07/10/23 06:18 Sodium 138 Potassium 3.8 Chloride 106 Carbon Dioxide 28 BUN 6 Creatinine 2.99 H D Glucose 83 Calcium 7.6 L (2) Hypertension Hypertension type: unspecified Qualified Code(s): I10 - Essential (primary) hypertension (9) Anemia Anemia type: unspecified type Qualified Code(s): D64.9 - Anemia, unspecified
[2023-07-11 06:34] LABS: Hematocrit (blood only) 27.3 % (42.0-52.0); Hemoglobin 9.1 g/dl (14.0-18.0); Mean Corpuscular Hemoglobin 29.4 pg (25.0-34.0); Mean Corpuscular Hgb Conc 33.3 g/dL (32.0-36.0); Mean Corpuscular Volume 88.3 fL (80.0-100.0); Mean Platelet Volume 10.6 fL (9.4-12.4); Nucleated RBC # (auto) 0.02 K/uL (0.00-0.12); Nucleated RBC % (auto) 0.4 %; Platelet Count 118 K/uL (130-400); RDW Coefficient of Variation 19.8 % (11.5-14.5); RDW Standard Deviation 59.7 fL (36.4-46.3); Red Blood Count 3.09 M/uL (4.70-6.10); White Blood Count 5.28 K/ul (4.8-10.8)
[2023-07-11] MEDS: GABAPENTIN 100 MG CAP PO SCH (06:44)
[2023-07-11 07:55] LABS: Albumin Globulin Ratio 0.5 (0.9-2); Albumin Level 1.9 gm/dl (3.4-5.0); BUN Creatinine Ratio 2.4 (10-20); Bilirubin,Total 0.6 mg/dl (0.2-1.0); Calcium 7.7 mg/dl (8.6-10.3); Creatinine Clr Calc Pharmacy 35.5 ml/min; Est GFR (African American) 30.7 ml/min; Est GFR (Non-African American) 26.5 ml/min; Potassium 3.9 mmol/L (3.5-5.1); Total Protein 5.9 gm/dl (6.0-8.3)
--- NOTE | 2023-07-11 09:10 | Nephrology Progress Note ---
Date of Service July 11, 2023 Assessment & Plan (1) ESRD on hemodialysis: Plan: * Outpatient Rx: MWF [facility] - 3.5 hours, F-180NR Qb 450/Qd 800, 3K 2.5Ca 138Na 35HCO3. EDW 92 kg * Last dialyzed yesterday for 2 L UF * Volume status is improved. Electrolyte balance is acceptable. No acute indication for HD today. Will plan next HD for Wednesday (2) Anemia: Plan: * Hgb stable at 9.1 this am * 07/07/23 Ferritin >1500 - iron held * ROSANNA provided w/ HD yesterday (3) Pancreatic lesion: Plan: * 2.9 cm complex cyst noted on CT. GI recommended outpatient evaluation with EUS. (4) Pleural effusion on right: Plan: * Thoracentesis completed 07/06 - transudate (5) Atrial fibrillation with RVR: Plan: * Remains tachycardic. On Amiodarone as per Cardiology * Has not cristy anticoagulated due to history of falls. Scheduled for a watchman procedure in [place] as outpatient Admission and Anticipated Discharge Date Admission Date: July 06, 2023 Subjective Mr. Rivers was evaluated in his hospital room this morning. He was dialyzed yesterday for 2 L UF. There were no complications. He reports that his breathing is subjectively improved. Review of Systems Constitutional: no fever Eyes: no problem reported Ear, Nose, Mouth, Throat: no problem reported Respiratory: + dyspnea; no cough, no hemoptysis and n o sputum production Cardiovascular: + palpitations; no chest pain Gastrointestinal: no abdominal pain, no nausea, no vomiting and no diarrhea/loose stools Integumentary: no problem reported Physical Exam Constitutional: not in distress Eyes: PERRL, conjunctivae normal, anicteric sclerae ENMT: external ear and nose normal, oropharynx normal Neck: trachea midline, no thyromegaly Respiratory: Auscultation: + crackles Cardiovascular: Rate/Rhythm: + tachycardic Extremities: no edema Gastrointestinal (Abdomen): normal bowel sounds, soft, nontender, no hepatosplenomegaly Neurologic: awake; not confused Results & Data Vital Signs (Past 12 Hours) Vital Signs Temp Pulse Pulse Resp BP Pulse Ox O2 Del Method 07/11/23 07:58 36.6 C 101 H 19 95/60 L 96 Room Air 07/11/23 04:26 107 H 18 99/67 L 95 Room Air 07/10/23 23:06 113 H 07/10/23 23:03 36.5 C 110 H 18 101/63 95 Room Air Laboratory Results Laboratory Results - last 24 hr 07/10/23 07/11/23 06:18 05:49 WBC 5.28 RBC 3.09 L Hgb 9.1 L Hct 27.3 L MCV 88.3 MCH 29.4 MCHC 33.3 RDW Std Deviation 59.7 H RDW Coeff of Valerie 19.8 H Plt Count 118 L MPV 10.6 Absolute Nucleated RBC 0.02 Nucleated RBC % (auto) 0.4 Sodium 138 Potassium 3.9 Chloride 106 Carbon Dioxide 29 Anion Gap 3 BUN 6 6 Creatinine 2.99 H D 2.52 H D Est Cr Clr Drug Dosing 29.9 35.5 Est GFR ( Amer) 24.9 30.7 Est GFR (Non-Af Amer) 21.5 26.5 BUN/Creatinine Ratio 2.0 L 2.4 L Glucose 83 83 Calcium 7.7 L Total Bilirubin 0.6 AST 22 ALT 8 Alkaline Phosphatase 305 H Total Protein 5.9 L Albumin 1.9 L Globulin 4.0 Albumin/Globulin Ratio 0.5 L PG Care Time/CCT Total # of Minutes Spent Total Time Spent with Patient: Total time spent is greater than 50% in coordination of care (as documented) at patient's floor/unit and/or counseling patient: Coding Level of Care Code 48786 SUB INP/OBS CARE 3/50MIN Diagnoses ESRD on hemodialysis N18.6; Z99.2 Anemia D64.9 Anemia type: unspecified type Pancreatic lesion K86.9 Pleural effusion on right J90 Atrial fibrillation with RVR I48.91 (2) Anemia Anemia type: unspecified type Qualified Code(s): D64.9 - Anemia, unspecified
[2023-07-11] MEDS: BUTT PASTE (ZINC OXIDE 16%) 171 APPLN/57 GM JAR EXT SCH (10:33)
[2023-07-11] MEDS: MENTHOL-ZINC OXIDE 360 APPLN/120 GM TUBE EXT SCH (10:33)
[2023-07-11] MEDS: MICONAZOLE NITRATE POWDER 85 GM EXT PRN (10:34)
[2023-07-11] MEDS: oxyCODONE/ACETAMINOPHEN 5mg/325mg TAB PO PRN (14:59)
--- NOTE | 2023-07-11 16:31 | Hospitalist Progress Note ---
Date of Service July 11, 2023 Assessment & Plan (1) Atrial fibrillation with RVR: (2) Hypertension: (3) Weakness: (4) Ambulatory dysfunction: (5) Hypomagnesemia: (6) ESRD on hemodialysis: (7) Alcohol abuse: (8) Elevated LFTs: (9) Anemia: (10) Anxiety: Plan: A-fib with RVR Persistent atrial fibrillation --CXR:Cardiomegaly and mild pulmonary edema. -Normal TSH --ECHO: Left ventricle is normal in size. Mild concentric LVH. Left ventricle wall motion is normal. EF 65 to 70%. Left atrium is moderately dilated. Trace mitral and tricuspid regurgitation. Dilated inferior vena cava with reduced collapsibility with sniff indicates an elevated right atrial pressure of 15 mmHg Patient did not receive metoprolol due to low BP Not on anticoagulation due to multiple falls and bleeding risk Appreciate cardiology input IV amiodarone Monitor LFTs May need watchman's procedure Plan to continue PO amiodarone 200 mg 3 times daily while hospitalized, transition to twice daily on discharge for 2 weeks and then daily If A-fib uncontrolled, will consider to reintroduce metoprolol at reduced dose per cards if BP tolerates Needs follow-up with cardiology on discharge Continue current management Rhinovirus infection Right pleural effusion/Anasarca --CT Chest:No acute posttraumatic intrathoracic abnormality is identified. There is no airspace consolidation or pneumothorax. Moderate right pleural effusion with associated atelectasis. Cardiomegaly with coronary artery atherosclerosis. Mildly enlarged mediastinal lymph nodes are nonspecific and may be reactive. Procalcitonin 1.86>1.2 Bio fire positive for Rhino infection --S/P thoracentesis on 06/10/2023 --Pleural effusion transudative in nature. --- Pleural fluid culture: Negative to date --Path: Negative for malignancy Empirically on ceftriaxone and doxycycline>> transition to cefdinir, Doxy Appreciate pulmonology help Saturating well on room air Manage volume status through dialysis Clinically improving Pancreatic cyst lesion --CT abd: Mild increase in size of a 2.9 cm cystic lesion within the pancreatic head since CT of September 16, 2022. This remains pathologically indeterminate. Considerations include mucinous cystic neoplasm versus serous cystadenoma. If not already obtained, GI consultation is --recommended. -- Will need GI follow-up for possible endoscopic ultrasound as outpatient Acute metabolic encephalopathy --CT Head:There is no hemorrhage, mass effect, or evidence of acute territorial ischemia by CT criteria noting a motion degraded examination. --Hold sedating medications as able Improved HTN Added midodrine to help with low BP Metoprolol discontinued Monitor Hypomagnesemia Hypokalemia Replace and monitor Alcohol abuse Elevated LFTs Monitor for withdrawal Continue thiamine, folic acid ESRD on HD Continue dialysis per nephrology Patient nephrology input Next dialysis tomorrow Volume status improved Falls Fall precautions PT OT as able DVT Px: SCDs Heparin SQ--monitor platelets CODE STATUS: Full code Disposition Will need rehab placement Admission and Anticipated Discharge Date Admission Date: July 06, 2023 Subjective Patient is seen and examined at bedside Less short of breath today Cough continues to improve States having chronic hip pain No confusion noted by staff Mildly tachycardic intermittently Review of Systems Review of Systems: All systems reviewed & are unremarkable except as noted in Subjective Physical Exam Physical Exam: Physical Exam: Vitals signs as noted above General Appearance:Moderately built and nourished, no apparent distress, chronically appearing Head: normocephalic, Atraumatic Eyes: normal inspection, EOMI Neck: supple, Trachea midline Respiratory/Chest: Coarse breath sounds, scattered wheeze, no accessory muscle use Cardiovascular: Irregularly irregular, No murmur Abdomen/GI:Soft, Non tender, Bowel sounds present Extremities/Musculoskeletal:normal inspection, edema Neurologic/Psych:AAOX3, grossly no focal neurological deficits Skin: normal color, warm Results & Data Results & Data Vital Signs (Past 12 Hours) Vital Signs Temp Pulse Pulse Resp BP Pulse Ox O2 Del Method 07/11/23 15:51 36.7 C 106 H 19 104/71 96 Room Air 07/11/23 14:00 105 H 07/11/23 11:40 36.6 C 99 H 17 95/59 L 96 Room Air 07/11/23 07:58 36.6 C 101 H 19 95/60 L 96 Room Air Laboratory Results Short CBC 07/11/23 Range/Units 05:49 WBC 5.28 (4.8-10.8) K/ul Hgb 9.1 L (14.0-18.0) g/dl Hct 27.3 L (42.0-52.0) % Plt Count 118 L (130-400) K/uL [facility] 07/11/23 05:49 Sodium 138 Potassium 3.9 Chloride 106 Carbon Dioxide 29 BUN 6 Creatinine 2.52 H D Glucose 83 Calcium 7.7 L Liver Function 07/11/23 Range/Units 05:49 Total Bilirubin 0.6 (0.2-1.0) mg/dl AST 22 (13-39) U/L ALT 8 (7-52) U/L Alkaline Phosphatase 305 H (34-104) U/L Albumin 1.9 L (3.4-5.0) gm/dl (2) Hypertension Hypertension type: unspecified Qualified Code(s): I10 - Essential (primary) hypertension (9) Anemia Anemia type: unspecified type Qualified Code(s): D64.9 - Anemia, unspecified
[2023-07-12 06:09] LABS: Hematocrit (blood only) 26.4 % (42.0-52.0); Hemoglobin 8.8 g/dl (14.0-18.0); Mean Corpuscular Hemoglobin 29.6 pg (25.0-34.0); Mean Corpuscular Hgb Conc 33.3 g/dL (32.0-36.0); Mean Corpuscular Volume 88.9 fL (80.0-100.0); Mean Platelet Volume 9.8 fL (9.4-12.4); Platelet Count 124 K/uL (130-400); RDW Coefficient of Variation 20.3 % (11.5-14.5); Red Blood Count 2.97 M/uL (4.70-6.10); White Blood Count 4.62 K/ul (4.8-10.8)
[2023-07-12 06:32] LABS: BUN Creatinine Ratio 2.9 (10-20); Calcium 7.6 mg/dl (8.6-10.3); Est GFR (African American) 18.4 ml/min; Est GFR (Non-African American) 15.9 ml/min; Potassium 3.7 mmol/L (3.5-5.1)
[2023-07-12] MEDS ORDERED: SODIUM CHLORIDE 0.9% 1,000 ML IV PRN (07:00)
--- NOTE | 2023-07-12 08:38 | Nephrology Progress Note ---
Date of Service July 12, 2023 Assessment & Plan (1) ESRD on hemodialysis: Plan: * Outpatient Rx: MWF [facility] - 3.5 hours, F-180NR Qb 450/Qd 800, 3K 2.5Ca 138Na 35HCO3. EDW 92 kg * Last dialyzed Wednesday for 2 L UF * Will provide HD today. Patient remains ~ 3 kg above outpatient EDW. Orders have been placed in EMR and HD RN notified (2) Anemia: Plan: * Hgb 8.8 this am * 07/07/23 Ferritin >1500 - iron held * Will provide ROSANNA w/ HD today (3) Pancreatic lesion: Plan: * 2.9 cm complex cyst noted on CT. GI recommended outpatient evaluation with EUS. (4) Pleural effusion on right: Plan: * Thoracentesis completed 07/06 - transudate (5) Atrial fibrillation with RVR: Plan: * Remains tachycardic. On Amiodarone as per Cardiology * Has not cristy anticoagulated due to history of falls. Scheduled for a watchman procedure in [place] as outpatient Admission and Anticipated Discharge Date Admission Date: July 06, 2023 Subjective Mr. Rivers was evaluated in his hospital room this morning. He reports that he is breathing comfortably on room air. He is anxious to begin PT for strengthening. Review of Systems Constitutional: no fever Eyes: no problem reported Ear, Nose, Mouth, Throat: no problem reported Respiratory: + dyspnea; no cough, no hemoptysis and n o sputum production Cardiovascular: + palpitations; no chest pain Gastrointestinal: no abdominal pain, no nausea, no vomiting and no diarrhea/loose stools Integumentary: no problem reported Physical Exam Constitutional: not in distress Eyes: PERRL, conjunctivae normal, anicteric sclerae ENMT: external ear and nose normal, oropharynx normal Neck: trachea midline, no thyromegaly Respiratory: Auscultation: + crackles Cardiovascular: Rate/Rhythm: regular rate and regular rhythm Extremities: no edema Gastrointestinal (Abdomen): normal bowel sounds, soft, nontender, no hepatosplenomegaly Neurologic: awake; not confused Results & Data Vital Signs (Past 12 Hours) Vital Signs Temp Pulse Pulse Resp BP Pulse Ox O2 Del Method 07/12/23 08:03 Room Air 07/12/23 07:55 36.5 C 93 H 18 98/65 L 97 Room Air 07/12/23 07:34 95 H 07/12/23 02:27 36.7 C 94 H 18 100/67 94 Room Air 07/12/23 01:48 96 H 07/12/23 00:00 Room Air 07/11/23 21:00 36.7 C 74 18 100/62 96 Room Air Laboratory Results Laboratory Results - last 24 hr 07/12/23 05:52 WBC 4.62 L RBC 2.97 L Hgb 8.8 L Hct 26.4 L MCV 88.9 MCH 29.6 MCHC 33.3 RDW Std Deviation 62.0 H RDW Coeff of Valerie 20.3 H Plt Count 124 L MPV 9.8 Sodium 137 Potassium 3.7 Chloride 107 Carbon Dioxide 26 Anion Gap 4 BUN 11 Creatinine 3.84 H D Est Cr Clr Drug Dosing 23.0 Est GFR ( Amer) 18.4 Est GFR (Non-Af Amer) 15.9 BUN/Creatinine Ratio 2.9 L Glucose 79 Calcium 7.6 L PG Care Time/CCT Total # of Minutes Spent Total Time Spent with Patient: Total time spent is greater than 50% in coordination of care (as documented) at patient's floor/unit and/or counseling patient: Coding Level of Care Code 76276 SUB INP/OBS CARE 350MIN Diagnoses ESRD on hemodialysis N18.6; Z99.2 Anemia D64.9 Anemia type: unspecified type Pancreatic lesion K86.9 Pleural effusion on right J90 Atrial fibrillation with RVR I48.91 (2) Anemia Anemia type: unspecified type Qualified Code(s): D64.9 - Anemia, unspecified
[2023-07-12] MEDS: diphenhydrAMINE 50 MG/ML VIAL IV ONE (08:40)
[2023-07-12] MEDS: diphenhydrAMINE 50 MG/ML VIAL IV STA (08:40)
[2023-07-12] MEDS: MIDODRINE HCL 2.5 MG TAB PO ONE (08:40)
[2023-07-12] MEDS: HEPARIN SOD (PORCINE) 1000 UNIT/ML IV ONE (09:50)
[2023-07-12] MEDS: EPOETIN ALFA 10,000 UNITS/ML VIAL IV ONE (10:33)
[2023-07-12] MEDS: THIAMINE HCL 100 MG TAB PO SCH (13:10)
--- NOTE | 2023-07-12 18:03 | Hospitalist Progress Note ---
Date of Service July 12, 2023 Assessment & Plan (1) Atrial fibrillation with RVR: (2) Hypertension: (3) Weakness: (4) Ambulatory dysfunction: (5) Hypomagnesemia: (6) ESRD on hemodialysis: (7) Alcohol abuse: (8) Elevated LFTs: (9) Anemia: (10) Anxiety: Plan: A-fib with RVR Persistent atrial fibrillation --CXR:Cardiomegaly and mild pulmonary edema. -Normal TSH --ECHO: Left ventricle is normal in size. Mild concentric LVH. Left ventricle wall motion is normal. EF 65 to 70%. Left atrium is moderately dilated. Trace mitral and tricuspid regurgitation. Dilated inferior vena cava with reduced collapsibility with sniff indicates an elevated right atrial pressure of 15 mmHg Patient did not receive metoprolol due to low BP Not on anticoagulation due to multiple falls and bleeding risk Appreciate cardiology input IV amiodarone Monitor LFTs May need watchman's procedure Plan to continue PO amiodarone 200 mg 3 times daily while hospitalized, transition to twice daily on discharge for 2 weeks and then daily If A-fib uncontrolled, will consider to reintroduce metoprolol at reduced dose per cards if BP tolerates Needs follow-up with cardiology on discharge Blood pressure remains low, cannot resume metoprolol Rhinovirus infection Sepsis-POA Right pleural effusion/Anasarca --CT Chest:No acute posttraumatic intrathoracic abnormality is identified. There is no airspace consolidation or pneumothorax. Moderate right pleural effusion with associated atelectasis. Cardiomegaly with coronary artery atherosclerosis. Mildly enlarged mediastinal lymph nodes are nonspecific and may be reactive. Procalcitonin 1.86>1.2 Bio fire positive for Rhino infection --S/P thoracentesis on 06/10/2023 --Pleural effusion transudative in nature. --- Pleural fluid culture: Negative to date --Path: Negative for malignancy Empirically on ceftriaxone and doxycycline>> transition to cefdinir, Doxy Appreciate pulmonology help Saturating well on room air Manage volume status through dialysis Clinically improving Continue current antibiotics Pancreatic cyst lesion --CT abd: Mild increase in size of a 2.9 cm cystic lesion within the pancreatic head since CT of September 16, 2022. This remains pathologically indeterminate. Considerations include mucinous cystic neoplasm versus serous cystadenoma. If not already obtained, GI consultation is --recommended. -- Will need GI follow-up for possible endoscopic ultrasound as outpatient Acute metabolic encephalopathy --CT Head:There is no hemorrhage, mass effect, or evidence of acute territorial ischemia by CT criteria noting a motion degraded examination. --Hold sedating medications as able Improved HTN Added midodrine to help with low BP Metoprolol discontinued Monitor Hypomagnesemia Hypokalemia Replace and monitor Alcohol abuse Elevated LFTs Monitor for withdrawal Continue thiamine, folic acid ESRD on HD Continue dialysis per nephrology Patient nephrology input Next dialysis tomorrow Volume status improved Falls Fall precautions PT OT as able DVT Px: SCDs Heparin SQ--monitor platelets CODE STATUS: Full code Disposition Needs rehab Admission and Anticipated Discharge Date Admission Date: July 06, 2023 Subjective Patient is seen and examined at bedside Was having dialysis during my encounter Drowsy today Hip pain is controlled No other complaints Review of Systems Review of Systems: All systems reviewed & are unremarkable except as noted in Subjective Physical Exam Physical Exam: Physical Exam: Vitals signs as noted above General Appearance:Moderately built and nourished, no apparent distress, chronically appearing Head: normocephalic, Atraumatic Eyes: normal inspection, EOMI Neck: supple, Trachea midline Respiratory/Chest: Coarse breath sounds, scattered wheeze, no accessory muscle use Cardiovascular: Irregularly irregular, No murmur Abdomen/GI:Soft, Non tender, Bowel sounds present Extremities/Musculoskeletal:normal inspection, edema Neurologic/Psych:AAOX3, grossly no focal neurological deficits Skin: normal color, warm Results & Data Results & Data Vital Signs (Past 12 Hours) Vital Signs Temp Pulse Pulse Resp BP BP Pulse Ox 07/12/23 15:46 108 H 07/12/23 15:28 36.3 C L 109 H 18 96/64 L 97 07/12/23 13:17 36.7 C 98 H 16 95/64 L 94 07/12/23 13:00 36.4 C L 92 H 88/51 L 07/12/23 12:30 90 83/65 L 07/12/23 12:00 89 77/46 L 07/12/23 11:30 92 H 92/61 L 07/12/23 11:15 95 H 85/60 L 07/12/23 11:00 97 H 71/42 L 07/12/23 10:30 106 H 96/72 L 07/12/23 10:00 98 H 94/57 L 07/12/23 09:45 108 H 89/59 L 07/12/23 09:30 94 H 101/65 07/12/23 09:13 120 H 89/65 L 07/12/23 09:10 36.3 C L 115 H 07/12/23 08:03 07/12/23 07:55 36.5 C 93 H 18 98/65 L 97 07/12/23 07:34 95 H O2 Del Method 07/12/23 15:46 07/12/23 15:28 Room Air 07/12/23 13:17 Room Air 07/12/23 13:00 07/12/23 12:30 07/12/23 12:00 07/12/23 11:30 07/12/23 11:15 07/12/23 11:00 07/12/23 10:30 07/12/23 10:00 07/12/23 09:45 07/12/23 09:30 07/12/23 09:13 07/12/23 09:10 07/12/23 08:03 Room Air 07/12/23 07:55 Room Air 07/12/23 07:34 Laboratory Results Short CBC 07/12/23 Range/Units 05:52 WBC 4.62 L (4.8-10.8) K/ul Hgb 8.8 L (14.0-18.0) g/dl Hct 26.4 L (42.0-52.0) % Plt Count 124 L (130-400) K/uL BMP 07/12/23 05:52 Sodium 137 Potassium 3.7 Chloride 107 Carbon Dioxide 26 BUN 11 Creatinine 3.84 H D Glucose 79 Calcium 7.6 L (2) Hypertension Hypertension type: unspecified Qualified Code(s): I10 - Essential (primary) hypertension (9) Anemia Anemia type: unspecified type Qualified Code(s): D64.9 - Anemia, unspecified
[2023-07-13 06:28] LABS: BUN Creatinine Ratio 2.6 (10-20); Creatinine Clr Calc Pharmacy 28.8 ml/min; Est GFR (African American) 24.2 ml/min; Est GFR (Non-African American) 20.8 ml/min; Potassium 3.7 mmol/L (3.5-5.1)
--- NOTE | 2023-07-13 09:01 | Nephrology Progress Note ---
Date of Service July 13, 2023 Assessment & Plan (1) ESRD on hemodialysis: Plan: * Outpatient Rx: MWF [facility] - 3.5 hours, F-180NR Qb 450/Qd 800, 3K 2.5Ca 138Na 35HCO3. EDW 92 kg * Last dialyzed 07/12/23 for 1946 cc UF * Volume status and electrolyte balance are acceptable. No acute indication for HD today. Will plan next treatent for 07/14/23 (2) Anemia: Plan: * Hgb 8.8 this am * 07/07/23 Ferritin >1500 - iron held * Will provide ROSANNA w/ HD tomorrow (3) Pancreatic lesion: Plan: * 2.9 cm complex cyst noted on CT. GI recommended outpatient evaluation with EUS. (4) Pleural effusion on right: Plan: * Thoracentesis completed 07/06 - transudate (5) Atrial fibrillation with RVR: Plan: * Remains tachycardic. On Amiodarone as per Cardiology * Has not cristy anticoagulated due to history of falls. Scheduled for a watchman procedure in [place] as outpatient Admission and Anticipated Discharge Date Admission Date: July 06, 2023 Subjective Mr. Rivers was evaluated in his hospital room this morning. He reports that he is breathing comfortably on room air. He is anxious to resume PT for strengthening. Review of Systems Constitutional: no fever Eyes: no problem reported Ear, Nose, Mouth, Throat: no problem reported Respiratory: + dyspnea; no cough, no hemoptysis and n o sputum production Cardiovascular: + palpitations; no chest pain Gastrointestinal: no abdominal pain, no nausea, no vomiting and no diarrhea/loose stools Integumentary: no problem reported Physical Exam Constitutional: not in distress Eyes: PERRL, conjunctivae normal, anicteric sclerae ENMT: external ear and nose normal, oropharynx normal Neck: trachea midline, no thyromegaly Respiratory: Auscultation: + crackles Cardiovascular: Rate/Rhythm: regular rate, regular rhythm and + tachycardic Extremities: no edema Gastrointestinal (Abdomen): normal bowel sounds, soft, nontender, no hepatosplenomegaly Neurologic: awake; not confused Results & Data Vital Signs (Past 12 Hours) Vital Signs Temp Pulse Pulse Resp BP Pulse Ox O2 Del Method 07/13/23 08:15 106 H 06/04/24 08:01 Room Air 07/13/23 07:14 36.5 C 100 H 17 105/70 96 Room Air 07/13/23 02:54 36.7 C 93 H 19 95/61 L 94 Room Air 07/12/23 23:14 115 H 07/12/23 22:54 36.6 C 104 H 18 101/64 94 Room Air Laboratory Results Laboratory Results - last 24 hr 07/13/23 05:28 Sodium 137 Potassium 3.7 Chloride 105 Carbon Dioxide 27 Anion Gap 5 BUN 8 Creatinine 3.07 H D Est Cr Clr Drug Dosing 28.8 Est GFR ( Amer) 24.2 Est GFR (Non-Af Amer) 20.8 BUN/Creatinine Ratio 2.6 L Glucose 72 Calcium 8.0 L PG Care Time/CCT Total # of Minutes Spent Total Time Spent with Patient: Total time spent is greater than 50% in coordination of care (as documented) at patient's floor/unit and/or counseling patient: Coding Level of Care Code 32563 SUB INP/OBS CARE 3/50MIN Diagnoses ESRD on hemodialysis N18.6; Z99.2 Anemia D64.9 Anemia type: unspecified type Pancreatic lesion K86.9 Pleural effusion on right J90 Atrial fibrillation with RVR I48.91 (2) Anemia Anemia type: unspecified type Qualified Code(s): D64.9 - Anemia, unspecified
--- NOTE | 2023-07-13 16:12 | Hospitalist Progress Note ---
Date of Service July 13, 2023 Assessment & Plan (1) Atrial fibrillation with RVR: (2) Hypertension: (3) Weakness: (4) Ambulatory dysfunction: (5) Hypomagnesemia: (6) ESRD on hemodialysis: (7) Alcohol abuse: (8) Elevated LFTs: (9) Anemia: (10) Anxiety: Plan: A-fib with RVR Persistent atrial fibrillation --CXR:Cardiomegaly and mild pulmonary edema. -Normal TSH --ECHO: Left ventricle is normal in size. Mild concentric LVH. Left ventricle wall motion is normal. EF 65 to 70%. Left atrium is moderately dilated. Trace mitral and tricuspid regurgitation. Dilated inferior vena cava with reduced collapsibility with sniff indicates an elevated right atrial pressure of 15 mmHg Patient did not receive metoprolol due to low BP Not on anticoagulation due to multiple falls and bleeding risk Appreciate cardiology input IV amiodarone Monitor LFTs May need watchman's procedure Plan to continue PO amiodarone 200 mg 3 times daily while hospitalized, transition to twice daily on discharge for 2 weeks and then daily If A-fib uncontrolled, will consider to reintroduce metoprolol at reduced dose per cards if BP tolerates Needs follow-up with cardiology on discharge Blood pressure slightly better today Rhinovirus infection Sepsis-POA Right pleural effusion/Anasarca --CT Chest:No acute posttraumatic intrathoracic abnormality is identified. There is no airspace consolidation or pneumothorax. Moderate right pleural effusion with associated atelectasis. Cardiomegaly with coronary artery atherosclerosis. Mildly enlarged mediastinal lymph nodes are nonspecific and may be reactive. Procalcitonin 1.86>1.2 Bio fire positive for Rhino infection --S/P thoracentesis on 06/10/2023 --Pleural effusion transudative in nature. --- Pleural fluid culture: Negative to date --Path: Negative for malignancy Empirically on ceftriaxone and doxycycline>> transition to cefdinir, Doxy Appreciate pulmonology help Saturating well on room air Manage volume status through dialysis Clinically improved Complete p.o. antibiotic course in 1 to 2-days Pancreatic cyst lesion --CT abd: Mild increase in size of a 2.9 cm cystic lesion within the pancreatic head since CT of September 16, 2022. This remains pathologically indeterminate. Considerations include mucinous cystic neoplasm versus serous cystadenoma. If not already obtained, GI consultation is --recommended. -- Will need GI follow-up for possible endoscopic ultrasound as outpatient Acute metabolic encephalopathy --CT Head:There is no hemorrhage, mass effect, or evidence of acute territorial ischemia by CT criteria noting a motion degraded examination. --Hold sedating medications as able Improved HTN Added midodrine to help with low BP Metoprolol discontinued Monitor Hypomagnesemia Hypokalemia Replace and monitor Alcohol abuse Elevated LFTs Monitor for withdrawal Continue thiamine, folic acid Completed gabapentin protocol No signs of acute withdrawal currently ESRD on HD Volume status improved Plan for dialysis tomorrow Appreciate nephrology input Falls Fall precautions PT OT as able DVT Px: SCDs Heparin SQ CODE STATUS: Full code Disposition Needs rehab Admission and Anticipated Discharge Date Admission Date: July 06, 2023 Subjective Patient is seen and examined at bedside Subjectively feels about same as yesterday No significant cough today Dyspnea same as yesterday Plan for dialysis tomorrow Feels not ready for discharge today Saturating well on room Review of Systems Review of Systems: All systems reviewed & are unremarkable except as noted in Subjective Physical Exam Physical Exam: Physical Exam: Vitals signs as noted above General Appearance:Moderately built and nourished, no apparent distress, chronically appearing Head: normocephalic, Atraumatic Eyes: normal inspection, EOMI Neck: supple, Trachea midline Respiratory/Chest: Coarse breath sounds, scattered wheeze, no accessory muscle use Cardiovascular: Irregularly irregular, No murmur Abdomen/GI:Soft, Non tender, Bowel sounds present Extremities/Musculoskeletal:normal inspection, edema Neurologic/Psych:AAOX3, grossly no focal neurological deficits Skin: normal color, warm Results & Data Results & Data Vital Signs (Past 12 Hours) Vital Signs Temp Pulse Pulse Resp BP Pulse Ox O2 Del Method 07/13/23 14:58 36.8 C 96 H 17 101/66 96 Room Air 07/13/23 11:35 36.5 C 108 H 19 101/65 98 Room Air 07/13/23 08:15 106 H 07/13/23 08:01 Room Air 07/13/23 07:14 36.5 C 100 H 17 105/70 96 Room Air Laboratory Results [facility] 07/13/23 05:28 Sodium 137 Potassium 3.7 Chloride 105 Carbon Dioxide 27 BUN 8 Creatinine 3.07 H D Glucose 72 Calcium 8.0 L (2) Hypertension Hypertension type: unspecified Qualified Code(s): I10 - Essential (primary) hypertension (9) Anemia Anemia type: unspecified type Qualified Code(s): D64.9 - Anemia, unspecified
[2023-07-14 06:34] LABS: Hematocrit (blood only) 31.1 % (42.0-52.0); Hemoglobin 10.2 g/dl (14.0-18.0); Mean Corpuscular Hemoglobin 29.7 pg (25.0-34.0); Mean Corpuscular Hgb Conc 32.8 g/dL (32.0-36.0); Mean Corpuscular Volume 90.7 fL (80.0-100.0); Mean Platelet Volume 9.9 fL (9.4-12.4); Nucleated RBC # (auto) 0.02 K/uL (0.00-0.12); Nucleated RBC % (auto) 0.4 %; Platelet Count 129 K/uL (130-400); RDW Coefficient of Variation 21.1 % (11.5-14.5); RDW Standard Deviation 67.5 fL (36.4-46.3); Red Blood Count 3.43 M/uL (4.70-6.10); White Blood Count 4.45 K/ul (4.8-10.8)
[2023-07-14 06:57] LABS: BUN Creatinine Ratio 3.1 (10-20); Calcium 7.6 mg/dl (8.6-10.3); Creatinine Clr Calc Pharmacy 21.2 ml/min; Est GFR (African American) 16.7 ml/min; Est GFR (Non-African American) 14.4 ml/min; Potassium 3.3 mmol/L (3.5-5.1)
[2023-07-14] MEDS ORDERED: SODIUM CHLORIDE 0.9% 1,000 ML IV PRN (07:00)
--- NOTE | 2023-07-14 08:33 | Hospitalist Progress Note ---
Date of Service July 14, 2023 Assessment & Plan (1) Atrial fibrillation with RVR: (2) Hypertension: (3) Weakness: (4) Ambulatory dysfunction: (5) Hypomagnesemia: (6) ESRD on hemodialysis: (7) Alcohol abuse: (8) Elevated LFTs: (9) Anemia: (10) Anxiety: Plan: A-fib with RVR Persistent atrial fibrillation --CXR:Cardiomegaly and mild pulmonary edema. -Normal TSH --ECHO: Left ventricle is normal in size. Mild concentric LVH. Left ventricle wall motion is normal. EF 65 to 70%. Left atrium is moderately dilated. Trace mitral and tricuspid regurgitation. Dilated inferior vena cava with reduced collapsibility with sniff indicates an elevated right atrial pressure of 15 mmHg Patient did not receive metoprolol due to low BP Not on anticoagulation due to multiple falls and bleeding risk Appreciate cardiology input IV amiodarone Monitor LFTs May need watchman's procedure Plan to continue PO amiodarone 200 mg 3 times daily while hospitalized, transition to twice daily on discharge for 2 weeks and then daily If A-fib uncontrolled, will consider to reintroduce metoprolol at reduced dose per cards if BP tolerates (reintroduction of metoprolol succinate at 12.5 milligrams per day) Needs follow-up with cardiology on discharge Rhinovirus infection Sepsis-POA Right pleural effusion/Anasarca --CT Chest:No acute posttraumatic intrathoracic abnormality is identified. There is no airspace consolidation or pneumothorax. Moderate right pleural effusion with associated atelectasis. Cardiomegaly with coronary artery atherosclerosis. Mildly enlarged mediastinal lymph nodes are nonspecific and may be reactive. Procalcitonin 1.86>1.2 Bio fire positive for Rhino infection --S/P thoracentesis on 07/07/2023 --Pleural effusion transudative in nature. --- Pleural fluid culture: Negative to date --Path: Negative for malignancy Empirically on ceftriaxone and doxycycline>> transitioned to cefdinir, Doxy Appreciate pulmonology- consulted Saturating well on room air Manage volume status through dialysis Clinically improved Complete p.o. antibiotic course in 1 to 2-days Pancreatic cyst lesion --CT abd: Mild increase in size of a 2.9 cm cystic lesion within the pancreatic head since CT of September 16, 2022. This remains pathologically indeterminate. Considerations include mucinous cystic neoplasm versus serous cystadenoma. If not already obtained, GI consultation is --recommended. -- Will need GI follow-up for possible endoscopic ultrasound as outpatient Acute metabolic encephalopathy --CT Head:There is no hemorrhage, mass effect, or evidence of acute territorial ischemia by CT criteria noting a motion degraded examination. --Hold sedating medications as able Improved HTN Added midodrine to help with low BP Metoprolol discontinued Monitor Hypomagnesemia Hypokalemia Replace and monitor Alcohol abuse Elevated LFTs Monitor for withdrawal Continue thiamine, folic acid Completed gabapentin protocol No signs of acute withdrawal currently ESRD on HD Volume status improved HD today 07/14/23 Appreciate nephrology input Falls Fall precautions PT OT as able DVT Px: SCDs Heparin SQ CODE STATUS: Full code Disposition Needs rehab Admission and Anticipated Discharge Date Admission Date: July 06, 2023 Subjective Patient seen in follow up of afib, esrd on HD, + rhinovirus, pl. effusion s/p thoracentesis Pt seen on HD, laying down, resting, says he feels week overall No significant cough today No chest pain, abd. pain, saturating well on RA Discussed rehab Review of Systems Review of Systems: All systems reviewed & are unremarkable except as noted in Subjective Physical Exam Physical Exam: General Appearance:Moderately built and nourished, no apparent distress, chronically appearing Head: NC/AT Eyes: normal inspection, EOMI Neck: supple Respiratory/Chest: + basilar crackles, no accessory muscle use Cardiovascular: Irregularly irregular, No murmur Abdomen/GI:Soft, Non tender, Bowel sounds present Extremities/Musculoskeletal:normal inspection, edema Neurologic/Psych:AAOX3, grossly no focal neurological deficits Skin: normal color, warm Results & Data Results & Data Vital Signs (Past 12 Hours) Vital Signs Temp Pulse Pulse Resp BP Pulse Ox O2 Del Method 07/14/23 08:14 36.5 C 93 H 18 112/72 99 Room Air 07/14/23 08:02 100 H 07/14/23 02:08 36.5 C 94 H 18 111/72 97 Room Air 07/13/23 22:59 95 H 07/13/23 22:34 36.7 C 93 H 18 110/72 96 Room Air Laboratory Results 07/14/23 Range/Units 06:06 WBC 4.45 L (4.8-10.8) K/ul RBC 3.43 L (4.70-6.10) M/uL Hgb 10.2 L (14.0-18.0) g/dl Hct 31.1 L (42.0-52.0) % MCV 90.7 (80.0-100.0) fL MCH 29.7 (25.0-34.0) pg MCHC 32.8 (32.0-36.0) g/dL RDW Std Deviation 67.5 H (36.4-46.3) fL RDW Coeff of Valerie 21.1 H (11.5-14.5) % Plt Count 129 L (130-400) K/uL MPV 9.9 (9.4-12.4) fL Absolute Nucleated RBC 0.02 (0.00-0.12) K/uL Nucleated RBC % (auto) 0.4 % Sodium 137 (136-145) mmol/L Potassium 3.3 L (3.5-5.1) mmol/L Chloride 105 (98-107) mmol/L Carbon Dioxide 25 (21-32) mmol/L Anion Gap 7 (3-11) BUN 13 (6-23) mg/dl Creatinine 4.17 H D (0.6-1.4) mg/dl Est Cr Clr Drug Dosing 21.2 ml/min Est GFR ( Amer) 16.7 ml/min Est GFR (Non-Af Amer) 14.4 ml/min BUN/Creatinine Ratio 3.1 L (10-20) Glucose 82 (70-99(Fasting)) mg/dl Calcium 7.6 L (8.6-10.3) mg/dl Medications Administered Current Inpatient Medications Acetaminophen (Acetaminophen 325 Mg Tab) 650 mg PO Q4H PRN PRN Reason: Moderate Pain (Scale 4, 5, 6) Stop: 08/05/23 19:06 Amiodarone HCl (Amiodarone 200 Mg Tab) 200 mg PO TIDM USAMA Stop: 08/07/23 11:59 Last Admin: 07/13/23 17:41 Dose: 200 mg Calamine/Phenol (Menthol-Zinc Oxide 360 Appln/120 Gm Tube) 1 appln EXT UD USAMA Stop: 08/10/23 09:44 Last Admin: 07/11/23 20:39 Dose: 1 appln Cefdinir (Cefdinir 300 Mg Cap) 300 mg PO Q2D@1600 USAMA; Protocol Stop: 07/14/23 16:01 Last Admin: 07/12/23 17:00 Dose: 300 mg Doxycycline Hyclate (Doxycycline Hyclate 100 Mg Cap) 100 mg PO BID [facility] Stop: 07/16/23 23:44 Last Admin: 07/13/23 20:22 Dose: 100 mg Folic Acid (Folic Acid 1 Mg Tab) 1 mg PO QAM [facility] Stop: 08/07/23 08:59 Last Admin: 07/13/23 09:08 Dose: 1 mg Heparin Sodium (Porcine) (Heparin Sod 5,000 Unit/0.5 Ml Vial) 5,000 units SQ Q12 [facility] Stop: 08/08/23 20:59 Last Admin: 07/13/23 20:22 Dose: Not Given Lorazepam 1 mg/ Syringe 1 mls @ 2 mls/min IV ONE PRN; Protocol PRN Reason: EtoH Withdrawal AWSS 6-10 Lorazepam 1 mg/ Syringe 1 mls @ 2 mls/min IV UD PRN; Protocol PRN Reason: EtOH Withdrawal AWSS Score 6,7 Stop: 08/07/23 06:30 Lorazepam 2 mg/ Syringe 2 mls @ 2 mls/min IV UD PRN; Protocol PRN Reason: EtOH Withdrawal AWSS Score 8,9 Stop: 08/07/23 06:30 Sodium Chloride (Nss) 1,000 mls @ 0 mls/hr IV .Q0M PRN PRN Reason: For Hemodialysis Use ONLY Stop: 07/14/23 12:59 Levalbuterol HCl (Levalbuterol Hcl 0.63 Mg/3 Ml Neb) 0.63 mg NEB Q6H PRN; Protocol PRN Reason: Shortness Of Breath Or Wheezing Stop: 08/09/23 09:16 Lidocaine/Prilocaine (Lidocaine/Prilocaine 2.5% Ea Crm) 1 each EXT PRE-TREAT [facility] Stop: 08/10/23 05:59 Last Admin: 07/13/23 05:17 Dose: Not Given Loperamide HCl (Loperamide Hcl 2 Mg Cap) 2 mg PO UD PRN PRN Reason: Diarrhea Stop: 08/08/23 20:19 Last Admin: 07/13/23 17:41 Dose: 2 mg Lorazepam (Lorazepam 1 Mg Tab) 1 mg PO ONE PRN; Protocol PRN Reason: EtoH Withdrawal AWSS6,7,8,9,10 Magnesium Chloride (Magnesium Chloride W/Calcium 64mg Delayed Rel Tab) 64 mg PO BID [facility] Stop: 08/06/23 09:44 Last Admin: 07/13/23 20:22 Dose: 64 mg Melatonin (Melatonin 3 Mg Tab) 3 mg PO HS PRN PRN Reason: Sleep Stop: 08/06/23 22:55 Last Admin: 07/08/23 00:36 Dose: 3 mg Miconazole Nitrate (Miconazole Nitrate Powder 85 Gm) 1 appln EXT PRN PRN PRN Reason: Affected Skin Folds Stop: 08/10/23 09:42 Last Admin: 07/11/23 10:34 Dose: 1 appln Midodrine (Midodrine Hcl 2.5 Mg Tab) 2.5 mg PO TID@0800,1200,1700 [facility] Stop: 08/08/23 16:59 Last Admin: 07/13/23 17:43 Dose: 2.5 mg Ondansetron HCl (Ondansetron Inj 2 Mg/Ml 2 Ml Vial) 4 mg IV Q4H PRN PRN Reason: Nausea And Vomiting Stop: 08/05/23 19:06 Oxycodone/Acetaminophen (Oxycodone/Acetaminophen 5mg/325mg Tab) 1 tab PO Q8H PRN PRN Reason: Severe Pain (Scale 7, 8, 9,10) Stop: 07/25/23 12:52 Last Admin: 07/13/23 17:40 Dose: 1 tab Pantoprazole Sodium (Pantoprazole 40 Mg Tab) 40 mg PO BID [facility] Stop: 08/05/23 20:59 Last Admin: 07/13/23 20:23 Dose: 40 mg Petrolatum (Butt Paste (Zinc Oxide 16%) 171 Appln/57 Gm Jar) 1 appln EXT BID [facility] Stop: 08/10/23 09:44 Last Admin: 07/13/23 20:23 Dose: 1 appln Sertraline HCl (Sertraline Hcl 100 Mg Tablet) 100 mg PO DAILY [facility] Stop: 08/06/23 08:59 Last Admin: 07/13/23 09:08 Dose: 100 mg Thiamine HCl (Thiamine Hcl 100 Mg Tab) 100 mg PO QAM [facility] Stop: 08/11/23 08:59 Last Admin: 07/13/23 09:07 Dose: 100 mg Zolpidem Tartrate (Zolpidem Tartrate 5 Mg Tab) 5 mg PO HS PRN PRN Reason: Insomnia Stop: 08/06/23 19:48 Last Admin: 07/13/23 20:23 Dose: 5 mg (2) Hypertension Hypertension type: unspecified Qualified Code(s): I10 - Essential (primary) hypertension (9) Anemia Anemia type: unspecified type Qualified Code(s): D64.9 - Anemia, unspecified
--- NOTE | 2023-07-14 08:48 | Nephrology Progress Note ---
Date of Service July 14, 2023 Assessment & Plan (1) ESRD on hemodialysis: Plan: * Outpatient Rx: MWF [facility] - 3.5 hours, F-180NR Qb 450/Qd 800, 3K 2.5Ca 138Na 35HCO3. EDW 92 kg * Will provide HD today to maintain MWF schedule. Orders have been entered into EMR and HD RN notified (2) Anemia: Plan: * Hgb improved to 10.2 this am * Will provide ROSANNA w/ HD today (3) Pancreatic lesion: Plan: * 2.9 cm complex cyst noted on CT. GI recommended outpatient evaluation with EUS. (4) Pleural effusion on right: Plan: * Thoracentesis completed 07/06 - transudate (5) Atrial fibrillation with RVR: Plan: * Resting HR improved. On Amiodarone as per Cardiology * Has not cristy anticoagulated due to history of falls. Scheduled for a watchman procedure in [place] as outpatient Admission and Anticipated Discharge Date Admission Date: July 06, 2023 Subjective Mr. Rivers was evaluated in his hospital room this morning. He reports that he is breathing comfortably on room air. He reports new onset diarrhea Review of Systems Constitutional: no fever Eyes: no problem reported Ear, Nose, Mouth, Throat: no problem reported Respiratory: + dyspnea; no cough, no hemoptysis and n o sputum production Cardiovascular: + palpitations; no chest pain Gastrointestinal: + diarrhea/loose stools; no abdominal pa in, no nausea and no vomiting Integumentary: no problem reported Physical Exam Constitutional: not in distress Eyes: PERRL, conjunctivae normal, anicteric sclerae ENMT: external ear and nose normal, oropharynx normal Neck: trachea midline, no thyromegaly Respiratory: Auscultation: + crackles Cardiovascular: Rate/Rhythm: regular rate, regular rhythm and + tachycardic Extremities: no edema Gastrointestinal (Abdomen): normal bowel sounds, soft, nontender, no hepatosplenomegaly Neurologic: awake; not confused Results & Data Vital Signs (Past 12 Hours) Vital Signs Temp Pulse Pulse Resp BP Pulse Ox O2 Del Method 07/14/23 08:14 36.5 C 93 H 18 112/72 99 Room Air 07/14/23 08:02 100 H 07/14/23 02:08 36.5 C 94 H 18 111/72 97 Room Air 07/13/23 22:59 95 H 07/13/23 22:34 36.7 C 93 H 18 110/72 96 Room Air Laboratory Results Laboratory Results - last 24 hr 07/14/23 06:06 WBC 4.45 L RBC 3.43 L Hgb 10.2 L Hct 31.1 L MCV 90.7 MCH 29.7 MCHC 32.8 RDW Std Deviation 67.5 H RDW Coeff of Valerie 21.1 H Plt Count 129 L MPV 9.9 Absolute Nucleated RBC 0.02 Nucleated RBC % (auto) 0.4 Sodium 137 Potassium 3.3 L Chloride 105 Carbon Dioxide 25 Anion Gap 7 BUN 13 Creatinine 4.17 H D Est Cr Clr Drug Dosing 21.2 Est GFR ( Amer) 16.7 Est GFR (Non-Af Amer) 14.4 BUN/Creatinine Ratio 3.1 L Glucose 82 Calcium 7.6 L PG Care Time/CCT Total # of Minutes Spent Total Time Spent with Patient: Total time spent is greater than 50% in coordination of care (as documented) at patient's floor/unit and/or counseling patient: Coding Level of Care Code 53589 SUB INP/OBS CARE 3/50MIN Diagnoses ESRD on hemodialysis N18.6; Z99.2 Anemia D64.9 Anemia type: unspecified type Pancreatic lesion K86.9 Pleural effusion on right J90 Atrial fibrillation with RVR I48.91 (2) Anemia Anemia type: unspecified type Qualified Code(s): D64.9 - Anemia, unspecified
[2023-07-14] MEDS: MIDODRINE HCL 2.5 MG TAB PO ONE (13:27)
[2023-07-14] MEDS: diphenhydrAMINE 50 MG/ML VIAL IV ONE (13:32)
[2023-07-14] MEDS: diphenhydrAMINE 50 MG/ML VIAL ONE (13:36)
[2023-07-14] MEDS: HEPARIN SOD (PORCINE) 1000 UNIT/ML IV ONE (14:10)
[2023-07-14] MEDS: EPOETIN ALFA 10,000 UNITS/ML VIAL IV ONE (14:33)
[2023-07-14] MEDS: ADVANCED PROBIOTIC 625 MG CAPSULE PO SCH (18:06)
[2023-07-15 06:29] LABS: Hematocrit (blood only) 27.9 % (42.0-52.0); Hemoglobin 9.3 g/dl (14.0-18.0); Mean Corpuscular Hemoglobin 29.5 pg (25.0-34.0); Mean Corpuscular Hgb Conc 33.3 g/dL (32.0-36.0); Mean Corpuscular Volume 88.6 fL (80.0-100.0); Mean Platelet Volume 10.2 fL (9.4-12.4); Platelet Count 115 K/uL (130-400); RDW Coefficient of Variation 21.2 % (11.5-14.5); RDW Standard Deviation 66.7 fL (36.4-46.3); Red Blood Count 3.15 M/uL (4.70-6.10); White Blood Count 3.56 K/ul (4.8-10.8)
[2023-07-15 07:22] LABS: Calcium 7.4 mg/dl (8.6-10.3); Magnesium 1.8 mg/dl (1.7-2.4); Potassium 3.3 mmol/L (3.5-5.1)
[2023-07-15 07:28] LABS: BUN Creatinine Ratio 2.6 (10-20); Creatinine Clr Calc Pharmacy 28.4 ml/min; Est GFR (African American) 23.8 ml/min; Est GFR (Non-African American) 20.5 ml/min; Phosphorus 2.5 mg/dl (2.5-4.9)
[2023-07-15] MEDS: CEFDINIR 300 MG CAP PO SCH (08:36)
--- NOTE | 2023-07-15 08:50 | Nephrology Progress Note ---
Date of Service July 15, 2023 Assessment & Plan (1) ESRD on hemodialysis: Plan: * Outpatient Rx: MWF [facility] - 3.5 hours, F-180NR Qb 450/Qd 800, 3K 2.5Ca 138Na 35HCO3. EDW 92 kg * Volume status, electrolyte balance are acceptable. No indication for HD toda y. Will plan next HD for am and attempt 2 L UF (2) Anemia: Plan: * Hgb 9.3 this am * Will provide ROSANNA w/ HD tomorrow (3) Pancreatic lesion: Plan: * 2.9 cm complex cyst noted on CT. GI recommended outpatient evaluation with EUS. (4) Pleural effusion on right: Plan: * Thoracentesis completed 07/06 - transudate (5) Atrial fibrillation with RVR: Plan: * Resting HR improved. On Amiodarone as per Cardiology * Has not cristy anticoagulated due to history of falls. Scheduled for a watchman procedure in [place] as outpatient (6) Weakness: Plan: * Declined PT 07/12. Last session 07/07 * Awaiting transfer to Admission and Anticipated Discharge Date Admission Date: July 06, 2023 Subjective Mr. Rivers was evaluated in his hospital room this morning. He reports that he is breathing comfortably on room air. He reports diarrhea has improved Review of Systems Constitutional: no fever Eyes: no problem reported Ear, Nose, Mouth, Throat: no problem reported Respiratory: no cough and no dyspnea Cardiovascular: no chest pain and no palpitations Gastrointestinal: no abdominal pain, no nausea, no vomiting and no diarrhea/loose stools Integumentary: no problem reported Physical Exam Constitutional: not in distress Eyes: PERRL, conjunctivae normal, anicteric sclerae ENMT: external ear and nose normal, oropharynx normal Neck: trachea midline, no thyromegaly Respiratory: Auscultation: lungs clear to auscultation bilaterally Cardiovascular: Rate/Rhythm: regular rate and regular rhythm Extremities: no edema Gastrointestinal (Abdomen): normal bowel sounds, soft, nontender, no hepatosplenomegaly Neurologic: awake; not confused Results & Data Vital Signs (Past 12 Hours) Vital Signs Temp Pulse Pulse Resp BP Pulse Ox O2 Del Method 07/15/23 07:47 36.4 C L 91 H 18 104/62 99 Room Air 07/15/23 03:25 36.4 C L 86 16 98/63 L 95 Room Air 07/14/23 23:02 36.4 C L 94 H 18 94/60 L 96 Room Air 07/14/23 22:57 105 H Laboratory Results Laboratory Results - last 24 hr 07/15/23 05:55 WBC 3.56 L RBC 3.15 L Hgb 9.3 L Hct 27.9 L MCV 88.6 MCH 29.5 MCHC 33.3 RDW Std Deviation 66.7 H RDW Coeff of Valerie 21.2 H Plt Count 115 L MPV 10.2 Sodium 137 Potassium 3.3 L Chloride 106 Carbon Dioxide 25 Anion Gap 6 BUN 8 Creatinine 3.11 H D Est Cr Clr Drug Dosing 28.4 Est GFR ( Amer) 23.8 Est GFR (Non-Af Amer) 20.5 BUN/Creatinine Ratio 2.6 L Glucose 94 Calcium 7.4 L Phosphorus 2.5 Magnesium 1.8 PG Care Time/CCT Total # of Minutes Spent Total Time Spent with Patient: Total time spent is greater than 50% in coordination of care (as documented) at patient's floor/unit and/or counseling patient: Coding Level of Care Code 52141 SUB INP/OBS CARE 3/50MIN Diagnoses ESRD on hemodialysis N18.6; Z99.2 Anemia D64.9 Anemia type: unspecified type Pancreatic lesion K86.9 Pleural effusion on right J90 Atrial fibrillation with RVR I48.91 Weakness R53.1 (2) Anemia Anemia type: unspecified type Qualified Code(s): D64.9 - Anemia, unspecified
--- NOTE | 2023-07-15 11:35 | Discharge Summary ---
Date of Service July 15, 2023 Admission HPI Per Admitting Provider This is a 63-year-old male with PMHx of atrial fibrillation not on anticoagulation, HTN, alcohol use, end-stage renal disease on hemodialysis MWF, baseline Cr of 3-5, falls, history of left-sided hemiarthroplasty done in November 2022, and anxiety who presents to the hospital with complaints of falls. Per ER provider the patient is having significant difficulty staying awake and falls asleep during conversation. Patient states that he completed dialysis session yesterday and everything went as planned. He reports having some worsening sounding breath sounds which started 2 days ago, but he denies any specific cough, no sick contacts, no fevers, chills or sweats. He has had some issues with dizziness over the past 2 days as well worse whenever he goes from seated to standing position. He uses a wheelchair primarily but does pivot himself. Patient was brought in by ambulance this morning as his called EMS because he was not himself today. He did not take any of his home medications. Patient routinely does take metoprolol succinate twice daily, sertraline and zolpidem. He didn't take anything this morning. He is not on blood thinning medications due to history of falls. Admission Exam Per Admitting Provider General: awakens to verbal stimuli but requires prompting due to lethargy, falls asleep easily during exam, no apparent distress Head: Normocephalic, atraumatic ENT: PERRL, EOMI, slightly icteric sclera, no pharyngeal exudate, mucous membranes moist Chest: on room air with O2 sats 98%, + coarse breath sounds throughout, + wheeze, no cough Cardiac: Irregularly irregular with HR in 110s at bedside, no murmur, no JVD, normal peripheral pulses, good capillary refill Abdominal: NABS x 4 quadrants, soft, nondistended, no fluid wave, nontender to palpation, no rebound or guarding Extremities: Normal inspection, +2 pitting peripheral edema BLE, no erythema, calfs nontender to palpation Psych: Normal mood and affect Neuro: Awakens to verbal stimuli, lethargic, O x 3, although patient cannot remember the name of this hospital currently, strength intact bilaterally and rated 4/5, no motor deficits, speech is clear, no peripheral sensory deficits Principal Diagnosis Afib w/ RVR, hx of persistent Afib + Rhinovirus, sepsis, pl. effusion s/p thoracentesis ESRD on HD Discharge Exam General Appearance:Moderately built and nourished, no apparent distress, chronically ill appearing Head: NC/AT Eyes: normal inspection, EOMI Neck: supple Respiratory/Chest: + basilar crackles, no accessory muscle use Cardiovascular: Irregularly irregular, No murmur Abdomen/GI:Soft, Non tender, Bowel sounds present Extremities/Musculoskeletal:normal inspection, edema Neurologic/Psych:AAOX3, grossly no focal neurological deficits Skin: normal color, warm Discharge Data Allergies Allergy/AdvReac Type Severity Reaction Status Date / Time Iodinated Contrast Media AdvReac Contraindicated Verified 06/01/23 09:57 for dialysis Consultations 07/06/23 12:33 ED Decision to Admit Stat 07/06/23 13:17 Consult Nephrology Routine 07/06/23 14:01 Consult Cardiology Routine Consult Gastroenterology Routine Consult Pulmonology Routine Ordered Studies 07/06/23 11:09 CT abd pelvis wo con Stat FINDINGS: Moderate right pleural effusion is better depicted on the chest CT which will be reported separately. Bilateral gynecomastia. No hemoperitoneum or pneumoperitoneum is present. Solid abdominal viscera suboptimally assessed on this unenhanced exam but there is no evidence for traumatic injury to the liver, spleen, adrenal glands, kidneys or pancreas. As before, the kidneys are markedly atrophic. A 2.1 cm left adrenal nodule is unchanged since CT of September 16, 2022. Pancreatic glandular atrophy without ductal dilatation is noted. A 2.9 cm cystic lesion within the pancreatic head has mildly increased in size since CT of September 16, 2022. This is minimal peripheral calcification. Layering gallstones within the gallbladder present. No pericholecystic infiltration. There is anasarca. No evidence for a bowel obstruction. Prominent retroperitoneal lymph nodes are unchanged. No retroperitoneal hematoma is present. Left hip arthroplasty is noted. A healing periprosthetic intertrochanteric fracture within the proximal left femur is noted. Alignment is similar to radiographs of November 15, 2022. Extensive callus formation is present. Old bilateral lower rib fractures are present. There are several healing left-sided transverse process fractures. No acute lumbar spine, pelvic or hip fractures are identified. Diffuse sclerosis of the visualized skeletal structures is unchanged and likely related to chronic renal disease. IMPRESSION: 1. No acute traumatic findings within the abdomen or pelvis on unenhanced exam. 2. Moderate right pleural effusion. Anasarca. 3. No change in alignment of a healing intertrochanteric periprosthetic left femoral fracture since radiographs of November 15, 2022. Increase in callus formation. 4. No acute fractures. 5. Mild increase in size of a 2.9 cm cystic lesion within the pancreatic head since CT of September 16, 2022. This remains pathologically indeterminate. Considerations include mucinous cystic neoplasm versus serous cystadenoma. If not already obtained, GI consultation is recommended. CT cervical spine wo con Stat FINDINGS: Skeletal structures: The skeletal structures are heterogeneously osteopenic. There is no evidence of fracture or subluxation involving the cervical spine. Vertebral body height and alignment are maintained. The odontoid process and lateral masses are intact. The atlantoaxial articulation is preserved noting productive degenerative change. The spinous processes appear intact. There is moderate to advanced multilevel cervical spondylosis. Uncovertebral and facet arthropathy contribute to neural foraminal narrowing at several levels. Intervertebral discs: There is moderate to severe disc space narrowing at C6-C7. Milder disc space narrowing is noted at the remaining cervical levels. Central canal: A posterior disc osteophyte complex at C6-C7 likely contributes to acquired compromise of the central canal. Soft tissues: The prevertebral and paraspinous soft tissues are within normal limits. A vascular stent is seen at the right thoracic outlet. There are shotty bilateral cervical chain lymph nodes. Calvarium: The visualized calvarium at the skull base appears intact. Brain parenchyma: Partially visualized brain parenchyma at the skull base is within normal limits. Sinuses and mastoids: The visualized paranasal sinuses are clear. The mastoid air cells are well pneumatized. Lung apices: A right pleural effusion is partially visualized. IMPRESSION: 1. There is no evidence of fracture or subluxation involving the cervical spine. 2. Osteopenia and spondylotic change as above. 3. A right pleural effusion is partially imaged. CT chest diagnostic wo con Stat FINDINGS: Thyroid: Imaged portions of the thyroid gland are normal in size and attenuation. Thoracic aorta: There is atherosclerotic calcification of the thoracic aorta, which is normal in caliber and demonstrates standard 3-vessel arch anatomy. Heart: The heart is enlarged and without pericardial effusion. There are coronary artery calcifications. Lungs and pleural spaces: There is no airspace consolidation typical for pneumonia or pneumothorax. There is a moderate right pleural effusion with associated atelectasis. The trachea and central airways are clear. Mediastinum: There is no mediastinal hematoma. A mildly enlarged precarinal node measures up to 12 mm in short axis. High prevascular node on image #46 measures 14 mm in short axis. Ruma: Not well assessed without IV contrast. Axillae: There is no axillary lymphadenopathy. Upper abdomen: A 2.4 cm indeterminant low-attenuation nodule is noted in the left adrenal gland. Partially visualized upper abdominal viscera is otherwise within normal limits. Skeletal structures: There is heterogeneous osteopenia and sclerosis of the skeletal structures Degenerative change and hyperkyphosis is noted in the thoracic spine. No lytic or blastic bony lesions are seen. There are ch ronic/healed bilateral rib fractures. No acute fracture is clearly seen. Soft tissues: Vascular stents are seen in the right thoracic outlet and in the right upper extremity. Gynecomastia is noted. IMPRESSION: 1. No acute posttraumatic intrathoracic abnormality is identified. 2. There is no airspace consolidation or pneumothorax. 3. Moderate right pleural effusion with associated atelectasis. 4. Cardiomegaly with coronary artery atherosclerosis. 5. Mildly enlarged mediastinal lymph nodes are nonspecific and may be reactive. 6. Additional findings as above. CT head/brain wo con Stat FINDINGS: Brain parenchyma: There is age-related involutional change noting [id number] subcortical and periventricular microangiopathic disease. There is no hemorrhage, mass effect, or evidence of acute territorial ischemia by CT criteria. A chronic lacunar infarct is noted in the right basal ganglia. Willett- white matter differentiation is preserved. No extra-axial fluid collection is seen. Ventricles, sulci, cisterns: Prominent secondary to involutional change. Intracranial vasculature: There is atherosclerotic calcification of the cave rnous carotid and vertebral arteries. Calvarium: Unremarkable. Sinuses and mastoids: There is mild mucosal thickening in the right maxillary antrum. The remaining paranasal sinuses are clear. The mastoid air cells are well pneumatized. Orbits: The bony orbits are grossly intact. IMPRESSION: There is no hemorrhage, mass effect, or evidence of acute territorial ischemia by CT criteria noting a motion degraded examination. 07/07/23 IR thoracentesis wo tube US Routine PROCEDURE: Procedure and risks were explained. Informed consent was obtained. A final timeout was completed. The right posterior thorax was prepped and draped in sterile fashion. 1% lidocaine was utilized for skin anesthesia. Utilizing ultrasound guidance, a 5 Croatian centesis catheter was advanced into the right pleural effusion. Ultrasound images were obtained. 600 mL of pleural fluid was removed and sent to lab for analysis. The catheter was removed and bandage applied. The patient tolerated the procedure well. Vital signs will be monitored on the floor and a chest x-ray will be obtained post procedure. IMPRESSION: Right thoracentesis as above. Hospital Course (1) Atrial fibrillation with RVR: (2) Hypertension: (3) Weakness: (4) Ambulatory dysfunction: (5) Hypomagnesemia: (6) ESRD on hemodialysis: (7) Alcohol abuse: (8) Elevated LFTs: (9) Anemia: (10) Anxiety: A-fib with RVR Persistent atrial fibrillation --CXR:Cardiomegaly and mild pulmonary edema. -Normal TSH --ECHO: Left ventricle is normal in size. Mild concentric LVH. Left ventricle wall motion is normal. EF 65 to 70%. Left atrium is moderately dilated. Trace mitral and tricuspid regurgitation. 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 There is no airspace consolidation or pneumothorax. Moderate right pleural effusion with associated atelectasis. Cardiomegaly with coronary artery atherosclerosis. Mildly enlarged mediastinal lymph nodes are nonspecific and may be reactive. Procalcitonin 1.86>1.2 Bio fire positive for Rhino infection --S/P thoracentesis on 07/07/2023 by IR --Pleural effusion transudative in nature. --- Pleural fluid culture: Negative to date --Path: Negative for malignancy Empirically on ceftriaxone and doxycycline>> transitioned to cefdinir, Doxy Pulmonology- consulted Saturating well on room air Manage volume status through dialysis Clinically improved Complete p.o. antibiotic course in 1 to 2-days Pancreatic cyst lesion --CT abd: Mild increase in size of a 2.9 cm cystic lesion within the pancreatic head since CT of September 16, 2022. This remains pathologically indeterminate. Considerations include mucinous cystic neoplasm versus serous cystadenoma. If not already obtained, GI consultation is --recommended. -- Will need GI follow-up for possible endoscopic ultrasound as outpatient Acute metabolic encephalopathy --CT Head:There is no hemorrhage, mass effect, or evidence of acute territorial ischemia by CT criteria noting a motion degraded examination. --Hold sedating medications as able Mental status back at baseline HTN Added midodrine to help with low BP Metoprolol discontinued Monitor Hypomagnesemia Hypokalemia Replace and monitor Alcohol abuse Elevated LFTs Monitor for withdrawal Continue thiamine, folic acid Completed gabapentin protocol No signs of acute withdrawal currently ESRD on HD Volume status improved Last HD 07/14/23, plan for next HD tmrw 07/16/23 Appreciate nephrology input Falls Fall precautions PT OT as able DVT Px: SCDs Heparin SQ CODE STATUS: Full code Disposition- [facility] Total Time Total Time Spent Total Time Spent (In Minutes): 40 Discharge Plan Discharge Items Patient Disposition: Transfer Acute Care Hospital Reason For Visit: AFIB RVR Discharge Diagnosis: Afib w/ RVR, hx of persistent Afib + Rhinovirus, sepsis, pl. effusion s/p thoracentesis ESRD on HD Activity: Per Instructions section Non-emergency contact: Primary Care Provider, Operations Supervisor 2Nd Shift and Diving Coach Call non-emergency contact if: you have any medication questions and your symptoms worsen Follow-up/Referrals: Ammy Lucia [Primary Care Provider] - Diet: Dialysis Renal Fluids: 1200ml (5 cups) Addtl Attending Provider Instructions: Follow up with primary care doctor, dental ceramist (for dialysis), cream separator operator (for Afib and possible Watchman procedure). You were started on amiodarone - take 200 twice a day for 2 weeks then take it daily. You may need to restart metoprolol if Afib / heart rate not controlled - if your blood pressure allows. For now, metoprolol was stopped. You were started on midodrine to help with your lower blood pressure. It is important to monitor your blood pressure. Your medications may need to be further adjusted. Finish antibiotic treatment. Recommend taking probiotics for at least next several days. Pending Studies at Discharge: No Stand-Alone Forms: [facility] Skilled Items Patient informed of condition?: Yes DNR: No Discharge Level of Care: Acute rehab Communicable Disease: No Discharge Prognosis: Other Lines: None Urinary Catheter: No Medications and DC Order Prescriptions: New cefdinir 300 mg Capsule 300 mg PO Q2D@0900 3 Days Qty: 2 0RF midodrine 2.5 mg Tablet 2.5 mg PO TID@0800,1200,1700 Qty: 10 0RF doxycycline hyclate 100 mg Capsule 100 mg PO BID Qty: 4 0RF Advanced Probiotic 625 mg (10 billion cell) Capsule 1 cap PO DAILY Qty: 10 0RF amiodarone 200 mg Tablet 200 mg PO BIDM 14 Days Qty: 28 0RF folic acid 1 mg Tablet 1 mg PO QAM Qty: 10 0RF thiamine HCl (vitamin B1) 100 mg Tablet 100 mg PO QAM Qty: 10 0RF acetaminophen 325 mg Tablet 650 mg PO Q4H PRN (Reason: pain) Qty: 14 0RF loperamide 2 mg Capsule 2 mg PO UD PRN (Reason: loose stool) Qty: 7 0RF miconazole nitrate [Desenex] 2 % Powder 1 applic EXT PRN PRN (Reason: rash) Qty: 85 0RF Continued pantoprazole 40 mg tablet,delayed release (DR/EC) 40 mg PO BID zolpidem 5 mg tablet 5 mg PO HS PRN (Reason: Insomnia) Qty: 30 0RF sertraline 100 mg tablet 100 mg PO DAILY hydrocodone-acetaminophen 7.5-325 mg tablet 1 tab PO DAILY PRN (Reason: Pain) Discontinued metoprolol succinate 50 mg tablet extended release 24 hr 50 mg PO BID Discharge Orders: Discharge Order (Routine); Ordered 07/15/23 Ordered By: Fernando Corral Admission Data Admit Date/Time: 07/06/23 13:17 Attending Provider: Fernando Corral Admit Provider: Julissa Dove Primary Care Provider: Ammy Lucia Other Providers: Alejo Sanchez; Julissa Dove; Claudio Quinn; Robert Billingsley; Je Herndon; Esequiel Robledo
[2023-07-16] MEDS ORDERED: EPOETIN ALFA 10,000 UNITS/ML VIAL IV ONE (07:00)
[2023-07-16] MEDS ORDERED: HEPARIN SOD (PORCINE) 1000 UNIT/ML IV SCH (07:00)
[2023-07-16] MEDS ORDERED: HEPARIN SOD (PORCINE) 1000 UNIT/ML IV ONE (07:00)
[2023-07-16] MEDS ORDERED: SODIUM CHLORIDE 0.9% 1,000 ML IV PRN (07:00)
== END 2023-07-15 17:39 | DRG 871 ==
LOC: ED 10:34 → EDINP 13:17 → SUATTDRO 13:17 → 4W 18:45

== ENCOUNTER 2023-12-26 21:47 | Inpatient (IN) ==
[2023-12-26 22:26] LABS: iSTAT Creatinine 5.1 mg/dl (0.6-1.3); iSTAT Hemoglobin 11.9 g/dl (14.0-18.0); iSTAT Ionized Calcium 0.8 mmol/l (1.12-1.32); iSTAT Potassium 5.6 mmol/L (3.3-5.0)
--- NOTE | 2023-12-27 00:12 | XRay Report ---
Exam(s): XR CXR 1 VIEW EXAM: XR Chest, 1 View CLINICAL HISTORY: Reason for exam: weakness. TECHNIQUE: Frontal view of the chest. COMPARISON: No relevant prior studies available. FINDINGS: Lungs: Low lung volumes. Mild bibasilar atelectasis. Pleural space: Small right pleural effusion. No pneumothorax. Heart: Unremarkable. No cardiomegaly. Mediastinum: Unremarkable. Normal mediastinal contour. Bones/joints: Unremarkable. No acute fracture. IMPRESSION: Small right pleural effusion. Electronically signed by: Estrella Augustin M.D. 12/27/23 00:12 AM
--- NOTE | 2023-12-27 00:15 | CT Scan Report ---
Exam(s): CT HEAD Without Contrast EXAM: CT Head Without Intravenous Contrast CLINICAL HISTORY: Reason for exam: frequent falls. TECHNIQUE: Axial computed tomography images of the head/brain without intravenous contrast. CTDI is 36.55 mGy and DLP is 624.41 mGy-cm. Automated exposure control was utilized for the study. A dose lowering technique was utilized adhering to the principles of ALARA. COMPARISON: CT Head dated 07/06/23 FINDINGS: Artifacts: Mild motion artifact. Brain: Volume loss with prominent ventricles and sulci. Periventricular and subcortical white matter hypoattenuation likely reflects chronic small vessel disease. Old lacunar infarcts in the basal ganglia bilaterally and right thalamus. No hemorrhage. Ventricles: See above. Bones/joints: Unremarkable. No acute fracture. Soft tissues: Unremarkable. Sinuses: Unremarkable as visualized. No acute sinusitis. Mastoid air cells: Unremarkable as visualized. No mastoid effusion. IMPRESSION: No acute findings in the head/brain. Electronically signed by: Estrella Augustin M.D. 12/27/23 00:14 AM
--- NOTE | 2023-12-27 01:01 | CT Scan Report ---
Exam(s): CT PELVIS Without Contrast EXAM: CT Pelvis Without Intravenous Contrast CLINICAL HISTORY: Reason for exam: L hip large lac after fall, L RAMÓN. TECHNIQUE: Axial computed tomography images of the pelvis without intravenous contrast. CTDI is 25.21 mGy and DLP is 976.53 mGy-cm. Automated exposure control was utilized for the study. A dose lowering technique was utilized adhering to the principles of ALARA. COMPARISON: CT abdomen pelvis dated 09/09/2023, Hip x-ray dated 12/22/2022 FINDINGS: Bowel: Unremarkable. No obstruction. No mucosal thickening. Appendix: No findings to suggest acute appendicitis. Intraperitoneal space: Unremarkable. No free air. No significant fluid collection. Bladder: Unremarkable. No stones. Reproductive: Unremarkable as visualized. Bones/joints: Similar appearance of left hip arthroplasty and surrounding chronic appearing fracture lines and heterotopic ossification. No new fracture or dislocation visualized. Nonacute comminuted fracture of the right greater trochanter, which was also seen on the prior study. Degenerative changes of the lower lumbosacral spine. Soft tissues: Query laceration of the left superolateral hip soft tissues and associated mild fat stranding. No large hematoma. Generalized body wall edema. Multiple soft tissue nodules in the anterior subcutaneous fat may relate to injections versus other nodules. Not seen on the prior. Vasculature: Unremarkable. No lower abdominal aortic aneurysm. Lymph nodes: Stable mildly enlarged inguinal nodes. IMPRESSION: 1. No evidence of acute fracture or dislocation. 2. Stable appearance of left hip arthroplasty. 3. Nonacute comminuted fracture of the right greater trochanter, which was also seen on the prior study. 4. Query laceration of the left superolateral hip soft tissues and associated mild fat stranding. No large hematoma. 5. Multiple soft tissue nodules in the anterior subcutaneous fat may relate to injections versus other nodules. Not seen on the prior. Correlate. 6. Stable mildly enlarged inguinal nodes. Electronically signed by: Estrella Augustin M.D. 12/27/23 01:00 AM
[2023-12-27] MEDS ORDERED: PROMETHAZINE 6.25 MG/50.25 ML BAG IV PRN (01:05)
[2023-12-27] MEDS ORDERED: ACETAMINOPHEN 325 MG TAB PO PRN (01:05)
[2023-12-27] MEDS ORDERED: HYDROmorphone INJ 0.5 MG/0.5 ML SYR IV PRN ×2 (01:05→01:48)
[2023-12-27 01:09] LABS: Basophils # (auto) 0.02 K/uL (0.00-0.20); Basophils % (auto) 0.2 %; Eosinophils # (auto) 0.01 K/uL (0.00-0.50); Eosinophils % (auto) 0.1 %; Hematocrit (blood only) 32.6 % (42.0-52.0); Hemoglobin 10.5 g/dl (14.0-18.0); Immature Granulocytes # (auto) 0.04 K/uL (0.01-0.20); Immature Granulocytes % (auto) 0.5 %; Lymphocytes # (auto) 1.05 K/uL (1.20-3.40); Lymphocytes % (auto) 12.1 %; Mean Corpuscular Hemoglobin 30.1 pg (25.0-34.0); Mean Corpuscular Hgb Conc 32.2 g/dL (32.0-36.0); Mean Corpuscular Volume 93.4 fL (80.0-100.0); Mean Platelet Volume 10.4 fL (9.4-12.4); Monocytes # (auto) 0.55 K/uL (0.11-0.59); Monocytes % (auto) 6.3 %; Neutrophils # (auto) 7.01 K/uL (1.40-6.50); Neutrophils % (auto) 80.8 %; Platelet Count 160 K/uL (130-400); RDW Coefficient of Variation 18.4 % (11.5-14.5); RDW Standard Deviation 62.2 fL (36.4-46.3); Red Blood Count 3.49 M/uL (4.70-6.10); White Blood Count 8.68 K/ul (4.8-10.8)
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
[2023-12-27 01:33] LABS: Albumin Globulin Ratio 0.9 (0.9-2); Albumin Level 2.9 gm/dl (3.4-5.0); BUN Creatinine Ratio 10.7 (10-20); Bilirubin,Total 0.6 mg/dl (0.2-1.0); Calcium 7.2 mg/dl (8.6-10.3); Creatinine Clr Calc Pharmacy 15.1 ml/min; Globulin 3.3 gm/dl (2.5-4.0); Magnesium 1.9 mg/dl (1.7-2.4); Potassium 5.7 mmol/L (3.5-5.1); Total Protein 6.2 gm/dl (6.0-8.3)
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
[2023-12-27 01:36] LABS: INR 1.1 (0.9-1.1); Prothrombin Time 11.9 Seconds (9.0-12.0)
[2023-12-27] MEDS ORDERED: LORazepam 2 MG/1 ML VIAL IV PRN (01:43)
[2023-12-27] MEDS: THIAMINE HCL 100 MG in SYRINGE 9 ML IV STA (01:52)
[2023-12-27] MEDS: ALBUMIN 25% 12.5 GM/50 ML VIAL IV STA (01:52)
[2023-12-27 01:55] LABS: Thyroid Stimulating Hormone 2.706 uIu/ml (0.300-4.500)
--- NOTE | 2023-12-27 02:10 | XRay Report ---
EXAM: XR hip LT min 2V CLINICAL HISTORY: FALL WITH LACERATION, RAMÓN WTW TECHNIQUE: X-ray images of the left hip joints were obtained in anteroposterior (AP), and oblique projection. COMPARISON: 12/22/2022. FINDINGS: A metallic hip prosthesis is noted on the left side. No definite evidence of loosening or particle disease is appreciated. Redemonstration with healing features of memo-prosthetic fracture involving the greater and lesser trochanters. Mild soft tissue edema appreciated in the left thigh. Reduced bone mineralization. IMPRESSION: 1. Redemonstration with healing features of memo-prosthetic fracture involving the greater and lesser trochanters which are evident in the prior studies. 2. A prosthesis is intact. Disclaimer: A subtle bone abnormality or fracture may not be readily apparent on X-rays, thus clinical correlation and further imaging including follow-up CT, MRI, or follow-up X-rays are advised as needed. Electronically signed by Shemar Cortes 12-27-2023 02:10 AM
[2023-12-27] MEDS: SODIUM BICARB 8.4% INJ 50 MEQ/50 ML SYR IV STA (02:29)
[2023-12-27] MEDS: CALCIUM GLUCONATE 1,000 MG/60 ML BAG IV STA (02:30)
[2023-12-27] MEDS: DEXTROSE 50% 50 ML SYRINGE IV ONE (02:30)
[2023-12-27] MEDS: DIPHTHER/TETAN/PERTUS Vaccine (Tdap, Adol/Adult) 0.5mL IM ONE (02:30)
[2023-12-27] MEDS: NovoLIN-R INSULIN PER UNIT CHARGE IV STA (02:34)
[2023-12-27] MEDS: MIDODRINE HCL 2.5 MG TAB PO STA (02:45)
[2023-12-27] MEDS: oxyCODONE HCL IR 5 MG TAB (IMMEDIATE RELEASE) PO PRN (04:13)
[2023-12-27] MEDS: MULTIVITAMIN TAB PO SCH (07:48)
[2023-12-27] MEDS: FOLIC ACID 1 MG TAB PO SCH (07:49)
[2023-12-27 07:50] LABS: Estimated Average Glucose 114 mg/dl; Hemoglobin A1C 5.6 % (4.5-5.6)
[2023-12-27] MEDS: AMIODARONE 200 MG TAB PO SCH (07:50)
[2023-12-27] MEDS: MIDODRINE HCL 2.5 MG TAB PO SCH (07:50)
[2023-12-27] MEDS: PANTOprazole 40 MG TAB PO SCH (07:50)
[2023-12-27] MEDS: predniSONE 20 MG TAB PO SCH (07:51)
[2023-12-27] MEDS: GABAPENTIN 300 MG CAP PO SCH (07:51)
[2023-12-27] MEDS: levETIRAcetam ORAL SOLN 100MG/ML PO SCH (07:52)
[2023-12-27 08:16] LABS: BUN Creatinine Ratio 11.7 (10-20); Calcium 7.3 mg/dl (8.6-10.3); Creatinine Clr Calc Pharmacy 16.7 ml/min; Potassium 5.8 mmol/L (3.5-5.1)
[2023-12-27 08:44] LABS: Basophils # (auto) 0.02 K/uL (0.00-0.20); Basophils % (auto) 0.2 %; Eosinophils # (auto) 0.02 K/uL (0.00-0.50); Eosinophils % (auto) 0.2 %; Hematocrit (blood only) 32.5 % (42.0-52.0); Hemoglobin 10.7 g/dl (14.0-18.0); Immature Granulocytes # (auto) 0.07 K/uL (0.01-0.20); Immature Granulocytes % (auto) 0.7 %; Lymphocytes # (auto) 1.67 K/uL (1.20-3.40); Lymphocytes % (auto) 16.8 %; Mean Corpuscular Hemoglobin 30.4 pg (25.0-34.0); Mean Corpuscular Hgb Conc 32.9 g/dL (32.0-36.0); Mean Corpuscular Volume 92.3 fL (80.0-100.0); Mean Platelet Volume 10.1 fL (9.4-12.4); Neutrophils # (auto) 7.59 K/uL (1.40-6.50); Neutrophils % (auto) 76.1 %; Platelet Count 150 K/uL (130-400); RDW Coefficient of Variation 18.5 % (11.5-14.5); RDW Standard Deviation 61.9 fL (36.4-46.3); Red Blood Count 3.52 M/uL (4.70-6.10); White Blood Count 9.97 K/ul (4.8-10.8)
[2023-12-27] MEDS: LACOSAMIDE 50 MG TABLET PO SCH (08:50)
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
[2023-12-27] MEDS: diphenhydrAMINE Capsule 25 MG CAP PO ONE (13:18)
[2023-12-27] MEDS: diphenhydrAMINE Capsule 25 MG CAP ONE (15:53)
--- NOTE | 2023-12-27 16:27 | Hospitalist Progress Note ---
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 Patient noted to be hyperkalemic. 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 Potassium elevated on admission at 5.7 Given Regular insulin for hyperkalemia Nephrology consult re: dialysis management, appreciate recs Continue to monitor Fall Traumatic left hip laceration secondary to fall, underlying ambulatory dysfunction laceration repaired in the emergency room, has stitches UA remains uncollected to rule out UTI as a cause of the fall hip x-ray and CT abdomen pelvis noting chronic fractures of the left hip head CT unremarkable, patient not on anticoagulation for his A-fib PT/OT ordered and pending history of chronic alcohol use MANSI S at risk protocol, DT precautions Continue folic acid and thiamine Steroid-induced hyperglycemia rule out DM hemoglobin A1c normal patient unsure why he is on steroids continue to monitor glucose levels continue other home medications as ordered Diet: renal diet DVT prophylaxis. SCDs re: traumatic left hip laceration Dispo: PT/OT ordered for further recs Admission and Anticipated Discharge Date Admission Date: December 27, 2023 Subjective patient was seen while up in dialysis. Alert and oriented x 2 Patient stating at one point that he has multiple stitches in. initially stating they were on his leg then his arm. Arm does have covered abrasions Review of Systems Review of Systems: All systems reviewed & are unremarkable except as noted in Subjective Physical Exam Physical Exam: General: Alert. Psych: Appropriate mood and affect HEENT: NC/AT CV: RRR Resp: Breath sounds clear bilaterally, no increased effort of breathing Abdomen:Soft, nontender Extremities: abrasions on arms. edema in lower extremities bilaterally. Results & Data Results & Data Vital Signs (Past 12 Hours) Vital Signs Temp Pulse Pulse Pulse Pulse Resp BP 12/27/23 16:04 79 12/27/23 16:00 84 89/54 L 12/27/23 15:30 79 99/64 L 12/27/23 15:29 36.7 C 77 12/27/23 15:00 80 90/59 L 12/27/23 14:30 78 104/66 12/27/23 12:00 36.7 C 109 H 18 12/27/23 07:55 35.9 C L 79 18 12/27/23 07:01 68 12/27/23 04:28 36.3 C L 71 18 BP Pulse Ox O2 Del Method 12/27/23 16:04 12/27/23 16:00 12/27/23 15:30 12/27/23 15:29 12/27/23 15:00 12/27/23 14:30 12/27/23 12:00 99/64 L 99 Room Air 12/27/23 07:55 94/62 L 99 Room Air 12/27/23 07:01 12/27/23 04:28 107/71 100 Room Air Diagnostic Findings Chest X-Ray 12/26/23 21:59 Exam(s): XR CXR 1 VIEW EXAM: XR Chest, 1 View CLINICAL HISTORY: Reason for exam: weakness. TECHNIQUE: Frontal view of the chest. COMPARISON: No relevant prior studies available. FINDINGS: Lungs: Low lung volumes. Mild bibasilar atelectasis. Pleural space: Small right pleural effusion. No pneumothorax. Heart: Unremarkable. No cardiomegaly. Mediastinum: Unremarkable. Normal mediastinal contour. Bones/joints: Unremarkable. No acute fracture. IMPRESSION: Small right pleural effusion. Electronically signed by: Estrella Augustin M.D. 12/27/23 00:[address] 12/26/23 21:59 Exam(s): CT PELVIS Without Contrast EXAM: CT Pelvis Without Intravenous Contrast CLINICAL HISTORY: Reason for exam: L hip large lac after fall, L RAMÓN. TECHNIQUE: Axial computed tomography images of the pelvis without intravenous contrast. CTDI is 25.21 mGy and DLP is 976.53 mGy-cm. Automated exposure control was utilized for the study. A dose lowering technique was utilized adhering to the principles of ALARA. COMPARISON: CT abdomen pelvis dated 09/09/2023, Hip x-ray dated 12/22/2022 FINDINGS: Bowel: Unremarkable. No obstruction. No mucosal thickening. Appendix: No findings to suggest acute appendicitis. Intraperitoneal space: Unremarkable. No free air. No significant fluid collection. Bladder: Unremarkable. No stones. Reproductive: Unremarkable as visualized. Bones/joints: Similar appearance of left hip arthroplasty and surrounding chronic appearing fracture lines and heterotopic ossification. No new fracture or dislocation visualized. Nonacute comminuted fracture of the right greater trochanter, which was also seen on the prior study. Degenerative changes of the lower lumbosacral spine. Soft tissues: Query laceration of the left superolateral hip soft tissues and associated mild fat stranding. No large hematoma. Generalized body wall edema. Multiple soft tissue nodules in the anterior subcutaneous fat may relate to injections versus other nodules. Not seen on the prior. Vasculature: Unremarkable. No lower abdominal aortic aneurysm. Lymph nodes: Stable mildly enlarged inguinal nodes. IMPRESSION: 1. No evidence of acute fracture or dislocation. 2. Stable appearance of left hip arthroplasty. 3. Nonacute comminuted fracture of the right greater trochanter, which was also seen on the prior study. 4. Query laceration of the left superolateral hip soft tissues and associated mild fat stranding. No large hematoma. 5. Multiple soft tissue nodules in the anterior subcutaneous fat may relate to injections versus other nodules. Not seen on the prior. Correlate. 6. Stable mildly enlarged inguinal nodes. Electronically signed by: Estrella Augustin M.D. 12/27/23 01:[address] 12/26/23 22:00 Exam(s): CT HEAD Without Contrast EXAM: CT Head Without Intravenous Contrast CLINICAL HISTORY: Reason for exam: frequent falls. TECHNIQUE: Axial computed tomography images of the head/brain without intravenous contrast. CTDI is 36.55 mGy and DLP is 624.41 mGy-cm. Automated exposure control was utilized for the study. A dose lowering technique was utilized adhering to the principles of ALARA. COMPARISON: CT Head dated 07/06/23 FINDINGS: Artifacts: Mild motion artifact. Brain: Volume loss with prominent ventricles and sulci. Periventricular and subcortical white matter hypoattenuation likely reflects chronic small vessel disease. Old lacunar infarcts in the basal ganglia bilaterally and right thalamus. No hemorrhage. Ventricles: See above. Bones/joints: Unremarkable. No acute fracture. Soft tissues: Unremarkable. Sinuses: Unremarkable as visualized. No acute sinusitis. Mastoid air cells: Unremarkable as visualized. No mastoid effusion. IMPRESSION: No acute findings in the head/brain. Electronically signed by: Estrella Augustin M.D. 12/27/23 00:14 AM Hip X-Ray 12/27/23 00:36 EXAM: XR hip LT min 2V CLINICAL HISTORY: FALL WITH LACERATION, RAMÓN WTW TECHNIQUE: X-ray images of the left hip joints were obtained in anteroposterior (AP), and oblique projection. COMPARISON: 12/22/2022. FINDINGS: A metallic hip prosthesis is noted on the left side. No definite evidence of loosening or particle disease is appreciated. Redemonstration with healing features of memo-prosthetic fracture involving the greater and lesser trochanters. Mild soft tissue edema appreciated in the left thigh. Reduced bone mineralization. IMPRESSION: 1. Redemonstration with healing features of memo-prosthetic fracture involving the greater and lesser trochanters which are evident in the prior studies. 2. A prosthesis is intact. Disclaimer: A subtle bone abnormality or fracture may not be readily apparent on X-rays, thus clinical correlation and further imaging including follow-up CT, MRI, or follow-up X-rays are advised as needed. Electronically signed by Shemar Cortes 12-27-2023 02:10 AM
--- NOTE | 2023-12-27 17:06 | Electrocardiogram Report ---
Test Reason : Blood Pressure : */* mmHG Vent. Rate : 78 BPM Atrial Rate : * BPM P-R Int : * ms QRS Dur : 106 ms QT Int : 416 ms P-R-T Axes : * 45 78 degrees QTcB Int : 474 ms Atrial fibrillation Abnormal ECG When compared with ECG of 09-Sep-2023 14:45, Minimal criteria for Anteroseptal infarct are no longer Present Confirmed by Robi Jaime ([id number]) on 12/27/2023 5:05:46 PM Referred By: REFERRED SELF Confirmed By: Robi Jaime
[2023-12-27] MEDS: ZOLPIDEM TARTRATE 5 MG TAB PO PRN (21:13)
[2023-12-27] MEDS: SERTRALINE HCL 100 MG TABLET PO SCH (21:13)
[2023-12-27] MEDS: predniSONE 10 MG TABLET PO SCH (21:13)
[2023-12-28 06:43] LABS: Basophils # (auto) 0.01 K/uL (0.00-0.20); Basophils % (auto) 0.1 %; Eosinophils # (auto) 0.01 K/uL (0.00-0.50); Eosinophils % (auto) 0.1 %; Hematocrit (blood only) 32.1 % (42.0-52.0); Hemoglobin 10.3 g/dl (14.0-18.0); Immature Granulocytes # (auto) 0.07 K/uL (0.01-0.20); Immature Granulocytes % (auto) 0.8 %; Lymphocytes # (auto) 0.73 K/uL (1.20-3.40); Lymphocytes % (auto) 8.5 %; Mean Corpuscular Hemoglobin 30.1 pg (25.0-34.0); Mean Corpuscular Hgb Conc 32.1 g/dL (32.0-36.0); Mean Corpuscular Volume 93.9 fL (80.0-100.0); Mean Platelet Volume 10.2 fL (9.4-12.4); Monocytes # (auto) 0.53 K/uL (0.11-0.59); Monocytes % (auto) 6.2 %; Neutrophils # (auto) 7.22 K/uL (1.40-6.50); Neutrophils % (auto) 84.3 %; Platelet Count 144 K/uL (130-400); RDW Coefficient of Variation 18.6 % (11.5-14.5); RDW Standard Deviation 63.3 fL (36.4-46.3); Red Blood Count 3.42 M/uL (4.70-6.10); White Blood Count 8.57 K/ul (4.8-10.8)
[2023-12-28 07:14] LABS: Albumin Level 2.9 gm/dl (3.4-5.0); BUN Creatinine Ratio 8.8 (10-20); Bilirubin,Total 0.6 mg/dl (0.2-1.0); Calcium 7.4 mg/dl (8.6-10.3); Creatinine Clr Calc Pharmacy 27.4 ml/min; Magnesium 1.8 mg/dl (1.7-2.4); Phosphorus 3.3 mg/dl (2.5-4.9); Potassium 5.1 mmol/L (3.5-5.1); Total Protein 5.9 gm/dl (6.0-8.3)
[2023-12-28] MEDS: LIDOCAINE 1% LOCAL 20 ML VIAL INJ ONE (07:48)
[2023-12-28] MEDS: THIAMINE HCL 100 MG TAB PO SCH (08:21)
--- NOTE | 2023-12-28 08:50 | Nephrology Progress Note ---
Date of Service December 28, 2023 Assessment & Plan (1) End stage renal disease: Plan: * No acute indication for HD today. Will plan next HD for am if still hospitalized * Outpatient HD Rx: HD MWF [facility] 3.5 hr, F- 180 optiflux, Qb 450/Qd 800, 3K 2.5Ca, EDW 80.5kg, Heparin 2600/600, has LUE AVF * Continue midodrine 5 mg TID for BP support * HD diet * Monitor PRP (2) Hyperkalemia: Plan: * Corrected (3) Laceration of hip, left: Plan: * Cleaned & sutured in EMD * Tetanus booster administered * Antibiotics as per primary service (4) Atrial fibrillation: Plan: * Rate controlled Admission and Anticipated Discharge Date Admission Date: December 27, 2023 Subjective Mr. Rivers was evaluated in his hospital room this morning. He was dialyzed yesterday for 2.5 L UF. This morning he is breathing comfortably on RA but c/o orthostasis when standing. He hopes to return home soon to attend a concert Review of Systems Constitutional: no fever Eyes: no problem reported Ear, Nose, Mouth, Throat: no problem reported Respiratory: no cough and no dyspnea Cardiovascular: no chest pain and no palpitations Gastrointestinal: no abdominal pain, no nausea, no vomiting and no diarrhea/loose stools Integumentary: no problem reported Physical Exam Constitutional: not in distress Eyes: PERRL, conjunctivae normal, anicteric sclerae ENMT: external ear and nose normal, oropharynx normal Neck: trachea midline, no thyromegaly Respiratory: Auscultation: lungs clear to auscultation bilaterally Cardiovascular: Rate/Rhythm: + irregularly irregular Extremities: + edema (trace edema) Gastrointestinal (Abdomen): normal bowel sounds, soft, nontender, no hepatosplenomegaly Neurologic: awake; not confused Results & Data Vital Signs (Past 12 Hours) Vital Signs Temp Pulse Pulse Resp BP Pulse Ox O2 Del Method 12/28/23 07:38 36.6 C 86 19 88/53 L 98 Room Air 12/28/23 07:21 78 12/28/23 03:52 36.9 C 78 18 97/58 L 96 Room Air 12/28/23 00:00 36.6 C 58 L 18 127/65 97 CPAP 12/27/23 21:59 93 H Laboratory Results Laboratory Results - last 24 hr 12/27/23 12/28/23 08:19 06:20 WBC 8.57 RBC 3.42 L Hgb 10.3 L Hct 32.1 L MCV 93.9 MCH 30.1 MCHC 32.1 RDW Std Deviation 63.3 H RDW Coeff of Valerie 18.6 H Plt Count 144 MPV 10.2 Immature Gran % (Auto) 0.8 Neut % (Auto) 84.3 Lymph % (Auto) 8.5 [place] % (Auto) 6.2 Eos % (Auto) 0.1 Baso % (Auto) 0.1 Neut # (Auto) 7.22 H Lymph # (Auto) 0.73 L [place] # (Auto) 0.53 Eos # (Auto) 0.01 Baso # (Auto) 0.01 Immature Gran # (Auto) 0.07 Sodium 141 Potassium 5.1 Chloride 103 Carbon Dioxide 28 Anion Gap 10 BUN 27 H D Creatinine 3.07 H D Est Cr Clr Drug Dosing 27.4 eGFR 22.29 BUN/Creatinine Ratio 8.8 L Glucose 130 H Calcium 7.4 L Phosphorus 3.3 Magnesium 1.8 Total Bilirubin 0.6 AST 17 ALT 18 Alkaline Phosphatase 413 H Total Protein 5.9 L Albumin 2.9 L Globulin 3.0 Albumin/Globulin Ratio 1.0 Blood Type A Positive Antibody Screen NEGATIVE PG Care Time/CCT Total # of Minutes Spent Total Time Spent with Patient: Total time spent is greater than 50% in coordination of care (as documented) at patient's floor/unit and/or counseling patient: Coding Level of Care Code 13427 SUB INP/OBS CARE 3/50MIN Diagnoses End stage renal disease N18.6 Hyperkalemia E87.5 Laceration of hip, left S71.012A Encounter type: initial encounter Atrial fibrillation I48.91 (3) Laceration of hip, left Encounter type: initial encounter Qualified Code(s): S71.012A - Laceration without foreign body, left hip, initial encounter
[2023-12-28] MEDS ORDERED: AMOXICILLIN/CLAVULANATE 875 MG TAB PO SCH (10:05)
[2023-12-28] MEDS: AMOXICILLIN/CLAVULANATE 500 MG TAB PO ONE (11:56)
--- NOTE | 2023-12-28 12:33 | Hospitalist Progress Note ---
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 Patient noted to be hyperkalemic. 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 Pt follows with [facility] [place]. Continue to monitor Improving Fall Traumatic left hip laceration secondary to fall, underlying ambulatory dysfunction laceration repaired in the emergency room, has stitches UA remains uncollected to rule out UTI as a cause of the fall hip x-ray and CT abdomen pelvis noting chronic fractures of the left hip head CT unremarkable, patient not on anticoagulation for his A-fib PT/OT recommending home with HH Started on Augmentin for laceration and potential infection, pt did get tetanus shot in the ED Hypotension patient with hypotension in the setting of dialysis Discussion with nephrology, agreeable to increasing midodrine dosing to 10 mg 3 times daily Continue to monitor history of chronic alcohol use MANSI S at risk protocol, DT precautions Continue folic acid and thiamine Steroid-induced hyperglycemia rule out DM hemoglobin A1c normal patient unsure why he is on steroids continue to monitor glucose levels continue other home medications as ordered Diet: renal diet DVT prophylaxis. SCDs re: traumatic left hip laceration Dispo: PT/OT ordered for further recs Admission and Anticipated Discharge Date Admission Date: December 27, 2023 Subjective patient was seen laying in bed Blood pressure on lower end Reports of him getting dizzy and being unsteady on his feet when standing up Patient anxious for discharge, notes that he has to attend a concert. However upon further discussion with patient he realized that the concert is actually on . Agreeable at this time to staying for further evaluation and management Review of Systems Review of Systems: All systems reviewed & are unremarkable except as noted in Subjective Physical Exam Physical Exam: General: Alert. Psych: Appropriate mood and affect HEENT: NC/AT CV: RRR Resp: Breath sounds clear bilaterally, no increased effort of breathing Abdomen:Soft, nontender Extremities: abrasions on arms. edema in lower extremities bilaterally. Left hip with covered bandages Results & Data Results & Data Vital Signs (Past 12 Hours) Vital Signs Temp Pulse Pulse Resp BP Pulse Ox O2 Del Method 12/28/23 12:15 Room Air 12/28/23 11:38 36.9 C 94 H 18 99/64 L 94 Room Air 12/28/23 07:38 36.6 C 86 19 88/53 L 98 Room Air 12/28/23 07:21 78 12/28/23 03:52 36.9 C 78 18 97/58 L 96 Room Air
[2023-12-28] MEDS: MIDODRINE HCL 10 MG TAB PO SCH (17:47)
[2023-12-28] MEDS: AMOXICILLIN/CLAVULANATE 500 MG TAB PO SCH (17:48)
--- NOTE | 2023-12-29 08:45 | Nephrology Progress Note ---
Date of Service December 29, 2023 Assessment & Plan (1) End stage renal disease: Plan: * Will provide HD today and limit UF to 1L * Outpatient HD Rx: HD MWF [facility] 3.5 hr, F- 180 optiflux, Qb 450/Qd 800, 3K 2.5Ca, EDW 80.5kg, Heparin 2600/600, has LUE AVF * Continue midodrine 10 mg TID for BP support * HD diet * Monitor PRP (2) Hyperkalemia: Plan: * Corrected (3) Laceration of hip, left: Plan: * Cleaned & sutured in EMD * Tetanus booster administered * Antibiotics as per primary service (4) Atrial fibrillation: Plan: * Rate controlled Admission and Anticipated Discharge Date Admission Date: December 27, 2023 Subjective Mr. Rivers was evaluated in his hospital room this morning. He reports that he was able to walk short distances yesterday w/ assistance. Mr. Rivers hopes to attend a concert tomorrow evening Review of Systems Constitutional: no fever Eyes: no problem reported Ear, Nose, Mouth, Throat: no problem reported Respiratory: no cough and no dyspnea Cardiovascular: no chest pain and no palpitations Gastrointestinal: no abdominal pain, no nausea, no vomiting and no katerin rrhea/loose stools Integumentary: no problem reported Physical Exam Constitutional: not in distress Eyes: PERRL, conjunctivae normal, anicteric sclerae ENMT: external ear and nose normal, oropharynx normal Neck: trachea midline, no thyromegaly Respiratory: Auscultation: lungs clear to auscultation bilaterally Cardiovascular: Rate/Rhythm: regular rate, regular rhythm and + irregularly irregular Extremities: + edema (trace edema) Gastrointestinal (Abdomen): normal bowel sounds, soft, nontender, no hepatosplenomegaly Neurologic: awake; not confused Results & Data Vital Signs (Past 12 Hours) Vital Signs Temp Pulse Pulse Resp BP Pulse Ox O2 Del Method 12/29/23 07:36 36.3 C L 71 20 95/61 L 100 Room Air 12/29/23 03:49 36.5 C 68 18 98/51 L 93 Room Air 12/29/23 00:04 36.8 C 92 H 20 102/92 98 Room Air 12/28/23 21:48 76 Laboratory Results Laboratory Results - last 24 hr 12/29/23 07:42 WBC Pending RBC Pending Hgb Pending Hct Pending MCV Pending MCH Pending MCHC Pending Plt Count Pending Sodium Pending Potassium Pending Chloride Pending Carbon Dioxide Pending Anion Gap Pending BUN Pending Creatinine Pending Est Cr Clr Drug Dosing Pending eGFR Pending BUN/Creatinine Ratio Pending Glucose Pending Calcium Pending Phosphorus Pending Magnesium Pending Total Bilirubin Pending AST Pending ALT Pending Alkaline Phosphatase Pending Total Protein Pending Albumin Pending Globulin Pending Albumin/Globulin Ratio Pending Laboratory Results - last 24 hr 12/29/23 12/29/23 07:42 10:22 WBC 7.74 RBC 3.15 L Hgb 9.7 L Hct 29.3 L MCV 93.0 MCH 30.8 MCHC 33.1 RDW Std Deviation 62.1 H RDW Coeff of Valerie 18.3 H Plt Count 143 MPV 10.3 Immature Gran % (Auto) 1.3 Neut % (Auto) 71.1 Lymph % (Auto) 21.2 [place] % (Auto) 5.3 Eos % (Auto) 0.8 Baso % (Auto) 0.3 Neut # (Auto) 5.51 Lymph # (Auto) 1.64 [place] # (Auto) 0.41 Eos # (Auto) 0.06 Baso # (Auto) 0.02 Immature Gran # (Auto) 0.10 Sodium Pending Potassium Pending Chloride Pending Carbon Dioxide Pending Anion Gap Pending BUN Pending Creatinine Pending Est Cr Clr Drug Dosing Pending eGFR Pending BUN/Creatinine Ratio Pending Glucose Pending Calcium Pending Phosphorus Pending Magnesium Pending Total Bilirubin Pending AST Pending ALT Pending Alkaline Phosphatase Pending Total Protein Pending Albumin Pending Globulin Pending Albumin/Globulin Ratio Pending PG Care Time/CCT Total # of Minutes Spent Total Time Spent with Patient: Total time spent is greater than 50% in coordination of care (as documented) at patient's floor/unit and/or counseling patient: Coding Level of Care Code 92134 SUB INP/OBS CARE 3/50MIN Diagnoses End stage renal disease N18.6 Hyperkalemia E87.5 Laceration of hip, left S71.012A Encounter type: initial encounter Atrial fibrillation I48.91 (3) Laceration of hip, left Encounter type: initial encounter Qualified Code(s): S71.012A - Laceration without foreign body, left hip, initial encounter
[2023-12-29 10:42] LABS: Basophils # (auto) 0.02 K/uL (0.00-0.20); Basophils % (auto) 0.3 %; Eosinophils # (auto) 0.06 K/uL (0.00-0.50); Eosinophils % (auto) 0.8 %; Hematocrit (blood only) 29.3 % (42.0-52.0); Hemoglobin 9.7 g/dl (14.0-18.0); Immature Granulocytes % (auto) 1.3 %; Lymphocytes # (auto) 1.64 K/uL (1.20-3.40); Lymphocytes % (auto) 21.2 %; Mean Corpuscular Hemoglobin 30.8 pg (25.0-34.0); Mean Corpuscular Hgb Conc 33.1 g/dL (32.0-36.0); Mean Platelet Volume 10.3 fL (9.4-12.4); Monocytes # (auto) 0.41 K/uL (0.11-0.59); Monocytes % (auto) 5.3 %; Neutrophils # (auto) 5.51 K/uL (1.40-6.50); Neutrophils % (auto) 71.1 %; Platelet Count 143 K/uL (130-400); RDW Coefficient of Variation 18.3 % (11.5-14.5); RDW Standard Deviation 62.1 fL (36.4-46.3); Red Blood Count 3.15 M/uL (4.70-6.10); White Blood Count 7.74 K/ul (4.8-10.8)
[2023-12-29 11:15] LABS: Albumin Level 2.8 gm/dl (3.4-5.0); BUN Creatinine Ratio 9.5 (10-20); Bilirubin,Total 0.6 mg/dl (0.2-1.0); Calcium 7.4 mg/dl (8.6-10.3); Creatinine Clr Calc Pharmacy 17.4 ml/min; Globulin 2.9 gm/dl (2.5-4.0); Magnesium 1.7 mg/dl (1.7-2.4); Phosphorus 3.5 mg/dl (2.5-4.9); Potassium 5.1 mmol/L (3.5-5.1); Total Protein 5.7 gm/dl (6.0-8.3)
[2023-12-29] MEDS: EPOETIN ALFA 10,000 UNITS/ML VIAL IV ONE (11:36)
[2023-12-29] MEDS: HEPARIN SOD (PORCINE) 1000 UNIT/ML IV ONE (11:38)
[2023-12-29] MEDS: HEPARIN SOD (PORCINE) 1000 UNIT/ML IV SCH (11:39)
--- NOTE | 2023-12-29 17:17 | Hospitalist Progress Note ---
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 Patient noted to be hyperkalemic. 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 Pt [place] [facility]. Continue to monitor Improving Fall Traumatic left hip laceration secondary to fall, underlying ambulatory dysfunction laceration repaired in the emergency room, has stitches UA remains uncollected to rule out UTI as a cause of the fall hip x-ray and CT abdomen pelvis noting chronic fractures of the left hip head CT unremarkable, patient not on anticoagulation for his A-fib PT/OT recommending home with HH Started on Augmentin for laceration and potential infection, pt did get tetanus shot in the ED Hypotension patient with hypotension in the setting of dialysis Discussion with nephrology, agreeable to increasing midodrine dosing to 10 mg 3 times daily Continue to monitor history of chronic alcohol use MANSI S at risk protocol, DT precautions Continue folic acid and thiamine Steroid-induced hyperglycemia rule out DM hemoglobin A1c normal patient unsure why he is on steroids continue to monitor glucose levels continue other home medications as ordered Diet: renal diet DVT prophylaxis. SCDs re: traumatic left hip laceration Dispo: PT/OT ordered for further recs Admission and Anticipated Discharge Date Admission Date: December 27, 2023 Subjective Patient laying in bed in NAD HD today no fever, chills, chest pain, shortness of breath, no abd. pain n/v Patient wants to be discharged tmrw to attend a concert. Review of Systems Review of Systems: All systems reviewed & are unremarkable except as noted in Subjective Physical Exam Physical Exam: General: WD/WN M in NAD HEENT: NC/AT CV: RRR Resp: Breath sounds clear bilaterally, no increased effort of breathing Abdomen:Soft, nontender Extremities: abrasions on arms. mild edema in lower extremities bilaterally. Left hip with laceration w/covered bandages Results & Data Results & Data Vital Signs (Past 12 Hours) Vital Signs Temp Pulse Pulse Resp BP BP Pulse Ox 12/29/23 15:32 36.7 C 71 20 104/68 91 12/29/23 15:29 76 12/29/23 14:20 36.6 C 72 101/63 12/29/23 14:00 82 96/58 L 12/29/23 13:30 82 101/60 12/29/23 13:00 80 95/59 L 12/29/23 12:30 70 94/60 L 12/29/23 12:00 77 96/59 L 12/29/23 11:30 72 90/60 L 12/29/23 11:00 80 90/55 L 12/29/23 10:30 85 95/60 L 12/29/23 10:20 36.3 C L 84 12/29/23 08:00 69 12/29/23 07:36 36.3 C L 71 20 95/61 L 100 O2 Del Method 12/29/23 15:32 Room Air 12/29/23 15:29 12/29/23 14:20 12/29/23 14:00 12/29/23 13:30 12/29/23 13:00 12/29/23 12:30 12/29/23 12:00 12/29/23 11:30 12/29/23 11:00 12/29/23 10:30 12/29/23 10:20 12/29/23 08:00 12/29/23 07:36 Room Air Laboratory Results 12/29/23 Range/Units 10:22 WBC 7.74 (4.8-10.8) K/ul RBC 3.15 L (4.70-6.10) M/uL Hgb 9.7 L (14.0-18.0) g/dl Hct 29.3 L (42.0-52.0) % MCV 93.0 (80.0-100.0) fL MCH 30.8 (25.0-34.0) pg MCHC 33.1 (32.0-36.0) g/dL RDW Std Deviation 62.1 H (36.4-46.3) fL RDW Coeff of Valerie 18.3 H (11.5-14.5) % Plt Count 143 (130-400) K/uL MPV 10.3 (9.4-12.4) fL Immature Gran % (Auto) 1.3 % Neut % (Auto) 71.1 % Lymph % (Auto) 21.2 % [place] % (Auto) 5.3 % Eos % (Auto) 0.8 % Baso % (Auto) 0.3 % Neut # (Auto) 5.51 (1.40-6.50) K/uL Lymph # (Auto) 1.64 (1.20-3.40) K/uL [place] # (Auto) 0.41 (0.11-0.59) K/uL Eos # (Auto) 0.06 (0.00-0.50) K/uL Baso # (Auto) 0.02 (0.00-0.20) K/uL Immature Gran # (Auto) 0.10 (0.01-0.20) K/uL Sodium 133 L (136-145) mmol/L Potassium 5.1 (3.5-5.1) mmol/L Chloride 99 (98-107) mmol/L Carbon Dioxide 24 (21-32) mmol/L Anion Gap 10 (3-11) BUN 46 H (6-23) mg/dl Creatinine 4.83 H* D (0.6-1.4) mg/dl Est Cr Clr Drug Dosing 17.4 ml/min eGFR 12.94 BUN/Creatinine Ratio 9.5 L (10-20) Glucose 134 H (70-99(Fasting)) mg/dl Calcium 7.4 L (8.6-10.3) mg/dl Phosphorus 3.5 (2.5-4.9) mg/dl Magnesium 1.7 (1.7-2.4) mg/dl Total Bilirubin 0.6 (0.2-1.0) mg/dl AST 15 (13-39) U/L ALT 15 (7-52) U/L Alkaline Phosphatase 430 H (34-104) U/L Total Protein 5.7 L (6.0-8.3) gm/dl Albumin 2.8 L (3.4-5.0) gm/dl Globulin 2.9 (2.5-4.0) gm/dl Albumin/Globulin Ratio 1.0 (0.9-2) Medications Administered Current Inpatient Medications Acetaminophen (Acetaminophen 325 Mg Tab) 650 mg PO QID PRN PRN Reason: pain/fever Stop: 01/26/24 01:04 Amiodarone HCl (Amiodarone 200 Mg Tab) 200 mg PO DAILY [facility] Stop: 01/26/24 08:59 Last Admin: 12/29/23 09:11 Dose: 200 mg Amoxicillin/Clavulanate Potassium (Amoxicillin/Clavulanate 500 Mg Tab) 1 tab PO BIDM [facility]; Protocol Stop: 01/04/24 10:59 Last Admin: 12/29/23 09:11 Dose: 1 tab Folic Acid (Folic Acid 1 Mg Tab) 1 mg PO QAM [facility] Stop: 01/26/24 08:59 Last Admin: 12/29/23 09:11 Dose: 1 mg Gabapentin (Gabapentin 300 Mg Cap) 300 mg PO BID [facility] Stop: 01/26/24 08:59 Last Admin: 12/29/23 09:11 Dose: 300 mg Hydromorphone HCl (Hydromorphone Inj 0.5 Mg/0.5 Ml Syr) 0.25 mg IV Q6H PRN PRN Reason: Pain Stop: 01/10/24 01:04 Promethazine HCl (Phenergan) 6.25 mg in 50.25 mls @ 201 mls/hr IV Q6H PRN PRN Reason: Nausea And Vomiting Stop: 01/26/24 01:04 Lacosamide (Lacosamide 50 Mg Tablet) 100 mg PO BID [facility] Stop: 01/26/24 08:59 Last Admin: 12/29/23 10:02 Dose: 100 mg Levetiracetam (Levetiracetam Oral Soln 100mg/Ml) 1,500 mg PO BID [facility] Stop: 01/26/24 08:59 Last Admin: 12/29/23 09:12 Dose: 1,500 mg Lorazepam (Lorazepam 2 Mg/1 Ml Vial) 1 mg IV ONE PRN; Protocol PRN Reason: EtoH Withdrawal AWSS 6-10 Midodrine (Midodrine Hcl 10 Mg Tab) 10 mg PO TIDM [facility] Stop: 01/27/24 16:59 Last Admin: 12/29/23 13:12 Dose: Not Given Multivitamins (Multivitamin Tab) 1 tab PO QAM [facility] Stop: 01/26/24 08:59 Last Admin: 12/29/23 09:11 Dose: 1 tab Oxycodone HCl (Oxycodone Hcl Ir 5 Mg Tab (Immediate Release)) 5 mg PO Q4H PRN PRN Reason: Pain Stop: 01/10/24 01:04 Last Admin: 12/29/23 16:24 Dose: 5 mg Pantoprazole Sodium (Pantoprazole 40 Mg Tab) 40 mg PO BID [facility] Stop: 01/26/24 08:59 Last Admin: 12/29/23 09:11 Dose: 40 mg Prednisone (Prednisone 10 Mg Tablet) 10 mg PO QPM [facility] Stop: 01/26/24 20:59 Last Admin: 12/28/23 21:09 Dose: 10 mg Prednisone (Prednisone 20 Mg Tab) 20 mg PO DAILY [facility] Stop: 01/26/24 08:59 Last Admin: 12/29/23 09:11 Dose: 20 mg Sertraline HCl (Sertraline Hcl 100 Mg Tablet) 100 mg PO HS [facility]AMA Stop: 01/26/24 20:59 Last Admin: 12/28/23 21:09 Dose: 100 mg Thiamine HCl (Thiamine Hcl 100 Mg Tab) 100 mg PO QAM [facility] Stop: 01/27/24 08:59 Last Admin: 12/29/23 09:10 Dose: 100 mg Zolpidem Tartrate (Zolpidem Tartrate 5 Mg Tab) 5 mg PO HS PRN PRN Reason: Sleep Stop: 01/26/24 01:49 Last Admin: 12/28/23 21:08 Dose: 5 mg
[2023-12-29 20:21] VITALS: RESP 18
[2023-12-30 06:38] LABS: Basophils # (auto) 0.02 K/uL (0.00-0.20); Basophils % (auto) 0.3 %; Eosinophils # (auto) 0.04 K/uL (0.00-0.50); Eosinophils % (auto) 0.5 %; Hematocrit (blood only) 30.1 % (42.0-52.0); Hemoglobin 9.9 g/dl (14.0-18.0); Immature Granulocytes # (auto) 0.21 K/uL (0.01-0.20); Immature Granulocytes % (auto) 2.9 %; Lymphocytes # (auto) 1.13 K/uL (1.20-3.40); Lymphocytes % (auto) 15.4 %; Mean Corpuscular Hemoglobin 30.8 pg (25.0-34.0); Mean Corpuscular Hgb Conc 32.9 g/dL (32.0-36.0); Mean Corpuscular Volume 93.8 fL (80.0-100.0); Mean Platelet Volume 10.7 fL (9.4-12.4); Monocytes # (auto) 0.48 K/uL (0.11-0.59); Monocytes % (auto) 6.6 %; Neutrophils # (auto) 5.44 K/uL (1.40-6.50); Neutrophils % (auto) 74.3 %; Platelet Count 146 K/uL (130-400); RDW Coefficient of Variation 18.6 % (11.5-14.5); RDW Standard Deviation 62.4 fL (36.4-46.3); Red Blood Count 3.21 M/uL (4.70-6.10); White Blood Count 7.32 K/ul (4.8-10.8)
[2023-12-30 07:38] LABS: Albumin Globulin Ratio 0.9 (0.9-2); Albumin Level 2.8 gm/dl (3.4-5.0); BUN Creatinine Ratio 10.4 (10-20); Bilirubin,Total 0.5 mg/dl (0.2-1.0); Calcium 7.2 mg/dl (8.6-10.3); Creatinine Clr Calc Pharmacy 27.7 ml/min; Magnesium 1.8 mg/dl (1.7-2.4); Phosphorus 3.3 mg/dl (2.5-4.9); Potassium 4.7 mmol/L (3.5-5.1); Total Protein 5.8 gm/dl (6.0-8.3)
[2023-12-30 08:02] VITALS: BP 103/63; TEMP 97.5; O2SAT 99
--- NOTE | 2023-12-30 08:32 | Nephrology Progress Note ---
Date of Service December 30, 2023 Assessment & Plan (1) End stage renal disease: Plan: * Volume status and electrolyte balance are acceptable. No acute indication for HD today * If discharge is planned, please have patient resume HD MWF at [facility] * Outpatient HD Rx: HD MWF [facility] 3.5 hr, F- 180 optiflux, Qb 450/Qd 800, 3K 2.5Ca, EDW 80.5kg, Heparin 2600/600, has LUE AVF * Continue midodrine 10 mg TID for BP support * HD diet * Monitor PRP (2) Hyperkalemia: Plan: * Corrected (3) Laceration of hip, left: Plan: * Cleaned & sutured in EMD * Tetanus booster administered * Antibiotics as per primary service (4) Atrial fibrillation: Plan: * Rate controlled Admission and Anticipated Discharge Date Admission Date: December 27, 2023 Subjective Mr. Rivers was evaluated in his hospital room this morning. He reports that he was able to walk yesterday w/ assistance. He hopes to attend a concert tomorrow evening Review of Systems Constitutional: no fever Eyes: no problem reported Ear, Nose, Mouth, Throat: no problem reported Respiratory: no cough and no dyspnea Cardiovascular: no chest pain and no palpitations Gastrointestinal: no abdominal pain, no nausea, no vomiting and no diarrhea/loose stools Integumentary: no problem reported Physical Exam Constitutional: not in distress Eyes: PERRL, conjunctivae normal, anicteric sclerae ENMT: external ear and nose normal, oropharynx normal Neck: trachea midline, no thyromegaly Respiratory: Auscultation: lungs clear to auscultation bilaterally Cardiovascular: Rate/Rhythm: + irregularly irregular Extremities: + edema (trace edema) Gastrointestinal (Abdomen): normal bowel sounds, soft, nontender, no hepatosplenomegaly Neurologic: awake; not confused Results & Data Vital Signs (Past 12 Hours) Vital Signs Temp Pulse Pulse Pulse Resp BP Pulse Ox 12/30/23 08:01 36.4 C L 87 18 103/63 99 12/30/23 06:54 81 12/30/23 02:34 36.5 C 89 18 106/67 93 12/29/23 23:13 36.7 C 91 H 18 98/67 L 96 12/29/23 22:03 91 H O2 Del Method 12/30/23 08:01 Room Air 12/30/23 06:54 12/30/23 02:34 Room Air 12/29/23 23:13 Room Air 12/29/23 22:03 Laboratory Results Laboratory Results - last 24 hr 12/29/23 12/30/23 10:22 06:12 WBC 7.74 7.32 RBC 3.15 L 3.21 L Hgb 9.7 L 9.9 L Hct 29.3 L 30.1 L MCV 93.0 93.8 MCH 30.8 30.8 MCHC 33.1 32.9 RDW Std Deviation 62.1 H 62.4 H RDW Coeff of Valerie 18.3 H 18.6 H Plt Count 143 146 MPV 10.3 10.7 Immature Gran % (Auto) 1.3 2.9 Neut % (Auto) 71.1 74.3 Lymph % (Auto) 21.2 15.4 [place] % (Auto) 5.3 6.6 Eos % (Auto) 0.8 0.5 Baso % (Auto) 0.3 0.3 Neut # (Auto) 5.51 5.44 Lymph # (Auto) 1.64 1.13 L [place] # (Auto) 0.41 0.48 Eos # (Auto) 0.06 0.04 Baso # (Auto) 0.02 0.02 Immature Gran # (Auto) 0.10 0.21 H Sodium 133 L 137 Potassium 5.1 4.7 Chloride 99 103 Carbon Dioxide 24 24 Anion Gap 10 10 BUN 46 H 32 H Creatinine 4.83 H* D 3.07 H D Est Cr Clr Drug Dosing 17.4 27.7 eGFR 12.94 22.29 BUN/Creatinine Ratio 9.5 L 10.4 Glucose 134 H 140 H Calcium 7.4 L 7.2 L Phosphorus 3.5 3.3 Magnesium 1.7 1.8 Total Bilirubin 0.6 0.5 AST 15 18 ALT 15 16 Alkaline Phosphatase 430 H 450 H Total Protein 5.7 L 5.8 L Albumin 2.8 L 2.8 L Globulin 2.9 3.0 Albumin/Globulin Ratio 1.0 0.9 PG Care Time/CCT Total # of Minutes Spent Total Time Spent with Patient: Total time spent is greater than 50% in coordination of care (as documented) at patient's floor/unit and/or counseling patient: Coding Level of Care Code 42163 SUB INP/OBS CARE MIN Diagnoses End stage renal disease N18.6 Hyperkalemia E87.5 Laceration of hip, left S71.012A Encounter type: initial encounter Atrial fibrillation I48.91 (3) Laceration of hip, left Encounter type: initial encounter Qualified Code(s): S71.012A - Laceration without foreign body, left hip, initial encounter
--- NOTE | 2023-12-30 11:13 | Discharge Summary ---
Date of Service December 30, 2023 Admission HPI Per Admitting Provider History obtained from patient and records. 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 Last confinement July 2023 for A-fib with RVR in the setting of rhinovirus infection and a right pleural effusion status post thoracenteses. Midodrine prescribed on discharge to rehab facility due to low blood pressure. Patient discharged home from rehab facility 2 weeks ago. Compliant with Wednesday outpatient dialysis Last night, patient fell at home after losing balance while on his walker. Patient sustained laceration on his left hip. No head trauma, LOC, chest pain, SOB. Patient brought to ER for evaluation. Left hip laceration repaired at the ER. 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 Admission Exam Per Admitting Provider GENERAL: Comfortable, chronically ill, obese, no respiratory distress SKIN: Sallow, warm, multiple ecchymosis over extremities HEENT: Pale palpebral conjunctivae, no ptosis, dry buccal mucosa NECK : Supple, no tenderness CHEST : CTA, no tenderness HEART : Irregular, no obvious murmurs ABDOMEN: Some distention, nontender EXTREMITIES : Dressing over left hip, left hip tenderness, no other conspicuous deformities noted NEUROLOGIC : Coherent, no facial asymmetry, no other gross focality Principal Diagnosis Hyperkalemia, pt with ESRD on HD Hip laceration, s/p fall Discharge Exam General: WD/WN M in NAD HEENT: NC/AT CV: irregular Resp: Breath sounds clear bilaterally, no increased effort of breathing Abdomen:Soft, nontender Extremities: abrasions on arms. mild edema in lower extremities bilaterally. Left hip with laceration w/covered bandages Discharge Data Allergies Allergy/AdvReac Type Severity Reaction Status Date / Time Iodinated Contrast Media AdvReac Contraindicated Verified 09/09/23 17:40 for dialysis Consultations 12/27/23 00:43 ED Decision to Admit Stat 12/27/23 01:43 Consult Nephrology Routine Ordered Studies 12/26/23 21:59 CT bony pelvis wo con Stat FINDINGS: Bowel: Unremarkable. No obstruction. No mucosal thickening. Appendix: No findings to suggest acute appendicitis. Intraperitoneal space: Unremarkable. No free air. No significant fluid collection. Bladder: Unremarkable. No stones. Reproductive: Unremarkable as visualized. Bones/joints: Similar appearance of left hip arthroplasty and surrounding chronic appearing fracture lines and heterotopic ossification. No new fracture or dislocation visualized. Nonacute comminuted fracture of the right greater trochanter, which was also seen on the prior study. Degenerative changes of the lower lumbosacral spine. Soft tissues: Query laceration of the left superolateral hip soft tissues and associated mild fat stranding. No large hematoma. Generalized body wall edema. Multiple soft tissue nodules in the anterior subcutaneous fat may relate to injections versus other nodules. Not seen on the prior. Vasculature: Unremarkable. No lower abdominal aortic aneurysm. Lymph nodes: Stable mildly enlarged inguinal nodes. IMPRESSION: 1. No evidence of acute fracture or dislocation. 2. Stable appearance of left hip arthroplasty. 3. Nonacute comminuted fracture of the right greater trochanter, which was also seen on the prior study. 4. Query laceration of the left superolateral hip soft tissues and associated mild fat stranding. No large hematoma. 5. Multiple soft tissue nodules in the anterior subcutaneous fat may relate to injections versus other nodules. Not seen on the prior. Correlate. 6. Stable mildly enlarged inguinal nodes. 12/26/23 22:00 CT head/brain wo con Stat FINDINGS: Artifacts: Mild motion artifact. Brain: Volume loss with prominent ventricles and sulci. Periventricular and subcortical white matter hypoattenuation likely reflects chronic small vessel disease. Old lacunar infarcts in the basal ganglia bilaterally and right thalamus. No hemorrhage. Ventricles: See above. Bones/joints: Unremarkable. No acute fracture. Soft tissues: Unremarkable. Sinuses: Unremarkable as visualized. No acute sinusitis. Mastoid air cells: Unremarkable as visualized. No mastoid effusion. IMPRESSION: No acute findings in the head/brain. 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 Patient noted to be hyperkalemic. 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 [place] [facility] [place]. Continue to monitor Corrected Fall Traumatic left hip laceration secondary to fall, underlying ambulatory dysfunction laceration repaired in the emergency room, has stitches UA remains uncollected to rule out UTI as a cause of the fall hip x-ray and CT abdomen pelvis noting chronic fractures of the left hip head CT unremarkable, patient not on anticoagulation for his A-fib PT/OT recommending home with HH Started on Augmentin for laceration and potential infection, pt did get tetanus shot in the ED Hypotension patient with hypotension in the setting of dialysis Discussion with nephrology, agreeable to increasing midodrine dosing to 10 mg 3 times daily Continue to monitor, BP now improved history of chronic alcohol use MANSI S at risk protocol, DT precautions Continue folic acid and thiamine Steroid-induced hyperglycemia rule out DM hemoglobin A1c normal patient unsure why he is on steroids continue to monitor glucose levels continue other home medications as ordered Total Time Total Time Spent Total Time Spent (In Minutes): 40 Discharge Plan Discharge Items Patient Disposition: Home - Home Health Services Reason For Visit: ALCOHOL ABUSE, ESRD ON HD Discharge Diagnosis: Hyperkalemia, pt with ESRD on HD Hip laceration, s/p fall Activity: Per Instructions section Non-emergency contact: Primary Care Provider and Horse Breaker Call non-emergency contact if: you have any medication questions and your symptoms worsen Follow-up/Referrals: Rubén Sanchez MD [Primary Care Provider] - Diet: Dialysis Renal Addtl Attending Provider Instructions: Follow up with primary care doctor within 1 week. Continue with outpatient dialysis as previously. Finish antibiotic treatment as prescribed. Follow up on your hip laceration with your physician, make sure to change dressings and keep area dry and clean. Your midodrine was increased to 10 mg three times a day. Pending Studies at Discharge: No Stand-Alone Forms: My [employer], Smoking Cessation Medications and DC Order Prescriptions: New midodrine 10 mg Tablet 10 mg PO TIDM Qty: 30 0RF Advanced Probiotic 625 mg (10 billion cell) Capsule 1 cap PO DAILY Qty: 10 0RF amoxicillin-pot clavulanate 500-125 mg Tablet 1 tab PO BIDM 4 Days Qty: 8 0RF Continued sertraline 100 mg Tablet 100 mg PO HS folic acid 1 mg Tablet 1 mg PO DAILY gabapentin 300 mg Capsule 300 mg PO BID levetiracetam 100 mg/mL Solution 1,500 mg PO BID lacosamide 10 mg/mL Solution 100 mg PO BID lorazepam 2 mg Tablet 2 mg PO DAILY PRN (Reason: Seizures) Rx Instructions: May repeat dose. Nephro-Aziza 0.8 mg Tablet 1 tab PO DAILY nicotine [Nicoderm CQ] 7 mg/24 hr Patch 24 Hour 1 patch TRANSDERMAL DAILY oxycodone 5 mg Tablet 2.5 mg PO Q6H PRN (Reason: Pain) prednisone 20 mg Tablet 20 mg PO DAILY prednisone 10 mg Tablet 10 mg PO QPM amiodarone 200 mg tablet 200 mg PO DAILY loperamide 2 mg tablet 2 mg PO DAILY PRN (Reason: Diarrhea) lidocaine-prilocaine 2.5-2.5 % cream 1 applic topical DIRECTED pantoprazole 40 mg tablet,delayed release (DR/EC) 40 mg PO BID zolpidem 5 mg tablet 5 mg PO HS PRN (Reason: Sleep) Discontinued midodrine 5 mg Tablet 5 mg PO TID Rx Instructions: do not give last dose of day after 6PM or within 4 hrs of bedtime Discharge Orders: Discharge Order (Routine); Ordered 12/30/23 Ordered By: Fernando Corral Admission Data Admit Date/Time: 12/27/23 01:04 Attending Provider: Fernando Corral Admit Provider: Blayne Amezcua Primary Care Provider: Rubén Sanchez Other Providers: Blayne Amezcua; Tarik Moore; Sammy Pinzon Kevin C.; Dimple Wells
[2023-12-30] MEDS: ADVANCED PROBIOTIC 625 MG CAPSULE PO SCH (12:04)
[2023-12-30 13:51] VITALS: PULSE 71
[2023-12-31] MEDS ORDERED: HEPARIN SOD (PORCINE) 1000 UNIT/ML IV ONE (07:00)
[2023-12-31] MEDS ORDERED: EPOETIN ALFA 10,000 UNITS/ML VIAL IV ONE (07:00)
[2023-12-31] MEDS ORDERED: HEPARIN SOD (PORCINE) 1000 UNIT/ML IV SCH (07:00)
== END 2023-12-30 14:07 | disposition home health service (06) | DRG 628 ==
LOC: ED 21:47 → SUATTDRO 12-27 01:04 → 2W 12-27 01:04

== ENCOUNTER 2024-01-10 08:43 | Inpatient (IN) ==
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
[2024-01-10 10:09] LABS: Adenovirus PCR Not Detected (NotDetected); Bordetella parapertussis PCR Not Detected (NotDetected); Bordetella pertussis PCR Not Detected (NotDetected); Chlamydia pneumoniae PCR Not Detected (NotDetected); Coronavirus 229E PCR Not Detected (NotDetected); Coronavirus CoV-2 (COVID19)PCR Not Detected (NotDetected); Coronavirus HKU1 PCR Not Detected (NotDetected); Coronavirus NL63 PCR Not Detected (NotDetected); Coronavirus OC43PCR Not Detected (NotDetected); Human Metapneumovirus PCR Not Detected (NotDetected); Influenza A PCR Not Detected (NotDetected); Influenza B PCR Not Detected (NotDetected); Mycoplasma pneumoniae PCR Not Detected (NotDetected); Parainfluenza Virus 1 PCR Not Detected (NotDetected); Parainfluenza Virus 2 PCR Not Detected (NotDetected); Parainfluenza Virus 3 PCR Not Detected (NotDetected); Parainfluenza Virus 4 PCR Not Detected (NotDetected); Respiratory Syncytial VirusPCR Not Detected (NotDetected); Rhinovirus/Enterovirus PCR Not Detected (NotDetected)
[2024-01-10 10:23] LABS: Basophils # (auto) 0.05 K/uL (0.00-0.20); Basophils % (auto) 0.8 %; Eosinophils # (auto) 0.11 K/uL (0.00-0.50); Eosinophils % (auto) 1.8 %; Hemoglobin 10.1 g/dl (14.0-18.0); Immature Granulocytes # (auto) 0.04 K/uL (0.01-0.20); Immature Granulocytes % (auto) 0.6 %; Lymphocytes # (auto) 1.14 K/uL (1.20-3.40); Lymphocytes % (auto) 18.4 %; Mean Corpuscular Hemoglobin 30.1 pg (25.0-34.0); Mean Corpuscular Hgb Conc 32.6 g/dL (32.0-36.0); Mean Corpuscular Volume 92.3 fL (80.0-100.0); Mean Platelet Volume 10.2 fL (9.4-12.4); Monocytes # (auto) 0.45 K/uL (0.11-0.59); Monocytes % (auto) 7.2 %; Neutrophils # (auto) 4.42 K/uL (1.40-6.50); Neutrophils % (auto) 71.2 %; Platelet Count 125 K/uL (130-400); RDW Coefficient of Variation 18.6 % (11.5-14.5); Red Blood Count 3.36 M/uL (4.70-6.10); White Blood Count 6.21 K/ul (4.8-10.8)
--- NOTE | 2024-01-10 10:23 | XRay Report ---
XR chest 2V PA/lateral HISTORY: 63 years-old Male SOB, weakness acute shortness breath with weakness COMPARISON: 12/26/2023 TECHNIQUE: AP and lateral views of the chest FINDINGS: Cardiac silhouette is enlarged. Pulmonary vascular congestion with interstitial coarsening. Right sub clavian stent. No pneumothorax. Layering pleural effusions with right basilar predominant consolidati on. Bones appear grossly intact. IMPRESSION: 1. Cardiomegaly with pulmonary edema. 2. Small pleural effusions with right basilar predominant consolidation which may represents atelecta sis versus pneumonia. ACT 112: Negative or not required by law. The above report was generated using voice recognition software. It may contain grammatical, syntax o r spelling errors. Electronically signed by: Librado Munoz M.D. 01/10/2024 10:22 AM
[2024-01-10 10:54] LABS: Albumin Globulin Ratio 0.8 (0.9-2); BUN Creatinine Ratio 6.9 (10-20); Bilirubin,Total 1.5 mg/dl (0.2-1.0); Calcium 8.2 mg/dl (8.6-10.3); Creatinine Clr Calc Pharmacy 13.9 ml/min; Globulin 3.6 gm/dl (2.5-4.0); Potassium 4.4 mmol/L (3.5-5.1); Thyroid Stimulating Hormone 5.917 uIu/ml (0.300-4.500); Total Protein 6.6 gm/dl (6.0-8.3)
[2024-01-10 11:43] LABS: T4 Free Thyroxine 0.58 ng/dl (0.61-1.60)
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
[2024-01-10] MEDS: MIDODRINE HCL 2.5 MG TAB PO ONE (14:01)
[2024-01-10] MEDS: diphenhydrAMINE 50 MG/ML VIAL IV ONE (14:01)
--- NOTE | 2024-01-10 14:05 | Electrocardiogram Report ---
Test Reason : Blood Pressure : */* mmHG Vent. Rate : 94 BPM Atrial Rate : * BPM P-R Int : * ms QRS Dur : 94 ms QT Int : 388 ms P-R-T Axes : * 41 110 degrees QTcB Int : 485 ms Atrial fibrillation Nonspecific T wave abnormality Abnormal ECG When compared with ECG of 26-Dec-2023 22:05, T wave amplitude has decreased in Anterior leads Confirmed by Bret Christian ([id number] on 01/10/2024 2:05:30 PM Referred By: Confirmed By: Bret Christian
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
--- NOTE | 2024-01-10 18:31 | CT Scan Report ---
INDICATION: Pain and injury. COMPARISON: CT from 12/26/2023 TECHNIQUE: Axial CT images of the head were obtained without IV contrast. Coronal and sagittal reformations were reviewed. FINDINGS: Willett-white differentiation is relatively preserved. No mass, mass effect or midline shift. Mild chronic ischemic white matter changes. No evidence of acute large territorial infarction or acute intracranial hemorrhage. Ventricles appear normal in size. Basal cisterns are patent. No depressed calvarial fracture. IMPRESSION: No acute intracranial process. Electronically signed by Vijay James 01-10-2024 6:31 PM
[2024-01-10 20:20] LABS: Hep B Surface Ag with confirm Negative (Negative)
[2024-01-10] MEDS: HEPARIN SOD 5,000 UNIT/0.5 ML VIAL SQ SCH (20:27)
[2024-01-10 20:29] LABS: Hepatitis B Surface Antibody Immune
[2024-01-10] MEDS: levETIRAcetam 500 MG TAB PO SCH (20:32)
[2024-01-10] MEDS: MIDODRINE HCL 10 MG TAB PO SCH (20:34)
[2024-01-10] MEDS: PANTOprazole 40 MG TAB PO SCH (20:35)
--- NOTE | 2024-01-10 20:40 | Communication Note ---
Date of Service: January 10, 2024 Patient's orthostatic vital signs were negative. Patient reports that he was in [facility] after a fall a few a few weeks ago in mid December. He apparently had a laceration on his left hip. This was stapled closed after some I&D. He reports he is on antibiotics. It does not know what antibiotics they are. Nurse reported that there was some purulent drainage from the posterior edge of the laceration and that the wound had not completely been healed shut. Evaluated the patient. There is some serous fluid coming from the incision some mild purulence at the posterior edge of the incision. There is no real significant surrounding cellulitis. No significant tenderness. Patient is complaining of some chills, but no documented fever. Concern for possible wound infection as a source of the patient's hypotension, weakness and falls. Wound culture Blood cultures CT of the left hip MRSA swab Empiric daptomycin
[2024-01-10] MEDS: GABAPENTIN 400 MG CAP PO PRN (20:47)
[2024-01-10] MEDS: LACOSAMIDE 50 MG TABLET PO SCH (20:48)
[2024-01-10] MEDS ORDERED: LORazepam 2 MG/1 ML VIAL IV PRN ×4 (21:24→21:35)
[2024-01-10] MEDS ORDERED: GABAPENTIN 400 MG CAP PO SCH (21:30)
[2024-01-10] MEDS ORDERED: Ativan IV Alcohol Withdrawal--Active Protocol IV PRN (21:34)
[2024-01-10] MEDS ORDERED: chlordiazePOXIDE ALCOHOL WITHDRAWL 50MG PO STA (21:34)
[2024-01-10] MEDS: ZOLPIDEM TARTRATE 5 MG TAB PO PRN (22:17)
[2024-01-10] MEDS: chlordiazePOXIDE HCl 25 MG CAP PO SCH (22:18)
[2024-01-10] MEDS: THIAMINE HCL 100 MG in SYRINGE 9 ML IV STA (22:19)
[2024-01-10] MEDS: DAPTOmycin 300 MG in SYRINGE 0 ML IV SCH (22:19)
--- NOTE | 2024-01-11 03:28 | Communication Note ---
Date of Service: January 11, 2024 Patient noted to be uncomfortable and shaking a lot as per RN. Tachycardic. Shaking normal for him as per patient. AP ? Alcohol withdrawal MANSI S, DT precautions Later notified of elevated procalcitonin, and left hip drainage AP Sepsis secondary to left hip wound infection Add cefepime to daptomycin Rx. Facilitate CT left hip
[2024-01-11] MEDS: MIDODRINE HCL 10 MG TAB PO STA (03:45)
[2024-01-11] MEDS: ALBUMIN 25% 12.5 GM/50 ML VIAL IV ONE (03:51)
[2024-01-11] MEDS: MAGNESIUM SULFATE / D5W 1 GM/100 ML BAG IV ONE (03:51)
[2024-01-11] MEDS: PIPERACILLIN/TAZOBACTAM 4.5 GM/100 ML BAG IV ONE (04:50)
--- NOTE | 2024-01-11 05:31 | CT Scan Report ---
EXAM: CT hip LT wo con CLINICAL HISTORY: pain,sepsis TECHNIQUE: Multiple, contiguous, nonenhanced CT scan of the left hip joint in axial plane with multiplanar reconstructions. One of the following dose reduction techniques was utilized for this exam: Automated exposure control, adjustment of the mA and/or kV according to patient size, and use of iterative reconstruction. COMPARISON: X-ray on 12/26/2023 and 11/15/2022. FINDINGS: Bones: Left total hip replacement is noted, with no prosthetic fracture, loosening, or malalignment. 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 Heterotopic ossification and soft tissue thickening adjacent to the prosthetic joint, no definite loculated fluid collection is noted. Muscles and Tendons: Normal appearance of the surrounding muscles. Soft Tissues: Mild patchy subcutaneous edema was noted. IMPRESSION: 1. Left total hip replacement is noted without complication. 2. Mild patchy subcutaneous edema was noted likely due to edema. 3. 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 (Stable in comparison with CT on 11/15/2022). Electronically signed by Shemar Cortes 01-11-2024 05:31 AM
[2024-01-11] MEDS: AMIODARONE 200 MG TAB PO ONE (06:32)
[2024-01-11 07:56] LABS: Basophils # (auto) 0.05 K/uL (0.00-0.20); Basophils % (auto) 0.6 %; Eosinophils % (auto) 1.2 %; Hematocrit (blood only) 30.4 % (42.0-52.0); Hemoglobin 9.8 g/dl (14.0-18.0); Immature Granulocytes # (auto) 0.04 K/uL (0.01-0.20); Immature Granulocytes % (auto) 0.5 %; Lymphocytes # (auto) 1.54 K/uL (1.20-3.40); Lymphocytes % (auto) 19.1 %; Mean Corpuscular Hemoglobin 30.2 pg (25.0-34.0); Mean Corpuscular Hgb Conc 32.2 g/dL (32.0-36.0); Mean Corpuscular Volume 93.8 fL (80.0-100.0); Mean Platelet Volume 10.5 fL (9.4-12.4); Monocytes # (auto) 0.56 K/uL (0.11-0.59); Monocytes % (auto) 6.9 %; Neutrophils # (auto) 5.77 K/uL (1.40-6.50); Neutrophils % (auto) 71.7 %; Platelet Count 114 K/uL (130-400); RDW Coefficient of Variation 18.6 % (11.5-14.5); RDW Standard Deviation 63.3 fL (36.4-46.3); Red Blood Count 3.24 M/uL (4.70-6.10); White Blood Count 8.06 K/ul (4.8-10.8)
[2024-01-11 08:18] LABS: Albumin Globulin Ratio 0.9 (0.9-2); Albumin Level 2.6 gm/dl (3.4-5.0); BUN Creatinine Ratio 4.5 (10-20); Bilirubin,Total 1.6 mg/dl (0.2-1.0); Calcium 7.5 mg/dl (8.6-10.3); Creatinine Clr Calc Pharmacy 19.4 ml/min; Potassium 3.7 mmol/L (3.5-5.1); Total Protein 5.6 gm/dl (6.0-8.3)
[2024-01-11] MEDS: FOLIC ACID 1 MG TAB PO SCH (08:27)
[2024-01-11] MEDS: GABAPENTIN 100 MG CAP PO SCH (08:27)
[2024-01-11] MEDS: SERTRALINE HCL 100 MG TABLET PO SCH (08:27)
[2024-01-11] MEDS ORDERED: GABAPENTIN 400 MG CAP PO SCH (09:00)
[2024-01-11] MEDS ORDERED: AMIODARONE 200 MG TAB PO SCH (09:00)
[2024-01-11] MEDS: MULTIVITAMIN TAB PO SCH (09:11)
[2024-01-11] MEDS: THIAMINE HCL 100 MG TAB PO SCH (09:12)
[2024-01-11] MEDS: CEFEPIME 1000MG 1,000 MG/10 ML SYR IV SCH (11:51)
--- NOTE | 2024-01-11 12:08 | Nephrology Progress Note ---
Date of Service January 11, 2024 Assessment & Plan (1) ESRD on hemodialysis: Plan: On HD MWF at [facility]. Completed HD yesterday with adequate UF and clearance. Volume status reasonable. Electrolytes controlled. Next treatment tomorrow. Midodrine provided pre-HD. Medications appropriate for kidney dysfunction. Benadryl 50 mg IV given at start of treatment. EMLA cream ordered to be applied to AVF. Maintain a fluid restriction of 1 L/d. (2) Anemia: Plan: Maintained on Micera as outpatient. Chronic, stable. (3) Laceration of hip, left: Plan: Multiple recent falls and ambulatory dysfunction. Payam reports feeling safe at home. He understands the importance of PT/OT evaluation. He acknowledges sign ificant deconditioning from multiple recent hospitalizations. (4) Pleural effusion on right: Plan: CXR reviewed. Noted pleural effusion and pulmonary edema. Payam has not achieved EDW with HD recently. We will continue to challenge with additional UF with HD as tolerated. Admission and Anticipated Discharge Date Admission Date: January 10, 2024 Subjective No acute events overnight. Payam was resting comfortably in bed this AM. He remains very weak and described feeling nauseous this AM. He acknowledges that things at home are not working well. He states that his is not able to provide the assistance that he has required and he feels that a database developer placement may be the best option for him. He is experiencing some persistent pain in his hip. He is breathing comfortably. Payam states that dialysis generally takes away a lot of his strength. He does not want an extra treatment today but would prefer to wait until tomorrow. Review of Systems Review of Systems: All systems reviewed & are unremarkable except as noted in HPI & below Physical Exam Constitutional: well developed; no acute distress Eyes: + anicteric sclerae; no corneal abnormal ity ENMT: Mouth: no oral mucosal abnormality and oral mucous membranes not dry Neck: normal visual inspection and trachea midline Respiratory: normal respiratory effort Auscultation: lungs clear to auscultation bilaterally and + rales (few right base) Cardiovascular: Rate/Rhythm: + irregularly irregular Heart Sounds: normal S1 and normal S2 Extremities: + edema (improved) and + AV fistula Musculoskeletal: Extremities: no cyanosis and no clubbing Skin: + ecchymosis; no jaundice Neurologic: Motor/Sensory: no tremor and no asterixis Psychiatric: Orientation: alert and oriented x 3 Results & Data Vital Signs (Past 12 Hours) Vital Signs Temp Pulse Pulse Resp BP BP Pulse Ox 01/11/24 11:15 36.7 C 96 H 20 94/61 L 97 01/11/24 08:36 110/60 01/11/24 08:00 01/11/24 07:22 98 H 01/11/24 07:05 37.3 C 97 H 16 88/50 L 94 01/11/24 03:10 37.2 C 115 H 18 84/47 L 95 O2 Del Method 01/11/24 11:15 Room Air 01/11/24 08:36 01/11/24 08:00 Room Air 01/11/24 07:22 01/11/24 07:05 Room Air 01/11/24 03:10 Room Air Laboratory Results Laboratory Results - last 24 hr 01/10/24 01/10/24 01/10/24 10:06 17:32 17:38 WBC RBC Hgb Hct MCV MCH MCHC RDW Std Deviation RDW Coeff of Valerie Plt Count MPV Immature Gran % (Auto) Neut % (Auto) Lymph % (Auto) Cooper % (Auto) Eos % (Auto) Baso % (Auto) Neut # (Auto) Lymph # (Auto) Cooper # (Auto) Eos # (Auto) Baso # (Auto) Immature Gran # (Auto) Sodium Potassium Chloride Carbon Dioxide Anion Gap BUN Creatinine Est Cr Clr Drug Dosing eGFR BUN/Creatinine Ratio Glucose POC Glucose 138 H Calcium Magnesium Total Bilirubin AST ALT Alkaline Phosphatase Total Protein Albumin Globulin Albumin/Globulin Ratio Procalcitonin 2.56 H Nasal Screen MRSA (PCR) Hep Bs Antigen Negative Hep Bs Antibody Immune Hep Bs Antibody, Quant 74.00 01/10/24 01/11/24 01/11/24 20:40 03:32 06:41 WBC 8.06 RBC 3.24 L Hgb 9.8 L Hct 30.4 L MCV 93.8 MCH 30.2 MCHC 32.2 RDW Std Deviation 63.3 H RDW Coeff of Valerie 18.6 H Plt Count 114 L MPV 10.5 Immature Gran % (Auto) 0.5 Neut % (Auto) 71.7 Lymph % (Auto) 19.1 Cooper % (Auto) 6.9 Eos % (Auto) 1.2 Baso % (Auto) 0.6 Neut # (Auto) 5.77 Lymph # (Auto) 1.54 Cooper # (Auto) 0.56 Eos # (Auto) 0.10 Baso # (Auto) 0.05 Immature Gran # (Auto) 0.04 Sodium 133 L Potassium 3.7 Chloride 96 L Carbon Dioxide 25 Anion Gap 12 H BUN 18 D Creatinine 3.99 H D Est Cr Clr Drug Dosing 19.4 eGFR 16.27 BUN/Creatinine Ratio 4.5 L Glucose 108 H POC Glucose Calcium 7.5 L Magnesium 1.7 Total Bilirubin 1.6 H AST 16 ALT 9 Alkaline Phosphatase 466 H Total Protein 5.6 L Albumin 2.6 L Globulin 3.0 Albumin/Globulin Ratio 0.9 Procalcitonin Nasal Screen MRSA (PCR) Negative Hep Bs Antigen Hep Bs Antibody Hep Bs Antibody, Quant PG Care Time/CCT Total # of Minutes Spent Total Time Spent with Patient: Total time spent is greater than 50% in coordination of care (as documented) at patient's floor/unit and/or counseling patient: Coding Level of Care Code 43962 SUB INP/OBS CARE 3/50MIN Diagnoses ESRD on hemodialysis N18.6; Z99.2 Anemia D64.9 Anemia type: unspecified type Laceration of hip, left S71.012A Encounter type: initial encounter Pleural effusion on right J90 (2) Anemia Anemia type: unspecified type Qualified Code(s): D64.9 - Anemia, unspecified (3) Laceration of hip, left Encounter type: initial encounter Qualified Code(s): S71.012A - Laceration without foreign body, left hip, initial encounter
--- NOTE | 2024-01-11 14:06 | Electrocardiogram Report ---
Test Reason : Blood Pressure : */* mmHG Vent. Rate : 103 BPM Atrial Rate : 117 BPM P-R Int : * ms QRS Dur : 102 ms QT Int : 378 ms P-R-T Axes : * 8 136 degrees QTcB Int : 495 ms Atrial fibrillation with rapid ventricular response Nonspecific T wave abnormality Abnormal ECG When compared with ECG of 10-Jan-2024 08:50, No significant change was found Confirmed by Bret Christian ([id number]) on 01/11/2024 2:06:30 PM Referred By: REFERRED SELF Confirmed By: Bret Christian
--- NOTE | 2024-01-11 15:29 | Hospitalist Progress Note ---
Date of Service January 11, 2024 Assessment & Plan (1) ESRD on hemodialysis: (2) Alcohol abuse: (3) Insomnia: (4) Atrial fibrillation: (5) Anxiety: (6) Ambulatory dysfunction: (7) Frequent falls: (8) PUD (peptic ulcer disease): Plan Frequent falls Suspected syncope Chronic hypotension Generalized weakness Reports falling about once a week, does not remember all of the falls --CT Head:No acute intracranial process. --Left Hip CT:Left total hip replacement is noted without complication. Mild patchy subcutaneous edema was noted likely due to edema. 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 (Stable in comparison with CT on 11/15/2022). Fall precautions PT OT as able Urinalysis pending Continue midodrine Monitor blood pressure closely Suspected pneumonia--POA --CXR:Cardiomegaly with pulmonary edema. Small pleural effusions with right basilar predominant consolidation which may represents atelectasis versus pneumonia. --Elevated procalcitonin --Nasal MRSA negative -- BioFire negative --Blood cultures pending Continue on cefepime, doxycycline for now Left hip wound S/P laceration Wound culture pending Empirically on antibiotics as above Continue local wound care A-fib RVR Continue amiodarone Chronically not on anticoagulation Currently rate controlled Abnormal thyroid function test Mildly elevated TSH and low free T4 Will re-check TSH tmw to confirm ESRD on HD: Nephrology consulted to help with dialysis Monitor volume status Seizures: Continue Keppra/lacosamide Alcohol abuse: Denies drinking for months, monitor for signs of withdrawal Unsure when he last consumed alcohol given drowsy/lethargy today Currently on alcohol withdrawal protocol Also on thiamine, folic acid Hold medications to minimize excess sedation DVT Px: Heparin SQ Code Status Full code Admission and Anticipated Discharge Date Admission Date: January 10, 2024 Subjective Patient is seen and examined at bedside States feeling better Drowsy and lethargic during my encounter Poor historian Denies any chest pain, dyspnea, nausea, vomiting, abdominal pain No significant withdrawal symptoms currently Review of Systems Review of Systems: All systems reviewed & are unremarkable except as noted in Subjective Physical Exam Physical Exam: Physical Exam: Vitals signs as noted above General Appearance:Moderately built and nourished, no apparent distress Head: normocephalic, Atraumatic Eyes: normal inspection, EOMI Neck: supple, Trachea midline Respiratory/Chest: Normal breath sounds, CTA, No accessory muscle use Cardiovascular: Irregularly irregular, No murmur Abdomen/GI:Soft, Non tender, Bowel sounds present Extremities/Musculoskeletal:normal inspection, Trace edema, Left hip Laceration Neurologic/Psych:AAOX3, grossly no focal neurological deficits, drowsy Skin: normal color, warm,+Multiple Ecchymosis Results & Data Results & Data Vital Signs (Past 12 Hours) Vital Signs Temp Pulse Pulse Resp BP BP Pulse Ox 01/11/24 15:10 91 H 01/11/24 15:04 37.2 C 89 18 92/58 L 93 01/11/24 14:37 91 H 18 105/62 01/11/24 11:15 36.7 C 96 H 20 94/61 L 97 01/11/24 08:36 110/60 01/11/24 08:00 01/11/24 07:22 98 H 01/11/24 07:05 37.3 C 97 H 16 88/50 L 94 O2 Del Method 01/11/24 15:10 01/11/24 15:04 Room Air 01/11/24 14:37 01/11/24 11:15 Room Air 01/11/24 08:36 01/11/24 08:00 Room Air 01/11/24 07:22 01/11/24 07:05 Room Air Laboratory Results Short CBC 01/11/24 Range/Units 06:41 WBC 8.06 (4.8-10.8) K/ul Hgb 9.8 L (14.0-18.0) g/dl Hct 30.4 L (42.0-52.0) % Plt Count 114 L (130-400) K/uL BMP 01/11/24 06:41 Sodium 133 L Potassium 3.7 Chloride 96 L Carbon Dioxide 25 BUN 18 D Creatinine 3.99 H D Glucose 108 H Calcium 7.5 L Liver Function 01/11/24 Range/Units 06:41 Total Bilirubin 1.6 H (0.2-1.0) mg/dl AST 16 (13-39) U/L ALT 9 (7-52) U/L Alkaline Phosphatase 466 H (34-104) U/L Albumin 2.6 L (3.4-5.0) gm/dl
[2024-01-12] MEDS: chlordiazePOXIDE HCl 25 MG CAP PO SCH (00:09)
[2024-01-12 06:39] LABS: Hematocrit (blood only) 29.9 % (42.0-52.0); Hemoglobin 9.8 g/dl (14.0-18.0); Mean Corpuscular Hemoglobin 30.3 pg (25.0-34.0); Mean Corpuscular Hgb Conc 32.8 g/dL (32.0-36.0); Mean Corpuscular Volume 92.6 fL (80.0-100.0); Mean Platelet Volume 9.9 fL (9.4-12.4); Platelet Count 111 K/uL (130-400); RDW Coefficient of Variation 18.3 % (11.5-14.5); RDW Standard Deviation 62.6 fL (36.4-46.3); Red Blood Count 3.23 M/uL (4.70-6.10); White Blood Count 6.98 K/ul (4.8-10.8)
[2024-01-12 07:18] LABS: Albumin Globulin Ratio 0.8 (0.9-2); Albumin Level 2.4 gm/dl (3.4-5.0); BUN Creatinine Ratio 5.5 (10-20); Bilirubin,Total 1.5 mg/dl (0.2-1.0); Calcium 7.8 mg/dl (8.6-10.3); Creatinine Clr Calc Pharmacy 14.3 ml/min; Globulin 3.1 gm/dl (2.5-4.0); Magnesium 1.9 mg/dl (1.7-2.4); Phosphorus 3.8 mg/dl (2.5-4.9); Potassium 3.6 mmol/L (3.5-5.1); Total Protein 5.5 gm/dl (6.0-8.3)
[2024-01-12 07:33] LABS: Thyroid Stimulating Hormone 3.608 uIu/ml (0.300-4.500)
[2024-01-12] MEDS: ADVANCED PROBIOTIC 625 MG CAPSULE PO SCH (08:26)
[2024-01-12] MEDS: AMIODARONE 200 MG TAB PO SCH (08:26)
[2024-01-12] MEDS: diphenhydrAMINE 50 MG/ML VIAL IV SCH (08:29)
[2024-01-12] MEDS: LIDOCAINE/PRILOCAINE 2.5% EA CRM EXT SCH (09:30)
--- NOTE | 2024-01-12 09:59 | Electrocardiogram Report ---
Test Reason : Blood Pressure : */* mmHG Vent. Rate : 88 BPM Atrial Rate : 91 BPM P-R Int : * ms QRS Dur : 102 ms QT Int : 418 ms P-R-T Axes : * 34 99 degrees QTcB Int : 505 ms Atrial fibrillation Incomplete right bundle branch block Prolonged QT Abnormal ECG When compared with ECG of 11-Jan-2024 05:01, Nonspecific T wave abnormality, improved in Lateral leads Confirmed by Bret Christian ([id number]) on 01/12/2024 9:58:34 AM Referred By: REFERRED SELF Confirmed By: Bret Christian
--- NOTE | 2024-01-12 10:35 | Nephrology Progress Note ---
Date of Service January 12, 2024 Assessment & Plan (1) ESRD on hemodialysis: Plan: On HD MWF at [facility]. Orders for HD today entered into the EHR and reviewed with polisher and buffer. Payam was seen and evaluated during treatment. Outpatient Rx: 3.5 hours on a 180 optiflix at Qb 450 and Qd 800, 3 K, 2.5 Ca, 138 Na. EDW 80.5 kg. Orders for HD today were entered into the EHR and reviewed with polisher and buffer. Midodrine provided pre-HD. Medications appropriate for kidney dysfunction. Benadryl 50 mg IV given at start of treatment. EMLA cream ordered to be applied to AVF. Maintain a fluid restriction of 1 L/d. (2) Anemia: Plan: Maintained on Micera as outpatient. Chronic, stable. (3) Pleural effusion on right: Plan: CXR reviewed. Noted pleural effusion and pulmonary edema. DWe will continue to challenge with additional UF with HD as tolerated. Admission and Anticipated Discharge Date Admission Date: January 10, 2024 Subjective No acute events overnight. Payam was seen and evaluated during HD this AM. He is tolerating treatment well. He is drowsy this AM. He slept well last night. He denies shortness of breath. He does not endorse pain. Review of Systems Review of Systems: All systems reviewed & are unremarkable except as noted in HPI & below Physical Exam Constitutional: well developed; no acute distress Eyes: + anicteric sclerae; no corneal abnormal ity ENMT: Mouth: no oral mucosal abnormality and oral mucous membranes not dry Neck: normal visual inspection and trachea midline Respiratory: normal respiratory effort Auscultation: lungs clear to auscultation bilaterally (anteriorly) Cardiovascular: Rate/Rhythm: + irregularly irregular Heart Sounds: normal S1 and normal S2 Extremities: + edema (improved) and + AV fistula Musculoskeletal: Extremities: no cyanosis and no clubbing Skin: + ecchymosis; no jaundice Neurologic: Motor/Sensory: no tremor and no asterixis Psychiatric: Orientation: alert and oriented x 3 Results & Data Vital Signs (Past 12 Hours) Vital Signs Temp Pulse Pulse Resp BP BP BP 01/12/24 10:00 85 96/63 L 01/12/24 09:44 80 89/61 L 01/12/24 09:40 36.5 C 81 01/12/24 08:00 36.7 C 87 18 115/68 101/59 L 01/12/24 07:06 84 01/12/24 03:35 36.6 C 90 16 96/61 L 01/11/24 23:43 36.4 C L 102 H 16 107/72 Pulse Ox O2 Del Method 01/12/24 10:00 01/12/24 09:44 01/12/24 09:40 01/12/24 08:00 96 Room Air 01/12/24 07:06 01/12/24 03:35 93 Room Air 01/11/24 23:43 93 Room Air Laboratory Results Laboratory Results - last 24 hr 01/12/24 06:14 WBC 6.98 RBC 3.23 L Hgb 9.8 L Hct 29.9 L MCV 92.6 MCH 30.3 MCHC 32.8 RDW Std Deviation 62.6 H RDW Coeff of Valerie 18.3 H Plt Count 111 L MPV 9.9 Sodium 134 L Potassium 3.6 Chloride 97 L Carbon Dioxide 26 Anion Gap 11 BUN 30 H Creatinine 5.41 H* D Est Cr Clr Drug Dosing 14.3 eGFR 11.29 BUN/Creatinine Ratio 5.5 L Glucose 93 Calcium 7.8 L Phosphorus 3.8 Magnesium 1.9 Total Bilirubin 1.5 H AST 12 L ALT 9 Alkaline Phosphatase 464 H Total Protein 5.5 L Albumin 2.4 L Globulin 3.1 Albumin/Globulin Ratio 0.8 L Vitamin B12 443 Procalcitonin 2.83 H TSH 3.608 PG Care Time/CCT Total # of Minutes Spent Total Time Spent with Patient: Total time spent is greater than 50% in coordination of care (as documented) at patient's floor/unit and/or counseling patient: Coding Level of Care Code 60690 SUB INP/OBS CARE 3/50MIN Diagnoses ESRD on hemodialysis N18.6; Z99.2 Anemia D64.9 Anemia type: unspecified type Pleural effusion on right J90 (2) Anemia Anemia type: unspecified type Qualified Code(s): D64.9 - Anemia, unspecified
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
--- NOTE | 2024-01-12 15:12 | Hospitalist Progress Note ---
Date of Service January 12, 2024 Assessment & Plan (1) ESRD on hemodialysis: (2) Alcohol abuse: (3) Insomnia: (4) Atrial fibrillation: (5) Anxiety: (6) Ambulatory dysfunction: (7) Frequent falls: (8) PUD (peptic ulcer disease): Plan Frequent falls Suspected syncope Chronic hypotension Generalized weakness Reports falling about once a week, does not remember all of the falls --CT Head:No acute intracranial process. --Left Hip CT:Left total hip replacement is noted without complication. Mild patchy subcutaneous edema was noted likely due to edema. 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 (Stable in comparison with CT on 11/15/2022). Fall precautions PT OT as able Urinalysis ordered, uncollected Continue midodrine Monitor blood pressure closely Suspected pneumonia--POA --CXR:Cardiomegaly with pulmonary edema. Small pleural effusions with right basilar predominant consolidation which may represents atelectasis versus pneumonia. --Elevated procalcitonin --Nasal MRSA negative -- BioFire negative --Blood cultures pending - sputum culture ordered Continue on cefepime, dapto for now Left hip wound S/P laceration concern for wound infection Wound culture posit. Klebsiella - sensitivities pending Empirically on antibiotics as above Continue local wound care orthopedics, Dr. Reyes also consulted A-fib RVR Continue amiodarone Chronically not on anticoagulation Currently rate controlled Abnormal thyroid function test Mildly elevated TSH and low free T4 re-check TSH 3.6 wnl ESRD on HD: Nephrology consulted to help with dialysis Monitor volume status Seizures: Continue Keppra/lacosamide Alcohol abuse: Denies drinking for months, monitor for signs of withdrawal Unsure when he last consumed alcohol given drowsy/lethargy today Currently on alcohol withdrawal protocol Also on thiamine, folic acid Hold medications to minimize excess sedation DVT Px: Heparin SQ Code Status: Full code Admission and Anticipated Discharge Date Admission Date: January 10, 2024 Subjective Patient seen in follow up - recurrent falls, hypotension, ESRD on HD, now with hip laceration, poss. 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 Head: normocephalic, Atraumatic Eyes: normal inspection, EOMI Neck: supple Respiratory/Chest: Normal breath sounds, CTA, No accessory muscle use Cardiovascular: Irregularly irregular, No murmur Abdomen/GI:Soft, Non tender, Bowel sounds present Extremities/Musculoskeletal:normal inspection, Trace edema, Left hip Laceration Neurologic/Psych: awake but drowsy, able to answer simple questions appropriately, speech fluent, moves extremities Skin: warm,dry, +Multiple Ecchymosis Results & Data Results & Data Vital Signs (Past 12 Hours) Vital Signs Temp Pulse Pulse Resp BP BP BP 01/12/24 13:18 36.5 C 104 H 91/66 L 01/12/24 13:00 98 H 109/56 L 01/12/24 12:30 96 H 77/58 L 01/12/24 12:00 96 H 81/54 L 01/12/24 11:30 95 H 77/56 L 01/12/24 11:00 91 H 103/65 01/12/24 10:30 94 H 93/64 L 01/12/24 10:00 85 96/63 L 01/12/24 09:44 80 89/61 L 01/12/24 09:40 36.5 C 81 01/12/24 08:00 36.7 C 87 18 115/68 101/59 L 01/12/24 07:06 84 01/12/24 03:35 36.6 C 90 16 96/61 L Pulse Ox O2 Del Method 01/12/24 13:18 01/12/24 13:00 01/12/24 12:30 01/12/24 12:00 01/12/24 11:30 01/12/24 11:00 01/12/24 10:30 01/12/24 10:00 01/12/24 09:44 01/12/24 09:40 01/12/24 08:00 96 Room Air 01/12/24 07:06 01/12/24 03:35 93 Room Air Laboratory Results 01/12/24 Range/Units 06:14 WBC 6.98 (4.8-10.8) K/ul RBC 3.23 L (4.70-6.10) M/uL Hgb 9.8 L (14.0-18.0) g/dl Hct 29.9 L (42.0-52.0) % MCV 92.6 (80.0-100.0) fL MCH 30.3 (25.0-34.0) pg MCHC 32.8 (32.0-36.0) g/dL RDW Std Deviation 62.6 H (36.4-46.3) fL RDW Coeff of Valerie 18.3 H (11.5-14.5) % Plt Count 111 L (130-400) K/uL MPV 9.9 (9.4-12.4) fL Sodium 134 L (136-145) mmol/L Potassium 3.6 (3.5-5.1) mmol/L Chloride 97 L (98-107) mmol/L Carbon Dioxide 26 (21-32) mmol/L Anion Gap 11 (3-11) BUN 30 H (6-23) mg/dl Creatinine 5.41 H* D (0.6-1.4) mg/dl Est Cr Clr Drug Dosing 14.3 ml/min eGFR 11.29 BUN/Creatinine Ratio 5.5 L (10-20) Glucose 93 (70-99(Fasting)) mg/dl Calcium 7.8 L (8.6-10.3) mg/dl Phosphorus 3.8 (2.5-4.9) mg/dl Magnesium 1.9 (1.7-2.4) mg/dl Total Bilirubin 1.5 H (0.2-1.0) mg/dl AST 12 L (13-39) U/L ALT 9 (7-52) U/L Alkaline Phosphatase 464 H (34-104) U/L Total Protein 5.5 L (6.0-8.3) gm/dl Albumin 2.4 L (3.4-5.0) gm/dl Globulin 3.1 (2.5-4.0) gm/dl Albumin/Globulin Ratio 0.8 L (0.9-2) Vitamin B12 443 (180-914) pg/ml Procalcitonin 2.83 H (0-0.5) ng/ml TSH 3.608 (0.300-4.500) uIu/ml Medications Administered Current Inpatient Medications Acetaminophen (Acetaminophen 325 Mg Tab) 650 mg PO Q4H PRN PRN Reason: Pain or Fever Stop: 02/09/24 14:21 Amiodarone HCl (Amiodarone 200 Mg Tab) 200 mg PO DAILY [facility] Stop: 02/11/24 08:59 Last Admin: 01/12/24 08:26 Dose: 200 mg Chlordiazepoxide HCl (Chlordiazepoxide Hcl 25 Mg Cap) 50 mg PO Q8H [facility] Stop: 01/12/24 15:46 Last Admin: 01/12/24 08:27 Dose: Not Given Chlordiazepoxide HCl (Chlordiazepoxide Hcl 25 Mg Cap) 25 mg PO Q8H [facility] Stop: 01/13/24 15:46 Chlordiazepoxide HCl (Chlordiazepoxide Hcl 10 Mg Cap) 10 mg PO Q12H [facility] Stop: 01/14/24 15:46 Diphenhydramine HCl (Diphenhydramine 50 Mg/Ml Vial) 50 mg IV MoWeFr [facility] Stop: 02/11/24 05:59 Last Admin: 01/12/24 08:29 Dose: 50 mg Folic Acid (Folic Acid 1 Mg Tab) 1 mg PO DAILY [facility] Stop: 02/10/24 08:59 Last Admin: 01/12/24 08:26 Dose: 1 mg Gabapentin (Gabapentin 100 Mg Cap) 200 mg PO BID [facility] Stop: 02/10/24 08:59 Last Admin: 01/12/24 08:26 Dose: 200 mg Heparin Sodium (Porcine) (Heparin Sod 5,000 Unit/0.5 Ml Vial) 5,000 units SQ Q8 [facility] Stop: 02/09/24 14:21 Last Admin: 01/12/24 14:46 Dose: Not Given Daptomycin 300 mg/ Syringe 6 mls @ 3 mls/min IV Q48H [facility]; Protocol Stop: 01/17/24 20:59 Last Admin: 01/10/24 22:19 Dose: 3 mls/min Cefepime HCl (Maxipime 2000mg) 1,000 mg in 10 mls @ 5 mls/min IV Q24H [facility]; Protocol Stop: 01/18/24 11:59 Last Admin: 01/12/24 14:45 Dose: 5 mls/min Lacosamide (Lacosamide 50 Mg Tablet) 100 mg PO BID [facility] Stop: 02/09/24 20:59 Last Admin: 01/12/24 09:26 Dose: 100 mg Lactobacillus Acidophilus (Advanced Probiotic 625 Mg Capsule) 1,250 mg PO DAILY [facility] Stop: 02/11/24 08:59 Last Admin: 01/12/24 08:26 Dose: 1,250 mg Levetiracetam (Levetiracetam 500 Mg Tab) 1,500 mg PO BID [facility] Stop: 02/09/24 20:59 Last Admin: 01/12/24 08:27 Dose: 1,500 mg Lidocaine/Prilocaine (Lidocaine/Prilocaine 2.5% Ea Crm) 1 each EXT PRE-TREAT [facility] Stop: 02/11/24 05:59 Last Admin: 01/12/24 09:30 Dose: 1 each Lorazepam (Lorazepam 2 Mg/1 Ml Vial) 1 mg IV ONE PRN; Protocol PRN Reason: EtoH Withdrawal AWSS 6-10 Lorazepam (Lorazepam 2 Mg/1 Ml Vial) 1 mg IV UD PRN; Protocol PRN Reason: EtOH Withdrawal AWSS Score 6,7 Stop: 02/09/24 21:34 Lorazepam (Lorazepam 2 Mg/1 Ml Vial) 2 mg IV UD PRN; Protocol PRN Reason: EtOH Withdrawal AWSS Score 8,9 Stop: 02/09/24 21:34 Lorazepam (Lorazepam 2 Mg/1 Ml Vial) 3 mg IV ONCE PRN; Protocol PRN Reason: EtOH Withdrawal AWSS Score 10+ Midodrine (Midodrine Hcl 10 Mg Tab) 10 mg PO TIDM [facility] Stop: 02/09/24 16:59 Last Admin: 01/12/24 08:24 Dose: 10 mg Multivitamins (Multivitamin Tab) 1 tab PO QAM [facility] Stop: 02/10/24 08:59 Last Admin: 01/12/24 08:27 Dose: 1 tab Oxycodone HCl (Oxycodone Hcl Ir 5 Mg Tab (Immediate Release)) 5 mg PO Q4H PRN PRN Reason: Pain Stop: 01/24/24 21:18 Pantoprazole Sodium (Pantoprazole 40 Mg Tab) 40 mg PO BID [facility] Stop: 02/09/24 20:59 Last Admin: 01/12/24 08:27 Dose: 40 mg Sertraline HCl (Sertraline Hcl 100 Mg Tablet) 100 mg PO QAM [facility] Stop: 02/10/24 08:59 Last Admin: 01/12/24 08:27 Dose: 100 mg Thiamine HCl (Thiamine Hcl 100 Mg Tab) 100 mg PO QAM [facility] Stop: 02/10/24 08:59 Last Admin: 01/12/24 08:27 Dose: 100 mg Zolpidem Tartrate (Zolpidem Tartrate 5 Mg Tab) 5 mg PO HS PRN PRN Reason: Sleep Stop: 02/09/24 21:18 Last Admin: 01/11/24 21:38 Dose: 5 mg
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
[2024-01-12] MEDS: ACETAMINOPHEN 325 MG TAB PO PRN (22:42)
[2024-01-12] MEDS: guaiFENesin 600 MG TABCR PO SCH (22:43)
--- NOTE | 2024-01-13 01:02 | Ultrasound Report ---
Exam(s): US SOFT TISSUE EXAM: US Abdomen Limited CLINICAL HISTORY: Reason for exam: infection; assess for fluid collection. TECHNIQUE: Real-time ultrasound of the soft tissues of the abdomen with image documentation. COMPARISON: No relevant prior studies available. FINDINGS: Soft tissues: Mild subcutaneous edema in the area of interest. No discrete drainable abscess collection is identified. IMPRESSION: Mild subcutaneous edema in the area of interest. No discrete drainable abscess collection is identified. Electronically signed by: Prabhakar Marmolejo MD 01/13/24 01:01 AM
[2024-01-13] MEDS: chlordiazePOXIDE HCl 25 MG CAP PO SCH (04:27)
[2024-01-13 06:38] LABS: Basophils # (auto) 0.06 K/uL (0.00-0.20); Basophils % (auto) 1.2 %; Eosinophils # (auto) 0.14 K/uL (0.00-0.50); Eosinophils % (auto) 2.7 %; Hematocrit (blood only) 28.7 % (42.0-52.0); Hemoglobin 9.2 g/dl (14.0-18.0); Immature Granulocytes # (auto) 0.03 K/uL (0.01-0.20); Immature Granulocytes % (auto) 0.6 %; Lymphocytes # (auto) 1.56 K/uL (1.20-3.40); Lymphocytes % (auto) 30.6 %; Mean Corpuscular Hemoglobin 30.4 pg (25.0-34.0); Mean Corpuscular Hgb Conc 32.1 g/dL (32.0-36.0); Mean Corpuscular Volume 94.7 fL (80.0-100.0); Mean Platelet Volume 9.8 fL (9.4-12.4); Monocytes # (auto) 0.42 K/uL (0.11-0.59); Monocytes % (auto) 8.2 %; Neutrophils # (auto) 2.89 K/uL (1.40-6.50); Neutrophils % (auto) 56.7 %; Platelet Count 107 K/uL (130-400); RDW Standard Deviation 62.9 fL (36.4-46.3); Red Blood Count 3.03 M/uL (4.70-6.10)
[2024-01-13 06:54] LABS: Calcium 7.9 mg/dl (8.6-10.3); Creatinine Clr Calc Pharmacy 20.2 ml/min; Magnesium 1.8 mg/dl (1.7-2.4); Phosphorus 3.4 mg/dl (2.5-4.9); Potassium 3.7 mmol/L (3.5-5.1)
--- NOTE | 2024-01-13 10:18 | Nephrology Progress Note ---
Date of Service January 13, 2024 Assessment & Plan (1) ESRD on hemodialysis: Plan: On HD MWF at [facility]. Completed treatment with adequate UF and clearance. Next HD treatment tomorrow. Outpatient Rx: 3.5 hours on a 180 optiflix at Qb 450 and Qd 800, 3 K, 2.5 Ca, 138 Na. EDW 80.5 kg. Midodrine provided pre-HD. Medications appropriate for kidney dysfunction. Benadryl 50 mg IV given at start of treatment. EMLA cream ordered to be applied to AVF. Maintain a fluid restriction of 1 L/d. (2) Anemia: Plan: Maintained on Micera as outpatient. Chronic, stable. (3) Frequent falls: (4) Ambulatory dysfunction: Plan: I expressed significant concerns regarding his ability to safely return home in his condition. Payam expressed understanding. Admission and Anticipated Discharge Date Admission Date: January 10, 2024 Subjective No acute events overnight. Payam tolerated HD reasonably well yesterday. No complications with treatment. He states that he feels well this AM. He denies pain. He denies fluid retention or edema. Review of Systems Review of Systems: All systems reviewed & are unremarkable except as noted in HPI & below Physical Exam Constitutional: well developed; no acute distress Eyes: + anicteric sclerae; no corneal abnormal ity ENMT: Mouth: no oral mucosal abnormality and oral mucous membranes not dry Neck: normal visual inspection and trachea midline Respiratory: normal respiratory effort Auscultation: lungs clear to auscul tation bilaterally (anteriorly) Cardiovascular: Rate/Rhythm: + irregularly irregular Heart Sounds: normal S1 and normal S2 Extremities: + edema (improved) and + AV fistula Musculoskeletal: Extremities: no cyanosis and no clubbing Skin: + ecchymosis; no jaundice Neurologic: Motor/Sensory: no tremor and no asterixis Psychiatric: Orientation: alert and oriented x 3 Results & Data Vital Signs (Past 12 Hours) Vital Signs Temp Pulse Pulse Resp BP Pulse Ox O2 Del Method 01/13/24 07:21 64 01/13/24 07:00 36.5 C 88 16 101/64 97 Room Air 01/13/24 03:11 36.5 C 93 H 18 92/51 L 95 Room Air 01/12/24 22:53 36.9 C 101 H 20 94/55 L 93 Room Air Laboratory Results Laboratory Results - last 24 hr 01/13/24 06:16 WBC 5.10 RBC 3.03 L Hgb 9.2 L Hct 28.7 L MCV 94.7 MCH 30.4 MCHC 32.1 RDW Std Deviation 62.9 H RDW Coeff of Valerie 18.0 H Plt Count 107 L MPV 9.8 Immature Gran % (Auto) 0.6 Neut % (Auto) 56.7 Lymph % (Auto) 30.6 Faulk % (Auto) 8.2 Eos % (Auto) 2.7 Baso % (Auto) 1.2 Neut # (Auto) 2.89 Lymph # (Auto) 1.56 Faulk # (Auto) 0.42 Eos # (Auto) 0.14 Baso # (Auto) 0.06 Immature Gran # (Auto) 0.03 Sodium 136 Potassium 3.7 Chloride 101 Carbon Dioxide 27 Anion Gap 8 BUN 23 Creatinine 3.84 H D Est Cr Clr Drug Dosing 20.2 eGFR 17.04 BUN/Creatinine Ratio 6.0 L Glucose 96 Calcium 7.9 L Phosphorus 3.4 Magnesium 1.8 PG Care Time/CCT Total # of Minutes Spent Total Time Spent with Patient: Total time spent is greater than 50% in coordination of care (as documented) at patient's floor/unit and/or counseling patient: Coding Level of Care Code 78307 SUB INP/OBS CARE 3/50MIN Diagnoses ESRD on hemodialysis N18.6; Z99.2 Anemia D64.9 Anemia type: unspecified type Frequent falls R29.6 Ambulatory dysfunction R26.2 (2) Anemia Anemia type: unspecified type Qualified Code(s): D64.9 - Anemia, unspecified
--- NOTE | 2024-01-13 10:33 | Surgery Progress Note ---
Date of Service January 13, 2024 Assessment & Plan (1) Incisional infection: Plan: Pt with recent syncopal episode with hip laceration repair in the ER on 12/26 now with some dehiscence and drainage WBC 5. VSS L hip wound intact medially with a small area of dehiscence laterally draining a small amount of yellowish liquid. There is no significant surrounding erythema and no tenderness We obtained an US yesterday that showed no underlying fluid collection Cx's growing klebsiella; adjust abx to such Would continue with local wound care as above. wound looks ok. mild erythema. small amount of serous drainage. sutures removed today imaging does not show fluid collection. no indication for surgical intervention. continue antibiotics. will s/o. call if any questions or concerns. Admission and Anticipated Discharge Date Admission Date: January 10, 2024 Subjective Patient denies any complaints of pain or issues at L hip incision site. Believes he fell on it and thinks that is why it opened up Physical Exam Physical Exam: awake Skin: covered in multiple bruises and scabs. L hip wound intact medially with an area of dehiscence laterally draining a small amount of yellowish liquid. There is no significant surrounding erythema and no tenderness. Results & Data Vital Signs (Past 12 Hours) Vital Signs Temp Pulse Pulse Resp BP Pulse Ox O2 Del Method 01/13/24 07:21 64 01/13/24 07:00 97.7 F 88 16 101/64 97 Room Air 01/13/24 03:11 97.7 F 93 H 18 92/51 L 95 Room Air 01/12/24 22:53 98.4 F 101 H 20 94/55 L 93 Room Air PG Care Time/CCT Total # of Minutes Spent Total Time Spent with Patient: Total time spent is greater than 50% in coordination of care (as documented) at patient's floor/unit and/or counseling patient: Coding Level of Care Code 66546 SUB INP/OBS CARE 25MIN Diagnoses Incisional infection T81.49XA
--- NOTE | 2024-01-13 15:03 | Hospitalist Progress Note ---
Date of Service January 13, 2024 Assessment & Plan (1) ESRD on hemodialysis: (2) Alcohol abuse: (3) Insomnia: (4) Atrial fibrillation: (5) Anxiety: (6) Ambulatory dysfunction: (7) Frequent falls: (8) PUD (peptic ulcer disease): Plan Frequent falls Suspected syncope Chronic hypotension Generalized weakness Reports falling about once a week, does not remember all of the falls --CT Head:No acute intracranial process. --Left Hip CT:Left total hip replacement is noted without complication. Mild patchy subcutaneous edema was noted likely due to edema. 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 (Stable in comparison with CT on 11/15/2022). Fall precautions PT OT as able Urinalysis ordered, uncollected Continue midodrine Monitor blood pressure closely Suspected pneumonia--POA --CXR:Cardiomegaly with pulmonary edema. Small pleural effusions with right basilar predominant consolidation which may represents atelectasis versus pneumonia. --Elevated procalcitonin --Nasal MRSA negative -- BioFire negative --Blood cultures negat. in 48 hrs - sputum culture ordered Continue on cefepime, dapto for now Left hip wound S/P laceration concern for wound infection Wound culture posit. Klebsiella pneumoniae - mcclain-sensitive Empirically on antibiotics as above Continue local wound care orthopedics, also consulted - recommend gen. surgery consult Gen. surgery - obtained US - no fluid collection identified, removed sutures today (01/12) - recommend wound care and antibiotics will further discuss w/ ID abx to cover for poss. pna and wound infection A-fib RVR Continue amiodarone Chronically not on anticoagulation Currently rate controlled Abnormal thyroid function test Mildly elevated TSH and low free T4 re-check TSH 3.6 wnl ESRD on HD: Nephrology consulted to help with dialysis Monitor volume status Seizures: Continue Keppra/lacosamide Alcohol abuse: Denies drinking for months, monitor for signs of withdrawal Unsure when he last consumed alcohol given drowsy/lethargy today Currently on alcohol withdrawal protocol Also on thiamine, folic acid Hold medications to minimize excess sedation DVT Px: Heparin SQ Code Status: Full code Admission and Anticipated Discharge Date Admission Date: January 10, 2024 Subjective Patient seen in follow up - recurrent falls, hypotension, ESRD on HD, now with hip laceration, poss. pna Pt seen laying in bed in NAD Appears tired but able to answer simple questions says he has been falling at home Denies any chest pain, dyspnea, nausea, vomiting, abdominal pain No significant withdrawal symptoms currently Review of Systems Review of Systems: All systems reviewed & are unremarkable except as noted in Subjective Physical Exam Physical Exam: General Appearance: Moderately built and nourished, no apparent distress, chronically ill appearing Head: normocephalic, Atraumatic Eyes: normal inspection, EOMI Neck: supple Respiratory/Chest: Normal breath sounds, CTA, No accessory muscle use Cardiovascular: Irregularly irregular, No murmur Abdomen/GI:Soft, Non tender, Bowel sounds present Extremities/Musculoskeletal:normal inspection, Trace edema, Left hip Laceration Neurologic/Psych: awake but drowsy, able to answer simple questions appropriately, speech fluent, moves extremities Skin: warm,dry, +Multiple Ecchymosis Results & Data Results & Data Vital Signs (Past 12 Hours) Vital Signs Temp Pulse Pulse Resp BP Pulse Ox O2 Del Method 01/13/24 11:19 36.8 C 97 H 18 114/76 97 Room Air 01/13/24 07:21 64 01/13/24 07:00 36.5 C 88 16 101/64 97 Room Air 01/13/24 03:11 36.5 C 93 H 18 92/51 L 95 Room Air Laboratory Results 01/13/24 Range/Units 06:16 WBC 5.10 (4.8-10.8) K/ul RBC 3.03 L (4.70-6.10) M/uL Hgb 9.2 L (14.0-18.0) g/dl Hct 28.7 L (42.0-52.0) % MCV 94.7 (80.0-100.0) fL MCH 30.4 (25.0-34.0) pg MCHC 32.1 (32.0-36.0) g/dL RDW Std Deviation 62.9 H (36.4-46.3) fL RDW Coeff of Valerie 18.0 H (11.5-14.5) % Plt Count 107 L (130-400) K/uL MPV 9.8 (9.4-12.4) fL Immature Gran % (Auto) 0.6 % Neut % (Auto) 56.7 % Lymph % (Auto) 30.6 % Hickman % (Auto) 8.2 % Eos % (Auto) 2.7 % Baso % (Auto) 1.2 % Neut # (Auto) 2.89 (1.40-6.50) K/uL Lymph # (Auto) 1.56 (1.20-3.40) K/uL Hickman # (Auto) 0.42 (0.11-0.59) K/uL Eos # (Auto) 0.14 (0.00-0.50) K/uL Baso # (Auto) 0.06 (0.00-0.20) K/uL Immature Gran # (Auto) 0.03 (0.01-0.20) K/uL Sodium 136 (136-145) mmol/L Potassium 3.7 (3.5-5.1) mmol/L Chloride 101 (98-107) mmol/L Carbon Dioxide 27 (21-32) mmol/L Anion Gap 8 (3-11) BUN 23 (6-23) mg/dl Creatinine 3.84 H D (0.6-1.4) mg/dl Est Cr Clr Drug Dosing 20.2 ml/min eGFR 17.04 BUN/Creatinine Ratio 6.0 L (10-20) Glucose 96 (70-99(Fasting)) mg/dl Calcium 7.9 L (8.6-10.3) mg/dl Phosphorus 3.4 (2.5-4.9) mg/dl Magnesium 1.8 (1.7-2.4) mg/dl Medications Administered Current Inpatient Medications Acetaminophen (Acetaminophen 325 Mg Tab) 650 mg PO Q4H PRN PRN Reason: Pain or Fever Stop: 02/09/24 14:21 Last Admin: 01/12/24 22:42 Dose: 650 mg Amiodarone HCl (Amiodarone 200 Mg Tab) 200 mg PO DAILY [facility] Stop: 02/11/24 08:59 Last Admin: 01/13/24 08:26 Dose: 200 mg Chlordiazepoxide HCl (Chlordiazepoxide Hcl 25 Mg Cap) 25 mg PO Q8H [facility] Stop: 01/13/24 15:46 Last Admin: 01/13/24 08:35 Dose: 25 mg Chlordiazepoxide HCl (Chlordiazepoxide Hcl 10 Mg Cap) 10 mg PO Q12H [facility] Stop: 01/14/24 15:46 Diphenhydramine HCl (Diphenhydramine 50 Mg/Ml Vial) 50 mg IV MoWeFr [facility] Stop: 02/11/24 05:59 Last Admin: 01/12/24 08:29 Dose: 50 mg Folic Acid (Folic Acid 1 Mg Tab) 1 mg PO DAILY USAMA Stop: 02/10/24 08:59 Last Admin: 01/13/24 08:27 Dose: 1 mg Gabapentin (Gabapentin 100 Mg Cap) 200 mg PO BID [facility]AMA Stop: 02/10/24 08:59 Last Admin: 01/13/24 08:27 Dose: 200 mg Guaifenesin (Guaifenesin 600 Mg Tabcr) 600 mg PO Q12 [facility] Stop: 02/11/24 20:59 Last Admin: 01/13/24 08:28 Dose: 600 mg Heparin Sodium (Porcine) (Heparin Sod 5,000 Unit/0.5 Ml Vial) 5,000 units SQ Q8 [facility]AMA Stop: 02/09/24 14:21 Last Admin: 01/13/24 12:47 Dose: Not Given Daptomycin 300 mg/ Syringe 6 mls @ 3 mls/min IV Q48H [facility]; Protocol Stop: 01/17/24 20:59 Last Admin: 01/12/24 22:49 Dose: 3 mls/min Cefepime HCl (Maxipime 2000mg) 1,000 mg in 10 mls @ 5 mls/min IV Q24H [facility]; Protocol Stop: 01/18/24 11:59 Last Admin: 01/13/24 12:47 Dose: 5 mls/min Lacosamide (Lacosamide 50 Mg Tablet) 100 mg PO BID USAMA Stop: 02/09/24 20:59 Last Admin: 01/13/24 09:01 Dose: 100 mg Lactobacillus Acidophilus (Advanced Probiotic 625 Mg Capsule) 1,250 mg PO DAILY USAMA Stop: 02/11/24 08:59 Last Admin: 01/13/24 08:29 Dose: 1,250 mg Levetiracetam (Levetiracetam 500 Mg Tab) 1,500 mg PO BID USAMA Stop: 02/09/24 20:59 Last Admin: 01/13/24 08:27 Dose: 1,500 mg Lidocaine/Prilocaine (Lidocaine/Prilocaine 2.5% Ea Crm) 1 each EXT PRE-TREAT [facility]AMA Stop: 02/11/24 05:59 Last Admin: 01/13/24 08:37 Dose: Not Given Lorazepam (Lorazepam 2 Mg/1 Ml Vial) 1 mg IV ONE PRN; Protocol PRN Reason: EtoH Withdrawal AWSS 6-10 Lorazepam (Lorazepam 2 Mg/1 Ml Vial) 1 mg IV UD PRN; Protocol PRN Reason: EtOH Withdrawal AWSS Score 6,7 Stop: 02/09/24 21:34 Lorazepam (Lorazepam 2 Mg/1 Ml Vial) 2 mg IV UD PRN; Protocol PRN Reason: EtOH Withdrawal AWSS Score 8,9 Stop: 02/09/24 21:34 Lorazepam (Lorazepam 2 Mg/1 Ml Vial) 3 mg IV ONCE PRN; Protocol PRN Reason: EtOH Withdrawal AWSS Score 10+ Midodrine (Midodrine Hcl 10 Mg Tab) 10 mg PO TIDM [facility] Stop: 02/09/24 16:59 Last Admin: 01/13/24 11:45 Dose: 10 mg Multivitamins (Multivitamin Tab) 1 tab PO QAM [facility] Stop: 02/10/24 08:59 Last Admin: 01/13/24 08:26 Dose: 1 tab Oxycodone HCl (Oxycodone Hcl Ir 5 Mg Tab (Immediate Release)) 5 mg PO Q4H PRN PRN Reason: Pain Stop: 01/24/24 21:18 Pantoprazole Sodium (Pantoprazole 40 Mg Tab) 40 mg PO BID [facility] Stop: 02/09/24 20:59 Last Admin: 01/13/24 08:28 Dose: 40 mg Sertraline HCl (Sertraline Hcl 100 Mg Tablet) 100 mg PO QAM [facility] Stop: 02/10/24 08:59 Last Admin: 01/13/24 08:28 Dose: 100 mg Thiamine HCl (Thiamine Hcl 100 Mg Tab) 100 mg PO QAM [facility] Stop: 02/10/24 08:59 Last Admin: 01/13/24 08:27 Dose: 100 mg Zolpidem Tartrate (Zolpidem Tartrate 5 Mg Tab) 5 mg PO HS PRN PRN Reason: Sleep Stop: 02/09/24 21:18 Last Admin: 01/12/24 22:42 Dose: 5 mg
--- NOTE | 2024-01-14 09:16 | Nephrology Progress Note ---
Date of Service January 14, 2024 Assessment & Plan (1) ESRD on hemodialysis: Plan: On HD MWF at [facility]. Orders for HD today entered into the EHR and reviewed with credentialing manager. Outpatient Rx: 3.5 hours on a 180 optiflix at Qb 450 and Qd 800, 3 K, 2.5 Ca, 138 Na. EDW 80.5 kg. Midodrine provided pre-HD. Medications appropriate for kidney dysfunction. Benadryl 50 mg IV given at start of treatment. EMLA cream ordered to be applied to AVF. Maintain a fluid restriction of 1 L/d. (2) Anemia: Plan: Maintained on Micera as outpatient. Labs pending this AM. (3) Frequent falls: (4) Ambulatory dysfunction: Plan: I have reviewed my concerns regarding Payam's ability to safely return home in his condition. Admission and Anticipated Discharge Date Admission Date: January 10, 2024 Subjective No acute events overnight. Payam feels well this AM. No chest pains or palpitations. No shortness of breath. Noted that he is refusing to adhere to fluid restriction. Review of Systems Review of Systems: All systems reviewed & are unremarkable except as noted in HPI & below Physical Exam Constitutional: well developed; no acute distress Eyes: + anicteric sclerae; no corneal abnormal ity ENMT: Mouth: no oral mucosal abnormality and oral mucous membranes not dry Neck: normal visual inspection and trachea midline Respiratory: normal respiratory effort Auscultation: lungs clear to auscultation bilaterally and + rales (few soft) Cardiovascular: Rate/Rhythm: + irregularly irregular Heart Sounds: normal S1 and normal S2 Extremities: + edema (improved) and + AV fistula Musculoskeletal: Extremities: no cyanosis and no clubbing Skin: + ecchymosis; no jaundice Neurologic: Motor/Sensory: no tremor and no asterixis Psychiatric: Orientation: alert and oriented x 3 Results & Data Vital Signs (Past 12 Hours) Vital Signs Temp Pulse Pulse Resp BP Pulse Ox O2 Del Method 01/14/24 07:26 36.6 C 87 17 90/55 L 96 Room Air 01/14/24 03:12 36.6 C 85 20 92/57 L 94 Room Air 01/13/24 23:46 37.1 C 98 H 18 98/64 L 92 Room Air 01/13/24 21:40 102 H PG Care Time/CCT Total # of Minutes Spent Total Time Spent with Patient: Total time spent is greater than 50% in coordination of care (as documented) at patient's floor/unit and/or counseling patient: Coding Level of Care Code 15427 SUB INP/OBS CARE 350MIN Diagnoses ESRD on hemodialysis N18.6; Z99.2 Anemia D64.9 Anemia type: unspecified type Frequent falls R29.6 Ambulatory dysfunction R26.2 (2) Anemia Anemia type: unspecified type Qualified Code(s): D64.9 - Anemia, unspecified
--- NOTE | 2024-01-14 09:37 | Hospitalist Progress Note ---
Date of Service January 14, 2024 Assessment & Plan (1) ESRD on hemodialysis: (2) Alcohol abuse: (3) Insomnia: (4) Atrial fibrillation: (5) Anxiety: (6) Ambulatory dysfunction: (7) Frequent falls: (8) PUD (peptic ulcer disease): Plan Frequent falls Suspected syncope Chronic hypotension Generalized weakness Reports falling about once a week, does not remember all of the falls --CT Head:No acute intracranial process. --Left Hip CT:Left total hip replacement is noted without complication. Mild patchy subcutaneous edema was noted likely due to edema. 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 (Stable in comparison with CT on 11/15/2022). Fall precautions PT OT as able Urinalysis ordered, uncollected Continue midodrine Monitor blood pressure closely Suspected pneumonia--POA --CXR:Cardiomegaly with pulmonary edema. Small pleural effusions with right basilar predominant consolidation which may represents atelectasis versus pneumonia. --Elevated procalcitonin --Nasal MRSA negative -- BioFire negative --Blood cultures negat. in 48 hrs - sputum culture ordered Continue on cefepime, dapto for now Left hip wound S/P laceration concern for wound infection Wound culture posit. Klebsiella pneumoniae - mcclain-sensitive Empirically on antibiotics as above Continue local wound care orthopedics, also consulted - recommend gen. surgery consult Gen. surgery - obtained US - no fluid collection identified, removed sutures on (01/12) - recommend wound care and antibiotics will further discuss w/ ID abx to cover for poss. pna and wound infection ID consult pending A-fib RVR Continue amiodarone Chronically not on anticoagulation Currently rate controlled Abnormal thyroid function test Mildly elevated TSH and low free T4 re-check TSH 3.6 wnl ESRD on HD: Nephrology consulted to help with dialysis Monitor volume status Seizures: Continue Keppra/lacosamide Alcohol abuse: Denies drinking for months, monitor for signs of withdrawal Unsure when he last consumed alcohol given drowsy/lethargy today Currently on alcohol withdrawal protocol Also on thiamine, folic acid Hold medications to minimize excess sedation DVT Px: Heparin SQ Code Status: Full code Admission and Anticipated Discharge Date Admission Date: January 10, 2024 Subjective Patient seen in follow up - recurrent falls, hypotension, ESRD on HD, now with hip laceration, poss. pna Pt seen laying in bed in NAD Appears tired but able to answer simple questions says he has been falling at home Denies any chest pain, dyspnea, nausea, vomiting, abdominal pain No significant withdrawal symptoms currently Sutures removed yesterday by surgery ID consult pending PT/OT pending Review of Systems Review of Systems: All systems reviewed & are unremarkable except as noted in Subjective Physical Exam Physical Exam: General Appearance: Moderately built and nourished, no apparent distress, chronically ill appearing Head: normocephalic, Atraumatic Eyes: normal inspection, EOMI Neck: supple Respiratory/Chest: Normal breath sounds, CTA, No accessory muscle use Cardiovascular: Irregularly irregular, No murmur Abdomen/GI:Soft, Non tender, Bowel sounds present Extremities/Musculoskeletal:normal inspection, Trace edema, Left hip Laceration Neurologic/Psych: awake, alert, able to answer simple questions appropriately, speech fluent, moves extremities Skin: warm,dry, +Multiple Ecchymosis Results & Data Results & Data Vital Signs (Past 12 Hours) Vital Signs Temp Pulse Pulse Resp BP Pulse Ox O2 Del Method 01/14/24 07:26 36.6 C 87 17 90/55 L 96 Room Air 01/14/24 03:12 36.6 C 85 20 92/57 L 94 Room Air 01/13/24 23:46 37.1 C 98 H 18 98/64 L 92 Room Air 01/13/24 21:40 102 H Medications Administered Current Inpatient Medications Acetaminophen (Acetaminophen 325 Mg Tab) 650 mg PO Q4H PRN PRN Reason: Pain or Fever Stop: 02/09/24 14:21 Last Admin: 01/12/24 22:42 Dose: 650 mg Amiodarone HCl (Amiodarone 200 Mg Tab) 200 mg PO DAILY [facility] Stop: 02/11/24 08:59 Last Admin: 01/14/24 08:27 Dose: 200 mg Chlordiazepoxide HCl (Chlordiazepoxide Hcl 10 Mg Cap) 10 mg PO Q12H [facility] Stop: 01/14/24 15:46 Last Admin: 01/14/24 03:50 Dose: 10 mg Diphenhydramine HCl (Diphenhydramine 50 Mg/Ml Vial) 50 mg IV MoWeFr [facility] Stop: 02/11/24 05:59 Last Admin: 01/12/24 08:29 Dose: 50 mg Folic Acid (Folic Acid 1 Mg Tab) 1 mg PO DAILY [facility] Stop: 02/10/24 08:59 Last Admin: 01/14/24 08:27 Dose: 1 mg Gabapentin (Gabapentin 100 Mg Cap) 200 mg PO BID [facility] Stop: 02/10/24 08:59 Last Admin: 01/14/24 08:28 Dose: 200 mg Guaifenesin (Guaifenesin 600 Mg Tabcr) 600 mg PO Q12 [facility] Stop: 02/11/24 20:59 Last Admin: 01/14/24 08:28 Dose: 600 mg Heparin Sodium (Porcine) (Heparin Sod 5,000 Unit/0.5 Ml Vial) 5,000 units SQ Q8 [facility] Stop: 02/09/24 14:21 Last Admin: 01/14/24 05:12 Dose: Not Given Daptomycin 300 mg/ Syringe 6 mls @ 3 mls/min IV Q48H [facility]; Protocol Stop: 01/17/24 20:59 Last Admin: 01/12/24 22:49 Dose: 3 mls/min Cefepime HCl (Maxipime 2000mg) 1,000 mg in 10 mls @ 5 mls/min IV Q24H [facility]; Protocol Stop: 01/18/24 11:59 Last Admin: 01/13/24 12:47 Dose: 5 mls/min Lacosamide (Lacosamide 50 Mg Tablet) 100 mg PO BID [facility] Stop: 02/09/24 20:59 Last Admin: 01/13/24 20:53 Dose: 100 mg Lactobacillus Acidophilus (Advanced Probiotic 625 Mg Capsule) 1,250 mg PO DAILY [facility] Stop: 02/11/24 08:59 Last Admin: 01/14/24 08:30 Dose: 1,250 mg Levetiracetam (Levetiracetam 500 Mg Tab) 1,500 mg PO BID [facility] Stop: 02/09/24 20:59 Last Admin: 01/14/24 08:29 Dose: 1,500 mg Lidocaine/Prilocaine (Lidocaine/Prilocaine 2.5% Ea Crm) 1 each EXT PRE-TREAT [facility] Stop: 02/11/24 05:59 Last Admin: 01/13/24 08:37 Dose: Not Given Lorazepam (Lorazepam 2 Mg/1 Ml Vial) 1 mg IV ONE PRN; Protocol PRN Reason: EtoH Withdrawal AWSS 6-10 Lorazepam (Lorazepam 2 Mg/1 Ml Vial) 1 mg IV UD PRN; Protocol PRN Reason: EtOH Withdrawal AWSS Score 6,7 Stop: 02/09/24 21:34 Lorazepam (Lorazepam 2 Mg/1 Ml Vial) 2 mg IV UD PRN; Protocol PRN Reason: EtOH Withdrawal AWSS Score 8,9 Stop: 02/09/24 21:34 Lorazepam (Lorazepam 2 Mg/1 Ml Vial) 3 mg IV ONCE PRN; Protocol PRN Reason: EtOH Withdrawal AWSS Score 10+ Midodrine (Midodrine Hcl 10 Mg Tab) 10 mg PO TIDM [facility] Stop: 02/09/24 16:59 Last Admin: 01/14/24 08:27 Dose: 10 mg Miscellaneous (Remove Nicoderm Patch) 1 each N/A DAILY@0859 [facility] Stop: 02/14/24 08:58 Multivitamins (Multivitamin Tab) 1 tab PO QAM [facility] Stop: 02/10/24 08:59 Last Admin: 01/14/24 08:30 Dose: 1 tab Nicotine (Nicotine 7 Mg/24 Hr Tdsy) [facility] [place]: 02/13/24 09:44 Oxycodone HCl (Oxycodone Hcl Ir 5 Mg Tab (Immediate Release)) 5 mg PO Q4H PRN PRN Reason: Pain Stop: 01/24/24 21:18 Pantoprazole Sodium (Pantoprazole 40 Mg Tab) 40 mg PO BID [facility] Stop: 02/09/24 20:59 Last Admin: 01/14/24 08:31 Dose: 40 mg Sertraline HCl (Sertraline Hcl 100 Mg Tablet) [facility] [place]: 02/10/24 08:59 Last Admin: 01/14/24 08:31 Dose: 100 mg Thiamine HCl (Thiamine Hcl 100 Mg Tab) 100 mg PO QAM [facility] Stop: 02/10/24 08:59 Last Admin: 01/14/24 08:31 Dose: 100 mg Zolpidem Tartrate (Zolpidem Tartrate 5 Mg Tab) 5 mg PO HS PRN PRN Reason: Sleep Stop: 02/09/24 21:18 Last Admin: 01/13/24 20:44 Dose: 5 mg
[2024-01-14 11:30] LABS: Hematocrit (blood only) 29.8 % (42.0-52.0); Hemoglobin 9.4 g/dl (14.0-18.0); Mean Corpuscular Hemoglobin 30.4 pg (25.0-34.0); Mean Corpuscular Hgb Conc 31.5 g/dL (32.0-36.0); Mean Corpuscular Volume 96.4 fL (80.0-100.0); Mean Platelet Volume 9.7 fL (9.4-12.4); Platelet Count 90 K/uL (130-400); RDW Coefficient of Variation 17.8 % (11.5-14.5); RDW Standard Deviation 62.3 fL (36.4-46.3); Red Blood Count 3.09 M/uL (4.70-6.10); White Blood Count 5.67 K/ul (4.8-10.8)
[2024-01-14 12:09] LABS: Anion Gap 4 (3-11); BUN Creatinine Ratio 3.4 (10-20); Blood Urea Nitrogen 3 mg/dl (6-23); Calcium 7.3 mg/dl (8.6-10.3); Carbon Dioxide 30 mmol/L (21-32); Chloride 104 mmol/L (98-107); Creatinine Clr Calc Pharmacy 87.2 ml/min; Glucose 102 mg/dl (70-99(Fasting)); Magnesium 1.6 mg/dl (1.7-2.4); Phosphorus < 1.0 mg/dl (2.5-4.9); Potassium 3.1 mmol/L (3.5-5.1); Sodium 138 mmol/L (136-145)
[2024-01-14] MEDS ORDERED: SODIUM PHOSPHATE 3 MMOL/1 ML INFUSION IV STA (13:04)
[2024-01-14] MEDS: NICOTINE 7 MG/24 HR TDSY TD SCH (14:57)
[2024-01-14] MEDS: SODIUM PHOSPHATE 30 MMOL in SODIUM CHLORIDE 0.9% 500 ML IV ONE (14:58)
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
[2024-01-15 07:47] LABS: Albumin Level 2.3 gm/dl (3.4-5.0); BUN Creatinine Ratio 6.2 (10-20); Calcium 7.2 mg/dl (8.6-10.3); Phosphorus 4.4 mg/dl (2.5-4.9); Potassium 3.3 mmol/L (3.5-5.1)
[2024-01-15] MEDS: oxyCODONE HCL IR 5 MG TAB (IMMEDIATE RELEASE) PO PRN (09:11)
--- NOTE | 2024-01-15 09:22 | Nephrology Progress Note ---
Date of Service January 15, 2024 Assessment & Plan (1) ESRD on hemodialysis: Plan: * Patient dialyzed yesterday for 1500 cc UF. HD complicated by hypotension * HD [facility] Keisha: MWF 3.5 hours F-180 optiflix Qb 450/Qd 800, 3 K 2.5 Ca, 138 Na. EDW 80.5 kg * Continue midodrine prior to each HD * No acute indication for HD today. Will reassess in am (2) Anemia: Plan: * Hgb 9.4 this am. Will provide ROSANNA w/ HD (3) Ambulatory dysfunction: Plan: * Recurrent hospitalization due to falls related to orthostatic hypotension * Remains on midodrine 10 mg TID * UF needed during HD to avoid CHF * Poor prognosis * 01/13/24 PT note reviewed - unable to ambulate d/t orthostasis (SBP 90-->70 when standing) * Agree w/ plans for SNF following hospitalization * Consider consultation w/ palliative care Admission and Anticipated Discharge Date Admission Date: January 10, 2024 Subjective Mr. Rivers was evaluated in his hospital room this morning. He reports upper airway congestion and cough. He remains weak and has not been able to ambulate due to orthostasis Review of Systems Constitutional: no fever Eyes: no problem reported Ear, Nose, Mouth, Throat: no problem reported Respiratory: + cough and + chest congestion Cardiovascular: no chest pain Gastrointestinal: no abdominal pain, no nausea, no vomiting and no diarrhea/loose stools Physical Exam Constitutional: + frail appearing; no acute distress Eyes: PERRL, conjunctivae normal, anicteric sclerae ENMT: external ear and nose normal, oropharynx normal Neck: trachea midline, no thyromegaly Respiratory: Rhonchi bilaterally, clear w/ coughing Cardiovascular: RRR, no murmur, no edema Gastrointestinal (Abdomen): normal bowel sounds, soft, nontender, no hepatosplenomegaly Skin: no rashes, warm and dry Neurologic: awake; not confused Results & Data Vital Signs (Past 12 Hours) Vital Signs Temp Pulse Pulse Resp BP Pulse Ox O2 Del Method 01/15/24 07:47 Room Air 01/15/24 07:13 36.6 C 96 H 16 90/56 L 92 Room Air 01/15/24 02:22 36.6 C 103 H 16 94/55 L 94 Room Air 01/14/24 22:33 36.6 C 101 H 17 103/67 93 Room Air 01/14/24 21:54 102 H Laboratory Results Laboratory Results - last 24 hr 01/14/24 01/15/24 11:08 05:47 WBC 5.67 RBC 3.09 L Hgb 9.4 L Hct 29.8 L MCV 96.4 MCH 30.4 MCHC 31.5 L RDW Std Deviation 62.3 H RDW Coeff of Valerie 17.8 H Plt Count 90 L MPV 9.7 Sodium 138 137 Potassium 3.1 L 3.3 L Chloride 104 102 Carbon Dioxide 30 24 Anion Gap 4 11 BUN 3 L D 20 Creatinine 0.89 D 3.23 H D Est Cr Clr Drug Dosing 87.2 24.0 eGFR 97.50 20.97 BUN/Creatinine Ratio 3.4 L 6.2 L Glucose 102 H 92 Calcium 7.3 L 7.2 L Phosphorus < 1.0 L* D 4.4 D Magnesium 1.6 L Albumin 2.3 L PG Care Time/CCT Total # of Minutes Spent Total Time Spent with Patient: Total time spent is greater than 50% in coordination of care (as documented) at patient's floor/unit and/or counseling patient: Coding Level of Care Code 48142 SUB INP/OBS CARE 3/50MIN Diagnoses ESRD on hemodialysis N18.6; Z99.2 Anemia D64.9 Anemia type: unspecified type Ambulatory dysfunction R26.2 (2) Anemia Anemia type: unspecified type Qualified Code(s): D64.9 - Anemia, unspecified
[2024-01-15] MEDS: diphenhydrAMINE 50 MG/ML VIAL IV STA (10:15)
--- NOTE | 2024-01-15 12:07 | Hospitalist Progress Note ---
Date of Service January 15, 2024 Assessment & Plan (1) ESRD on hemodialysis: (2) Alcohol abuse: (3) Insomnia: (4) Atrial fibrillation: (5) Anxiety: (6) Ambulatory dysfunction: (7) Frequent falls: (8) PUD (peptic ulcer disease): Plan Frequent falls Suspected syncope Chronic hypotension Generalized weakness Reports falling about once a week, does not remember all of the falls --CT Head:No acute intracranial process. --Left Hip CT:Left total hip replacement is noted without complication. Mild patchy subcutaneous edema was noted likely due to edema. 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 (Stable in comparison with CT on 11/15/2022). Fall precautions PT OT as able Urinalysis ordered, uncollected Continue midodrine Monitor blood pressure closely Suspected pneumonia--POA --CXR:Cardiomegaly with pulmonary edema. Small pleural effusions with right basilar predominant consolidation which may represents atelectasis versus pneumonia. --Elevated procalcitonin --Nasal MRSA negative -- BioFire negative --Blood cultures negat. in 48 hrs - sputum culture ordered Continue on cefepime Left hip wound S/P laceration concern for wound infection Wound culture posit. Klebsiella pneumoniae - mcclain-sensitive Empirically on antibiotics - cefepime, dapto Continue local wound care orthopedics, also consulted - recommend gen. surgery consult Gen. surgery - obtained US - no fluid collection identified, removed sutures on (01/12) - recommend wound care and antibiotics ID consulted for recommendations regarding abx to cover for poss. pna and wound infection A-fib RVR Continue amiodarone Chronically not on anticoagulation Currently rate controlled Abnormal thyroid function test Mildly elevated TSH and low free T4 re-check TSH 3.6 wnl ESRD on HD: Nephrology consulted to help with dialysis Monitor volume status Seizures: Continue Keppra/lacosamide Alcohol abuse: Denies drinking for months, monitor for signs of withdrawal Unsure when he last consumed alcohol given drowsy/lethargy today Currently on alcohol withdrawal protocol Also on thiamine, folic acid Hold medications to minimize excess sedation DVT Px: Heparin SQ Code Status: Full code Admission and Anticipated Discharge Date Admission Date: January 10, 2024 Subjective Patient seen in follow up - recurrent falls, hypotension, ESRD on HD, now with hip laceration, poss. pna Pt seen laying in bed in NAD Appears tired but able to answer simple questions + been falling at home Denies any chest pain, dyspnea, nausea, vomiting, abdominal pain No significant withdrawal symptoms currently Sutures removed by surgery ID consulted Pt orthostatic, requires a lot of assistance, not recommended to return home. Per nephro note today - poor prognosis, consider palliative med. Palliative consult placed. Review of Systems Review of Systems: All systems reviewed & are unremarkable except as noted in Subjective Physical Exam Physical Exam: General Appearance: Moderately built and nourished, no apparent distress, chronically ill appearing Head: normocephalic, Atraumatic Eyes: normal inspection, EOMI Neck: supple Respiratory/Chest: Normal breath sounds, CTA, No accessory muscle use Cardiovascular: Irregularly irregular, No murmur Abdomen/GI:Soft, Non tender, Bowel sounds present Extremities/Musculoskeletal:normal inspection, Trace edema, Left hip Laceration Neurologic/Psych: awake, alert, able to answer simple questions appropriately, speech fluent, moves extremities Skin: warm,dry, +Multiple Ecchymosis Results & Data Results & Data Vital Signs (Past 12 Hours) Vital Signs Temp Pulse Pulse Resp BP Pulse Ox O2 Del Method 01/15/24 11:46 105/63 01/15/24 11:20 97 H 01/15/24 11:11 36.4 C L 91 H 18 78/49 L 96 Room Air 01/15/24 07:47 Room Air 01/15/24 07:13 36.6 C 96 H 16 90/56 L 92 Room Air 01/15/24 02:22 36.6 C 103 H 16 94/55 L 94 Room Air Laboratory Results 01/15/24 01/14/24 Range/Units 05:47 11:08 Sodium 137 138 (136-145) mmol/L Potassium 3.3 L 3.1 L (3.5-5.1) mmol/L Chloride 102 104 (98-107) mmol/L Carbon Dioxide 24 30 (21-32) mmol/L Anion Gap 11 4 (3-11) BUN 20 3 L D (6-23) mg/dl Creatinine 3.23 H D 0.89 D (0.6-1.4) mg/dl Est Cr Clr Drug Dosing 24.0 87.2 ml/min eGFR 20.97 97.50 BUN/Creatinine Ratio 6.2 L 3.4 L (10-20) Glucose 92 102 H (70-99(Fasting)) mg/dl Calcium 7.2 L 7.3 L (8.6-10.3) mg/dl Phosphorus 4.4 D < 1.0 L* D (2.5-4.9) mg/dl Magnesium 1.6 L (1.7-2.4) mg/dl Albumin 2.3 L (3.4-5.0) gm/dl Medications Administered Current Inpatient Medications Acetaminophen (Acetaminophen 325 Mg Tab) 650 mg PO Q4H PRN PRN Reason: Pain or Fever Stop: 02/09/24 14:21 Last Admin: 01/12/24 22:42 Dose: 650 mg Amiodarone HCl (Amiodarone 200 Mg Tab) 200 mg PO DAILY [facility] Stop: 02/11/24 08:59 Last Admin: 01/15/24 09:08 Dose: 200 mg Diphenhydramine HCl (Diphenhydramine 50 Mg/Ml Vial) 50 mg IV MoWeFr [facility] Stop: 02/11/24 05:59 Last Admin: 01/14/24 09:31 Dose: 50 mg Folic Acid (Folic Acid 1 Mg Tab) 1 mg PO DAILY [facility] Stop: 02/10/24 08:59 Last Admin: 01/15/24 09:06 Dose: 1 mg Gabapentin (Gabapentin 100 Mg Cap) 200 mg PO BID [facility] Stop: 02/10/24 08:59 Last Admin: 01/15/24 09:01 Dose: 200 mg Guaifenesin (Guaifenesin 600 Mg Tabcr) 600 mg PO Q12 [facility] Stop: 02/11/24 20:59 Last Admin: 01/15/24 09:02 Dose: 600 mg Heparin Sodium (Porcine) (Heparin Sod 5,000 Unit/0.5 Ml Vial) 5,000 units SQ Q8 [facility] Stop: 02/09/24 14:21 Last Admin: 01/15/24 05:33 Dose: Not Given Daptomycin 300 mg/ Syringe 6 mls @ 3 mls/min IV Q48H [facility]; Protocol Stop: 01/17/24 20:59 Last Admin: 01/14/24 20:02 Dose: 3 mls/min Cefepime HCl (Maxipime 2000mg) 1,000 mg in 10 mls @ 5 mls/min IV Q24H [facility]; Protocol Stop: 01/18/24 11:59 Last Admin: 01/14/24 14:59 Dose: 5 mls/min Lacosamide (Lacosamide 50 Mg Tablet) 100 mg PO BID [facility] Stop: 02/09/24 20:59 Last Admin: 01/15/24 08:59 Dose: 100 mg Lactobacillus Acidophilus (Advanced Probiotic 625 Mg Capsule) 1,250 mg PO DAILY [facility] Stop: 02/11/24 08:59 Last Admin: 01/15/24 09:04 Dose: 1,250 mg Levetiracetam (Levetiracetam 500 Mg Tab) 1,500 mg PO BID [facility] Stop: 02/09/24 20:59 Last Admin: 01/15/24 09:00 Dose: 1,500 mg Lidocaine/Prilocaine (Lidocaine/Prilocaine 2.5% Ea Crm) 1 each EXT PRE-TREAT [facility] Stop: 02/11/24 05:59 Last Admin: 01/15/24 09:03 Dose: Not Given Lorazepam (Lorazepam 2 Mg/1 Ml Vial) 1 mg IV ONE PRN; Protocol PRN Reason: EtoH Withdrawal AWSS 6-10 Lorazepam (Lorazepam 2 Mg/1 Ml Vial) 1 mg IV UD PRN; Protocol PRN Reason: EtOH Withdrawal AWSS Score 6,7 Stop: 02/09/24 21:34 Lorazepam (Lorazepam 2 Mg/1 Ml Vial) 2 mg IV UD PRN; Protocol PRN Reason: EtOH Withdrawal AWSS Score 8,9 Stop: 02/09/24 21:34 Lorazepam (Lorazepam 2 Mg/1 Ml Vial) 3 mg IV ONCE PRN; Protocol PRN Reason: EtOH Withdrawal AWSS Score 10+ Midodrine (Midodrine Hcl 10 Mg Tab) 10 mg PO TIDM [facility] Stop: 02/09/24 16:59 Last Admin: 01/15/24 09:03 Dose: 10 mg Miscellaneous (Remove Nicoderm Patch) 1 each N/A DAILY@0859 [facility] Stop: 02/14/24 08:58 Last Admin: 01/15/24 09:03 Dose: Not Given Multivitamins (Multivitamin Tab) 1 tab PO QAM [facility] Stop: 02/10/24 08:59 Last Admin: 01/15/24 09:06 Dose: 1 tab Nicotine (Nicotine 7 Mg/24 Hr Tdsy) 1 patch TD QAM [facility] Stop: 02/13/24 10:29 Last Admin: 01/15/24 09:05 Dose: Not Given Oxycodone HCl (Oxycodone Hcl Ir 5 Mg Tab (Immediate Release)) 5 mg PO Q4H PRN PRN Reason: Pain Stop: 01/24/24 21:18 Last Admin: 01/15/24 09:11 Dose: 5 mg Pantoprazole Sodium (Pantoprazole 40 Mg Tab) 40 mg PO BID [facility] Stop: 02/09/24 20:59 Last Admin: 01/15/24 09:02 Dose: 40 mg Sertraline HCl (Sertraline Hcl 100 Mg Tablet) 100 mg PO QAM [facility] Stop: 02/10/24 08:59 Last Admin: 01/15/24 09:05 Dose: 100 mg Thiamine HCl (Thiamine Hcl 100 Mg Tab) 100 mg PO QAM [facility] Stop: 02/10/24 08:59 Last Admin: 01/15/24 09:05 Dose: 100 mg Zolpidem Tartrate (Zolpidem Tartrate 5 Mg Tab) 5 mg PO HS PRN PRN Reason: Sleep Stop: 02/09/24 21:18 Last Admin: 01/14/24 19:59 Dose: 5 mg
--- NOTE | 2024-01-15 13:10 | XRay Report ---
XR chest 1V portable HISTORY: 63 years-old Male CHF acute shortness of breath COMPARISON: March 12, 2023 TECHNIQUE: AP view of the chest FINDINGS: Cardiac silhouette is enlarged. Pulmonary vascular congestion with interstitial coarsening. Right sub clavian vascular graft. No pneumothorax. Layering pleural effusions are consolidation redemonstrated. Mildly progressed left basilar opacities. IMPRESSION: 1. Cardiomegaly with interstitial pulmonary edema, not significantly changed compared to the January 10, 2024 study. 2. Unchanged layering pleural effusions with bibasilar consolidation. ACT 112: Negative or not required by law. The above report was generated using voice recognition software. It may contain grammatical, syntax o r spelling errors. Electronically signed by: Librado Munoz M.D. 01/15/2024 1:08 PM
[2024-01-15] MEDS: SODIUM CHLORIDE 0.65% NA SOLN 45 ML (OCEAN) NAE SCH (21:28)
--- NOTE | 2024-01-15 23:06 | CT Scan Report ---
Exam(s): CT CHEST Without Contrast EXAM: CT Chest Without Intravenous Contrast CLINICAL HISTORY: Reason for exam: abnormal cxr. TECHNIQUE: Axial computed tomography images of the chest without intravenous contrast. CTDI is 19.5 mGy and DLP is 649.31 mGy-cm. Automated exposure control was utilized for the study. A dose lowering technique was utilized adhering to the principles of ALARA. COMPARISON: CT chest: 07/06/2023 FINDINGS: Lungs: There is mild interstitial thickening and mild ground-glass opacities suggestive of mild pulmonary edema. Pleural space: There are small to moderate bilateral pleural effusions. There is dependent bilateral lower lobe passive atelectasis. No pneumothorax. Heart: There are scattered coronary artery calcifications. No cardiomegaly. No significant pericardial effusion. Bones/joints: There is multilevel thoracic degenerative disc disease and mild upper thoracic kyphosis. No acute fracture. No dislocation. Soft tissues: Unremarkable. Vasculature: See above. Lymph nodes: Unremarkable. No enlarged lymph nodes. Kidneys and ureters: The visualized left kidney appears severely atrophic. Stomach and bowel: There is mild gaseous distention of a few loops of small bowel suggestive of possible ileus. IMPRESSION: 1. Mild interstitial thickening and ground-glass opacities suggestive of mild pulmonary edema. 2. Small to moderate bilateral pleural effusions and dependent lower lobe passive atelectasis.. 3. Mild gaseous distention of a few loops of small bowel suggestive of possible ileus. Electronically signed by: Diony Brunson MD 01/15/24 23:05 PM
[2024-01-16 06:20] LABS: Basophils # (auto) 0.06 K/uL (0.00-0.20); Eosinophils # (auto) 0.18 K/uL (0.00-0.50); Eosinophils % (auto) 3.1 %; Hematocrit (blood only) 27.7 % (42.0-52.0); Hemoglobin 8.9 g/dl (14.0-18.0); Immature Granulocytes # (auto) 0.04 K/uL (0.01-0.20); Immature Granulocytes % (auto) 0.7 %; Lymphocytes # (auto) 1.56 K/uL (1.20-3.40); Lymphocytes % (auto) 26.8 %; Mean Corpuscular Hemoglobin 30.3 pg (25.0-34.0); Mean Corpuscular Hgb Conc 32.1 g/dL (32.0-36.0); Mean Corpuscular Volume 94.2 fL (80.0-100.0); Mean Platelet Volume 9.9 fL (9.4-12.4); Monocytes # (auto) 0.54 K/uL (0.11-0.59); Monocytes % (auto) 9.3 %; Neutrophils # (auto) 3.44 K/uL (1.40-6.50); Neutrophils % (auto) 59.1 %; Platelet Count 134 K/uL (130-400); RDW Coefficient of Variation 17.3 % (11.5-14.5); RDW Standard Deviation 59.1 fL (36.4-46.3); Red Blood Count 2.94 M/uL (4.70-6.10); White Blood Count 5.82 K/ul (4.8-10.8)
[2024-01-16 06:40] LABS: Calcium 7.6 mg/dl (8.6-10.3); Creatinine Clr Calc Pharmacy 17.1 ml/min; Magnesium 1.7 mg/dl (1.7-2.4); Potassium 3.8 mmol/L (3.5-5.1)
--- NOTE | 2024-01-16 09:13 | Nephrology Progress Note ---
Date of Service January 16, 2024 Assessment & Plan (1) ESRD on hemodialysis: Plan: * Volume status and electrolyte balance are acceptable. Will plan next HD for am * Patient is reportedly 4 kg above EDW but SaO2 96% on RA, hypotensive. Will attempt 1.5 L UF w/ HD but guide therapy based on BP and Crit Line monitor * HD [facility]: MWF 3.5 hours F-180 optiflix Qb 450/Qd 800, 3 K 2.5 Ca, 138 Na. EDW 80.5 kg * Continue midodrine 10 mg TID (2) Anemia: Plan: * Hgb 9.4 this am. Will provide ROSANNA w/ HD (3) Ambulatory dysfunction: Plan: * Recurrent hospitalization due to falls related to orthostatic hypotension * Remains on midodrine 10 mg TID * UF needed during HD to avoid CHF * Poor prognosis * 01/13/24 PT note reviewed - unable to ambulate d/t orthostasis (SBP 90-->70 when standing) * Agree w/ plans for SNF following hospitalization * Consider consultation w/ palliative care Admission and Anticipated Discharge Date Admission Date: January 10, 2024 Subjective Mr. Rivers was evaluated in his hospital room this morning. He c/o weakness and has not been able to ambulate due to orthostasis. He is agreeable to [facility] following hospitalization for ongoing PT Review of Systems Constitutional: no fever Eyes: no problem reported Ear, Nose, Mouth, Throat: no problem reported Cardiovascular: no chest pain Gastrointestinal: no abdominal pain, no nausea, no vomiting and no diar chay/loose stools Physical Exam Constitutional: + frail appearing; no acute distress Eyes: PERRL, conjunctivae normal, anicteric sclerae ENMT: external ear and nose normal, oropharynx normal Neck: trachea midline, no thyromegaly Cardiovascular: RRR, no murmur, no edema Gastrointestinal (Abdomen): normal bowel sounds, soft, nontender, no hepatosplenomegaly Skin: no rashes, warm and dry Neurologic: awake; not confused Results & Data Vital Signs (Past 12 Hours) Vital Signs Temp Pulse Pulse Resp BP Pulse Ox O2 Del Method 01/16/24 08:58 88/52 L 01/16/24 07:47 36.3 C L 98 H 20 82/59 L 96 Room Air 01/16/24 07:22 90 12/08/24 07:04 Room Air 01/16/24 02:54 36.7 C 88 20 93/54 L 92 Room Air 01/15/24 23:42 36.9 C 94 H 18 103/63 91 Room Air 01/15/24 21:59 99 H Laboratory Results Laboratory Results - last 24 hr 01/15/24 01/16/24 05:55 05:59 WBC 5.82 RBC 2.94 L Hgb 8.9 L Hct 27.7 L MCV 94.2 MCH 30.3 MCHC 32.1 RDW Std Deviation 59.1 H RDW Coeff of Valerie 17.3 H Plt Count 134 MPV 9.9 Immature Gran % (Auto) 0.7 Neut % (Auto) 59.1 Lymph % (Auto) 26.8 Rhea % (Auto) 9.3 Eos % (Auto) 3.1 Baso % (Auto) 1.0 Neut # (Auto) 3.44 Lymph # (Auto) 1.56 Rhea # (Auto) 0.54 Eos # (Auto) 0.18 Baso # (Auto) 0.06 Immature Gran # (Auto) 0.04 Sodium 134 L Potassium 3.8 Chloride 100 Carbon Dioxide 23 Anion Gap 11 BUN 32 H Creatinine 4.54 H* D Est Cr Clr Drug Dosing 17.1 eGFR 13.94 BUN/Creatinine Ratio 7.0 L Glucose 86 Calcium 7.6 L Phosphorus 5.0 H Magnesium 1.7 Procalcitonin 2.77 H Random Cortisol 5.55 PG Care Time/CCT Total # of Minutes Spent Total Time Spent with Patient: Total time spent is greater than 50% in coordination of care (as documented) at patient's floor/unit and/or counseling patient: Coding Level of Care Code 28127 SUB INP/OBS CARE 3/50MIN Diagnoses ESRD on hemodialysis N18.6; Z99.2 Anemia D64.9 Anemia type: unspecified type Ambulatory dysfunction R26.2 (2) Anemia Anemia type: unspecified type Qualified Code(s): D64.9 - Anemia, unspecified
--- NOTE | 2024-01-16 11:25 | XCELERA ---
[id number] [id number]
--- NOTE | 2024-01-16 15:36 | Hospitalist Progress Note ---
Date of Service January 16, 2024 Assessment & Plan (1) ESRD on hemodialysis: (2) Alcohol abuse: (3) Insomnia: (4) Atrial fibrillation: (5) Anxiety: (6) Ambulatory dysfunction: (7) Frequent falls: (8) PUD (peptic ulcer disease): Plan Frequent falls Suspected syncope Chronic hypotension Generalized weakness Reports falling about once a week, does not remember all of the falls --CT Head:No acute intracranial process. --Left Hip CT:Left total hip replacement is noted without complication. Mild patchy subcutaneous edema was noted likely due to edema. 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 (Stable in comparison with CT on 11/15/2022). Fall precautions PT OT as able Urinalysis ordered, uncollected Continue midodrine Monitor blood pressure closely Discussed w/ nephrology ongoing hypotension - will obtain cortisol level, will repeat echo (last echo in June) palliative medicine also consulted Suspected pneumonia--POA --CXR:Cardiomegaly with pulmonary edema. Small pleural effusions with right basilar predominant consolidation which may represents atelectasis versus pneumonia. --Elevated procalcitonin --Nasal MRSA negative -- BioFire negative --Blood cultures negat. in 48 hrs - sputum culture ordered Continue on cefepime Left hip wound S/P laceration concern for wound infection Wound culture posit. Klebsiella pneumoniae - mcclain-sensitive Empirically on antibiotics - cefepime, dapto Continue local wound care orthopedics, also consulted - recommend gen. surgery consult Gen. surgery - obtained US - no fluid collection identified, removed sutures on (01/12) - recommend wound care and antibiotics ID consulted for recommendations regarding abx to cover for poss. pna and wound infection A-fib RVR Continue amiodarone Chronically not on anticoagulation Currently rate controlled Abnormal thyroid function test Mildly elevated TSH and low free T4 re-check TSH 3.6 wnl ESRD on HD: Nephrology consulted to help with dialysis Monitor volume status Seizures: Continue Keppra/lacosamide Alcohol abuse: Denies drinking for months, monitor for signs of withdrawal Unsure when he last consumed alcohol alcohol withdrawal protocol Also on thiamine, folic acid Hold medications to minimize excess sedation DVT Px: Heparin SQ Code Status: Full code Admission and Anticipated Discharge Date Admission Date: January 10, 2024 Subjective Patient seen in follow up - recurrent falls, hypotension, ESRD on HD, now with hip laceration, poss. pna Pt seen laying in bed in NAD Appears tired but able to answer simple questions + been falling at home Denies any chest pain, dyspnea, nausea, vomiting, abdominal pain No significant withdrawal symptoms currently Sutures removed by surgery ID consulted Pt orthostatic, requires a lot of assistance, not recommended to return home. Per nephro note - poor prognosis, consider palliative med. Palliative consult placed. Discussed w/ nephrology today - will also obtain cortisol level and will repeat echo (last echo in June ) Review of Systems Review of Systems: All systems reviewed & are unremarkable except as noted in Subjective Physical Exam Physical Exam: General Appearance: Moderately built and nourished, no apparent distress, chronically ill appearing Head: normocephalic, Atraumatic Eyes: normal inspection, EOMI Neck: supple Respiratory/Chest: Normal breath sounds, CTA, No accessory muscle use Cardiovascular: Irregularly irregular, No murmur Abdomen/GI:Soft, Non tender, Bowel sounds present Extremities/Musculoskeletal:normal inspection, Trace edema, Left hip Laceration Neurologic/Psych: awake, alert, able to answer simple questions appropriately, speech fluent, moves extremities Skin: warm,dry, +Multiple Ecchymosis Results & Data Results & Data Vital Signs (Past 12 Hours) Vital Signs Temp Pulse Pulse Resp BP Pulse Ox O2 Del Method 01/16/24 14:51 36.3 C L 64 20 94/56 L 99 Room Air 01/16/24 11:03 36.7 C 75 18 98/63 L 97 Room Air 01/16/24 08:58 88/52 L 01/16/24 07:47 36.3 C L 98 H 20 82/59 L 96 Room Air 01/16/24 07:22 90 01/16/24 07:04 Room Air Laboratory Results 01/16/24 Range/Units 05:59 WBC 5.82 (4.8-10.8) K/ul RBC 2.94 L (4.70-6.10) M/uL Hgb 8.9 L (14.0-18.0) g/dl Hct 27.7 L (42.0-52.0) % MCV 94.2 (80.0-100.0) fL MCH 30.3 (25.0-34.0) pg MCHC 32.1 (32.0-36.0) g/dL RDW Std Deviation 59.1 H (36.4-46.3) fL RDW Coeff of Valerie 17.3 H (11.5-14.5) % Plt Count 134 (130-400) K/uL MPV 9.9 (9.4-12.4) fL Immature Gran % (Auto) 0.7 % Neut % (Auto) 59.1 % Lymph % (Auto) 26.8 % [place] % (Auto) 9.3 % Eos % (Auto) 3.1 % Baso % (Auto) 1.0 % Neut # (Auto) 3.44 (1.40-6.50) K/uL Lymph # (Auto) 1.56 (1.20-3.40) K/uL [place] # (Auto) 0.54 (0.11-0.59) K/uL Eos # (Auto) 0.18 (0.00-0.50) K/uL Baso # (Auto) 0.06 (0.00-0.20) K/uL Immature Gran # (Auto) 0.04 (0.01-0.20) K/uL Sodium 134 L (136-145) mmol/L Potassium 3.8 (3.5-5.1) mmol/L Chloride 100 (98-107) mmol/L Carbon Dioxide 23 (21-32) mmol/L Anion Gap 11 (3-11) BUN 32 H (6-23) mg/dl Creatinine 4.54 H* D (0.6-1.4) mg/dl Est Cr Clr Drug Dosing 17.1 ml/min eGFR 13.94 BUN/Creatinine Ratio 7.0 L (10-20) Glucose 86 (70-99(Fasting)) mg/dl Calcium 7.6 L (8.6-10.3) mg/dl Phosphorus 5.0 H (2.5-4.9) mg/dl Magnesium 1.7 (1.7-2.4) mg/dl Random Cortisol 5.55 mcg/dl Medications Administered Current Inpatient Medications Acetaminophen (Acetaminophen 325 Mg Tab) 650 mg PO Q4H PRN PRN Reason: Pain or Fever Stop: 02/09/24 14:21 Last Admin: 01/12/24 22:42 Dose: 650 mg Amiodarone HCl (Amiodarone 200 Mg Tab) 200 mg PO DAILY [facility] Stop: 02/11/24 08:59 Last Admin: 01/16/24 08:17 Dose: 200 mg Diphenhydramine HCl (Diphenhydramine 50 Mg/Ml Vial) 50 mg IV MoWeFr [facility] Stop: 02/11/24 05:59 Last Admin: 01/14/24 09:31 Dose: 50 mg Epoetin Mil (Epoetin Mil 10,000 Units/Ml Vial) 10,000 units IV ONE ONE Stop: 01/17/24 07:01 Folic Acid (Folic Acid 1 Mg Tab) 1 mg PO DAILY [facility] Stop: 02/10/24 08:59 Last Admin: 01/16/24 08:21 Dose: 1 mg Gabapentin (Gabapentin 100 Mg Cap) 200 mg PO BID [facility] Stop: 02/10/24 08:59 Last Admin: 01/16/24 08:19 Dose: 200 mg Guaifenesin (Guaifenesin 600 Mg Tabcr) 600 mg PO Q12 [facility] Stop: 02/11/24 20:59 Last Admin: 01/16/24 08:18 Dose: 600 mg Heparin Sodium (Porcine) (Heparin Sod 5,000 Unit/0.5 Ml Vial) 5,000 units SQ Q8 [facility] Stop: 02/09/24 14:21 Last Admin: 01/16/24 14:56 Dose: Not Given Heparin Sodium (Porcine) (Heparin Sod (Porcine) 1000 Unit/Ml) 2,000 units IV ONE ONE Stop: 01/17/24 07:01 Heparin Sodium (Porcine) (Heparin Sod (Porcine) 1000 Unit/Ml) 500 units IV Q1H [facility] Stop: 01/17/24 08:01 Daptomycin 300 mg/ Syringe 6 mls @ 3 mls/min IV Q48H [facility]; Protocol Stop: 01/17/24 20:59 Last Admin: 01/14/24 20:02 Dose: 3 mls/min Cefepime HCl (Maxipime 2000mg) 1,000 mg in 10 mls @ 5 mls/min IV Q24H [facility]; Protocol Stop: 01/18/24 11:59 Last Admin: 01/16/24 12:22 Dose: 5 mls/min Lacosamide (Lacosamide 50 Mg Tablet) 100 mg PO BID [facility] Stop: 02/09/24 20:59 Last Admin: 01/16/24 08:17 Dose: 100 mg Lactobacillus Acidophilus (Advanced Probiotic 625 Mg Capsule) 1,250 mg PO DAILY [facility] Stop: 02/11/24 08:59 Last Admin: 01/16/24 08:18 Dose: 1,250 mg Levetiracetam (Levetiracetam 500 Mg Tab) 1,500 mg PO BID [facility] Stop: 02/09/24 20:59 Last Admin: 01/16/24 08:20 Dose: 1,500 mg Lidocaine/Prilocaine (Lidocaine/Prilocaine 2.5% Ea Crm) 1 each EXT PRE-TREAT [facility] Stop: 02/11/24 05:59 Last Admin: 01/16/24 05:30 Dose: Not Given Lorazepam (Lorazepam 2 Mg/1 Ml Vial) 1 mg IV ONE PRN; Protocol PRN Reason: EtoH Withdrawal AWSS 6-10 Lorazepam (Lorazepam 2 Mg/1 Ml Vial) 1 mg IV UD PRN; Protocol PRN Reason: EtOH Withdrawal AWSS Score 6,7 Stop: 02/09/24 21:34 Lorazepam (Lorazepam 2 Mg/1 Ml Vial) 2 mg IV UD PRN; Protocol PRN Reason: EtOH Withdrawal AWSS Score 8,9 Stop: 02/09/24 21:34 Lorazepam (Lorazepam 2 Mg/1 Ml Vial) 3 mg IV ONCE PRN; Protocol PRN Reason: EtOH Withdrawal AWSS Score 10+ Midodrine (Midodrine Hcl 10 Mg Tab) 10 mg PO TIDM [facility] Stop: 02/09/24 16:59 Last Admin: 01/16/24 12:22 Dose: 10 mg Miscellaneous (Remove Nicoderm Patch) 1 each N/A DAILY@0859 [facility] Stop: 02/14/24 08:58 Last Admin: 01/16/24 08:21 Dose: Not Given Multivitamins (Multivitamin Tab) 1 tab PO QAM [facility] Stop: 02/10/24 08:59 Last Admin: 01/16/24 08:17 Dose: 1 tab Nicotine (Nicotine 7 Mg/24 Hr Tdsy) 1 patch TD QAM [facility] Stop: 02/13/24 10:29 Last Admin: 01/16/24 08:21 Dose: Not Given Oxycodone HCl (Oxycodone Hcl Ir 5 Mg Tab (Immediate Release)) 5 mg PO Q4H PRN PRN Reason: Pain Stop: 01/24/24 21:18 Last Admin: 01/16/24 14:54 Dose: 5 mg Pantoprazole Sodium (Pantoprazole 40 Mg Tab) 40 mg PO BID [facility] Stop: 02/09/24 20:59 Last Admin: 01/16/24 08:18 Dose: 40 mg Sertraline HCl (Sertraline Hcl 100 Mg Tablet) 100 mg PO QAM [facility] Stop: 02/10/24 08:59 Last Admin: 01/16/24 08:22 Dose: 100 mg Sodium Chloride (Sodium Chloride 0.65% Na Soln 45 Ml ([place])) 1 sprays RAZ TID [facility] Stop: 02/14/24 20:59 Last Admin: 01/16/24 14:56 Dose: Not Given Thiamine HCl ([facility] Hcl 100 Mg Tab) [facility] Stop: 02/10/24 08:59 Last Admin: 01/16/24 08:20 Dose: 100 mg Zolpidem Tartrate (Zolpidem Tartrate 5 Mg Tab) 5 mg PO HS PRN PRN Reason: Sleep Stop: 02/09/24 21:18 Last Admin: 01/15/24 21:23 Dose: 5 mg
[2024-01-17 07:03] LABS: Hematocrit (blood only) 27.3 % (42.0-52.0); Hemoglobin 8.8 g/dl (14.0-18.0); Mean Corpuscular Hemoglobin 29.9 pg (25.0-34.0); Mean Corpuscular Hgb Conc 32.2 g/dL (32.0-36.0); Mean Corpuscular Volume 92.9 fL (80.0-100.0); Mean Platelet Volume 10.2 fL (9.4-12.4); Platelet Count 163 K/uL (130-400); RDW Coefficient of Variation 17.1 % (11.5-14.5); RDW Standard Deviation 57.9 fL (36.4-46.3); Red Blood Count 2.94 M/uL (4.70-6.10); White Blood Count 5.57 K/ul (4.8-10.8)
[2024-01-17 07:26] LABS: Calcium 7.6 mg/dl (8.6-10.3); Creatinine Clr Calc Pharmacy 15.1 ml/min; Magnesium 1.7 mg/dl (1.7-2.4); Phosphorus 5.4 mg/dl (2.5-4.9); Potassium 3.8 mmol/L (3.5-5.1)
--- NOTE | 2024-01-17 08:45 | Nephrology Progress Note ---
Date of Service January 17, 2024 Assessment & Plan (1) ESRD on hemodialysis: Plan: * Will provide HD today and attempt 1 L UF. Orders placed in EMR and HD RN notified * HD [facility] Keisha: MWF 3.5 hours F-180 optiflix Qb 450/Qd 800, 3 K 2.5 Ca, 138 Na. EDW 80.5 kg * Continue midodrine 10 mg TID (2) Anemia: Plan: * Hgb 8.8 this am. Will provide ROSANNA w/ HD (3) Ambulatory dysfunction: Plan: * Recurrent hospitalization due to falls related to orthostatic hypotension * Remains on midodrine 10 mg TID * UF needed during HD to avoid CHF * Poor prognosis * 01/13/24 PT note reviewed - unable to ambulate d/t orthostasis (SBP 90-->70 when standing) * Agree w/ plans for SNF following hospitalization * Consider consultation w/ palliative care (4) Lethargy: Plan: * Recommend reducing gabapentin to 200 mg daily due to ESKD/lethargy Admission and Anticipated Discharge Date Admission Date: January 10, 2024 Subjective Mr. Rivers was evaluated in his hospital room this morning. He was lethargic but would awaken to voice. Mr. Rivers is anxious to leave the hospital but notes that in the past he quickly returned due to orthostasis and profound weakness Review of Systems Constitutional: no fever Eyes: no problem reported Ear, Nose, Mouth, Throat: no problem reported Respiratory: no cough Cardiovascular: no chest pain Gastrointestinal: no abdominal pain, no nausea, no vomiting and no diarrhea/loose stools Physical Exam Constitutional: + frail appearing; no acute distress Eyes: PERRL, conjunctivae normal, anicteric sclerae ENMT: external ear and nose normal, oropharynx normal Neck: trachea midline, no thyromegaly Cardiovascular: RRR, no murmur, no edema Gastrointestinal (Abdomen): normal bowel sounds, soft, nontender, no hepatosplenomegaly Skin: no rashes, warm and dry Neurologic: awake; not confused Results & Data Vital Signs (Past 12 Hours) Vital Signs Temp Pulse Pulse Resp BP BP Pulse Ox 01/17/24 03:00 36.8 C 86 16 95/58 L 93 01/16/24 23:00 36.8 C 97 H 16 93/60 L 94 01/16/24 22:45 89 O2 Del Method 01/17/24 03:00 Room Air 01/16/24 23:00 Room Air 01/16/24 22:45 Laboratory Results Laboratory Results - last 24 hr 01/16/24 01/16/24 01/17/24 05:59 16:09 06:05 WBC 5.57 RBC 2.94 L Hgb 8.8 L Hct 27.3 L MCV 92.9 MCH 29.9 MCHC 32.2 RDW Std Deviation 57.9 H RDW Coeff of Valerie 17.1 H Plt Count 163 MPV 10.2 Sodium 132 L Potassium 3.8 Chloride 97 L Carbon Dioxide 22 Anion Gap 13 H BUN 45 H Creatinine 5.63 H* D Est Cr Clr Drug Dosing 15.1 eGFR 10.76 BUN/Creatinine Ratio 8.0 L Glucose 87 Calcium 7.6 L Phosphorus 5.4 H Magnesium 1.7 Random Cortisol 5.55 7.53 PG Care Time/CCT Total # of Minutes Spent Total Time Spent with Patient: Total time spent is greater than 50% in coordination of care (as documented) at patient's floor/unit and/or counseling patient: Coding Level of Care Code 35735 SUB INP/OBS CARE 3/50MIN Diagnoses ESRD on hemodialysis N18.6; Z99.2 Anemia D64.9 Anemia type: unspecified type Ambulatory dysfunction R26.2 Lethargy R53.83 (2) Anemia Anemia type: unspecified type Qualified Code(s): D64.9 - Anemia, unspecified
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
[2024-01-17] MEDS: HEPARIN SOD (PORCINE) 1000 UNIT/ML IV ONE (11:23)
[2024-01-17] MEDS: HEPARIN SOD (PORCINE) 1000 UNIT/ML IV SCH (11:23)
[2024-01-17] MEDS: EPOETIN ALFA 10,000 UNITS/ML VIAL IV ONE (11:24)
--- NOTE | 2024-01-17 12:22 | Hospitalist Progress Note ---
Date of Service January 17, 2024 Assessment & Plan (1) ESRD on hemodialysis: (2) Alcohol abuse: (3) Insomnia: (4) Atrial fibrillation: (5) Anxiety: (6) Ambulatory dysfunction: (7) Frequent falls: (8) PUD (peptic ulcer disease): Plan Frequent falls Suspected syncope Chronic hypotension Generalized weakness Reports falling about once a week, does not remember all of the falls --CT Head:No acute intracranial process. --Left Hip CT:Left total hip replacement is noted without complication. Mild patchy subcutaneous edema was noted likely due to edema. 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 (Stable in comparison with CT on 11/15/2022). Fall precautions PT OT as able Urinalysis ordered, uncollected Continue midodrine Monitor blood pressure closely Discussed w/ nephrology ongoing hypotension - - obtained cortisol level (normal so not likely adrenal insufficiency) and repeated echo (last echo in June )- no sign. change Palliative medicine consulted Overall poor prognosis Suspected pneumonia--POA --CXR:Cardiomegaly with pulmonary edema. Small pleural effusions with right basilar predominant consolidation which may represents atelectasis versus pneumonia. --Elevated procalcitonin --Nasal MRSA negative -- BioFire negative --Blood cultures negat. in 48 hrs - sputum culture ordered Continued on cefepime CXR and CT chest repeated - CT - 1. Mild interstitial thickening and ground- glass opacities suggestive of mild pulmonary edema. 2. Small to moderate bilateral pleural effusions and dependent lower lobe passive atelectasis.. 3. Mild gaseous distention of a few loops of small bowel suggestive of possible ileus. Discussed with ID - not much concern of pna, but rather the laceration/ wound infection - switch abx to cefazolin - to be given on dialysis days 2g, 2g, 3g Left hip wound S/P laceration concern for wound infection Wound culture posit. Klebsiella pneumoniae - mcclain-sensitive Empirically on antibiotics - cefepime, dapto Continue local wound care orthopedics, also consulted - recommend gen. surgery consult Gen. surgery - obtained US - no fluid collection identified, removed sutures on (01/12) - recommend wound care and antibiotics ID consulted for recommendations regarding abx to cover for poss. pna and wound infection ID recommends to switch to cefazolin after HD on HD days 2g, 2g, 3g - abx switched A-fib RVR Continue amiodarone Chronically not on anticoagulation Currently rate controlled Abnormal thyroid function test Mildly elevated TSH and low free T4 re-check TSH 3.6 wnl ESRD on HD: Nephrology consulted to help with dialysis Monitor volume status Seizures: Continue Keppra/lacosamide Alcohol abuse: Denies drinking for months, monitor for signs of withdrawal Unsure when he last consumed alcohol alcohol withdrawal protocol Also on thiamine, folic acid Hold medications to minimize excess sedation DVT Px: Heparin SQ Code Status: Full code Admission and Anticipated Discharge Date Admission Date: January 10, 2024 Subjective Patient seen in follow up - recurrent falls, hypotension, ESRD on HD, now with hip laceration, poss. pna Pt seen laying in bed in NAD Appears tired but able to answer simple questions, asking when he is going home + been falling at home Denies any chest pain, dyspnea, nausea, vomiting, abdominal pain No significant withdrawal symptoms currently Sutures removed by surgery ID consulted - antibiotics changed Pt orthostatic, requires a lot of assistance, not recommended to return home. Per nephro note - poor prognosis, consider palliative med. Palliative consult placed. Discussed w/ nephrology regarding BP - obtained cortisol level (normal so not likely adrenal insufficiency) and repeated echo (last echo in June )- no sign. change. Overall poor prognosis. Review of Systems Review of Systems: All systems reviewed & are unremarkable except as noted in Subjective Physical Exam Physical Exam: General Appearance: Moderately built and nourished, no apparent distress, chronically ill appearing Head: normocephalic, Atraumatic Eyes: normal inspection, EOMI Neck: supple Respiratory/Chest: + coarse breath sounds, No accessory muscle use Cardiovascular: Irregularly irregular, No murmur Abdomen/GI:Soft, Non tender, Bowel sounds present Extremities/Musculoskeletal:normal inspection, Trace edema, Left hip Laceration Neurologic/Psych: drowsy but able to answer simple questions appropriately, speech fluent, moves extremities Skin: warm,dry, +Multiple Ecchymosis Results & Data Results & Data Vital Signs (Past 12 Hours) Vital Signs Temp Pulse Pulse Pulse Resp BP BP 01/17/24 12:00 105 H 78/51 L 01/17/24 11:30 102 H 74/44 L 01/17/24 11:00 98 H 78/53 L 01/17/24 10:30 101 H 77/51 L 01/17/24 10:00 95 H 78/47 L 01/17/24 09:30 104 H 87/58 L 01/17/24 09:25 94 H 96/64 L 01/17/24 09:18 36.5 C 87 01/17/24 09:08 36.7 C 100 H 24 103/65 01/17/24 08:10 01/17/24 08:00 84 01/17/24 03:00 36.8 C 86 16 BP Pulse Ox O2 Del Method O2 Flow Rate 01/17/24 12:00 01/17/24 11:30 01/17/24 11:00 01/17/24 10:30 01/17/24 10:00 01/17/24 09:30 01/17/24 09:25 01/17/24 09:18 01/17/24 09:08 82 L Room Air 01/17/24 08:10 Nasal Cannula 4 01/17/24 08:00 01/17/24 03:00 95/58 L 93 Room Air Laboratory Results 01/17/24 01/16/24 Range/Units 06:05 16:09 WBC 5.57 (4.8-10.8) K/ul RBC 2.94 L (4.70-6.10) M/uL Hgb 8.8 L (14.0-18.0) g/dl Hct 27.3 L (42.0-52.0) % MCV 92.9 (80.0-100.0) fL MCH 29.9 (25.0-34.0) pg MCHC 32.2 (32.0-36.0) g/dL RDW Std Deviation 57.9 H (36.4-46.3) fL RDW Coeff of Valerie 17.1 H (11.5-14.5) % Plt Count 163 (130-400) K/uL MPV 10.2 (9.4-12.4) fL Sodium 132 L (136-145) mmol/L Potassium 3.8 (3.5-5.1) mmol/L Chloride 97 L (98-107) mmol/L Carbon Dioxide 22 (21-32) mmol/L Anion Gap 13 H (3-11) BUN 45 H (6-23) mg/dl Creatinine 5.63 H* D (0.6-1.4) mg/dl Est Cr Clr Drug Dosing 15.1 ml/min eGFR 10.76 BUN/Creatinine Ratio 8.0 L (10-20) Glucose 87 (70-99(Fasting)) mg/dl Calcium 7.6 L (8.6-10.3) mg/dl Phosphorus 5.4 H (2.5-4.9) mg/dl Magnesium 1.7 (1.7-2.4) mg/dl Random Cortisol 7.53 mcg/dl Medications Administered Current Inpatient Medications Acetaminophen (Acetaminophen 325 Mg Tab) 650 mg PO Q4H PRN PRN Reason: Pain or Fever Stop: 02/09/24 14:21 Last Admin: 01/12/24 22:42 Dose: 650 mg Amiodarone HCl (Amiodarone 200 Mg Tab) 200 mg PO DAILY [facility] Stop: 02/11/24 08:59 Last Admin: 01/17/24 08:43 Dose: 200 mg Diphenhydramine HCl (Diphenhydramine 50 Mg/Ml Vial) 50 mg IV MoWeFr [facility] Stop: 02/11/24 05:59 Last Admin: 01/17/24 08:36 Dose: 50 mg Folic Acid (Folic Acid 1 Mg Tab) 1 mg PO DAILY [facility] Stop: 02/10/24 08:59 Last Admin: 01/17/24 08:44 Dose: 1 mg Gabapentin (Gabapentin 100 Mg Cap) 200 mg PO DAILY [facility] Stop: 02/17/24 08:59 Guaifenesin (Guaifenesin 600 Mg Tabcr) 600 mg PO Q12 [facility] Stop: 02/11/24 20:59 Last Admin: 01/17/24 08:47 Dose: 600 mg Heparin Sodium (Porcine) (Heparin Sod 5,000 Unit/0.5 Ml Vial) 5,000 units SQ Q8 [facility] Stop: 02/09/24 14:21 Last Admin: 01/17/24 06:05 Dose: Not Given Cefazolin Sodium (Ancef 2000mg) 2,000 mg in 15 mls @ 3.75 mls/min IV MoWe@1600 [facility] Stop: 01/25/24 23:59 Cefazolin Sodium 3,000 mg/ (Dextrose) 72.5 mls @ 145 mls/hr IV Fr@1600 [facility] Stop: 01/25/24 23:59 Lacosamide (Lacosamide 50 Mg Tablet) 100 mg PO BID [facility] Stop: 02/09/24 20:59 Last Admin: 01/17/24 09:00 Dose: 100 mg Lactobacillus Acidophilus (Advanced Probiotic 625 Mg Capsule) 1,250 mg PO DAILY [facility] Stop: 02/11/24 08:59 Last Admin: 01/17/24 08:46 Dose: 1,250 mg Levetiracetam (Levetiracetam 500 Mg Tab) 1,500 mg PO BID [facility] Stop: 02/09/24 20:59 Last Admin: 01/17/24 08:43 Dose: 1,500 mg Lidocaine/Prilocaine (Lidocaine/Prilocaine 2.5% Ea Crm) 1 each EXT PRE-TREAT [facility] Stop: 02/11/24 05:59 Last Admin: 01/17/24 08:47 Dose: 1 each Lorazepam (Lorazepam 2 Mg/1 Ml Vial) 1 mg IV ONE PRN; Protocol PRN Reason: EtoH Withdrawal AWSS 6-10 Lorazepam (Lorazepam 2 Mg/1 Ml Vial) 1 mg IV UD PRN; Protocol PRN Reason: EtOH Withdrawal AWSS Score 6,7 Stop: 02/09/24 21:34 Lorazepam (Lorazepam 2 Mg/1 Ml Vial) 2 mg IV UD PRN; Protocol PRN Reason: EtOH Withdrawal AWSS Score 8,9 Stop: 02/09/24 21:34 Lorazepam (Lorazepam 2 Mg/1 Ml Vial) 3 mg IV ONCE PRN; Protocol PRN Reason: EtOH Withdrawal AWSS Score 10+ Midodrine (Midodrine Hcl 10 Mg Tab) 10 mg PO TIDM [facility] Stop: 02/09/24 16:59 Last Admin: 01/17/24 12:07 Dose: 10 mg Miscellaneous (Remove Nicoderm Patch) 1 each N/A DAILY@0859 [facility] Stop: 02/14/24 08:58 Last Admin: 01/17/24 08:51 Dose: Not Given Multivitamins (Multivitamin Tab) 1 tab PO QAM [facility] Stop: 02/10/24 08:59 Last Admin: 01/17/24 08:52 Dose: 1 tab Nicotine (Nicotine 7 Mg/24 Hr Tdsy) 1 patch TD QAM [facility] Stop: 02/13/24 10:29 Last Admin: 01/17/24 08:51 Dose: Not Given Oxycodone HCl (Oxycodone Hcl Ir 5 Mg Tab (Immediate Release)) 5 mg PO Q4H PRN PRN Reason: Pain Stop: 01/24/24 21:18 Last Admin: 01/16/24 14:54 Dose: 5 mg Pantoprazole Sodium (Pantoprazole 40 Mg Tab) 40 mg PO BID [facility] Stop: 02/09/24 20:59 Last Admin: 01/17/24 08:45 Dose: 40 mg Sertraline HCl (Sertraline Hcl 100 Mg Tablet) [facility]: 02/10/24 08:59 Last Admin: 01/17/24 08:46 Dose: 100 mg Sodium Chloride (Sodium Chloride 0.65% Na Soln 45 Ml ([place])) 1 sprays RAZ TID [facility] Stop: 02/14/24 20:59 Last Admin: 01/17/24 08:45 Dose: 1 sprays Thiamine HCl (Thiamine Hcl 100 Mg Tab) [facility] Stop: 02/10/24 08:59 Last Admin: 01/17/24 08:45 Dose: 100 mg Zolpidem Tartrate (Zolpidem Tartrate 5 Mg Tab) 5 mg PO HS PRN PRN Reason: Sleep Stop: 02/09/24 21:18 Last Admin: 01/16/24 21:48 Dose: 5 mg
[2024-01-17] MEDS: HYDROCORTISONE SOD 100 MG in SYRINGE 0 ML IV ONE (15:25)
[2024-01-17] MEDS: ceFAZolin 2000MG 2,000 MG/15 ML SYR IV SCH (15:39)
--- NOTE | 2024-01-18 07:16 | Hospitalist Progress Note ---
Date of Service January 18, 2024 Assessment & Plan (1) ESRD on hemodialysis: (2) Alcohol abuse: (3) Insomnia: (4) Atrial fibrillation: (5) Anxiety: (6) Ambulatory dysfunction: (7) Frequent falls: (8) PUD (peptic ulcer disease): Plan Frequent falls Suspected syncope Chronic hypotension Generalized weakness Reports falling about once a week, does not remember all of the falls --CT Head:No acute intracranial process. --Left Hip CT:Left total hip replacement is noted without complication. Mild patchy subcutaneous edema was noted likely due to edema. 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 (Stable in comparison with CT on 11/15/2022). Fall precautions PT OT as able Urinalysis ordered, uncollected (pt is not making much urine) Continue midodrine Monitor blood pressure closely Discussed w/ nephrology ongoing hypotension - - obtained cortisol level (normal so not likely adrenal insufficiency) and repeated echo (last echo in June )- no sign. change Yesterday BP even lower than usual SBP 70-80s , pt seen again and able to communicate, not symptomatic - at that point discussed possibility of need of pressors and ICU placement - pt wanted all the care. Already on midodrine 10 TID, gave 100 IV hydrocortisone x1. Pt's BP improved later in the evening and today SBP 100-119 (probably the highest BP reading during this hospital stay - ? poss. some component of adrenal insufficiency, will discuss w/ endocrine Palliative medicine consulted Overall poor prognosis Suspected pneumonia--POA --CXR:Cardiomegaly with pulmonary edema. Small pleural effusions with right basilar predominant consolidation which may represents atelectasis versus pneumonia. --Elevated procalcitonin --Nasal MRSA negative -- BioFire negative --Blood cultures negat. in 48 hrs - sputum culture ordered Continued on cefepime CXR and CT chest repeated - CT - 1. Mild interstitial thickening and ground- glass opacities suggestive of mild pulmonary edema. 2. Small to moderate bilateral pleural effusions and dependent lower lobe passive atelectasis.. 3. Mild gaseous distention of a few loops of small bowel suggestive of possible ileus. Discussed with ID - not much concern of pna, but rather the laceration/ wound infection - switched abx to cefazolin - to be given on dialysis days 2g, 2g, 3g. On DC can switch to Augmentin 500 mg daily (on dialysis days, give after dialysis). Left hip wound S/P laceration concern for wound infection Wound culture posit. Klebsiella pneumoniae - mcclain-sensitive Empirically on antibiotics - cefepime, dapto Continue local wound care orthopedics, also consulted - recommend gen. surgery consult Gen. surgery - obtained US - no fluid collection identified, removed sutures on (01/12) - recommend wound care and antibiotics ID consulted for recommendations regarding abx to cover for poss. pna and wound infection ID recommends to switch to cefazolin after HD on HD days 2g, 2g, 3g - abx switched On DC can switch to Augmentin 500 mg daily (on dialysis days, give after dialysis). A-fib RVR Continue amiodarone Chronically not on anticoagulation Currently rate controlled Abnormal thyroid function test Mildly elevated TSH and low free T4 re-check TSH 3.6 wnl ESRD on HD: Nephrology consulted to help with dialysis Monitor volume status Seizures: Continue Keppra/lacosamide Alcohol abuse: Denies drinking for months, monitor for signs of withdrawal Unsure when he last consumed alcohol alcohol withdrawal protocol finished librium Also on thiamine, folic acid Hold medications to minimize excess sedation, gabapentin decreased to 200 daily DVT Px: Heparin SQ Code Status: Conditional Code - per today's discussion w/ palliative medicine Admission and Anticipated Discharge Date Admission Date: January 10, 2024 Subjective Patient seen in follow up - recurrent falls, hypotension, ESRD on HD, now with hip laceration, poss. pna + been falling at home Pt seen laying in bed in NAD Appears more awake and alert this AM Denies any chest pain, dyspnea, nausea, vomiting, abdominal pain No significant withdrawal symptoms currently Sutures removed by surgery ID consulted - antibiotics changed Pt orthostatic, requires a lot of assistance, not recommended to return home. Per nephro note - poor prognosis, consider palliative med. Palliative med. consulted and discussed with today. Discussed w/ nephrology previously regarding BP - obtained cortisol level (normal so not likely adrenal insufficiency) and repeated echo (last echo in June )- no sign. change. Overall poor prognosis. Review of Systems Review of Systems: All systems reviewed & are unremarkable except as noted in Subjective Physical Exam Physical Exam: General Appearance: Moderately built and nourished, no apparent distress, chronically ill appearing Head: normocephalic, Atraumatic Eyes: normal inspection, EOMI Neck: supple Respiratory/Chest: + rhonchi, No accessory muscle use Cardiovascular: Irregularly irregular, No murmur Abdomen/GI:Soft, Non tender, Bowel sounds present Extremities/Musculoskeletal:normal inspection, Trace edema, Left hip Laceration Neurologic/Psych: more awake, and alert today, answers simple questions appropriately, speech fluent, moves extremities Skin: warm,dry, +Multiple Ecchymosis Results & Data Results & Data Vital Signs (Past 12 Hours) Vital Signs Temp Pulse Pulse Resp BP Pulse Ox O2 Del Method 01/18/24 02:59 36.7 C 90 21 93/55 L 100 Nasal Cannula 01/18/24 01:17 98 H 01/17/24 22:48 36.6 C 89 18 99/63 L 98 Nasal Cannula 01/17/24 20:38 Nasal Cannula 01/17/24 19:25 36.5 C 89 21 96/62 L 99 Nasal Cannula O2 Flow Rate 01/18/24 02:59 01/18/24 01:17 01/17/24 22:48 2 01/17/24 20:38 2 01/17/24 19:25 2 Laboratory Results 01/18/24 Range/Units 06:32 WBC 4.14 L (4.8-10.8) K/ul RBC 2.90 L (4.70-6.10) M/uL Hgb 8.8 L (14.0-18.0) g/dl Hct 27.4 L (42.0-52.0) % MCV 94.5 (80.0-100.0) fL MCH 30.3 (25.0-34.0) pg MCHC 32.1 (32.0-36.0) g/dL RDW Std Deviation 58.4 H (36.4-46.3) fL RDW Coeff of Valerie 16.9 H (11.5-14.5) % Plt Count 168 (130-400) K/uL MPV 10.6 (9.4-12.4) fL Sodium 136 (136-145) mmol/L Potassium 4.2 (3.5-5.1) mmol/L Chloride 102 (98-107) mmol/L Carbon Dioxide 25 (21-32) mmol/L Anion Gap 9 (3-11) BUN 29 H (6-23) mg/dl Creatinine 3.49 H D (0.6-1.4) mg/dl Est Cr Clr Drug Dosing 24.4 ml/min eGFR 19.11 BUN/Creatinine Ratio 8.3 L (10-20) Glucose 141 H (70-99(Fasting)) mg/dl Calcium 7.8 L (8.6-10.3) mg/dl Phosphorus 3.6 D (2.5-4.9) mg/dl Magnesium 1.8 (1.7-2.4) mg/dl Medications Administered Current Inpatient Medications Acetaminophen (Acetaminophen 325 Mg Tab) 650 mg PO Q4H PRN PRN Reason: Pain or Fever Stop: 02/09/24 14:21 Last Admin: 01/12/24 22:42 Dose: 650 mg Amiodarone HCl (Amiodarone 200 Mg Tab) 200 mg PO DAILY [facility] Stop: 02/11/24 08:59 Last Admin: 01/17/24 08:43 Dose: 200 mg Diphenhydramine HCl (Diphenhydramine 50 Mg/Ml Vial) 50 mg IV MoWeFr [facility] Stop: 02/11/24 05:59 Last Admin: 01/17/24 08:36 Dose: 50 mg Folic Acid (Folic Acid 1 Mg Tab) 1 mg PO DAILY [facility] Stop: 02/10/24 08:59 Last Admin: 01/17/24 08:44 Dose: 1 mg Gabapentin (Gabapentin 100 Mg Cap) 200 mg PO DAILY [facility] Stop: 02/17/24 08:59 Guaifenesin (Guaifenesin 600 Mg Tabcr) 600 mg PO Q12 [facility] Stop: 02/11/24 20:59 Last Admin: 01/17/24 20:09 Dose: 600 mg Heparin Sodium (Porcine) (Heparin Sod 5,000 Unit/0.5 Ml Vial) 5,000 units SQ Q8 [facility] Stop: 02/09/24 14:21 Last Admin: 01/18/24 05:45 Dose: Not Given Cefazolin Sodium (Ancef 2000mg) 2,000 mg in 15 mls @ 3.75 mls/min IV MoWe@1600 [facility] Stop: 01/25/24 23:59 Last Admin: 01/17/24 15:39 Dose: 3.75 mls/min Cefazolin Sodium 3,000 mg/ (Dextrose) 72.5 mls @ 145 mls/hr IV Fr@1600 [facility] Stop: 01/25/24 23:59 Lacosamide (Lacosamide 50 Mg Tablet) 100 mg PO BID [facility] Stop: 02/09/24 20:59 Last Admin: 01/17/24 20:27 Dose: 100 mg Lactobacillus Acidophilus (Advanced Probiotic 625 Mg Capsule) 1,250 mg PO DAILY [facility] Stop: 02/11/24 08:59 Last Admin: 01/17/24 08:46 Dose: 1,250 mg Levetiracetam (Levetiracetam 500 Mg Tab) 1,500 mg PO BID [facility] Stop: 02/09/24 20:59 Last Admin: 01/17/24 20:08 Dose: 1,500 mg Lidocaine/Prilocaine (Lidocaine/Prilocaine 2.5% Ea Crm) 1 each EXT PRE-TREAT [facility] Stop: 02/11/24 05:59 Last Admin: 01/18/24 05:46 Dose: Not Given Lorazepam (Lorazepam 2 Mg/1 Ml Vial) 1 mg IV ONE PRN; Protocol PRN Reason: EtoH Withdrawal AWSS 6-10 Lorazepam (Lorazepam 2 Mg/1 Ml Vial) 1 mg IV UD PRN; Protocol PRN Reason: EtOH Withdrawal AWSS Score 6,7 Stop: 02/09/24 21:34 Lorazepam (Lorazepam 2 Mg/1 Ml Vial) 2 mg IV UD PRN; Protocol PRN Reason: EtOH Withdrawal AWSS Score 8,9 Stop: 02/09/24 21:34 Lorazepam (Lorazepam 2 Mg/1 Ml Vial) 3 mg IV ONCE PRN; Protocol PRN Reason: EtOH Withdrawal AWSS Score 10+ Midodrine (Midodrine Hcl 10 Mg Tab) 10 mg PO TIDM [facility] Stop: 02/09/24 16:59 Last Admin: 01/17/24 16:16 Dose: 10 mg Miscellaneous (Remove Nicoderm Patch) 1 each N/A DAILY@0859 [facility] Stop: 02/14/24 08:58 Last Admin: 01/17/24 08:51 Dose: Not Given Multivitamins (Multivitamin Tab) 1 tab PO QAM [facility] Stop: 02/10/24 08:59 Last Admin: 01/17/24 08:52 Dose: 1 tab Nicotine (Nicotine 7 Mg/24 Hr Tdsy) 1 patch TD QAM [facility] Stop: 02/13/24 10:29 Last Admin: 01/17/24 08:51 Dose: Not Given Oxycodone HCl (Oxycodone Hcl Ir 5 Mg Tab (Immediate Release)) 5 mg PO Q4H PRN PRN Reason: Pain Stop: 01/24/24 21:18 Last Admin: 01/16/24 14:54 Dose: 5 mg Pantoprazole Sodium (Pantoprazole 40 Mg Tab) 40 mg PO BID [facility] Stop: 02/09/24 20:59 Last Admin: 01/17/24 20:09 Dose: 40 mg Sertraline HCl (Sertraline Hcl 100 Mg Tablet) 100 mg PO QAM [facility] Stop: 02/10/24 08:59 Last Admin: 01/17/24 08:46 Dose: 100 mg Sodium Chloride (Sodium Chloride 0.65% Na Soln 45 Ml ([place])) 1 sprays RAZ TID [facility] Stop: 02/14/24 20:59 Last Admin: 01/17/24 20:06 Dose: 1 sprays Thiamine HCl (Thiamine Hcl 100 Mg Tab) 100 mg PO QAM [facility] Stop: 02/10/24 08:59 Last Admin: 01/17/24 08:45 Dose: 100 mg Zolpidem Tartrate (Zolpidem Tartrate 5 Mg Tab) 5 mg PO HS PRN PRN Reason: Sleep Stop: 02/09/24 21:18 Last Admin: 01/16/24 21:48 Dose: 5 mg
[2024-01-18 07:32] LABS: Hematocrit (blood only) 27.4 % (42.0-52.0); Hemoglobin 8.8 g/dl (14.0-18.0); Mean Corpuscular Hemoglobin 30.3 pg (25.0-34.0); Mean Corpuscular Hgb Conc 32.1 g/dL (32.0-36.0); Mean Corpuscular Volume 94.5 fL (80.0-100.0); Mean Platelet Volume 10.6 fL (9.4-12.4); Platelet Count 168 K/uL (130-400); RDW Coefficient of Variation 16.9 % (11.5-14.5); RDW Standard Deviation 58.4 fL (36.4-46.3); White Blood Count 4.14 K/ul (4.8-10.8)
[2024-01-18 07:53] LABS: BUN Creatinine Ratio 8.3 (10-20); Calcium 7.8 mg/dl (8.6-10.3); Creatinine Clr Calc Pharmacy 24.4 ml/min; Magnesium 1.8 mg/dl (1.7-2.4); Phosphorus 3.6 mg/dl (2.5-4.9); Potassium 4.2 mmol/L (3.5-5.1)
--- NOTE | 2024-01-18 08:45 | Nephrology Progress Note ---
Date of Service January 18, 2024 Assessment & Plan (1) ESRD on hemodialysis: Plan: * Volume status and electrolyte balance are acceptable. No acute need for HD today. Will plan next HD for am * HD [facility]: MWF 3.5 hours F-180 optiflix Qb 450/Qd 800, 3 K 2.5 Ca, 138 Na. EDW 80.5 kg * Continue midodrine 10 mg TID (2) Anemia: Plan: * Hgb 8.8 this am. Will provide ROSANNA w/ HD (3) Ambulatory dysfunction: Plan: * Recurrent hospitalization due to falls related to orthostatic hypotension * Remains on midodrine 10 mg TID * UF needed during HD to avoid CHF * Poor prognosis * 01/13/24 PT note reviewed - unable to ambulate d/t orthostasis (SBP 90-->70 when standing) * Agree w/ plans for SNF following hospitalization * Await recommendations from palliative care (4) Lethargy: Plan: * Gabapentin dose has been reduced to 200 mg daily due to ESKD/lethargy Admission and Anticipated Discharge Date Admission Date: January 10, 2024 Subjective Mr. Rivers was evaluated in his hospital room this morning. He was dialyzed yesterday without complication. UF limited to 1 L due to relative hypotension. Mr. Rivers reports that he is weak. He did not get OOB yesterday. Review of Systems Constitutional: no fever Eyes: no problem reported Ear, Nose, Mouth, Throat: no problem reported Respiratory: no cough Cardiovascular: no chest pain Gastrointestinal: no abdominal pain, no nausea, no vomiting and no diarrhea/loose stools Physical Exam Constitutional: + frail appearing; no acute distress Eyes: PERRL, conjunctivae normal, anicteric sclerae ENMT: external ear and nose normal, oropharynx normal Neck: trachea midline, no thyromegaly Cardiovascular: RRR, no murmur, no edema Gastrointestinal (Abdomen): normal bowel sounds, soft, nontender, no hepatosplenomegaly Skin: no rashes, warm and dry Neurologic: awake; not confused Results & Data Vital Signs (Past 12 Hours) Vital Signs Temp Pulse Pulse Resp BP Pulse Ox O2 Del Method 01/18/24 07:00 36.6 C 89 22 100/63 98 Nasal Cannula 01/18/24 02:59 36.7 C 90 21 93/55 L 100 Nasal Cannula 01/18/24 01:17 98 H 01/17/24 22:48 36.6 C 89 18 99/63 L 98 Nasal Cannula O2 Flow Rate 01/18/24 07:00 2 01/18/24 02:59 01/18/24 01:17 01/17/24 22:48 2 Laboratory Results Laboratory Results - last 24 hr 01/18/24 06:32 WBC 4.14 L RBC 2.90 L Hgb 8.8 L Hct 27.4 L MCV 94.5 MCH 30.3 MCHC 32.1 RDW Std Deviation 58.4 H RDW Coeff of Valerie 16.9 H Plt Count 168 MPV 10.6 Sodium 136 Potassium 4.2 Chloride 102 Carbon Dioxide 25 Anion Gap 9 BUN 29 H Creatinine 3.49 H D Est Cr Clr Drug Dosing 24.4 eGFR 19.11 BUN/Creatinine Ratio 8.3 L Glucose 141 H Calcium 7.8 L Phosphorus 3.6 D Magnesium 1.8 PG Care Time/CCT Total # of Minutes Spent Total Time Spent with Patient: Total time spent is greater than 50% in coordination of care (as documented) at patient's floor/unit and/or counseling patient: Coding Level of Care Code 53481 SUB INP/OBS CARE 3/50MIN Diagnoses ESRD on hemodialysis N18.6; Z99.2 Anemia D64.9 Anemia type: unspecified type Ambulatory dysfunction R26.2 Lethargy R53.83 (2) Anemia Anemia type: unspecified type Qualified Code(s): D64.9 - Anemia, unspecified
[2024-01-18] MEDS: GABAPENTIN 100 MG CAP PO SCH (08:58)
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
[2024-01-18] MEDS ORDERED: HYDROCORTISONE SOD SUCCINATE 100 MG/2 ML VIAL IM STA (18:47)
[2024-01-18] MEDS: HYDROCORTISONE SOD 100 MG in SYRINGE 0 ML IV ONE (20:41)
[2024-01-19 06:46] LABS: Basophils # (auto) 0.01 K/uL (0.00-0.20); Basophils % (auto) 0.2 %; Hemoglobin 8.8 g/dl (14.0-18.0); Immature Granulocytes # (auto) 0.05 K/uL (0.01-0.20); Immature Granulocytes % (auto) 1.1 %; Lymphocytes % (auto) 19.3 %; Mean Corpuscular Hemoglobin 30.4 pg (25.0-34.0); Mean Corpuscular Hgb Conc 32.6 g/dL (32.0-36.0); Mean Corpuscular Volume 93.4 fL (80.0-100.0); Mean Platelet Volume 9.9 fL (9.4-12.4); Monocytes # (auto) 0.18 K/uL (0.11-0.59); Monocytes % (auto) 3.9 %; Neutrophils # (auto) 3.52 K/uL (1.40-6.50); Neutrophils % (auto) 75.5 %; Platelet Count 206 K/uL (130-400); RDW Coefficient of Variation 16.8 % (11.5-14.5); RDW Standard Deviation 57.3 fL (36.4-46.3); Red Blood Count 2.89 M/uL (4.70-6.10); White Blood Count 4.66 K/ul (4.8-10.8)
[2024-01-19 07:37] LABS: Anion Gap 12 (3-11); Blood Urea Nitrogen 46 mg/dl (6-23); Carbon Dioxide 22 mmol/L (21-32); Chloride 99 mmol/L (98-107); Creatinine Clr Calc Pharmacy 18.5 ml/min; Glucose 135 mg/dl (70-99(Fasting)); Iron 36 mcg/dl (35-175); Phosphorus 4.4 mg/dl (2.5-4.9); Potassium 4.5 mmol/L (3.5-5.1); Sodium 133 mmol/L (136-145); Unsaturated Iron Binding Cap < 55 mcg/dl (155-355)
[2024-01-19 07:50] LABS: Magnesium 1.9 mg/dl (1.7-2.4)
[2024-01-19] MEDS: predniSONE 20 MG TAB PO SCH (08:13)
--- NOTE | 2024-01-19 08:52 | Nephrology Progress Note ---
Date of Service January 19, 2024 Assessment & Plan (1) ESRD on hemodialysis: Plan: * Will provide HD today. Patient was net 1 L volume + last 48 hours. Will attempt 2.5 L UF. Note that hypotension (SBP 70's) limited UF on Wednesday * HD [facility]: MWF 3.5 hours F-180 optiflix Qb 450/Qd 800, 3 K 2.5 Ca, 138 Na. EDW 80.5 kg * Continue midodrine 10 mg TID (2) Anemia: Plan: * Hgb 8.8 this am. Will provide ROSANNA w/ HD (3) Ambulatory dysfunction: Plan: * Recurrent hospitalization due to falls related to orthostatic hypotension * Remains on midodrine 10 mg TID * UF needed during HD to avoid CHF * Poor prognosis * 01/13/24 PT note reviewed - unable to ambulate d/t orthostasis (SBP 90-->70 when standing) * Agree w/ plans for SNF following hospitalization * 01/18/24 palliative care recommendations reviewed. Plan for SNF close to home w/ outpatient follow up at palliative care clinic (4) Lethargy: Plan: * Gabapentin dose has been reduced to 200 mg daily due to ESKD/lethargy Admission and Anticipated Discharge Date Admission Date: January 10, 2024 Subjective Mr. Rivers was evaluated in his hospital room this morning. He c/o weakness but voices no other medical concerns. He is preparing for HD this am Review of Systems Constitutional: no fever Eyes: no problem reported Ear, Nose, Mouth, Throat: no problem reported Respiratory: no cough Cardiovascular: no chest pain Gastrointestinal: no abdominal pain, no nausea, no vomiting and no diarrhea/loose stools Physical Exam Constitutional: + frail appearing; no acute distress Eyes: PERRL, conjunctivae normal, anicteric sclerae ENMT: external ear and nose normal, oropharynx normal Neck: trachea midline, no thyromegaly Cardiovascular: RRR, no murmur, no edema Gastrointestinal (Abdomen): normal bowel sounds, soft, nontender, no hepatosplenomegaly Skin: no rashes, warm and dry Neurologic: awake; not confused Results & Data Vital Signs (Past 12 Hours) Vital Signs Temp Pulse Pulse Resp BP Pulse Ox O2 Del Method 01/19/24 08:01 36.6 C 80 18 100/67 98 Nasal Cannula 01/19/24 04:21 36.6 C 80 18 95/58 L 96 Nasal Cannula 01/18/24 23:34 36.5 C 94 H 18 93/56 L 97 Nasal Cannula 01/18/24 23:12 95 H 01/18/24 21:54 Nasal Cannula O2 Flow Rate 01/19/24 08:01 01/19/24 04:21 2 01/18/24 23:34 2 01/18/24 23:12 01/18/24 21:54 2 Laboratory Results Laboratory Results - last 24 hr 01/19/24 06:11 WBC 4.66 L RBC 2.89 L Hgb 8.8 L Hct 27.0 L MCV 93.4 MCH 30.4 MCHC 32.6 RDW Std Deviation 57.3 H RDW Coeff of Valerie 16.8 H Plt Count 206 MPV 9.9 Immature Gran % (Auto) 1.1 Neut % (Auto) 75.5 Lymph % (Auto) 19.3 Stan[place] % (Auto) 3.9 Eos % (Auto) 0.0 Baso % (Auto) 0.2 Neut # (Auto) 3.52 Lymph # (Auto) 0.90 L [place] # (Auto) 0.18 Eos # (Auto) 0.00 Baso # (Auto) 0.01 Immature Gran # (Auto) 0.05 Sodium 133 L Potassium 4.5 Chloride 99 Carbon Dioxide 22 Anion Gap 12 H BUN 46 H Creatinine 4.60 H* D Est Cr Clr Drug Dosing 18.5 eGFR 13.72 BUN/Creatinine Ratio 10.0 Glucose 135 H Calcium 8.0 L Phosphorus 4.4 Magnesium 1.9 Iron 36 TIBC TNP Unsaturated IBC < 55 L Transferrin % Sat TNP Ferritin 965.0 H PG Care Time/CCT Total # of Minutes Spent Total Time Spent with Patient: Total time spent is greater than 50% in coordination of care (as documented) at patient's floor/unit and/or counseling patient: Coding Level of Care Code 43471 SUB INP/OBS CARE 3/50MIN Diagnoses ESRD on hemodialysis N18.6; Z99.2 Anemia D64.9 Anemia type: unspecified type Ambulatory dysfunction R26.2 Lethargy R53.83 (2) Anemia Anemia type: unspecified type Qualified Code(s): D64.9 - Anemia, unspecified
[2024-01-19] MEDS: HEPARIN SOD (PORCINE) 1000 UNIT/ML IV ONE (09:36)
[2024-01-19] MEDS: EPOETIN ALFA 10,000 UNITS/ML VIAL IV ONE (11:05)
[2024-01-19] MEDS: HEPARIN SOD (PORCINE) 1000 UNIT/ML IV SCH (11:06)
--- NOTE | 2024-01-19 15:33 | Hospitalist Progress Note ---
Date of Service January 19, 2024 Assessment & Plan (1) ESRD on hemodialysis: (2) Alcohol abuse: (3) Insomnia: (4) Atrial fibrillation: (5) Anxiety: (6) Ambulatory dysfunction: (7) Frequent falls: (8) PUD (peptic ulcer disease): Plan Pt is a 63-year-old male with a past medical history of AF, hyperkalemia, ESRD on HD, alcohol abuse, insomnia, GI bleed, anxiety, PUD, HTN, frequent falls, who presented to the ED on 01/10/2024 with concerns of frequent falls and generalized weakness. Per previous provider with addendum: Frequent falls Suspected syncope Chronic hypotension Generalized weakness Reports falling about once a week, does not remember all of the falls --CT Head:No acute intracranial process. --Left Hip CT:Left total hip replacement is noted without complication. Mild patchy subcutaneous edema was noted likely due to edema. 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 (Stable in comparison with CT on 11/15/2022). Fall precautions PT OT as able Urinalysis ordered, uncollected (pt is not making much urine) Continue midodrine Monitor blood pressure closely Discussed w/ nephrology ongoing hypotension - - obtained cortisol level (normal so not likely adrenal insufficiency) and repeated echo (last echo in June )- no sign. change Yesterday BP even lower than usual SBP 70-80s , pt seen again and able to communicate, not symptomatic - at that point discussed possibility of need of pressors and ICU placement - pt wanted all the care. Already on midodrine 10 TID, gave 100 IV hydrocortisone x1. Pt's BP improved later in the evening and today SBP 100-119 (probably the highest BP reading during this hospital stay - ? poss. some component of adrenal insufficiency, will discuss w/ endocrine Palliative medicine consulted Overall poor prognosis 01/19/24- pt anxious for discharge, pt recommending acute rehab placement. Suspected pneumonia--POA --CXR:Cardiomegaly with pulmonary edema. Small pleural effusions with right basilar predominant consolidation which may represents atelectasis versus pneumonia. --Elevated procalcitonin --Nasal MRSA negative -- BioFire negative --Blood cultures negat. in 48 hrs - sputum culture ordered Continued on cefepime CXR and CT chest repeated - CT - 1. Mild interstitial thickening and ground- glass opacities suggestive of mild pulmonary edema. 2. Small to moderate bilateral pleural effusions and dependent lower lobe passive atelectasis.. 3. Mild gaseous distention of a few loops of small bowel suggestive of possible ileus. Previous provider discussed with ID - not much concern of pna, but rather the laceration/ wound infection - switched abx to cefazolin - to be given on dialysis days 2g, 2g, 3g. On DC can switch to Augmentin 500 mg daily (on dialysis days, give after dialysis). 01/19/24: Continue on Cefazolin at this time Left hip wound S/P laceration concern for wound infection Wound culture posit. Klebsiella pneumoniae - mcclain-sensitive Empirically on antibiotics - cefepime, dapto Continue local wound care orthopedics, also consulted - recommend gen. surgery consult Gen. surgery - obtained US - no fluid collection identified, removed sutures on (01/12) - recommend wound care and antibiotics ID consulted for recommendations regarding abx to cover for poss. pna and wound infection ID recommends to switch to cefazolin after HD on HD days 2g, 2g, 3g - abx switched On DC can switch to Augmentin 500 mg daily (on dialysis days, give after dialysis). 01/19/24- Pt with progressing wound, rrepat wound culture ordered. Continue with abx at this time, wound care nurse to reassess A-fib RVR Continue amiodarone Chronically not on anticoagulation Currently rate controlled Abnormal thyroid function test Mildly elevated TSH and low free T4 re-check TSH 3.6 wnl ESRD on HD: Nephrology consulted to help with dialysis Monitor volume status Seizures: Continue Keppra/lacosamide Alcohol abuse: Denies drinking for months, monitor for signs of withdrawal Unsure when he last consumed alcohol alcohol withdrawal protocol finished librium Also on thiamine, folic acid Hold medications to minimize excess sedation, gabapentin decreased to 200 daily DVT Px: Heparin SQ Code Status: Conditional Code - per today's discussion w/ palliative medicine Admission and Anticipated Discharge Date Admission Date: January 10, 2024 Subjective patient was seen while at dialysis States he wants to go home Denying acute concerns otherwise Review of Systems Review of Systems: All systems reviewed & are unremarkable except as noted in Subjective Physical Exam Physical Exam: General: Alert, oriented. No acute distress Skin: Left hip wound bandaged Psych: Appropriate mood and affect Neuro: difficulty with movements in the bed HEENT: NC/AT CV: RRR Resp: Breath sounds clear bilaterally, no increased effort of breathing Abdomen: Soft, nontender, Extremities: Left hip wound bandaged Results & Data Results & Data Vital Signs (Past 12 Hours) Vital Signs Temp Pulse Pulse Pulse Resp BP BP 01/19/24 14:51 91 H 01/19/24 13:03 36.5 C 71 105/60 01/19/24 12:30 89 95/58 L 01/19/24 12:00 85 112/64 01/19/24 11:30 90 102/63 01/19/24 11:03 01/19/24 11:00 83 107/63 01/19/24 10:30 62 126/44 L 01/19/24 10:00 79 104/60 01/19/24 09:30 79 111/80 01/19/24 09:18 36.5 C 79 01/19/24 08:59 81 01/19/24 08:01 36.6 C 80 18 01/19/24 04:21 36.6 C 80 18 BP Pulse Ox O2 Del Method O2 Flow Rate 01/19/24 14:51 01/19/24 13:03 01/19/24 12:30 01/19/24 12:00 01/19/24 11:30 01/19/24 11:03 Nasal Cannula 2 01/19/24 11:00 01/19/24 10:30 01/19/24 10:00 01/19/24 09:30 01/19/24 09:18 01/19/24 08:59 01/19/24 08:01 100/67 98 Nasal Cannula 01/19/24 04:21 95/58 L 96 Nasal Cannula 2
[2024-01-20 06:35] LABS: Hematocrit (blood only) 28.7 % (42.0-52.0); Mean Corpuscular Hemoglobin 29.9 pg (25.0-34.0); Mean Corpuscular Hgb Conc 31.4 g/dL (32.0-36.0); Mean Corpuscular Volume 95.3 fL (80.0-100.0); Mean Platelet Volume 10.1 fL (9.4-12.4); Platelet Count 241 K/uL (130-400); Red Blood Count 3.01 M/uL (4.70-6.10); White Blood Count 8.82 K/ul (4.8-10.8)
[2024-01-20 06:58] LABS: BUN Creatinine Ratio 8.9 (10-20); Calcium 8.1 mg/dl (8.6-10.3); Creatinine Clr Calc Pharmacy 25.1 ml/min; Potassium 3.8 mmol/L (3.5-5.1)
--- NOTE | 2024-01-20 08:47 | Nephrology Progress Note ---
Date of Service January 20, 2024 Assessment & Plan (1) ESRD on hemodialysis: Plan: * Volume status and electrolyte balance are acceptable. No acute indication for HD today * HD [facility] [place]: MWF 3.5 hours F-180 optiflix Qb 450/Qd 800, 3 K 2.5 Ca, 138 Na. EDW 80.5 kg * Continue midodrine 10 mg TID (2) Anemia: Plan: * Epogen administered w/ HD yesterday. Hgb 9.0 this am (3) Ambulatory dysfunction: Plan: * Recurrent hospitalization due to falls related to orthostatic hypotension * Remains on midodrine 10 mg TID * UF needed during HD to avoid CHF * Poor prognosis * Agree w/ plans for SNF following hospitalization * 01/18/24 palliative care recommendations reviewed. Plan for SNF close to home w/ outpatient follow up at palliative care clinic (4) Lethargy: Plan: * Gabapentin dose has been reduced to 200 mg daily due to ESKD/lethargy Admission and Anticipated Discharge Date Admission Date: January 10, 2024 Subjective Mr. Rivers was evaluated in his hospital room this morning. He was dialyzed yesterday for 2.5 L UF. There were no complications. Mr. Rivers was breathing comfortably flat in bed on RA. He complained of weakness but voiced no other concerns Review of Systems Constitutional: no fever Eyes: no problem reported Ear, Nose, Mouth, Throat: no problem reported Respiratory: no cough Cardiovascular: no chest pain Gastrointestinal: no abdominal pain, no nausea, no vomiting and no diarrhea/loose stools Physical Exam Constitutional: + frail appearing; no acute distress Eyes: PERRL, conjunctivae normal, anicteric sclerae ENMT: external ear and nose normal, oropharynx normal Neck: trachea midline, no thyromegaly Cardiovascular: RRR, no murmur, no edema Gastrointestinal (Abdomen): normal bowel sounds, soft, nontender, no hepatosplenomegaly Skin: no rashes, warm and dry Neurologic: awake; not confused Results & Data Vital Signs (Past 12 Hours) Vital Signs Temp Pulse Pulse Resp BP BP Pulse Ox 01/20/24 07:14 36.7 C 84 16 98/59 L 92 01/20/24 03:16 37.0 C 65 19 141/98 H 98 01/19/24 23:41 36.4 C L 80 18 118/60 96 01/19/24 22:56 88 O2 Del Method 01/20/24 07:14 Room Air 01/20/24 03:16 Room Air 01/19/24 23:41 Room Air 01/19/24 22:56 Laboratory Results Laboratory Results - last 24 hr 01/20/24 05:46 WBC 8.82 RBC 3.01 L Hgb 9.0 L Hct 28.7 L MCV 95.3 MCH 29.9 MCHC 31.4 L RDW Std Deviation 58.0 H RDW Coeff of Valerie 17.0 H Plt Count 241 MPV 10.1 Sodium 137 Potassium 3.8 Chloride 102 Carbon Dioxide 26 Anion Gap 9 BUN 30 H Creatinine 3.36 H D Est Cr Clr Drug Dosing 25.1 eGFR 20.00 BUN/Creatinine Ratio 8.9 L Glucose 104 H Calcium 8.1 L PG Care Time/CCT Total # of Minutes Spent Total Time Spent with Patient: Total time spent is greater than 50% in coordination of care (as documented) at patient's floor/unit and/or counseling patient: Coding Level of Care Code 23970 SUB INP/OBS CARE 3/50MIN Diagnoses ESRD on hemodialysis N18.6; Z99.2 Anemia D64.9 Anemia type: unspecified type Ambulatory dysfunction R26.2 Lethargy R53.83 (2) Anemia Anemia type: unspecified type Qualified Code(s): D64.9 - Anemia, unspecified
--- NOTE | 2024-01-20 11:02 | Hospitalist Progress Note ---
Date of Service January 20, 2024 Assessment & Plan (1) ESRD on hemodialysis: (2) Alcohol abuse: (3) Insomnia: (4) Atrial fibrillation: (5) Anxiety: (6) Ambulatory dysfunction: (7) Frequent falls: (8) PUD (peptic ulcer disease): Plan Pt is a 63-year-old male with a past medical history of AF, hyperkalemia, ESRD on HD, alcohol abuse, insomnia, GI bleed, anxiety, PUD, HTN, frequent falls, who presented to the ED on 01/10/2024 with concerns of frequent falls and generalized weakness. Per previous provider with addendum: Left hip wound S/P laceration concern for wound infection Wound culture posit. Klebsiella pneumoniae - mcclain-sensitive Empirically on antibiotics - cefepime, dapto Continue local wound care orthopedics, also consulted - recommend gen. surgery consult Gen. surgery - obtained US - no fluid collection identified, removed sutures on (01/12) - recommend wound care and antibiotics ID consulted for recommendations regarding abx to cover for poss. pna and wound infection ID recommends to switch to cefazolin after HD on HD days 2g, 2g, 3g - abx switched On DC can switch to Augmentin 500 mg daily (on dialysis days, give after dialysis). 01/19/24- Pt with progressing wound, rrepat wound culture ordered. Continue with abx at this time, wound care nurse to reassess 01/20/24- wound noted with dehiscence. General surgery contacted who noted that they did remove 2 ricardo from the area and they are letting the wound heal by secondary intention. recommended wound care follow-up. Frequent falls Suspected syncope Chronic hypotension Generalized weakness Reports falling about once a week, does not remember all of the falls --CT Head:No acute intracranial process. --Left Hip CT:Left total hip replacement is noted without complication. Mild patchy subcutaneous edema was noted likely due to edema. 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 (Stable in comparison with CT on 11/15/2022). Fall precautions PT OT as able Urinalysis ordered, uncollected (pt is not making much urine) Continue midodrine Monitor blood pressure closely Discussed w/ nephrology ongoing hypotension - - obtained cortisol level (normal so not likely adrenal insufficiency) and repeated echo (last echo in June )- no sign. change Yesterday BP even lower than usual SBP 70-80s , pt seen again and able to communicate, not symptomatic - at that point discussed possibility of need of pressors and ICU placement - pt wanted all the care. Already on midodrine 10 TID, gave 100 IV hydrocortisone x1. Pt's BP improved later in the evening and today SBP 100-119 (probably the highest BP reading during this hospital stay - ? poss. some component of adrenal insufficiency, will discuss w/ endocrine Palliative medicine consulted Overall poor prognosis 01/19/24- pt anxious for discharge, pt recommending acute rehab placement. Suspected pneumonia--POA --CXR:Cardiomegaly with pulmonary edema. Small pleural effusions with right basilar predominant consolidation which may represents atelectasis versus pneumonia. --Elevated procalcitonin --Nasal MRSA negative -- BioFire negative --Blood cultures negat. in 48 hrs - sputum culture ordered Continued on cefepime CXR and CT chest repeated - CT - 1. Mild interstitial thickening and ground- glass opacities suggestive of mild pulmonary edema. 2. Small to moderate bilateral pleural effusions and dependent lower lobe passive atelectasis.. 3. Mild gaseous distention of a few loops of small bowel suggestive of possible ileus. Previous provider discussed with ID - not much concern of pna, but rather the laceration/ wound infection - switched abx to cefazolin - to be given on dialysis days 2g, 2g, 3g. On DC can switch to Augmentin 500 mg daily (on dialysis days, give after dialysis). 01/19/24: Continue on Cefazolin at this time A-fib RVR Continue amiodarone Chronically not on anticoagulation Currently rate controlled Abnormal thyroid function test Mildly elevated TSH and low free T4 re-check TSH 3.6 wnl ESRD on HD: Nephrology consulted to help with dialysis Monitor volume status Seizures: Continue Keppra/lacosamide Alcohol abuse: Denies drinking for months, monitor for signs of withdrawal Unsure when he last consumed alcohol alcohol withdrawal protocol finished librium Also on thiamine, folic acid Hold medications to minimize excess sedation, gabapentin decreased to 200 daily DVT Px: Heparin SQ Code Status: Conditional Code - per today's discussion w/ palliative medicine Admission and Anticipated Discharge Date Admission Date: January 10, 2024 Subjective patient was seen with nursing at bedside Was having his left hip bandage changed at that time Patient anxious for discharge denying any fevers, chills or night sweats General surgery contacted and noted that they did remove 2 ricardo from the area and they are letting the wound heal by secondary intention Review of Systems Review of Systems: All systems reviewed & are unremarkable except as noted in Subjective Physical Exam Physical Exam: General: Alert, oriented. No acute distress Skin: Left hip wound with noted dehiscence Psych: Appropriate mood and affect Neuro: difficulty with movements in the bed HEENT: NC/AT CV: RRR Resp: Breath sounds clear bilaterally, no increased effort of breathing Abdomen: Soft, nontender, Extremities: L Left hip wound with noted dehiscence Results & Data Results & Data Vital Signs (Past 12 Hours) Vital Signs Temp Pulse Resp BP BP Pulse Ox O2 Del Method 01/20/24 07:14 36.7 C 84 16 98/59 L 92 Room Air 01/20/24 03:16 37.0 C 65 19 141/98 H 98 Room Air 01/19/24 23:41 36.4 C L 80 18 118/60 96 Room Air Diagnostic Findings Chest X-Ray 01/10/24 09:15 XR chest 2V PA/lateral HISTORY: 63 years-old Male SOB, weakness acute shortness breath with weakness COMPARISON: 12/26/2023 TECHNIQUE: AP and lateral views of the chest FINDINGS: Cardiac silhouette is enlarged. Pulmonary vascular congestion with interstitial coarsening. Right subclavian stent. No pneumothorax. Layering pleural effusions with right basilar predominant consolidation. Bones appear grossly intact. IMPRESSION: 1. Cardiomegaly with pulmonary edema. 2. Small pleural effusions with right basilar predominant consolidation which may represents atelectasis versus pneumonia. ACT 112: Negative or not required by law. The above report was generated using voice recognition software. It may contain grammatical, syntax or spelling errors. Electronically signed by: Librado Munoz M.D. 01/10/2024 10:[address] 01/10/24 13:01 INDICATION: Pain and injury. COMPARISON: CT from 12/26/2023 TECHNIQUE: Axial CT images of the head were obtained without IV contrast. Coronal and sagittal reformations were reviewed. FINDINGS: Willett-white differentiation is relatively preserved. No mass, mass effect or midline shift. Mild chronic ischemic white matter changes. No evidence of acute large territorial infarction or acute intracranial hemorrhage. Ventricles appear normal in size. Basal cisterns are patent. No depressed calvarial fracture. IMPRESSION: No acute intracranial process. Electronically signed by Vijay James 01-10-2024 6:[address] 01/11/24 03:26 EXAM: CT hip LT wo con CLINICAL HISTORY: pain,sepsis TECHNIQUE: Multiple, contiguous, nonenhanced CT scan of the left hip joint in axial plane with multiplanar reconstructions. One of the following dose reduction techniques was utilized for this exam: Automated exposure control, adjustment of the mA and/or kV according to patient size, and use of iterative reconstruction. COMPARISON: X-ray on 12/26/2023 and 11/15/2022. FINDINGS: Bones: Left total hip replacement is noted, with no prosthetic fracture, loosening, or malalignment. 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 Heterotopic ossification and soft tissue thickening adjacent to the prosthetic joint, no definite loculated fluid collection is noted. Muscles and Tendons: Normal appearance of the surrounding muscles. Soft Tissues: Mild patchy subcutaneous edema was noted. IMPRESSION: 1. Left total hip replacement is noted without complication. 2. Mild patchy subcutaneous edema was noted likely due to edema. 3. 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 (Stable in comparison with CT on 11/15/2022). Electronically signed by Shemar Cortes 01-11-2024 05:31 AM Soft Tissue Ultrasound 01/12/24 19:49 Exam(s): US SOFT TISSUE EXAM: US Abdomen Limited CLINICAL HISTORY: Reason for exam: infection; assess for fluid collection. TECHNIQUE: Real-time ultrasound of the soft tissues of the abdomen with image documentation. COMPARISON: No relevant prior studies available. FINDINGS: Soft tissues: Mild subcutaneous edema in the area of interest. No discrete drainable abscess collection is identified. IMPRESSION: Mild subcutaneous edema in the area of interest. No discrete drainable abscess collection is identified. Electronically signed by: Prabhakar Marmolejo MD 01/13/24 01:01 AM Chest X-Ray 01/15/24 09:38 XR chest 1V portable HISTORY: 63 years-old Male CHF acute shortness of breath COMPARISON: March 12, 2023 TECHNIQUE: AP view of the chest FINDINGS: Cardiac silhouette is enlarged. Pulmonary vascular congestion with interstitial coarsening. Right subclavian vascular graft. No pneumothorax. Layering pleural effusions are consolidation redemonstrated. Mildly progressed left basilar opacities. IMPRESSION: 1. Cardiomegaly with interstitial pulmonary edema, not significantly changed compared to the January 10, 2024 study. 2. Unchanged layering pleural effusions with bibasilar consolidation. ACT 112: Negative or not required by law. The above report was generated using voice recognition software. It may contain grammatical, syntax or spelling errors. Electronically signed by: Librado Munoz M.D. 01/15/2024 1:[address] 01/15/24 18:25 Exam(s): CT CHEST Without Contrast EXAM: CT Chest Without Intravenous Contrast CLINICAL HISTORY: Reason for exam: abnormal cxr. TECHNIQUE: Axial computed tomography images of the chest without intravenous contrast. CTDI is 19.5 mGy and DLP is 649.31 mGy-cm. Automated exposure control was utilized for the study. A dose lowering technique was utilized adhering to the principles of ALARA. COMPARISON: CT chest: 07/06/2023 FINDINGS: Lungs: There is mild interstitial thickening and mild ground-glass opacities suggestive of mild pulmonary edema. Pleural space: There are small to moderate bilateral pleural effusions. There is dependent bilateral lower lobe passive atelectasis. No pneumothorax. Heart: There are scattered coronary artery calcifications. No cardiomegaly. No significant pericardial effusion. Bones/joints: There is multilevel thoracic degenerative disc disease and mild upper thoracic kyphosis. No acute fracture. No dislocation. Soft tissues: Unremarkable. Vasculature: See above. Lymph nodes: Unremarkable. No enlarged lymph nodes. Kidneys and ureters: The visualized left kidney appears severely atrophic. Stomach and bowel: There is mild gaseous distention of a few loops of small bowel suggestive of possible ileus. IMPRESSION: 1. Mild interstitial thickening and ground-glass opacities suggestive of mild pulmonary edema. 2. Small to moderate bilateral pleural effusions and dependent lower lobe passive atelectasis.. 3. Mild gaseous distention of a few loops of small bowel suggestive of possible ileus. Electronically signed by: Diony Brunson MD 01/15/24 23:05 PM
[2024-01-21 08:10] LABS: Basophils # (auto) 0.06 K/uL (0.00-0.20); Basophils % (auto) 0.8 %; Eosinophils # (auto) 0.07 K/uL (0.00-0.50); Hematocrit (blood only) 28.6 % (42.0-52.0); Hemoglobin 9.1 g/dl (14.0-18.0); Immature Granulocytes % (auto) 1.4 %; Lymphocytes # (auto) 2.28 K/uL (1.20-3.40); Mean Corpuscular Hemoglobin 30.3 pg (25.0-34.0); Mean Corpuscular Hgb Conc 31.8 g/dL (32.0-36.0); Mean Corpuscular Volume 95.3 fL (80.0-100.0); Monocytes # (auto) 0.65 K/uL (0.11-0.59); Monocytes % (auto) 8.8 %; Neutrophils # (auto) 4.19 K/uL (1.40-6.50); Platelet Count 260 K/uL (130-400); RDW Coefficient of Variation 17.1 % (11.5-14.5); RDW Standard Deviation 57.5 fL (36.4-46.3); White Blood Count 7.35 K/ul (4.8-10.8)
--- NOTE | 2024-01-21 08:40 | Nephrology Progress Note ---
Date of Service January 21, 2024 Assessment & Plan (1) ESRD on hemodialysis: Plan: * Although patient is 5.6 kg above EDW he appears clinically euvolemic and BP remains relatively low * Will provide HD today and attempt 3 L UF utilizing crit-line monitor * Continue midodrine 10 mg TID * HD [facility] Ke[facility]: MWF 3.5 hours F-180 optiflix Qb 450/Qd 800, 3 K 2.5 Ca, 138 Na. EDW 80.5 kg (2) Anemia: Plan: * Will provide epogen w/ HD today. Hgb 9.1 this am (3) Ambulatory dysfunction: Plan: * Recurrent hospitalization due to falls related to orthostatic hypotension * Remains on midodrine 10 mg TID * UF needed during HD to avoid CHF * Poor prognosis * Agree w/ plans for SNF following hospitalization * 01/18/24 palliative care recommendations reviewed. Plan for SNF close to home w/ outpatient follow up at palliative care clinic (4) Lethargy: Plan: * Gabapentin dose has been reduced to 200 mg daily due to ESKD/lethargy Admission and Anticipated Discharge Date Admission Date: January 10, 2024 Subjective Mr. Rivers was evaluated in his hospital room this morning. He was preparing for HD. Mr. Rivers was breathing comfortably flat in bed on RA. He complained of weakness but voiced no other concerns Review of Systems Constitutional: no fever Eyes: no problem reported Ear, Nose, Mouth, Throat: no problem reported Respiratory: no cough Cardiovascular: no chest pain Gastrointestinal: no abdominal pain, no nausea, no vomiting and no diarrhea/loose stools Physical Exam Constitutional: + frail appearing; no acute distress Eyes: PERRL, conjunctivae normal, anicteric sclerae ENMT: external ear and nose normal, oropharynx normal Neck: trachea midline, no thyromegaly Cardiovascular: RRR, no murmur, no edema Gastrointestinal (Abdomen): normal bowel sounds, soft, nontender, no hepatosplenomegaly Skin: no rashes, warm and dry Neurologic: awake; not confused Results & Data Vital Signs (Past 12 Hours) Vital Signs Temp Pulse Pulse Resp BP Pulse Ox O2 Del Method 01/21/24 07:19 36.4 C L 75 19 96/63 L 95 Room Air 01/21/24 03:00 36.9 C 79 15 95/58 L 94 Room Air 01/20/24 23:17 36.6 C 89 16 93/59 L 95 Room Air 01/20/24 22:50 96 H Laboratory Results Laboratory Results - last 24 hr 01/21/24 07:32 WBC 7.35 RBC 3.00 L Hgb 9.1 L Hct 28.6 L MCV 95.3 MCH 30.3 MCHC 31.8 L RDW Std Deviation 57.5 H RDW Coeff of Valerie 17.1 H Plt Count 260 MPV 10.0 Immature Gran % (Auto) 1.4 Neut % (Auto) 57.0 Lymph % (Auto) 31.0 [place]ata[place]oula % (Auto) 8.8 Eos % (Auto) 1.0 Baso % (Auto) 0.8 Neut # (Auto) 4.19 Lymph # (Auto) 2.28 [place]oula # (Auto) 0.65 H Eos # (Auto) 0.07 Baso # (Auto) 0.06 Immature Gran # (Auto) 0.10 Sodium 136 Potassium 4.1 Chloride 100 Carbon Dioxide 25 Anion Gap 11 BUN 47 H Creatinine 4.51 H* D Est Cr Clr Drug Dosing 18.7 eGFR 14.05 BUN/Creatinine Ratio 10.4 Glucose 93 Calcium 8.2 L Phosphorus 3.4 Magnesium 1.9 Total Bilirubin 0.5 AST 16 ALT < 3 L Alkaline Phosphatase 590 H Total Protein 6.1 Albumin 2.5 L Globulin 3.6 Albumin/Globulin Ratio 0.7 L PG Care Time/CCT Total # of Minutes Spent Total Time Spent with Patient: Total time spent is greater than 50% in coordination of care (as documented) at patient's floor/unit and/or counseling patient: Coding Level of Care Code 86531 SUB INP/OBS CARE 3/50MIN Diagnoses ESRD on hemodialysis N18.6; Z99.2 Anemia D64.9 Anemia type: unspecified type Ambulatory dysfunction R26.2 Lethargy R53.83 (2) Anemia Anemia type: unspecified type Qualified Code(s): D64.9 - Anemia, unspecified
[2024-01-21 09:03] LABS: Alanine Aminotransferase < 3 U/L (7-52); Albumin Globulin Ratio 0.7 (0.9-2); Albumin Level 2.5 gm/dl (3.4-5.0); Alkaline Phosphatase 590 U/L (34-104); Anion Gap 11 (3-11); Aspartate Aminotransferase 16 U/L (13-39); BUN Creatinine Ratio 10.4 (10-20); Bilirubin,Total 0.5 mg/dl (0.2-1.0); Blood Urea Nitrogen 47 mg/dl (6-23); Calcium 8.2 mg/dl (8.6-10.3); Carbon Dioxide 25 mmol/L (21-32); Chloride 100 mmol/L (98-107); Creatinine Clr Calc Pharmacy 18.7 ml/min; Globulin 3.6 gm/dl (2.5-4.0); Glucose 93 mg/dl (70-99(Fasting)); Magnesium 1.9 mg/dl (1.7-2.4); Phosphorus 3.4 mg/dl (2.5-4.9); Potassium 4.1 mmol/L (3.5-5.1); Sodium 136 mmol/L (136-145); Total Protein 6.1 gm/dl (6.0-8.3)
[2024-01-21] MEDS: EPOETIN ALFA 10,000 UNITS/ML VIAL IV ONE (11:09)
[2024-01-21] MEDS: IRON SUCROSE 200 MG in SYRINGE 0 ML IV ONE (11:09)
[2024-01-21] MEDS: HEPARIN SOD (PORCINE) 1000 UNIT/ML IV SCH (11:44)
[2024-01-21] MEDS: HEPARIN SOD (PORCINE) 1000 UNIT/ML IV ONE (11:44)
--- NOTE | 2024-01-21 13:20 | Hospitalist Progress Note ---
Date of Service January 21, 2024 Assessment & Plan (1) ESRD on hemodialysis: (2) Alcohol abuse: (3) Insomnia: (4) Atrial fibrillation: (5) Anxiety: (6) Ambulatory dysfunction: (7) Frequent falls: (8) PUD (peptic ulcer disease): Plan Pt is a 63-year-old male with a past medical history of AF, hyperkalemia, ESRD on HD, alcohol abuse, insomnia, GI bleed, anxiety, PUD, HTN, frequent falls, who presented to the ED on 01/10/2024 with concerns of frequent falls and generalized weakness. Per previous provider with addendum: Left hip wound S/P laceration concern for wound infection Wound culture posit. Klebsiella pneumoniae - mcclain-sensitive Empirically on antibiotics - cefepime, dapto Continue local wound care orthopedics, also consulted - recommend gen. surgery consult Gen. surgery - obtained US - no fluid collection identified, removed sutures on (01/12) - recommend wound care and antibiotics ID consulted for recommendations regarding abx to cover for poss. pna and wound infection ID recommends to switch to cefazolin after HD on HD days 2g, 2g, 3g - abx switched On DC can switch to Augmentin 500 mg daily (on dialysis days, give after dialysis). 01/19/24- Pt with progressing wound, rrepat wound culture ordered. Continue with abx at this time, wound care nurse to reassess 01/20/24- wound noted with dehiscence. General surgery contacted who noted that they did remove 2 ricardo from the area and they are letting the wound heal by secondary intention. recommended wound care follow-up. 01/21/24- wound culture growing yin, possible contaminant. qtc currently prolonged on last 01/15 EKG, EKG ordered for followup before starting fluconazole Frequent falls Suspected syncope Chronic hypotension Generalized weakness Reports falling about once a week, does not remember all of the falls --CT Head:No acute intracranial process. --Left Hip CT:Left total hip replacement is noted without complication. Mild patchy subcutaneous edema was noted likely due to edema. 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 (Stable in comparison with CT on 11/15/2022). Fall precautions PT OT as able Urinalysis ordered, uncollected (pt is not making much urine) Continue midodrine Monitor blood pressure closely Discussed w/ nephrology ongoing hypotension - - obtained cortisol level (normal so not likely adrenal insufficiency) and repeated echo (last echo in June )- no sign. change Yesterday BP even lower than usual SBP 70-80s , pt seen again and able to communicate, not symptomatic - at that point discussed possibility of need of pressors and ICU placement - pt wanted all the care. Already on midodrine 10 TID, gave 100 IV hydrocortisone x1. Pt's BP improved later in the evening and today SBP 100-119 (probably the highest BP reading during this hospital stay - ? poss. some component of adrenal insufficiency, will discuss w/ endocrine Palliative medicine consulted Overall poor prognosis 01/19/24- pt anxious for discharge, PT recommending acute rehab placement. Suspected pneumonia--POA --CXR:Cardiomegaly with pulmonary edema. Small pleural effusions with right basilar predominant consolidation which may represents atelectasis versus pneumonia. --Elevated procalcitonin --Nasal MRSA negative -- BioFire negative --Blood cultures negat. in 48 hrs - sputum culture ordered Continued on cefepime CXR and CT chest repeated - CT - 1. Mild interstitial thickening and ground- glass opacities suggestive of mild pulmonary edema. 2. Small to moderate bilateral pleural effusions and dependent lower lobe passive atelectasis.. 3. Mild gaseous distention of a few loops of small bowel suggestive of possible ileus. Previous provider discussed with ID - not much concern of pna, but rather the laceration/ wound infection - switched abx to cefazolin - to be given on dialysis days 2g, 2g, 3g. On DC can switch to Augmentin 500 mg daily (on dialysis days, give after dialysis). 01/19/24: Continue on Cefazolin at this time A-fib RVR Continue amiodarone Chronically not on anticoagulation Currently rate controlled Abnormal thyroid function test Mildly elevated TSH and low free T4 re-check TSH 3.6 wnl ESRD on HD: Nephrology consulted to help with dialysis Monitor volume status Seizures: Continue Keppra/lacosamide Alcohol abuse: Denies drinking for months, monitor for signs of withdrawal Unsure when he last consumed alcohol alcohol withdrawal protocol finished librium Also on thiamine, folic acid Hold medications to minimize excess sedation, gabapentin decreased to 200 daily DVT Px: Heparin SQ Code Status: Conditional Code - per today's discussion w/ palliative medicine Admission and Anticipated Discharge Date Admission Date: January 10, 2024 Subjective patient was seen while up at dialysis Anxious for discharge Review of Systems Review of Systems: All systems reviewed & are unremarkable except as noted in Subjective Physical Exam Physical Exam: General: Alert, oriented. No acute distress Skin: Left hip wound covered Psych: Appropriate mood and affect Neuro: difficulty with movements in the bed HEENT: NC/AT CV: RRR Resp: Breath sounds clear bilaterally, no increased effort of breathing Abdomen: Soft, nontender Extremities: L Left hip wound covered Results & Data Results & Data Vital Signs (Past 12 Hours) Vital Signs Temp Pulse Pulse Pulse Resp BP BP 01/21/24 12:00 85 86/49 L 01/21/24 11:30 82 86/49 L 01/21/24 11:00 90 82/52 L 01/21/24 10:30 77 89/52 L 01/21/24 10:00 75 96/63 L 01/21/24 09:30 84 92/57 L 01/21/24 09:22 71 102/59 L 01/21/24 09:12 36.3 C L 84 01/21/24 08:00 01/21/24 07:19 36.4 C L 75 19 96/63 L 01/21/24 03:00 36.9 C 79 15 95/58 L Pulse Ox O2 Del Method 01/21/24 12:00 01/21/24 11:30 01/21/24 11:00 01/21/24 10:30 01/21/24 10:00 01/21/24 09:30 01/21/24 09:22 01/21/24 09:12 01/21/24 08:00 Room Air 01/21/24 07:19 95 Room Air 01/21/24 03:00 94 Room Air Diagnostic Findings Chest X-Ray 01/10/24 09:15 XR chest 2V PA/lateral HISTORY: 63 years-old Male SOB, weakness acute shortness breath with weakness COMPARISON: 12/26/2023 TECHNIQUE: AP and lateral views of the chest FINDINGS: Cardiac silhouette is enlarged. Pulmonary vascular congestion with interstitial coarsening. Right subclavian stent. No pneumothorax. Layering pleural effusions with right basilar predominant consolidation. Bones appear grossly intact. IMPRESSION: 1. Cardiomegaly with pulmonary edema. 2. Small pleural effusions with right basilar predominant consolidation which may represents atelectasis versus pneumonia. ACT 112: Negative or not required by law. The above report was generated using voice recognition software. It may contain grammatical, syntax or spelling errors. Electronically signed by: Librado Munoz M.D. 01/10/2024 10:[address] 01/10/24 13:01 INDICATION: Pain and injury. COMPARISON: CT from 12/26/2023 TECHNIQUE: Axial CT images of the head were obtained without IV contrast. Coronal and sagittal reformations were reviewed. FINDINGS: Willett-white differentiation is relatively preserved. No mass, mass effect or midline shift. Mild chronic ischemic white matter changes. No evidence of acute large territorial infarction or acute intracranial hemorrhage. Ventricles appear normal in size. Basal cisterns are patent. No depressed calvarial fracture. IMPRESSION: No acute intracranial process. Electronically signed by Vijay James 01-10-2024 6:[address] 01/11/24 03:26 EXAM: CT hip LT wo con CLINICAL HISTORY: pain,sepsis TECHNIQUE: Multiple, contiguous, nonenhanced CT scan of the left hip joint in axial plane with multiplanar reconstructions. One of the following dose reduction techniques was utilized for this exam: Automated exposure control, adjustment of the mA and/or kV according to patient size, and use of iterative reconstruction. COMPARISON: X-ray on 12/26/2023 and 11/15/2022. FINDINGS: Bones: Left total hip replacement is noted, with no prosthetic fracture, loosening, or malalignment. 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 Heterotopic ossification and soft tissue thickening adjacent to the prosthetic joint, no definite loculated fluid collection is noted. Muscles and Tendons: Normal appearance of the surrounding muscles. Soft Tissues: Mild patchy subcutaneous edema was noted. IMPRESSION: 1. Left total hip replacement is noted without complication. 2. Mild patchy subcutaneous edema was noted likely due to edema. 3. 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 (Stable in comparison with CT on 11/15/2022). Electronically signed by Shemar Cortes 01-11-2024 05:31 AM Soft Tissue Ultrasound 01/12/24 19:49 Exam(s): US SOFT TISSUE EXAM: US Abdomen Limited CLINICAL HISTORY: Reason for exam: infection; assess for fluid collection. TECHNIQUE: Real-time ultrasound of the soft tissues of the abdomen with image documentation. COMPARISON: No relevant prior studies available. FINDINGS: Soft tissues: Mild subcutaneous edema in the area of interest. No discrete drainable abscess collection is identified. IMPRESSION: Mild subcutaneous edema in the area of interest. No discrete drainable abscess collection is identified. Electronically signed by: Prabhakar Marmolejo MD 01/13/24 01:01 AM Chest X-Ray 01/15/24 09:38 XR chest 1V portable HISTORY: 63 years-old Male CHF acute shortness of breath COMPARISON: March 12, 2023 TECHNIQUE: AP view of the chest FINDINGS: Cardiac silhouette is enlarged. Pulmonary vascular congestion with interstitial coarsening. Right subclavian vascular graft. No pneumothorax. Layering pleural effusions are consolidation redemonstrated. Mildly progressed left basilar opacities. IMPRESSION: 1. Cardiomegaly with interstitial pulmonary edema, not significantly changed compared to the January 10, 2024 study. 2. Unchanged layering pleural effusions with bibasilar consolidation. ACT 112: Negative or not required by law. The above report was generated using voice recognition software. It may contain grammatical, syntax or spelling errors. Electronically signed by: Librado Munoz M.D. 01/15/2024 1:[address] 01/15/24 18:25 Exam(s): CT CHEST Without Contrast EXAM: CT Chest Without Intravenous Contrast CLINICAL HISTORY: Reason for exam: abnormal cxr. TECHNIQUE: Axial computed tomography images of the chest without intravenous contrast. CTDI is 19.5 mGy and DLP is 649.31 mGy-cm. Automated exposure control was utilized for the study. A dose lowering technique was utilized adhering to the principles of ALARA. COMPARISON: CT chest: 07/06/2023 FINDINGS: Lungs: There is mild interstitial thickening and mild ground-glass opacities suggestive of mild pulmonary edema. Pleural space: There are small to moderate bilateral pleural effusions. There is dependent bilateral lower lobe passive atelectasis. No pneumothorax. Heart: There are scattered coronary artery calcifications. No cardiomegaly. No significant pericardial effusion. Bones/joints: There is multilevel thoracic degenerative disc disease and mild upper thoracic kyphosis. No acute fracture. No dislocation. Soft tissues: Unremarkable. Vasculature: See above. Lymph nodes: Unremarkable. No enlarged lymph nodes. Kidneys and ureters: The visualized left kidney appears severely atrophic. Stomach and bowel: There is mild gaseous distention of a few loops of small bowel suggestive of possible ileus. IMPRESSION: 1. Mild interstitial thickening and ground-glass opacities suggestive of mild pulmonary edema. 2. Small to moderate bilateral pleural effusions and dependent lower lobe passive atelectasis.. 3. Mild gaseous distention of a few loops of small bowel suggestive of possible ileus. Electronically signed by: Diony Brunson MD 01/15/24 23:05 PM
[2024-01-21] MEDS: ceFAZolin 3,000 MG in DEXTROSE 5% 50 ML IV SCH (16:10)
[2024-01-22 07:24] LABS: Basophils # (auto) 0.07 K/uL (0.00-0.20); Eosinophils # (auto) 0.14 K/uL (0.00-0.50); Eosinophils % (auto) 1.9 %; Hematocrit (blood only) 29.7 % (42.0-52.0); Hemoglobin 9.3 g/dl (14.0-18.0); Immature Granulocytes # (auto) 0.26 K/uL (0.01-0.20); Immature Granulocytes % (auto) 3.6 %; Lymphocytes # (auto) 1.98 K/uL (1.20-3.40); Lymphocytes % (auto) 27.4 %; Mean Corpuscular Hemoglobin 30.1 pg (25.0-34.0); Mean Corpuscular Hgb Conc 31.3 g/dL (32.0-36.0); Mean Corpuscular Volume 96.1 fL (80.0-100.0); Monocytes # (auto) 0.58 K/uL (0.11-0.59); Neutrophils # (auto) 4.19 K/uL (1.40-6.50); Neutrophils % (auto) 58.1 %; Nucleated RBC # (auto) 0.02 K/uL (0.00-0.12); Nucleated RBC % (auto) 0.3 %; Platelet Count 266 K/uL (130-400); RDW Coefficient of Variation 17.5 % (11.5-14.5); RDW Standard Deviation 58.7 fL (36.4-46.3); Red Blood Count 3.09 M/uL (4.70-6.10); White Blood Count 7.22 K/ul (4.8-10.8)
[2024-01-22 07:52] VITALS: RESP 20; TEMP 98.1; O2SAT 95
[2024-01-22] MEDS: predniSONE 10 MG TABLET PO SCH (08:09)
[2024-01-22 08:11] LABS: Alanine Aminotransferase < 3 U/L (7-52); Albumin Globulin Ratio 0.7 (0.9-2); Albumin Level 2.5 gm/dl (3.4-5.0); Alkaline Phosphatase 601 U/L (34-104); Anion Gap 8 (3-11); Aspartate Aminotransferase 19 U/L (13-39); BUN Creatinine Ratio 8.2 (10-20); Bilirubin,Total 0.5 mg/dl (0.2-1.0); Blood Urea Nitrogen 27 mg/dl (6-23); Calcium 8.3 mg/dl (8.6-10.3); Carbon Dioxide 26 mmol/L (21-32); Chloride 103 mmol/L (98-107); Creatinine Clr Calc Pharmacy 25.5 ml/min; Globulin 3.5 gm/dl (2.5-4.0); Glucose 92 mg/dl (70-99(Fasting)); Magnesium 1.8 mg/dl (1.7-2.4); Potassium 4.1 mmol/L (3.5-5.1); Sodium 137 mmol/L (136-145)
--- NOTE | 2024-01-22 10:20 | Discharge Summary ---
Discharge Summary Date of Service January 22, 2024 Principal Dx & Hospital Course #1 = Principal Diagnosis (1) ESRD on hemodialysis: (2) Alcohol abuse: (3) Insomnia: (4) Atrial fibrillation: (5) Anxiety: (6) Ambulatory dysfunction: (7) Frequent falls: (8) PUD (peptic ulcer disease): Plan Pt is a 63-year-old male with a past medical history of AF, hyperkalemia, ESRD on HD, alcohol abuse, insomnia, GI bleed, anxiety, PUD, HTN, frequent falls, who presented to the ED on 01/10/2024 with concerns of frequent falls and generalized weakness. Frequent falls Generalized Weakness Chronic Orthostatic Hypotension Syncope on the differential Chronic hypotension Generalized weakness Reports falling about once a week, does not remember all of the falls CT Head noted no acute intracranial process. Left hip CT without any new concerns Fall precautions PT OT as able Urinalysis ordered, uncollected (pt is not making much urine) Continue midodrine at 10mg TID Patient was also started on of steroid taper with IV Solu-Medrol that was transition to p.o. prednisone. Discharged with an additional 5 days of prednisone 5 mg daily Cortisol level was normal, possible component of adrenal insufficiency. Consider Endocrinology follow up. Patient was monitored and blood pressures with slight improvement. Palliative Care was also consulted, recommended/stated the following after evaluation: "We agreed to SNF with rehab trial for dc plan, with continued HD, she had some preferences for options close to home & I shared those cities with CM in an earlier message. We discussed code status: he does not want to be placed on life support, no tubes/wires or artificial nutrition. He is ok with cardiac meds to assist with HD but acknowledged this will at some point stop working/not tolerating and when HD becomes unsafe/he cannot tolerate or he feels worse in spite of HD, he plans to stop HD and transition to comfort. Because he is willing to allow cardiac meds, I have written this as a conditional code order and not a true DNR/DNI. I will revisit this in a few days and told them we should consider completing a POLST but he did not want to do it for now. They were very receptive to following with me in OP Pall med clinic and we can schedule that for him closer to dc date - the SNF will need to know so that they coordinate transport for him to the appt. He and told me they've had several conversations about these what-if scenarios through the years and feel confident in knowing each others' wishes. They have 5 children but no one is loc al (all in [place], [place] and [place]); she admits they are isolated here. They had several questions about finances/coverage of SNF, how to get to HD if it is not provided at SNF etc., and I advised them to discuss further with CM." He was discharged to SNF. Please ensure follow-up with outpatient palliative care medicine. Left hip wound S/P laceration Concern for wound infection in the area of his previously repaired laceration Wound culture on admission grew Klebsiella pneumoniae - mcclain-sensitive Blood cx x2 sets NGTD Was treated with antibiotics IV cefepime and daptomycin Continued local wound care General Surgery was consulted for further evaluation of the wound. Recommended or stated the following: -US noted "Mild subcutaneous edema in the area of interest. No discrete drainable abscess collection is identified." -Sutures were removed on (01/12) and they recommended local wound care and antibiotics. They are aware of the wound dehiscence, they also removed sutures/ricardo and would like the wound to heal by secondary intention. Infectious Disease was consulted and noted/stated the following: "Since the Klebsiella pneumoniae growing from the wound is sensitive to cefazolin, I would recommend deescalating IV cefepime to IV cefazolin to be administered after dialysis on dialysis days as 2 g, 2 g, and 3 g.On discharge, consider sending out on Augmentin 500 mg daily (after dialysis on dialysis days) to complete a course of 14 days including inpatient antibiotic days." Patient's antibiotics was transitioned to IV cefazolin and discharged with 3 more days of p.o. Augmentin as recommended by ID to complete a total of 14 days of antibiotic treatment. It was noted on January 09, 2024 increasing drainage from patient's wound and a repeat wound culture was ordered. That wound culture has since grown Phyllis which is likely a contaminant. Patient with also prolonged QTc on recent EKGs and empiric fluconazole was deferred in this setting. Please ensure continued monitoring of wound, per general surgery they would like the wound to heal by secondary intention Please ensure wound care after discharge. Suspected pneumonia--POA CXR noted "Cardiomegaly with pulmonary edema. Small pleural effusions with right basilar predominant consolidation which may represents atelectasis versus pneumonia." Elevated procalcitonin Nasal MRSA negative BioFire negative Blood cultures NGTD sputum culture remained uncollected Continued on cefepime CXR and CT chest repeated stable Pleural effusions Previous provider discussed with ID - not much concern of pneumonia Discharged on Augmentin as noted above A-fib RVR Continue amiodarone Chronically not on anticoagulation rate controlled on discharge Abnormal thyroid function test Mildly elevated TSH and low free T4 re-check TSH 3.6 wnl PCP followup ESRD on HD Nephrology consulted, appreciate recs. Noted the following on the day of discharge: "ESKD, on hemodialysis Wednesday, Wednesday, Wednesday, admitted with generalized weakness and multiple falls and failure to thrive. Clinically has been stable, waiting for discharge to rehab possibly this a fternoon. Had dialysis yesterday, volume status, electrolyte acceptable. Blood pressure fairly controlled. -- Okay to discharge from nephrology standpoint, next dialysis Wednesday, can be done at outpatient unit if discharged. -- Continue on Nephrocaps, dose medications for EGFR less than 10." gabapentin decreased to 200 daily to help with lethargy in setting of ESRD Please ensure follow-up with Nephrology for scheduled dialysis sessions. Seizures Continue Keppra/lacosamide Alcohol abuse Denies drinking for months, monitor for signs of withdrawal Unsure when he last consumed alcohol alcohol withdrawal protocol finished librium Also on thiamine, folic acid Hold medications to minimize excess sedation, gabapentin decreased to 200 daily Continue other home meds as ordered Notes For Next Care Provider General Surgery would like the wound to heal by secondary intention- aware of wound dehiscence and also removed ricardo/sutures Please ensure close followup with wound care Please ensure follow-up with outpatient palliative care medicine. Medication Changes From Visit Per ID: Augmentin 500 mg daily (after dialysis on dialysis days) x 3 more days Gabapentin dose decreased to 200mg daily Continue prednisone taper at 5mg for an additional 5 more days. Admission HPI Per Admitting Provider The patient is a 63-year-old male with a past medical history of AF, hyperkalemia, ESRD on HD, alcohol abuse, insomnia, GI bleed, anxiety, PUD, HTN, frequent falls, who presents to the ED on 01/10/2024 with concerns of frequent falls and generalized weakness. Patient reports falling almost once a week. He reported sliding out of his recliner chair last night 01/09/2024. When he falls, he has to call family members to help him get up. He reports just generally not feeling well and reports fatigue. Denies any pain on exam. Reports not remembering some of the falls and frequently falling within the first 5-10 minutes of standing up. Patient reports his blood pressure runs chronically low with SBP's in the 80s. Patient also had falls in the past where he hit his head and falls on his face which is also suspicious for syncope. On exam, the patient denies any shortness of breath/chest pain, reports some intermittent diarrhea and incontinence Which is chronic for him. Denies any nausea/vomiting. Reports being compliant with dialysis. Patient was recently hospitalized from 12/26 to 12/29 with similar symptoms and a fall, traumatic left hip laceration. At this time, workup was unremarkable. The patient was started on Augmentin for laceration and received his tetanus shot in the ER. His chest x-ray shows potential fluid overload Lab results on arrival to the ED remarkable for hemoglobin 10.1, platelets 125, anion gap 14, chloride 97, BUN 42, creatinine 6.12,all consistent with dialysis, TSH 5.9, free T4 .5 Respiratory viral panel negative The patient will be admitted for further syncopal workup Admission Exam Per Admitting Provider Constitutional: WD/WN, vitals as above Eyes: PERRL, conjunctivae normal, anicteric sclerae (Bruising around left eye and left cheek) ENMT: external ear and nose normal, oropharynx normal Neck: trachea midline, no thyromegaly Respiratory: normal respiratory effort, lungs clear to auscultation Cardiovascular: RRR, no murmur, no edema (+1 bilateral lower extremity edema) Gastrointestinal (Abdomen): normal bowel sounds, soft, nontender, no h epatosplenomegaly Musculoskeletal: no cyanosis or clubbing, extremities motor strength 5/5 Skin: no rashes, warm and dry Neurologic: PERRL, EOMI, accommodation nl, no face palsy, no dysarthria Psychiatric: A+Ox3, euthymic affect Lymphatic: no cervical or axillary lymphadenopathy Discharge Exam General: Alert, oriented. No acute distress Skin: Left hip wound covered with bandage Psych: Appropriate mood and affect Neuro: difficulty with movements in the bed HEENT: NC/AT CV: RRR Resp: Breath sounds clear bilaterally, no increased effort of breathing Abdomen: Soft, nontender Extremities: L Left hip wound covered with bandage Updated Medication List Medication Instructions Recorded Confirmed Type amiodarone 200 mg tablet 200 mg PO DAILY 09/09/23 01/10/24 History lidocaine-prilocaine 2.5 %-2.5 % 1 applic topical DIRECTED 09/09/23 01/10/24 History topical cream loperamide 2 mg tablet 2 mg PO DAILY PRN Diarrhea 09/09/23 01/10/24 History pantoprazole 40 mg tablet,delayed 40 mg PO BID 09/09/23 01/10/24 History release folic acid 1 mg tablet 1 mg PO DAILY 12/27/23 01/10/24 History lorazepam 2 mg tablet 2 mg PO DAILY PRN Seizures 12/27/23 01/10/24 History sertraline 100 mg tablet 100 mg PO QAM 12/27/23 01/10/24 History L.acidop,casei,lactis,rham-B.lact,dieter 1 cap PO DAILY #10 caps 12/30/23 01/10/24 Rx 625 mg (10 billion cell) capsule (Advanced Probiotic) midodrine 10 mg tablet 10 mg PO TIDM #30 tabs 12/30/23 01/10/24 Rx lacosamide 100 mg tablet 100 mg PO BID 01/10/24 01/10/24 History levetiracetam 750 mg tablet 1,500 mg PO BID 01/10/24 01/10/24 History zolpidem 10 mg tablet 10 mg PO HS PRN Sleep 01/10/24 01/10/24 History amoxicillin 500 mg-potassium 1 tab PO DAILY #3 tabs 01/22/24 Rx clavulanate 125 mg tablet (Augmentin) gabapentin 100 mg capsule 200 mg (2 x 100 mg) PO DAILY #60 01/22/24 Rx caps prednisone 5 mg tablet 5 mg PO DAILY #5 tabs 01/22/24 Rx Hospital Stay Data Consultations 01/10/24 12:59 ED Decision to Admit Stat 01/10/24 14:22 Consult Nephrology Routine 01/12/24 07:00 Consult Orthopedic Surgery Routine 01/12/24 17:54 Consult General Surgery Routine 01/13/24 11:49 Consult Infectious Diseases Routine 01/15/24 12:05 Consult Palliative Care Routine Diagnostic Imagining Performed 01/10/24 13:01 CT head/brain wo con Stat 01/11/24 03:26 CT hip LT wo con Stat 01/12/24 19:49 US soft tissue groin Stat 01/15/24 18:25 CT chest diagnostic wo con Routine Chest X-Ray 01/10/24 09:15 XR chest 2V PA/lateral HISTORY: 63 years-old Male SOB, weakness acute shortness breath with weakness COMPARISON: 12/26/2023 TECHNIQUE: AP and lateral views of the chest FINDINGS: Cardiac silhouette is enlarged. Pulmonary vascular congestion with interstitial coarsening. Right subclavian stent. No pneumothorax. Layering pleural effusions with right basilar predominant consolidation. Bones appear grossly intact. IMPRESSION: 1. Cardiomegaly with pulmonary edema. 2. Small pleural effusions with right basilar predominant consolidation which may represents atelectasis versus pneumonia. ACT 112: Negative or not required by law. The above report was generated using voice recognition software. It may contain grammatical, syntax or spelling errors. Electronically signed by: Librado Munoz M.D. 01/10/2024 10:[address] 01/10/24 13:01 INDICATION: Pain and injury. COMPARISON: CT from 12/26/2023 TECHNIQUE: Axial CT images of the head were obtained without IV contrast. Coronal and sagittal reformations were reviewed. FINDINGS: Willett-white differentiation is relatively preserved. No mass, mass effect or midline shift. Mild chronic ischemic white matter changes. No evidence of acute large territorial infarction or acute intracranial hemorrhage. Ventricles appear normal in size. Basal cisterns are patent. No depressed calvarial fracture. IMPRESSION: No acute intracranial process. Electronically signed by Vijay James 01-10-2024 6:[address] 01/11/24 03:26 EXAM: CT hip LT wo con CLINICAL HISTORY: pain,sepsis TECHNIQUE: Multiple, contiguous, nonenhanced CT scan of the left hip joint in axial plane with multiplanar reconstructions. One of the following dose reduction techniques was utilized for this exam: Automated exposure control, adjustment of the mA and/or kV according to patient size, and use of iterative reconstruction. COMPARISON: X-ray on 12/26/2023 and 11/15/2022. FINDINGS: Bones: Left total hip replacement is noted, with no prosthetic fracture, loosening, or malalignment. 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 Heterotopic ossification and soft tissue thickening adjacent to the prosthetic joint, no definite loculated fluid collection is noted. Muscles and Tendons: Normal appearance of the surrounding muscles. Soft Tissues: Mild patchy subcutaneous edema was noted. IMPRESSION: 1. Left total hip replacement is noted without complication. 2. Mild patchy subcutaneous edema was noted likely due to edema. 3. 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 (Stable in comparison with CT on 11/15/2022). Electronically signed by Shemar Cortes 01-11-2024 05:31 AM Soft Tissue Ultrasound 01/12/24 19:49 Exam(s): US SOFT TISSUE EXAM: US Abdomen Limited CLINICAL HISTORY: Reason for exam: infection; assess for fluid collection. TECHNIQUE: Real-time ultrasound of the soft tissues of the abdomen with image documentation. COMPARISON: No relevant prior studies available. FINDINGS: Soft tissues: Mild subcutaneous edema in the area of interest. No discrete drainable abscess collection is identified. IMPRESSION: Mild subcutaneous edema in the area of interest. No discrete drainable abscess collection is identified. Electronically signed by: Prabhakar Marmolejo MD 01/13/24 01:01 AM Chest X-Ray 01/15/24 09:38 XR chest 1V portable HISTORY: 63 years-old Male CHF acute shortness of breath COMPARISON: March 12, 2023 TECHNIQUE: AP view of the chest FINDINGS: Cardiac silhouette is enlarged. Pulmonary vascular congestion with interstitial coarsening. Right subclavian vascular graft. No pneumothorax. Layering pleural effusions are consolidation redemonstrated. Mildly progressed left basilar opacities. IMPRESSION: 1. Cardiomegaly with interstitial pulmonary edema, not significantly changed compared to the January 10, 2024 study. 2. Unchanged layering pleural effusions with bibasilar consolidation. ACT 112: Negative or not required by law. The above report was generated using voice recognition software. It may contain grammatical, syntax or spelling errors. Electronically signed by: Librado Munoz M.D. 01/15/2024 1:[address] 01/15/24 18:25 Exam(s): CT CHEST Without Contrast EXAM: CT Chest Without Intravenous Contrast CLINICAL HISTORY: Reason for exam: abnormal cxr. TECHNIQUE: Axial computed tomography images of the chest without intravenous contrast. CTDI is 19.5 mGy and DLP is 649.31 mGy-cm. Automated exposure control was utilized for the study. A dose lowering technique was utilized adhering to the principles of ALARA. COMPARISON: CT chest: 07/06/2023 FINDINGS: Lungs: There is mild interstitial thickening and mild ground-glass opacities suggestive of mild pulmonary edema. Pleural space: There are small to moderate bilateral pleural effusions. There is dependent bilateral lower lobe passive atelectasis. No pneumothorax. Heart: There are scattered coronary artery calcifications. No cardiomegaly. No significant pericardial effusion. Bones/joints: There is multilevel thoracic degenerative disc disease and mild upper thoracic kyphosis. No acute fracture. No dislocation. Soft tissues: Unremarkable. Vasculature: See above. Lymph nodes: Unremarkable. No enlarged lymph nodes. Kidneys and ureters: The visualized left kidney appears severely atrophic. Stomach and bowel: There is mild gaseous distention of a few loops of small bowel suggestive of possible ileus. IMPRESSION: 1. Mild interstitial thickening and ground-glass opacities suggestive of mild pulmonary edema. 2. Small to moderate bilateral pleural effusions and dependent lower lobe passive atelectasis.. 3. Mild gaseous distention of a few loops of small bowel suggestive of possible ileus. Electronically signed by: Diony Brunson MD 01/15/24 23:05 PM Discharge Instructions Given to Patient (Per Discharging Provider) Mr Rivers, [facility] Please continue with your medications as prescribed. Your gabapentin dose was decreased to 200 mg daily to help with your mental status. You are also being discharged with prednisone 5 mg daily for an additional 5 days to complete a steroid taper, as we treated your blood pressure here with steroids to help that improve. Please continue with the antibiotics prescribed for an additional 3 days after discharge. Please keep close follow up with your primary care provider and specialists after discharge. Please do not hesitate to come back to the emergency room if your symptoms worsen or return. It was a pleasure taking care of you while you were here. Total Time Total Time Spent Total Time Spent (In Minutes): 65
--- NOTE | 2024-01-22 11:21 | Nephrology Progress Note ---
Date of Service January 22, 2024 Assessment & Plan (1) ESRD on hemodialysis: (2) Weakness generalized: (3) Lethargy: (4) Multiple falls: Plan ESKD, on hemodialysis Wednesday, Wednesday, Wednesday, admitted with generalized weakness and multiple falls and failure to thrive. Clinically has been stable, waiting for discharge to rehab possibly this afternoon. Had dialysis yesterday, volume status, electrolyte acceptable. Blood pressure fairly controlled. -- Okay to discharge from nephrology standpoint, next dialysis Wednesday, can be done at outpatient unit if discharged. -- Continue on Nephrocaps, dose medications for EGFR less than 10. Admission and Anticipated Discharge Date Admission Date: January 10, 2024 Subjective Payam was seen and evaluated this morning. Reports overall feeling well, denies shortness of breath, no acute concerns. Blood pressure stable. Had dialysis yesterday. Review of Systems Review of Systems: Detailed review of system was done and pertinent positives and negatives mentioned above. Physical Exam Constitutional: WD/WN, vitals as above no acute distress Eyes: + anicteric sclerae Respiratory: no respiratory distress Auscultation: + diminished lung sounds Cardiovascular: RRR, no murmur, no edema Skin: + turgor decreased and + skin atrophy Neurologic: no focal motor deficits and not confused Psychiatric: Orientation: alert and oriented x 3 Results & Data Vital Signs (Past 12 Hours) Vital Signs Temp Pulse Resp BP Pulse Ox O2 Del Method 01/22/24 08:00 Room Air 01/22/24 07:00 36.7 C 70 20 114/67 95 Room Air 01/22/24 03:30 36.6 C 76 18 107/71 92 Room Air PG Care Time/CCT Total # of Minutes Spent Total Time Spent with Patient: Total time spent is greater than 50% in coordination of care (as documented) at patient's floor/unit and/or counseling patient: Coding Level of Care Code 39952 SUB INP/OBS CARE 1/25MIN Diagnoses ESRD on hemodialysis N18.6; Z99.2 Weakness generalized R53.1 Lethargy R53.83 Multiple falls R29.6
[2024-01-22 11:28] VITALS: BP 95/56; PULSE 97
== END 2024-01-22 12:40 | DRG 312 ==
LOC: ED 08:43 → SUATTDRO 12:09 → EDINP 12:09 → 2S 17:29